=== PATIENT | female | born 1955 | race Caucasian/White ===

== ENCOUNTER 2018-09-22 09:44 | Observation (INO) | payer BC, SELFPAY ==
[2018-09-22] VITALS (12 sets, daily range): BP systolic 108–154; BP diastolic 75–91; PULSE 80–135; RESP 18; TEMP 36.7–37.1; O2SAT 93–99; BMI 33.7; BMI 34.0
[2018-09-22] MEDS: 0.9% Normal Saline 1,000 ML 1000 ML IV (10:44)
[2018-09-22] MEDS: Ondansetron 4 MG/2 ML Vial IV ×3 (10:44→22:54)
[2018-09-22 11:06] LABS: Absolute Lymphocyte Count 2.96 X10^3/ul (0.83-4.51); Absolute Neutrophil Count 6.9 X10^3/uL (2.0-7.7); Basophil# 0.02 X10^3/uL; Basophil% 0.2 % (0-1); Eosinophil# 0.04 X10^3/uL; Eosinophils% 0.4 % (0-5); Hematocrit 49.2 % (37-47); Hemoglobin 16.6 g/dl (12.0-15.0); Lymphocyte # 2.96 X10^3/ul (4.0); Lymphocyte % 27.6 % (19-41); Mean Corp Hgb Conc 33.7 g/gl (32-36); Mean Corpuscular Hgb 29.8 pg (27.0-32.0); Mean Corpuscular Volume 88.3 fL (81-99); Mean Platelet Vol. 10.8 fl (6.2-12.0); Monocyte# 0.83 X10^3/uL; Monocyte% 7.7 % (0-10); Neutrophil # 6.86 X10^3/uL (2.7-7.7); Neutrophil % 63.8 % (47-70); Platelet Count 243 K/mm3 (150-450); RBC Distribution Width CV 13.5 % (11.6-14.6); RBC Distribution Width SD 43.6 fl (35.1-43.9); Red Blood Count 5.57 M/mm3 (4.2-5.4); White Blood Count 10.7 K/mm3 (4.4-11.0)
[2018-09-22 11:09] LABS: POSITIVE COUNT NO; POSITIVE DIFFERENTIAL NO; POSITIVE MORPHOLOGY NO
[2018-09-22 11:14] LABS: AST(SGOT) 21 U/L (15-37); Alanine Aminotransfer ALT/SGPT 20 U/L (13-56); Albumin, Serum 3.9 g/dL (3.2-5.0); Alkaline Phosphatase 99 U/L (45-117); Anion Gap 12 (5-15); BUN 33 mg/dL (7-18); BUN/Creat Ratio 20.9 RATIO (10-20); Calcium,Total 9.5 mg/dL (8.5-10.1); Chloride 96 mmol/L (98-107); Creatinine, Serum 1.58 mg/dL (0.55-1.02); EST Glomerular Filtration Rate 35 mL/min (>60); Est Glom Filt Rate - Afr Amer 43 mL/min (>60); Estimated Creatinine Clearance 31.88 ml/min; Globulin 4.1 g/dL (2.2-4.2); Glucose 123 mg/dL (74-106); Potassium 4.2 mmol/L (3.5-5.1); Sodium Level 136 mmol/L (136-145)
--- NOTE | 2018-09-22 11:33 | ED.VISSUMM ---
- ER Visit Summary Date of Service: 09/22/18 Chief Complaint: Sent from Dr. Felicia Gallegos's office because of nausea, vomiting diarrhea History of Present Illness: The patient is a 63 F who reports nausea, vomiting diarrhea with abdominal pain for 1-2 weeks. She is not had diarrhea in 3 days. She reports vomiting several times to many times a day. She gets orthostatic symptoms. She complains of dry mouth and thirst. She states her urine is very concentrated this morning and minimal urine output. She states that had an odor. She denies liver disease. She states she has not smoked in the past couple of days because of tobacco taste terrible . She has no history of hepatitis. She denies fever, chills night sweats. She denies weight gain or weight loss. She denies visual, ocular auditory symptoms. She denies chest pain or palpitations. She does claim of chronic cough and shortness of breath. She is a smoker 1/2 pack/day. positive for decreased urine output and dark urine otherwise negative. Denies myalgias arthralgias or back pain. Denies headache, anesthesia, paresthesia or motor weakness. She denies of generalized weakness. She denies problems with bleeding or bruising. She denies urticaria, angioedema or anaphylaxis. Past medical history of coronary disease/[place], type 2 diabetes, hypertension hypercholesterolemia. She reports multiple prior surgeries. Last creatinine is 0.7. Physical Examination: Vital signs remarkable for blood pressure 152/83 and heart rate of 117. Head is atraumatic normocephalic. Pupils are equal round reactive. Extraocular muscles are intact. TMs are pearly white with landmarks noted. Nares patent with no drainage. Posterior pharynx without erythema or exudate. Uvula is midline. Tongue and buccal mucosa are dry. There is no dysphonia or dysphasia. Trachea is midline. There is no stridor with auscultation of the neck. Heart is rapid and regular without murmur, gallop or rub. S1 and S2 are normal. Lungs are clear to auscultation with good movement of air bilaterally. Abdomen minimal tenderness without guarding or rebound. Bowel sounds are slightly increased. There is evidence of umbilical or inguinal hernia. There is no CVA tenderness noted. Lower extremity mild edema. There is stigmata of peripheral arterial disease. Neuro exam is nonfocal. Test Results: CBC remarkable for hemoconcentration with an H&H 16.6 and 49.2. Basic metabolic panel is marked for BUN of 33 and a creatinine of 1.58. BUN to creatinine ratio is greater than 21 consistent with prerenal azotemia patient has not urinated after a liter of normal saline. She still complains of nausea. Emergency Department Course and Treatment: IV fluids, antiemetic and appropriate blood work to assess blood sugar since she is diabetic renal function electrolytes as well as CBC. Treatment Plan: IV hydration and antiemetics Disposition: 23 observation medical surgical unit Impression: 1. Abdominal pain with nausea, vomiting diarrhea 2. Severe dehydration 3. Acute kidney injury secondary to #1 4. Hemoconcentration secondary to #1 This note was generated with [employer] dictation software. It may contain incorrect words, spelling, and punctuation that were not noted in review of the chart prior to signing ED Disposition - Plan for ED Patient: Referrals: Felicia Glalegos MD [Primary Care Provider] -
--- NOTE | 2018-09-22 11:36 | ED.DCSUM_ITS ---
- ER Visit Summary Date of Service: 09/22/18 Chief Complaint: Sent from Dr. Felicia Gallegos's office because of nausea, vomiting diarrhea History of Present Illness: The patient is a 63 F who reports nausea, vomiting diarrhea with abdominal pain for 1-2 weeks. She is not had diarrhea in 3 days. She reports vomiting several times to many times a day. She gets orthostatic symptoms. She complains of dry mouth and thirst. She states her urine is very concentrated this morning and minimal urine output. She states that had an odor. She denies liver disease. She states she has not smoked in the past couple of days because of tobacco taste terrible . She has no history of hepatitis. She denies fever, chills night sweats. She denies weight gain or weight loss. She denies visual, ocular auditory symptoms. She denies chest pain or palpitations. She does claim of chronic cough and shortness of breath. She is a smoker 1/2 pack/day. positive for decreased urine output and dark urine otherwise negative. Denies myalgias arthralgias or back pain. Denies headache, anesthesia, paresthesia or motor weakness. She denies of generalized weakness. She denies problems with bleeding or bruising. She denies urticaria, angioedema or anaphylaxis. Past medical history of coronary disease/[place], type 2 diabetes, hypertension hypercholesterolemia. She reports multiple prior surgeries. Last creatinine is 0.7. Physical Examination: Vital signs remarkable for blood pressure 152/83 and heart rate of 117. Head is atraumatic normocephalic. Pupils are equal round reactive. Extraocular muscles are intact. TMs are pearly white with landmarks noted. Nares patent with no drainage. Posterior pharynx without erythema or exudate. Uvula is midline. Tongue and buccal mucosa are dry. There is no dysphonia or dysphasia. Trachea is midline. There is no stridor with auscul tation of the neck. Heart is rapid and regular without murmur, gallop or rub. S1 and S2 are normal. Lungs are clear to auscultation with good movement of air bilaterally. Abdomen minimal tenderness without guarding or rebound. Bowel sounds are slightly increased. There is evidence of umbilical or inguinal hernia. There is no CVA tenderness noted. Lower extremity mild edema. There is stigmata of peripheral arterial disease. Neuro exam is nonfocal. Test Results: CBC remarkable for hemoconcentration with an H&H 16.6 and 49.2. Basic metabolic panel is marked for BUN of 33 and a creatinine of 1.58. BUN to creatinine ratio is greater than 21 consistent with prerenal azotemia patient has not urinated after a liter of normal saline. She still complains of nausea. Emergency Department Course and Treatment: IV fluids, antiemetic and appropriate blood work to assess blood sugar since she is diabetic renal function elect rolytes as well as CBC. Treatment Plan: IV hydration and antiemetics Disposition: 23 observation medical surgical unit Impression: 1. Abdominal pain with nausea, vomiting diarrhea 2. Severe dehydration 3. Acute kidney injury secondary to #1 4. Hemoconcentration secondary to #1 This note was generated with [employer] dictation software. It may contain incorrect words, spelling, and punctuation that were not noted in review of the chart prior to signing ED Disposition - Plan for ED Patient: Referrals: Felicia Gallegos MD [Primary Care Provider] -
[2018-09-22] MEDS: Metoclopramide 10 MG/2 ML Vial 5 MG IV (11:53)
[2018-09-22 12:04] LABS: Mucous, Urine 0 SEEN /hpf (<or=2+)
[2018-09-22 12:05] LABS: Color, Urine Yellow (Yellow); Glucose, Dipstick Normal (Normal); Ketone-Dipstick 50 mg/dl (Negative); Leukocyte Esterase-Dipstick 25 /ul (Negative); Nitrite-Dipstick Negative (Negative); Occult Blood-Urine 50 /ul (Negative); Protein-Dipstick 30 mg/dl (Negative); Urine Clarity Cloudy (Clear); Urine Urobilinogen 4 mg/dl (Normal)
[2018-09-22 12:07] LABS: Urine Bilirubin Dipstick 3 mg/dL (Negative)
--- NOTE | 2018-09-22 12:12 | PCM.HP.STD ---
Problem List (1) Intractable nausea and vomiting Status: Acute (2) Acute kidney injury Status: Acute (3) Pre-diabetes Status: Chronic (4) Coronary artery disease Status: Chronic Comment: Without prior cardiac interventions. (5) Tobacco abuse Status: Chronic (6) Hyperlipidemia Status: Chronic Qualifiers: (7) Hypertension Status: Chronic Qualifiers: History of Present Illness Date of Admission: 09/22/18 Chief Complaint: Nausea, vomiting and diarrhea. The patient is a 63 year old F with past medical history as mentioned above was sent from her PCPs office for intractable nausea and vomiting with diarrhea over the last 2 and half weeks. Her illness started around 2 weeks ago with intermittent episodes of nausea and vomiting, started all of a sudden without precipitating factors, associated with mild diarrhea with small amount of liquid stool without blood and without aggravating or relieving factors. She mentioned that those episodes comes every 3-4 days and they tend to resolve spontaneously. This time, she started to get sick again over the last several days with intractable nausea and vomiting, had a couple of times of diarrhea 2 days ago that was stopped. Denies significant abdominal pain. She denies fever or chills. She denied urinary symptoms. She denied chest pain, shortness of breath, palpitation, dizziness or lightheadedness. She had a history of CAD without prior cardiac interventions and she has been on aspirin, Plavix, metoprolol and lisinopril. She has history of hypertension and seemed to be under control with Norvasc, lisinopril and metoprolol. Recently, she was diagnosed with prediabetes and she was commended for diet control and she was not started on any diabetic medications. In the emergency department, patient was tachycardic, blood pressure slightly elevated, other vital signs were stable and she was afebrile. Her routine blood work was remarkable for hemoglobin 16.6 g/dL indicating hemoconcentration, BUN of 33 and creatinine of 1.58. Blood glucose was 123. LFT was normal. Urinalysis revealed cloudy urine, negative for nitrite, there was only 25 leukocyte esterase and pending WBC and bacteria in the urine. She is being admitted for acute kidney injury likely prerenal secondary to intractable nausea and vomiting which could be due to gastritis versus viral gastroenteritis. Past Medical History Past Medical History (Chronic Problems): Chronic Problems (Last Updated 09/22/18 @ 12:12 by Mesfin Early MD) Pre-diabetes (Chronic) Coronary artery disease (Chronic) Without prior cardiac interventions. Tobacco abuse (Chronic) Hyperlipidemia (Chronic) Hypertension (Chronic) Atherosclerotic heart disease of [place] coronary artery without angina pectoris (Chronic) Medical History: Medical History (Last Updated 09/22/18 @ 12:11 by Mesfin Early MD) Tobacco abuse (Chronic) Z72.0 Hyperlipidemia (Chronic) E78.5 Hypertension (Chronic) I10 Atherosclerotic heart disease of [place] coronary artery without angina pectoris (Chronic) I25.10 Pancreatitis K85.90 Allergies hydrochlorothiazide Adverse Reaction (Severe, Verified 09/22/18 10:35) reoccurring pancreatitis Ttxzsro-Zha-Zxh Reductase Inhibitor Adverse Reaction (Severe, Verified 09/22/18 10:35) reoccurring pancreatitis Gadolinium-MRI Contrast Medium [Gadolinium-Contrast Medium - MRI] Adverse Reaction (Verified 09/22/18 10:35) Vomiting Home Medications: Ambulatory Orders Medication Instructions Recorded Aspirin [Aspirin, Baby] 81 mg PO DAILY@0800 12/07/13 cholecalciferol (vitamin D3) 5,000 5,000 unit PO QDAY 12/25/17 unit capsule furosemide 20 mg tablet 20 mg PO QDAY PRN 12/25/17 amlodipine 10 mg tablet 10 mg PO DAILY #30 tab 04/17/18 lisinopril 40 mg tablet 40 mg PO QDAY #30 tab 04/17/18 metoprolol tartrate 25 mg tablet 25 mg PO BID #60 tab 04/17/18 clopidogrel 75 mg tablet 75 mg PO DAILY #90 tab 05/05/18 Surgical History: Surgical History (Last Reviewed 12/25/17 @ 14:54 by Sanjuanita Rand) History of bilateral salpingo-oophorectomy Z90.79, Z90.722 History of total hysterectomy Z90.710 Surgical History: hysterectomy, - - Resection of skin cancer. 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 Lives: Spouse/ Significant Other Smoking Status: Current every day smoker Tobacco Use: Cigarettes Alcohol: None Drugs: None - *Family History Maternal Family History: Family History (Last Reviewed 12/25/17 @ 14:54 by Sanjuanita Rand) Mother Lung cancer Father CAD (coronary artery disease) Hx of CABG Abdominal aortic aneurysm (AAA) Hypertension Brother CAD (coronary artery disease) Myocardial infarction Hypertension Hx of CABG History Items: Cancer - of lung cancer., Heart Disease Paternal Family History: Family History (Last Reviewed 12/25/17 @ 14:54 by Sanjuanita Rand) Mother Lung cancer Father CAD (coronary artery disease) Hx of CABG Abdominal aortic aneurysm (AAA) Hypertension Brother CAD (coronary artery disease) Myocardial infarction Hypertension Hx of CABG History Items: Cancer - Diet of throat cancer., Heart Disease Sibling Family History: Family History (Last Reviewed 12/25/17 @ 14:54 by Sanjuanita Rand) Mother Lung cancer Father CAD (coronary artery disease) Hx of CABG Abdominal aortic aneurysm (AAA) Hypertension Brother CAD (coronary artery disease) Myocardial infarction Hypertension Hx of CABG History Items: Heart Disease Review of Systems Constitutional: Reports: Anorexia. Denies: Chills, Fever, Weakness Eyes: Denies: Blurred vision, Double vision, Drainage, Redness HEENT: Denies: Difficulty Hearing, Ear Pain, Eye Pain, Nasal Congestion, Sore Throat Cardiovascular: Denies: Chest Pain, Chest Pressure, Chest Tightness, Heaviness, Light Headedness, Palpitations, Syncope Respiratory: Denies: Cough, Pleuritic Pain, Shortness of Breath, Sputum production, Wheezing Gastrointestinal: Reports: Diarrhea, Nausea, Vomiting. Denies: Abdominal Pain, Constipation, Hematochezia Genitourinary: Reports: - - Complaint of decreased urine output.. Denies: Dysuria, Frequency, Hematuria Musculoskeletal: Denies: Arm Pain, Back Pain, Foot Pain Skin: Denies: Dryness, Rash Neurological: Denies: Balance problems, Double vision, Change in Speech, Slurred speech, Confusion, Focal weakness, Incoordination, Numbness Psychiatric: Denies: Anxiety, Depression Endocrine: Denies: Change in Body Habitus, Polydipsia VTE Information - Inpt Only VTE Present on Admission: No VTE Mechan Device Prophylaxis: None VTE Pharm Prophylaxis ordered?: Yes Patient Problems: Active and Suspected Problems (Last Updated 09/22/18 @ 12:12 by Mesfin Early MD) Intractable nausea and vomiting (Acute) Acute kidney injury (Acute) - Physical Exam General: Alert, Oriented x3, Cooperative, No apparent distress HEENT: Atraumatic, PERRLA, EOMI, Normocephalic Oral: Moist Mucosa, No Gingival or Mucosal Lesions/ Ulcerations Neck: No JVD, Negative Carotid Bruits, Trachea Midline, Thyroid Normal Size and Texture Lungs: Clear to auscultation, No rhonchi, No wheeze, No rales, Diminished Cardiovascular: Regular rate, Regular Rhythm, Normal S1, Normal S2, PMI Normal, Tachycardic Abdomen: Bowel Sounds Present, Soft, Non-Distended, No Hepato-splenomegaly, Tender - Minimal epigastric tenderness, no guarding or rigidity. Extremities: No clubbing, No cyanosis, No edema Skin: No rashes, No breakdown Lymphatic: No Cervical, Supraclavicular, or Inguinal Adenopathy Neurological: Cranial nerves II-XII grossly intact, Motor Exam 5/5 strength throughout Psych/Mental Status: Normal Affect, Appropriate, Alert and oriented to time, place, person, mood and affect Vital Signs Temp Pulse Resp BP Pulse Ox 98.2 F 117 H 18 152/83 H 99 09/22/18 09:45 09/22/18 09:45 09/22/18 09:45 09/22/18 09:45 09/22/18 09:45 Oxygen Delivery Method Room Air Weight: 196 lb 13.965 oz Body Mass Index (BMI) 33.7 Laboratory Tests Past 24 Hrs 09/22/18 09/22/18 09/22/18 10:40 10:40 12:00 WBC 10.7 RBC 5.57 H Hgb 16.6 H Hct 49.2 H MCV 88.3 MCH 29.8 MCHC 33.7 RDW 13.5 RDW Differential 43.6 Plt Count 243 MPV 10.8 Immature Gran % (Auto) 0.300 Neut % (Auto) 63.8 Lymph % (Auto) 27.6 [place] % (Auto) 7.7 Eos % (Auto) 0.4 Baso % (Auto) 0.2 Absolute Neuts (auto) 6.9 Absolute Lymphs (auto) 2.96 Total Counted Not Reportable Sodium 136 Potassium 4.2 Chloride 96 L Carbon Dioxide 28.0 Anion Gap 12 BUN 33 H Creatinine 1.58 H Estim Creat Clear Calc 31.88 Est GFR (MDRD) Af Amer 43 L Est GFR (MDRD) Non-Af 35 L BUN/Creatinine Ratio 20.9 H Glucose 123 H Calcium 9.5 Total Bilirubin 0.70 AST 21 ALT 20 Alkaline Phosphatase 99 Total Protein 8.0 Albumin 3.9 Globulin 4.1 Albumin/Globulin Ratio 1.0 Urine Color Yellow Urine Clarity Cloudy Urine pH 5.0 Ur Specific [place] 1.020 Urine Protein 30 H Urine Glucose (UA) Normal Urine Ketones 50 H Urine Occult Blood 50 H Urine Nitrite Negative Urine Bilirubin 3 H Urine Urobilinogen 4 H Ur Leukocyte Esterase 25 H Urine RBC Pending Urine WBC Pending Ur Squamous Epith Cells Pending Urine Bacteria Pending Urine Mucus Pending Assessment/Plan All Active Problems (Last Updated 09/22/18 @ 12:12 by Mesfin Early MD) Intractable nausea and vomiting (Acute) Acute kidney injury (Acute) This is a 63 years old female patient presented was referred to ED from her PCPs office for intractable nausea and vomiting with diarrhea over the last couple of weeks, found to have acute kidney injury and she is being admitted for evaluation and treatment. #1 intractable nausea and vomiting/diarrhea: Unclear duration, likely due to gastritis versus viral gastroenteritis. Patient denied any recent use of antibiotics or sick contacts. Diarrhea resolved. Her LFT is normal. Abdominal examination is benign except mild epigastric tenderness. Plan: Admit to [facility] floor, telemetry monitoring, clear liquids, advance diet as tolerated, IV fluids, IV Zofran and Phenergan alternatingly, stool for C. difficile if she started having diarrhea again, stool for enteric pathogens, will check serum lipase, repeat CBC and BMP tomorrow morning. Will consider CT scan abdomen and pelvis without contrast if symptoms do not improve. #2 acute kidney injury: Prerenal secondary to dehydration and intractable nausea vomiting. Baseline kidney function is normal. Plan: IV fluids, hold Lasix and lisinopril, and Protopic chart, repeat BMP tomorrow morning. #3 CAD: Without prior cardiac interventions. She denied any chest pain or shortness of breath. Plan to continue aspirin, Plavix and metoprolol, hold lisinopril. #4 hypertension: Blood pressure minimally elevated, continue Norvasc and metoprolol, IV hydralazine as needed. #5 prediabetes: Blood sugar has been stable, never been on treatment. Plan to monitor. #6 hyperlipidemia: She is not on any statins because of allergy. #7 DVT prophylaxis: Subcu Lovenox. This note was generated with [employer] software. It may contain incorrect words, spelling, and punctuation that were not noted in checking the note before signing. Code Visit Inpatient E&M: 77262 Init Hosp L3
[2018-09-22 12:13] LABS: Fine Granular Cast- Urine 0-5 SEEN /lpf (0-5); Hyaline Cast 5-10 SEEN /lpf (0-5)
[2018-09-22 12:14] LABS: Squamous Epithelial Cells - UA 10-25 SEEN /hpf (5-10)
[2018-09-22 12:16] LABS: Bacteria 2+ /hpf (None Seen); Red Blood Cells-Urine 0-5 SEEN /hpf (0-5); White Blood Cells 0-5 SEEN /hpf (0-5)
[2018-09-22 12:51] LABS: Lipase 241 U/L (73-393)
[2018-09-22] MEDS: proMETHazine 25 MG/ML Syringe 6.25 MG IV ×2 (12:58→19:37)
[2018-09-22] MEDS: 0.9% NaCl Peripheral Flush Adult/Peds IV ×2 (12:58→16:51)
[2018-09-22] MEDS: 0.9% Normal Saline 1,000 ML 125 ML IV ×2 (12:58→20:47)
[2018-09-22] MEDS: Metoprolol Tartrate 25 MG Tablet PO (16:50)
[2018-09-22] MEDS: Heparin Injection (Vial) 5,000 UNIT/ML VIAL 5000 UNIT SC (20:48)
[2018-09-23] MEDS: proMETHazine 25 MG/ML Syringe 12.5 MG IV ×2 (01:38→09:25)
[2018-09-23 02:07] VITALS: BP 156/80; PULSE 71; RESP 18; TEMP 37.1; O2SAT 97
[2018-09-23 03:06] VITALS: PULSE 74
[2018-09-23] MEDS: 0.9% Normal Saline 1,000 ML 125 ML IV (05:07)
[2018-09-23] MEDS: Heparin Injection (Vial) 5,000 UNIT/ML VIAL 5000 UNIT SC (05:16)
[2018-09-23] MEDS: Ondansetron 4 MG/2 ML Vial IV (05:20)
[2018-09-23 06:30] LABS: Basophil# 0.01 X10^3/uL; Basophil% 0.1 % (0-1); Eosinophil# 0.09 X10^3/uL; Eosinophils% 1.2 % (0-5); Hematocrit 45.1 % (37-47); Hemoglobin 14.9 g/dl (12.0-15.0); Lymphocyte % 34.2 % (19-41); Mean Corpuscular Hgb 29.4 pg (27.0-32.0); Mean Corpuscular Volume 89.1 fL (81-99); Mean Platelet Vol. 10.5 fl (6.2-12.0); Monocyte# 0.67 X10^3/uL; Monocyte% 9.2 % (0-10); Neutrophil # 4.01 X10^3/uL (2.7-7.7); Platelet Count 199 K/mm3 (150-450); RBC Distribution Width CV 13.4 % (11.6-14.6); RBC Distribution Width SD 43.5 fl (35.1-43.9); Red Blood Count 5.06 M/mm3 (4.2-5.4); White Blood Count 7.3 K/mm3 (4.4-11.0)
[2018-09-23 06:49] LABS: POSITIVE COUNT NO; POSITIVE DIFFERENTIAL NO; POSITIVE MORPHOLOGY NO
[2018-09-23 06:54] LABS: BUN 22 mg/dL (7-18); Creatinine, Serum 0.94 mg/dL (0.55-1.02); Estimated Creatinine Clearance 53.58 ml/min; Glucose 128 mg/dL (74-106)
[2018-09-23 06:55] LABS: Anion Gap 9 (5-15); BUN/Creat Ratio 23.3 RATIO (10-20); Calcium,Total 8.3 mg/dL (8.5-10.1); Chloride 104 mmol/L (98-107); EST Glomerular Filtration Rate 64 mL/min (>60); Est Glom Filt Rate - Afr Amer 77 mL/min (>60); Potassium 3.4 mmol/L (3.5-5.1); Sodium Level 139 mmol/L (136-145)
[2018-09-23 07:41] VITALS: O2SAT 95
[2018-09-23 09:16] VITALS: BP 129/81; PULSE 80; RESP 20; TEMP 36.8; O2SAT 94
[2018-09-23 09:24] VITALS: PULSE 80
[2018-09-23] MEDS: Aspirin 81 MG TAB.CHEW PO (09:24)
[2018-09-23] MEDS: Clopidogrel Bisulfate 75 MG Tablet PO (09:24)
[2018-09-23] MEDS: Metoprolol Tartrate 25 MG Tablet PO (09:24)
[2018-09-23] MEDS: amLODIPine 10 MG Tablet PO (09:24)
[2018-09-23] MEDS: 0.9% NaCl Peripheral Flush Adult/Peds IV (09:25)
--- NOTE | 2018-09-23 12:54 | PCM.DC ---
- Discharge Diagnoses Current Active Problems: Current Active and Chronic Problems (Last Updated 09/22/18 @ 12:12 by Mesfin Early MD) Intractable nausea and vomiting (Acute) Acute kidney injury (Acute) Pre-diabetes (Chronic) Coronary artery disease (Chronic) Without prior cardiac interventions. You will use the following diet at home:: Cardiac Your food should be the consistency of: Regular Discharge Activity: Return to Normal Activity Weight Bearing Status: Weight bearing as tolerated Call your doctor if you observe: Fever of 101 or Higher, Shortness of breath, Dizziness, Fainting spells, Chest pain, Increased palpitations (irregular heartbeat), Uncontrolled pain Allergies/Adverse Reactions: Allergies hydrochlorothiazide Adverse Reaction (Severe, Verified 09/22/18 10:35) reoccurring pancreatitis [id number] Reductase Inhibitor Adverse Reaction (Severe, Verified 09/22/18 10:35) reoccurring pancreatitis Gadolinium-MRI Contrast Medium [Gadolinium-Contrast Medium - MRI] Adverse Reaction (Verified 09/22/18 10:35) Vomiting Medications to take at Discharge Aspirin [Aspirin, Baby] 81 mg PO DAILY@0800 12/07/13 cholecalciferol (vitamin D3) 5,000 unit capsule 5,000 unit PO QDAY 12/25/17 furosemide 20 mg tablet 20 mg PO QDAY PRN 12/25/17 amlodipine 10 mg tablet 10 mg PO DAILY #30 tab 04/17/18 lisinopril 40 mg tablet 40 mg PO QDAY #30 tab 04/17/18 metoprolol tartrate 25 mg tablet 25 mg PO BID #60 tab 04/17/18 clopidogrel 75 mg tablet 75 mg PO DAILY #90 tab 05/05/18 Pantoprazole Sodium [Protonix] 40 mg PO DAILY #30 tab 09/23/18 proMETHazine tablet [Phenergan tablet] 25 mg PO Q8H PRN PRN #14 tab 09/23/18 The following prescriptions were given: proMETHazine tablet [Phenergan tablet] 25 mg PO Q8H PRN PRN #14 tab PRN Reason: Nausea/Vomiting Pantoprazole Sodium [Protonix] 40 mg PO DAILY #30 tab Primary Care Physician: Felicia Gallegos MD [Primary Care Provider] - Please follow up with your Primary Care Physician in: 1 WEEK. Test Results: Test results from this visit will be discussed in further detail at your follow-up appointment, if applicable.
--- NOTE | 2018-09-23 15:01 | DS.PCM_ITS ---
Discharge Date and Diagnosis Date of Admission: 09/22/18 Date of Discharge: 09/23/18 - Primary Discharge Diagnosis Active and Suspected Problems (Last Updated 09/22/18 @ 12:12 by Mesfin Early MD) #1 intractable nausea and vomiting (Acute) #2 acute kidney injury (Acute) - Secondary Discharge Diagnosis Chronic Problems (Last Updated 09/22/18 @ 12:12 by Mesfin Early MD) Pre-diabetes (Chronic) Coronary artery disease (Chronic) Without prior cardiac interventions. Tobacco abuse (Chronic) Hyperlipidemia (Chronic) Hypertension (Chronic) Atherosclerotic heart disease of [place] coronary artery without angina pectoris (Chronic) Hospital Course and Treatment Operations: None Procedures: None Summary of Care Provided: Patient seen and examined on the day of discharge and appeared to be stable to be discharged home. She denied any more nausea vomiting, feeling better. She tolerated regular diet. Her vital signs are stable. The patient is a 63 year old F presented to the emergency room because of intractable nausea and vomiting with diarrhea that has been going on for more than 2 weeks. She was sent to ED by her PCP office for evaluation and treatment. Patient mentioned that she was admitted a few months ago for the same complaint and she received IV treatment and she improved. Before this admission, she denied any sick contacts or recent travel and she denied recent use of antibiotics. She had a couple of times of diarrhea 2 days before the admission. Her routine blood work was remarkable for hemoconcentration with hemoglobin of 16.6 upon admission and creatinine of 1.58 and BUN of 33. This is attributed to severe dehydration secondary to intractable nausea and vomiting with diarrhea. Her acute illness could be due to viral gastroenteritis versus gastritis. LFT and lipase were normal. Stool for C. difficile was negative. She was treated with IV fluids, IV antiemetics and IV Protonix. Her symptoms improved very quickly which was not expected. Her abdominal examination was benign and there was no evidence of tenderness, guarding or rigidity. Patient discharged home in a stable medical condition, discharged on Protonix daily 40 mg, discharged on Phenergan as needed for nausea vomiting, continued on her chronic home medications without any changes, recommended follow-up PCP in 1 we ek and patient may need referral to GI as outpatient if her symptoms recur. - Physical Exam General: Alert, Oriented x3, Cooperative, No apparent distress HEENT: Atraumatic, PERRLA, EOMI, Normocephalic Oral: Moist Mucosa, No Gingival or Mucosal Lesions/ Ulcerations Neck: Supple, No JVD, Negative Carotid Bruits, Trachea Midline, Thyroid Normal Size and Texture Lungs: Clear to auscultation, No rhonchi, No wheeze, No rales, Diminished Cardiovascular: Regular rate, Regular Rhythm, Normal S1, Normal S2, PMI Normal Abdomen: Bowel Sounds Present, Soft, Non Tender, Non-Distended, No Hepato-splenomegaly, Obese Extremities: No clubbing, No cyanosis, No edema Skin: No rashes, No breakdown Lymphatic: No Cervical, Supraclavicular, or Inguinal Adenopathy Neurological: Cranial nerves II-XII grossly intact, Neuro grossly intact Psych/Mental Status: Normal Affect, Appropriate Vital Signs Temp Pulse Resp BP Pulse Ox 98.3 F 80 20 H 129/81 H 94 09/23/18 09:16 09/23/18 09:24 09/23/18 09:16 09/23/18 09:16 09/23/18 09:16 Oxygen Delivery Method Room Air Weight: 198 lb Body Mass Index (BMI) 34.0 Intake and Output for Last 24 Hours 09/21/18 09/22/18 09/23/18 23:59 23:59 23:59 Intake Total 1422 / 1422 818 / 818 Output Total 300 / 300 400 / 400 Balance 1122 / 1122 418 / 418 Microbiology Past 72 Hours 09/22/18 14:50 C. difficile DNA Amplification - Final Stool Laboratory Tests Past 24 Hrs 09/23/18 09/23/18 06:05 06:05 WBC 7.3 RBC 5.06 Hgb 14.9 Hct 45.1 MCV 89.1 MCH 29.4 MCHC 33.0 RDW 13.4 RDW Differential 43.5 Plt Count 199 MPV 10.5 Immature Gran % (Auto) 0.300 Neut % (Auto) 55.0 Lymph % (Auto) 34.2 [place] % (Auto) 9.2 Eos % (Auto) 1.2 Baso % (Auto) 0.1 Absolute Neuts (auto) 4.0 Absolute Lymphs (auto) 2.50 Total Counted Not Reportable Sodium 139 Potassium 3.4 L Chloride 104 Carbon Dioxide 26.0 Anion Gap 9 BUN 22 H Creatinine 0.94 Estim Creat Clear Calc 53.58 Est GFR (MDRD) Af Amer 77 Est GFR (MDRD) Non-Af 64 BUN/Creatinine Ratio 23.3 H Glucose 128 H Calcium 8.3 L Discharge Activity: Return to Normal Activity Weight Bearing Status: Weight bearing as tolerated Call your doctor if you observe: Fever of 101 or Higher, Shortness of breath, Dizziness, Fainting spells, Chest pain, Increased palpitations (irregular heartbeat), Uncontrolled pain Home Medications: Medications to take at Discharge Aspirin [Aspirin, Baby] 81 mg PO DAILY@0800 12/07/13 cholecalciferol (vitamin D3) 5,000 unit capsule 5,000 unit PO QDAY 12/25/17 furosemide 20 mg tablet 20 mg PO QDAY PRN 12/25/17 amlodipine 10 mg tablet 10 mg PO DAILY #30 tab 04/17/18 lisinopril 40 mg tablet 40 mg PO QDAY #30 tab 04/17/18 metoprolol tartrate 25 mg tablet 25 mg PO BID #60 tab 04/17/18 clopidogrel 75 mg tablet 75 mg PO DAILY #90 tab 05/05/18 Pantoprazole Sodium [Protonix] 40 mg PO DAILY #30 tab 09/23/18 proMETHazine tablet [Phenergan tablet] 25 mg PO Q8H PRN PRN #14 tab 09/23/18 Following Prescrptions Were Given to Patient: proMETHazine tablet [Phenergan tablet] 25 mg PO Q8H PRN PRN #14 tab PRN Reason: Nausea/Vomiting Pantoprazole Sodium [Protonix] 40 mg PO DAILY #30 tab Primary Care Physician: Felicia Gallegos MD [Primary Care Provider] - Please follow up with your Primary Care Physician in: 1 WEEK. Disposition: Home Minutes spent on discharge:: 26 Patient Condition:: Stable Medical Necessity - Tobacco Use Smoking Status: Current every day smoker Tobacco Use: Cigarettes Meaningful Use Info Meaningful Use Diagnoses (Choose all that apply): None applicable Code Visit OBSV E&M: 45002 Observation care discharge
== END 2018-09-23 14:50 | disposition home or self-care (01) ==
LOC: ED 10:58 → MS3 12:08
PROVIDERS: Admitting Provider Hospitalist; Emergency Provider Emergency Medicine; Family Provider Family Medicine; PCP Family Medicine; Visit Provider Hospitalist
DX: R11.2 Nausea with vomiting, unspecified (principal); E86.0 Dehydration; N17.9 Acute kidney failure, unspecified; R19.7 Diarrhea, unspecified; I25.2 Old myocardial infarction; I10 Essential (primary) hypertension; R10.9 Unspecified abdominal pain; R06.02 Shortness of breath; R73.03 Prediabetes; E78.5 Hyperlipidemia, unspecified; I25.10 Atherosclerotic heart disease of native coronary artery without angina pectoris; Z79.899 Other long term (current) drug therapy; Z79.82 Long term (current) use of aspirin; Z79.02 Long term (current) use of antithrombotics/antiplatelets; F17.210 Nicotine dependence, cigarettes, uncomplicated
CPT/HCPCS: 36415; 80048; 80053; 81001; 83690; 85025; 87493; 96361; 96365; 96366; 96372; 96375; 96376; 99218; 99282; 99406; J7030; A4216; G0378; J2405

== ENCOUNTER → 2018-09-30 09:15 | Outpatient (CLI) | payer BC, SELFPAY ==
[2018-09-22 12:19] VITALS: BMI 34.0
--- NOTE | 2018-09-30 09:39 | US_ITS ---
STUDY: ABDOMINAL ULTRASOUND - RIGHT UPPER QUADRANT REASON FOR VISIT: Female, 63 years old. Right upper quadrant pain. TECHNIQUE: Ultrasound evaluation of the right upper quadrant was performed with real-time and static davila-scale imaging. TECHNICAL QUALITY: Adequate. COMPARISON: None. FINDINGS: Liver: The liver measures 15.8 cm. There is increased echogenicity consistent with fatty infiltration. The bile ducts are within normal limits. There is hepatic color flow. The direction of portal flow is hepatopetal. There is no demonstrated mass lesion. Gallbladder: Normal distended gallbladder. The gallbladder wall measures 2 mm. There is a negative sonographic Cavazos's sign. There is no pericholecystic fluid. There are no gallstones. Common Bile Duct (C.B.D.): The common bile duct measures 6 mm. Pancreas: Normal size of the head, body and tail of the pancreas. There is normal echogenicity of the pancreas. There is no demonstrated pancreatic mass or cyst. Right Kidney: Normal size of the right kidney. The right kidney measures 10.7 cm. Normal renal cortex. There is no demonstrated renal mass or cyst. There is no right hydronephrosis. US/Abdomen Limited IMPRESSION: Fatty liver. Otherwise, unremarkable right upper quadrant ultrasound. Electronically Signed: Leopoldo Walsh, at 16:53 EST Tel , Service support ,
== END ==
LOC: US 09:17
PROVIDERS: Family Provider Family Medicine; PCP Family Medicine; Referring Provider Family Medicine; Visit Provider Family Medicine
DX: K76.0 Fatty (change of) liver, not elsewhere classified (principal); R10.11 Right upper quadrant pain
CPT/HCPCS: 76705

== ENCOUNTER → 2019-02-11 07:35 | Outpatient (CLI) | payer BC, SELFPAY ==
[2019-01-19 13:05] VITALS: BMI 33.7
[2019-02-11 09:04] LABS: AST(SGOT) 15 U/L (15-37); Alanine Aminotransfer ALT/SGPT 16 U/L (13-56); Albumin, Serum 3.8 g/dL (3.2-5.0); Alkaline Phosphatase 104 U/L (45-117); Bilirubin, Direct 0.09 mg/dL (0.00-0.30); Cholesterol 217 mg/dL (200); Globulin 3.9 g/dL (2.2-4.2); High Density Lipoprotein 45 mg/dL; Protein, Total 7.7 g/dL (6.4-8.2); Triglycerides 139 mg/dL; Very Low Density Lipoprotein 28 mg/dL (5-40)
== END ==
PROVIDERS: Family Provider Family Medicine; PCP Family Medicine; Referring Provider Internal Medicine Cardiovascular Disease; Visit Provider Internal Medicine Cardiovascular Disease
DX: E87.5 Hyperkalemia (principal)
CPT/HCPCS: 36415; 80061; 80076

== ENCOUNTER → 2020-04-25 11:04 | Outpatient (CLI) | payer BC, SELFPAY ==
[2020-04-20 09:58] VITALS: BMI 33.0
[2020-04-25 13:01] LABS: AST(SGOT) 15 U/L (15-37); Alanine Aminotransfer ALT/SGPT 15 U/L (13-56); Albumin, Serum 3.6 g/dL (3.2-5.0); Alkaline Phosphatase 110 U/L (45-117); Bilirubin, Direct 0.09 mg/dL (0.00-0.30); Cholesterol 174 mg/dL (200); Globulin 3.9 g/dL (2.2-4.2); High Density Lipoprotein 53 mg/dL; Protein, Total 7.5 g/dL (6.4-8.2); Triglycerides 103 mg/dL; Very Low Density Lipoprotein 21 mg/dL (5-40)
== END ==
PROVIDERS: PCP Family Medicine; Referring Provider Internal Medicine Cardiovascular Disease; Visit Provider Internal Medicine Cardiovascular Disease
DX: E78.00 Pure hypercholesterolemia, unspecified (principal)
CPT/HCPCS: 36415; 80061; 80076

== ENCOUNTER 2021-02-19 04:37 | Observation (INO) | payer BC, SELFPAY ==
[2020-04-20 09:58] VITALS: BMI 33.0
[2021-02-19] VITALS (12 sets, daily range): BP systolic 130–177; BP diastolic 72–100; PULSE 61–87; RESP 14–18; TEMP 35.9–37.1; O2SAT 92–99; BMI 30.2
--- NOTE | 2021-02-19 04:38 | RAD_ITS ---
HISTORY: dizziness EXAMINATION/TECHNIQUE: XR Chest 1 View AP view COMPARISON: None FINDINGS: LINES/DEVICES: environmental monitoring specialist leads. LUNGS: No overt pulmonary edema. No focal airspace consolidation. No sizable pleural effusion. No pneumothorax detected. MEDIASTINUM AND CARDIOVASCULAR STRUCTURES: Heart size within normal limits for imaging technique. Atherosclerotic calcifications along the aorta. BONES AND SOFT TISSUES: Skeletal degenerative changes. RAD/Chest 1 View (Portable) IMPRESSION: No radiographic evidence of acute cardiopulmonary disease. at 0658 Reported and signed by: Ayden Joseph MD Electronically Signed: Ayden Joseph MD at 6:56 EDT Tel , Service support ,
--- NOTE | 2021-02-19 04:38 | CT_ITS ---
HISTORY: dizziness EXAMINATION: CT Head or Brain W/O Contrast Injection TECHNIQUE: Multiple axial images were obtained of the brain without intravenous contrast. A radiation dose optimization technique was used for this scan. IV Contrast dosage and agent: None. COMPARISON: None FINDINGS: BRAIN PARENCHYMA: No intra- or extra-axial hemorrhage. No evidence of acute major territorial infarct. No intracranial mass or mass effect. Small chronic right caudate lacunar infarct. There is mild hypoattenuation of the deep cerebral white matter. Mild cerebral involutional changes are noted. CSF SPACES: Prominent cerebral sulci secondary to involutional changes. No hydrocephalus. Basal cisterns are patent. Intracranial atherosclerotic calcifications. CALVARIUM, SKULL BASE, PARANASAL SINUSES AND MASTOID AIR CELLS: Intact calvarium. Mild sinus mucosal thickening. Mastoid air cells are well pneumatized. ORBITS: No acute findings. ASPECTS Score for Acute Strokes: Not applicable. CT/Brain/Head without Contrast IMPRESSION: Mild cerebral atrophy and chronic small vessel ischemic changes. No evidence of acute intracranial process. Individualized dose optimization techniques were used for this CT. at 0737 Reported and signed by: Ayden Joseph MD Electronically Signed: Ayden Joseph MD at 7:36 EDT Tel , Service support ,
--- NOTE | 2021-02-19 04:38 | EKG12_ITS ---
Test Reason : VOMITTING Blood Pressure : / mmHG Vent. Rate : 065 BPM Atrial Rate : 065 BPM P-R Int : 180 ms QRS Dur : 066 ms QT Int : 428 ms P-R-T Axes : 056 023 049 degrees QTc Int : 445 ms Normal sinus rhythm Low voltage QRS Septal infarct , age undetermined Abnormal ECG Confirmed by ANTONIETA PAULA, DMITRIY ([id number]), staff editor FABIEN SOLIS ([id number]) on 02/20/2021 2:27:32 PM Referred By: SHARMILA Confirmed By:DMITRIY FUNG MD
[2021-02-19] MEDS: 0.9% Normal Saline 1,000 ML 1000 ML IV (04:40)
[2021-02-19] MEDS: Ondansetron 4 MG/2 ML Vial IV ×3 (04:40→10:44)
--- NOTE | 2021-02-19 04:40 | EDS_ITS ---
HPI History of Present Illness Chief Complaint: Nausea/Vomiting Detail of Chief Complaint: Dizziness Informant: patient and spouse/S.O. Onset/Context/Timing Onset: Today and Hours Context: Sudden Onset Timing: Continuous Current Severity: Moderate Maximum Severity: Moderate Narrative Narrative: 65-year-old female history of diabetes, prior AK with cardiac cath 2013. She denies any stents. States that she awoke acutely several hours ago with room spinning dizziness nausea and vomiting. She denies any headache. She denies any chest pain. She states she has had episodes like this before but is never been evaluated for them. She denies any falls or head trauma. She denies any chest pain or shortness of breath. No recent fever. No recent illness or hospitalization. Significant other is in the room and collaborates her story. Prior similar symptoms: Yes Recent Illness/Hospitalization: No [facility] Medical History (Updated 02/19/21 @ 05:[address] Arnoldo Rhoades MD) Atherosclerotic heart disease of [place] coronary artery without angina pectoris Essential hypertension Hyperlipidemia Hypertension Pancreatitis Tobacco abuse Home Medications aspirin 81 mg PO DAILY@0800 12/07/13 [History Last Taken Unknown] amlodipine 10 mg tablet 10 mg PO DAILY #90 tab 04/20/20 [Rx Last Taken Unknown] clopidogrel 75 mg tablet 75 mg PO DAILY #90 tab 04/20/20 [Rx Last Taken Unknown] lisinopril 40 mg tablet 40 mg PO DAILY #90 tab 04/20/20 [Rx Last Taken Unknown] metoprolol tartrate 25 mg tablet 12.5 mg PO BID #90 tab 12/29/20 [Rx Last Taken Unknown] meclizine 25 mg PO TID PRN #20 tab 02/19/21 [Rx Last Taken Unknown] ondansetron 4 mg PO Q6H PRN #10 tab 02/19/21 [Rx Last Taken Unknown] Allergy/AdvReac Type Severity Reaction Status Date / Time hydrochlorothiazide AdvReac Severe reoccurring Verified 04/20/20 09:58 pancreatitis Yfkqoah-Cpe-Ref Reductase AdvReac Severe reoccurring Verified 04/20/20 09:58 Inhibitor pancreatitis Gadolinium-MRI Contrast AdvReac Vomiting Verified 04/20/20 09:58 Medium [Gadolinium-Contrast Medium - MRI] Family History Mother Lung cancer Father CAD (coronary artery disease) Hx of CABG Abdominal aortic aneurysm (AAA) Hypertension Brother CAD (coronary artery disease) Myocardial infarction Hypertension Hx of CABG Surgical History History of bilateral salpingo-oophorectomy History of total hysterectomy Social History Smoking Status: Current every day smoker tobacco type: cigarettes alcohol intake: never substance use type: does not use ROS ROS ED ROS Narrative Denies recent illness. Complaining acutely of room spinning dizziness, nausea and vomiting. Review of Systems ROS Unobtainable: Denies due to encephalopathy Constitutional Constitutional ED: Denies chills or fever(s) Eyes Eyes: Denies change in vision ENT ENT ED: Denies ear pain or sore throat Cardiovascular Cardiovascular: Denies chest pain Respiratory/Chest Respiratory/Chest: Denies cough or dyspnea Gastrointestinal Gastrointestinal: Reports nausea and vomiting; Denies abdominal pain, constipation or melena Genitourinary Genitourinary ED: Denies dysuria Musculoskeletal Musculoskeletal: Denies myalgias Integumentary Denies rash Neurologic Neurologic: Denies headache(s) Psychiatric Psychiatric: Denies depression Endocrine Endocrinology: Denies polyuria Allergic/Immunologic Allergic/Immunologic ED: Denies urticaria EXAM Physical Exam Narrative Exam Narrative: Older female actively vomiting. Sitting in a wheelchair that were moving her into a bed. H EENT exam unremarkable. Pupils round reactive light. No facial droop. Normal speech. No signs of trauma. Neck nontender no meningismus. Lungs clear to auscultation bilaterally. Heart regular rhythm no murmur. Chest wall nontender. Abdomen soft nontender nondistended. Normal bowel sounds no peritoneal sign. No reproducible tenderness. Extremities moves all four. Calves are nontender without edema. Neurologically she is awake and alert. She is speaking without difficulty. No facial droop. Equal symmetrical 5 out of 5 ground crewman aircraft support strength. Dorsi plantar flexion intact. Const Vital Signs: 02/19/21 04:38 02/19/21 04:39 02/19/21 06:38 Temperature 97.1 F L Temperature Source Temporal Pulse Rate 64 72 61 Respiratory Rate 14 16 16 Blood Pressure 143/90 H 152/91 H 145/72 H Blood Pressure Mean 107 111 96 Pulse Ox 92 92 92 Oxygen Delivery Method Room Air Room Air Nasal Cannula Oxygen Flow Rate (L/min) 2 Positive well nourished, well developed and obese General Appearance ED: well developed and diaphoretic; Negative for cyanotic Nutritional Appearance: obese HEENT Reports moist mucous membranes Negative for trauma or tenderness Eyes PERRL and EOMs intact bilaterally Neck no lymphadenopathy, supple and no JVD General: Negative for tenderness Chest Wall inspection of chest normal and palpation of chest normal Resp normal respiratory effort and clear to auscultation bilaterally Cardio regular rate, regular rhythm, S1 normal heart sound, S2 normal heart sound and no murmurs GI normal to inspection, nondistended, normoactive bowel sounds, non-tender, non- distended and no masses Inspection: Negative for abdominal distention Auscultation: normoactive bowel sounds Palpation: soft; Negative for tender, guarding or rebound tenderness present Back/Spine no CVA tenderness Extremity normal to inspection General Extremety ED: Negative for edema or tenderness General Extremity: Negative for edema Neuro oriented x3 and CN's II-XII intact bilaterally Neuro Narrative: NIH score is zero. Sensorium / Orientation: alert; Negative for lethargic or stuporous Motor Exam: strength 5/5 throughout Psych mental status grossly normal Skin no rashes or lesions noted and no wounds MDM MDM MDM Narrative Medical decision making narrative: Older female presents with acute nausea and vomiting with room spinning dizziness. Clinically this sounds like it is vertigo. She will receive IV fluids and IV Zofran. Once her nausea improves to receive p.o. Valium. We will do a CAT scan and screening labs. I do not think at this time this is cardiac in etiology. Clinically she has no signs of an acute stroke with any type of he had a lateral wall weakness. Repeat exam at 5 AM patient was still having nausea and vomiting was given a second dose of Zofran. She has been unable to take anything by mouth as of this time. Initial labs are unremarkable. Patient was treated with 2 doses of Zofran and then a dose of Reglan for nausea. Nausea greatly improved she is able to hold down p.o. Valium. On repeat exam at 6:50 AM she is improving. She is tired from the medication and the p.o. Valium. But is improving. Both tympanic membranes are normal. We are awaiting her CAT scan to be done. Clinically I think this is vertigo. Both by exam and history. She is improving. Patient to be checked out to the morning physician. To check the CAT scan results. I have written home-going instructions for vertigo and a prescription for Zofran and Antivert to go to her pharmacy. All this will be discussed with the patient and her family at bedside. I reviewed her CAT scan of the brain without contrast no obvious gross abnormality. No bleed. Awaiting formal radiology interpretation. Lab Data Attestation: I reviewed the patient's lab results. Lab results narrative: CBC shows a white count 13.4 hemoglobin of 15. Electrolytes unremarkable gap of 7 normal creatinine. Liver enzymes unremarkable and lipase normal at 212. Glucose of 195. Labs: Laboratory Results - last 24 hr 02/19/21 02/19/21 02/19/21 04:43 04:43 04:49 WBC 13.4 H RBC 5.13 Hgb 15.6 H Hct 47.6 H MCV 92.8 MCH 30.4 MCHC 32.8 RDW Std Deviation 45.6 H RDW Coeff of [place] 13.3 Plt Count 252 MPV 10.6 Immature Gran % (Auto) 0.400 Neut % (Auto) 39.9 L Lymph % (Auto) 51.1 H [place] % (Auto) 5.8 Eos % (Auto) 2.4 Baso % (Auto) 0.4 Absolute Neuts (auto) 5.3 Absolute Lymphs (auto) 6.82 H Nucleated RBC % 0 Sodium 139 Potassium 3.7 Chloride 104 Carbon Dioxide 28.0 Anion Gap 7 BUN 16 Creatinine 0.92 Estim Creat Clear Calc 53.35 Est GFR (MDRD) Af Amer 79 Est GFR (MDRD) Non-Af 65 BUN/Creatinine Ratio 17.4 Glucose 195 H Calcium 9.4 Total Bilirubin 0.30 AST 14 L ALT 12 L Alkaline Phosphatase 99 Total Protein 8.0 Albumin 4.1 Globulin 3.9 Albumin/Globulin Ratio 1.1 Lipase 212 POC Glucose 188 H Radiography Chest X-Ray - ED: 1 View, Read by ED Physician, Heart, Lungs, Mediastinum, Bony Structures and No Acute Disease Diagnostic Testing: Radiology Impression Chest X-Ray 02/19/21 04:38 IMPRESSION: No radiographic evidence of acute cardiopulmonary disease. at 0658 Reported and signed by: Ayden Joseph MD Electronically Signed: Ayden Joseph MD at 6:56 EDT Tel , Service support , Portable 1 view chest x-ray interpreted by myself shows no acute abnormality. Normal cardiac silhouette mediastinum. No infiltrate. Rhythm Strip Rhythm Strip: Sinus Rhythm Rate: 65 Ectopy: None EKG Initial EKG: Attestation: I personally reviewed and interpreted this EKG as follows: Interpretation: Sinus Rhythm and No Acute Injury Pattern Comments: Normal sinus rhythm rate of 65 no acute signs of AK or ischemia. No obvious dysrhythmia. Prior EKG tracings: not available for review Discharge Plan Triage Chief Complaint: Nausea/Vomiting ED Provider: Arnoldo Rhoades Dx/Rx/DC Orders Clinical Impression: Vertigo, Intractable nausea and vomiting Instructions: ED Vertigo, Unspecified, ED Vomiting (Adult) Prescriptions: New meclizine 25 mg tablet 25 mg PO TID PRN (Reason: dizziness) Qty: 20 RF: 0 ondansetron 4 mg tablet,disintegrating 4 mg PO Q6H PRN (Reason: nausea and vomiting) Qty: 10 RF: 0 No Action clopidogrel 75 mg tablet 75 mg PO DAILY Qty: 90 RF: 4 amlodipine 10 mg tablet 10 mg PO DAILY Qty: 90 RF: 4 lisinopril 40 mg tablet 40 mg PO DAILY Qty: 90 RF: 4 aspirin 81 MG tablet,chewable 81 mg PO DAILY@0800 RF: 0 metoprolol tartrate 25 mg tablet 12.5 mg PO BID Qty: 90 RF: 3 Primary Care Provider: Felicia Gallegos Referrals: Felicia Gallegos MD [Primary Care Provider] - 1-2 Days if not improving Activity Restrictions/Additional Instructions: Plenty of fluids and rest. Increase diet slowly as tolerated. Zofran as needed for nausea. Antivert as needed for the dizziness. Follow-up with your doctor if not improving. Return emergency department if feeling worse. Disposition Disposition: Home, Self Care
[2021-02-19 04:53] LABS: Absolute Lymphocyte Count 6.82 X10^3/uL (0.83-4.51); Absolute Neutrophil Count 5.3 X10^3/uL (2.0-7.7); Basophil# 0.06 X10^3/uL; Basophil% 0.4 % (0-1); Differential Indicated SCAN CRITERIA MET; Eosinophil# 0.32 X10^3/uL; Eosinophils% 2.4 % (0-5); Hematocrit 47.6 % (37-47); Hemoglobin 15.6 g/dL (12.0-15.0); Lymphocyte # 6.82 X10^3/ul (0.83-4.51); Lymphocyte % 51.1 % (19-41); Mean Corp Hgb Conc 32.8 g/dL (32-36); Mean Corpuscular Hgb 30.4 pg (27.0-32.0); Mean Corpuscular Volume 92.8 fL (81-99); Mean Platelet Vol. 10.6 fl (6.2-12.0); Monocyte# 0.77 X10^3/uL; Monocyte% 5.8 % (0-10); NRBC Flagged by Analyzer 0 % (0-5); Neutrophil # 5.33 X10^3/uL (2.7-7.7); Neutrophil % 39.9 % (47-70); POSITIVE DIFFERENTIAL YES; POSITIVE MORPHOLOGY YES; Platelet Count 252 K/mm3 (150-450); RBC Distribution Width CV 13.3 % (11.6-14.6); RBC Distribution Width SD 45.6 fl (35.1-43.9); Red Blood Count 5.13 M/mm3 (4.2-5.4); White Blood Count 13.4 K/mm3 (4.4-11.0)
[2021-02-19 04:55] LABS: Bedside Glucose 188 mg/dL (70-110)
[2021-02-19 05:06] LABS: ALB/GLOB Ratio 1.1 RATIO (0.9-2.4); AST(SGOT) 14 U/L (15-37); Alanine Aminotransfer ALT/SGPT 12 U/L (13-56); Albumin, Serum 4.1 g/dL (3.2-5.0); Alkaline Phosphatase 99 U/L (45-117); Anion Gap 7 (5-15); BUN 16 mg/dL (7-18); BUN/Creat Ratio 17.4 RATIO (10-20); Calcium,Total 9.4 mg/dL (8.5-10.1); Chloride 104 mmol/L (98-107); Creatinine, Serum 0.92 mg/dL (0.55-1.02); EST Glomerular Filtration Rate 65 mL/min (>60); Est Glom Filt Rate - Afr Amer 79 mL/min (>60); Estimated Creatinine Clearance 53.35 ml/min; Globulin 3.9 g/dL (2.2-4.2); Glucose 195 mg/dL (74-106); Lipase 212 U/L (73-393); Potassium 3.7 mmol/L (3.5-5.1); Sodium Level 139 mmol/L (136-145)
[2021-02-19] MEDS: diazePAM 5 MG Tablet PO ×3 (05:45→17:43)
[2021-02-19] MEDS: Metoclopramide 10 MG/2 ML Vial 5 MG IV ×2 (05:58→11:37)
--- NOTE | 2021-02-19 10:36 | NURSING ---
DR RAYMUNDO IN ER
--- NOTE | 2021-02-19 10:47 | NURSING ---
MED SURG OBS DR RAYMUNDO INTRACTABLE VERTIGO
[2021-02-19] MEDS: DiphenhydrAMINE 50 MG/ML Syringe 12.5 MG IV (11:35)
--- NOTE | 2021-02-19 12:11 | PCM.HP.STD ---
Documented by User: Rupinder Medina NP, REGIONAL GEODETIC ADVISOR-C 02/19/21 12:17 HPI - General General Date of Admission: 02/19/21 Date of Service: 02/19/21 Chief Complaint: Dizziness, n/v HPI Narrative ISABELLE NAQVI, is a 65 F who presents to the emergency room due to dizziness, nausea and vomiting which began at 230 this morning. Patient states she has had 2 similar episodes over the past month which were less severe and resolved within a couple days. She states her symptoms are worse with movement and turning her head. She reports intractable nausea and vomiting as well as room spinning sensation. She denies abdominal pain, diarrhea. Denies unilateral weakness or focal deficits. Denies vision, speech changes. She has a past medical history of CAD, hypertension, hyperlipidemia, prediabetes. [facility] Medical History (Updated 02/19/21 @ 05:[address] Arnoldo Rhoades MD) Atherosclerotic heart disease of [place] coronary artery without angina pectoris Essential hypertension Hyperlipidemia Hypertension Pancreatitis Tobacco abuse Home Medications aspirin 81 mg PO DAILY@0800 12/07/13 [History Last Taken Unknown] amlodipine 10 mg tablet 10 mg PO DAILY #90 tab 04/20/20 [Rx Last Taken Unknown] clopidogrel 75 mg tablet 75 mg PO DAILY #90 tab 04/20/20 [Rx Last Taken Unknown] lisinopril 40 mg tablet 40 mg PO DAILY #90 tab 04/20/20 [Rx Last Taken Unknown] metoprolol tartrate 25 mg tablet 12.5 mg PO BID #90 tab 12/29/20 [Rx Last Taken Unknown] meclizine 25 mg PO TID PRN #20 tab 02/19/21 [Rx Last Taken Unknown] ondansetron 4 mg PO Q6H PRN #10 tab 02/19/21 [Rx Last Taken Unknown] Allergy/AdvReac Type Severity Reaction Status Date / Time hydrochlorothiazide AdvReac Severe reoccurring Verified 04/20/20 09:58 pancreatitis [id number] Reductase AdvReac Severe reoccurring Verified 04/20/20 09:58 Inhibitor pancreatitis Gadolinium-MRI Contrast AdvReac Vomiting Verified 04/20/20 09:58 Medium [Gadolinium-Contrast Medium - MRI] Family History Mother Lung cancer Father CAD (coronary artery disease) Hx of CABG Abdominal aortic aneurysm (AAA) Hypertension Brother CAD (coronary artery disease) Myocardial infarction Hypertension Hx of CABG Surgical History (Reviewed 02/19/21 @ 12:13 by Rupinder Medina REGIONAL GEODETIC ADVISOR, REGIONAL GEODETIC ADVISOR-C) History of bilateral salpingo-oophorectomy History of total hysterectomy Social History (Updated 02/19/21 @ 13:18 by Sheyla Jacobson) service: No Smoking Status: Current every day smoker tobacco type: cigarettes alcohol intake: never substance use type: does not use ROS Constitutional Constitutional: Denies change in weight, chills, fatigue, fever(s) or weakness Cardiovascular Cardiovascular: Denies chest pain, edema, lightheadedness, palpitations or syncope Respiratory/Chest Respiratory/Chest: Denies cough, dyspnea, productive cough, shortness of breath at rest, shortness of breath with exertion or wheezing Gastrointestinal Gastrointestinal: Reports nausea and vomiting; Denies abdominal pain, constipation or diarrhea Genitourinary Genitourinary: Denies burning urination, difficulty urinating, dysuria, hematuria, urinary frequency, urinary incontinence or urinary urgency Musculoskeletal Musculoskeletal: Denies back pain, joint pain or muscle weakness Integumentary Integumentary: Denies erythema, lesions, rash or wounds Neurologic Neurologic: Reports dizziness and other Details: Vertigo ; Denies abnormal speech, confusion, focal weakness, numbness, paresthesias, seizure-like activity or syncope Psychiatric Psychiatric: Denies anxiety or depression Hematologic/Lymphatic Hematologic/Lymphatic: Denies anemia, easy bleeding or easy bruising Allergic/Immunologic Allergic/Immunologic: Denies hives or asthma Vital Signs Vital Signs Vital Signs: 02/19/21 04:38 02/19/21 04:39 02/19/21 06:38 Temperature 97.1 F L Temperature Source Temporal Pulse Rate 64 72 61 Respiratory Rate 14 16 16 Blood Pressure 143/90 H 152/91 H 145/72 H Blood Pressure Mean 107 111 96 Blood Pressure Source Blood Pressure Position Blood Pressure Location Pulse Ox 92 92 92 Oxygen Delivery Method Room Air Room Air Nasal Cannula Oxygen Flow Rate (L/min) 2 02/19/21 09:05 02/19/21 10:01 02/19/21 10:46 Temperature 98.8 F Temperature Source Temporal Pulse Rate 87 Respiratory Rate 14 Blood Pressure 130/83 H 162/94 H 177/100 H Blood Pressure Mean 98 116 125 Blood Pressure Source Blood Pressure Position Blood Pressure Location Pulse Ox 98 99 96 Oxygen Delivery Method Room Air Room Air Room Air Oxygen Flow Rate (L/min) 02/19/21 11:21 Temperature 96.6 F L Temperature Source Temporal Pulse Rate 84 Respiratory Rate 18 Blood Pressure 151/74 H Blood Pressure Mean 99 Blood Pressure Source Monitor Blood Pressure Position Semi-Fowlers Blood Pressure Location Right Arm Pulse Ox 98 Oxygen Delivery Method Room Air Oxygen Flow Rate (L/min) Weight Weight: 176 lb 5.917 oz Body Mass Index (BMI) 30.2 Physical Exam Const alert, oriented x3 and no apparent distress Orientation / Consciousness: awake, oriented to person, oriented to place and oriented to time HEENT normocephalic and moist oral mucous membranes Eyes PERRL, EOMs intact bilaterally and conjunctivae normal Neck no lymphadenopathy Resp normal respiratory effort and clear to auscultation bilaterally Cardio regular rate, regular rhythm and no murmurs Peripheral Pulses: pulses 2+ throughout GI normal to inspection, nondistended, normoactive bowel sounds, non-tender and non-distended Extremity normal to inspection Skin no rashes or lesions noted Lesions: no lesions Rashes: no rashes Trauma: no lacerations or abrasions Neuro CN's II-XII intact bilaterally, no focal motor deficits, no sensory deficits noted and deep tendon reflexes 2+ bilaterally Psych mental status grossly normal and affect normal Results Lab / Micro Data Result Diagrams: 02/19/21 04:43 02/19/21 04:43 Labs: Laboratory Results - last 24 hr 02/19/21 04:43: WBC 13.4 H, RBC 5.13, Hgb 15.6 H, Hct 47.6 H, MCV 92.8, MCH 30.4, MCHC 32.8, RDW Std Deviation 45.6 H, RDW Coeff of [place] 13.3, Plt Count 252, MPV 10.6, Immature Gran % (Auto) 0.400, Neut % (Auto) 39.9 L, Lymph % (Auto) 51.1 H, [place] % (Auto) 5.8, Eos % (Auto) 2.4, Baso % (Auto) 0.4, Absolute Neuts (auto) 5.3, Absolute Lymphs (auto) 6.82 H, Nucleated RBC % 0 02/19/21 04:43: Sodium 139, Potassium 3.7, Chloride 104, Carbon Dioxide 28.0, Anion Gap 7, BUN 16, Creatinine 0.92, Estim Creat Clear Calc 53.35, Est GFR (MDRD) Af Amer 79, Est GFR (MDRD) Non-Af 65, BUN/Creatinine Ratio 17.4, Glucose 195 H, Calcium 9.4, Total Bilirubin 0.30, AST 14 L, ALT 12 L, Alkaline Phosphatase 99, Total Protein 8.0, Albumin 4.1, Globulin 3.9, Albumin/Globulin Ratio 1.1, Lipase 212 02/19/21 04:49: POC Glucose 188 H Rhythm Strip Rhythm Strip: Sinus Rhythm Rate: 65 Ectopy: None Radiology Impression Brain CT 02/19/21 04:38 IMPRESSION: Mild cerebral atrophy and chronic small vessel ischemic changes. No evidence of acute intracranial process. Individualized dose optimization techniques were used for this CT. at 0737 Reported and signed by: Ayden Joseph MD Electronically Signed: Ayden Joseph MD at 7:36 EDT Tel , Service support , Chest X-Ray 02/19/21 04:38 IMPRESSION: No radiographic evidence of acute cardiopulmonary disease. at 0658 Reported and signed by: Ayden Joseph MD Electronically Signed: Ayden Joseph MD at 6:56 EDT Tel , Service support , Assessment & Plan Assessment/Plan (1) Vertigo: PLAN: 1. Acute vertigo with intractable nausea, vomiting-brain CT with mild cerebral atrophy and chronic small vessel ischemic changes, no acute process. Scheduled Valium. As needed antiemetics. PT for vestibular therapy. 2. CAD with history of ischemic cardiomyopathy-follows with cardiology. On aspirin, Plavix, lisinopril, metoprolol. 3. Hypertension-stable, continue amlodipine, lisinopril, metoprolol. 4. Hyperlipidemia-not on statin. 5. Prediabetes-diet controlled. DVT prophylaxis- low risk, not indicated This patient was seen by GAVIN Parra under the supervision of Dr. Flores. Documented by User: Dr. Ayden Flores, 02/19/21 14:12 HPI - General General Date of Admission: 02/19/21 [facility] Medical History (Updated 02/19/21 @ 05:[address] Arnoldo Rhoades MD) Atherosclerotic heart disease of [place] coronary artery without angina pectoris Essential hypertension Hyperlipidemia Hypertension Pancreatitis Tobacco abuse Home Medications aspirin 81 mg PO DAILY@0800 12/07/13 [History Last Taken Unknown] amlodipine 10 mg tablet 10 mg PO DAILY #90 tab 04/20/20 [Rx Last Taken Unknown] clopidogrel 75 mg tablet 75 mg PO DAILY #90 tab 04/20/20 [Rx Last Taken Unknown] lisinopril 40 mg tablet 40 mg PO DAILY #90 tab 04/20/20 [Rx Last Taken Unknown] metoprolol tartrate 25 mg tablet 12.5 mg PO BID #90 tab 12/29/20 [Rx Last Taken Unknown] meclizine 25 mg PO TID PRN #20 tab 02/19/21 [Rx Last Taken Unknown] ondansetron 4 mg PO Q6H PRN #10 tab 02/19/21 [Rx Last Taken Unknown] Allergy/AdvReac Type Severity Reaction Status Date / Time hydrochlorothiazide AdvReac Severe reoccurring Verified 04/20/20 09:58 pancreatitis [id number] Reductase AdvReac Severe reoccurring Verified 04/20/20 09:58 Inhibitor pancreatitis Gadolinium-MRI Contrast AdvReac Vomiting Verified 04/20/20 09:58 Medium [Gadolinium-Contrast Medium - MRI] Family History (Reviewed 02/19/21 @ 12:13 by Rupinder Medina REGIONAL GEODETIC ADVISOR, REGIONAL GEODETIC ADVISOR-C) Mother Lung cancer Father CAD (coronary artery disease) Hx of CABG Abdominal aortic aneurysm (AAA) Hypertension Brother CAD (coronary artery disease) Myocardial infarction Hypertension Hx of CABG Surgical History (Reviewed 02/19/21 @ 12:13 by Rupinder Medina REGIONAL GEODETIC ADVISOR, REGIONAL GEODETIC ADVISOR-C) History of bilateral salpingo-oophorectomy History of total hysterectomy Social History (Updated 02/19/21 @ 13:18 by Sheyla Jacobson) service: No Smoking Status: Current every day smoker tobacco type: cigarettes alcohol intake: never substance use type: does not use Results Lab / Micro Data Result Diagrams: 02/19/21 04:43 02/19/21 04:43 Charges/Coding Addendum Addendum: Patient was seen and examined today independently of Rupinder Medina, she came to the emergency room today at [facility] with complaints of dizziness and nausea and vomiting. Patient also had one episode of diarrhea. Work-up in the emergency room included a CT scan of the brain which was unremarkable, patient's BUN and creatinine were normal. Patient's white blood cell count was slightly elevated at 13.4, patient's blood sugar was elevated at 195. Patient was given IV fluids and multiple medications for nausea while in the emergency room but she still complained of feeling nauseous and had continued vomiting. On examination she appeared unwell due to nausea and vomiting. Vital signs as documented. Skin warm and dry and without overt rashes. Neck without JVD, thyroid appears normal, trachea is midline, neck is supple. Lungs clear, normal air movement was noted. Heart exam notable for regular rhythm, normal sounds and absence of murmurs, rubs or gallops. Abdomen unremarkable and without evidence of organomegaly, masses, or abdominal aortic enlargement, bowel sounds are present in all 4 quadrants, no abdominal tenderness was noted. Extremities nonedematous, no cyanosis was noted, no clubbing was noted. Neuro: Cranial nerves II through XII are grossly intact, no focal motor deficits were noted, sensation to light touch and pinprick is intact, motor exam 5/5 throughout. Psych: Patient is alert and oriented x3, she does not appear anxious or depressed, she does not appear agitated. Patient will be placed in observation status on MedSurg 3, she will be given IV fluids and medications for nausea. I will place her on Valium 4 times a day for vertigo. I have reviewed Rupinder Medina's history and physical including her medical assessment and plan of care and endorse it. Visit Charges OBSV E&M: 14177 Initial observation care L3
[2021-02-19] MEDS: 0.9% Normal Saline 1,000 ML 125 ML IV ×2 (12:17→20:22)
[2021-02-19] MEDS: Metoprolol Tartrate 25 MG Tablet 12.5 MG PO (20:32)
[2021-02-20] VITALS: BP 137/80; PULSE 74; RESP 18; TEMP 36.2; O2SAT 99
[2021-02-20] MEDS: 0.9% Normal Saline 1,000 ML 125 ML IV ×2 (04:17→14:02)
[2021-02-20 06:03] VITALS: BP 156/92; PULSE 82; RESP 18; TEMP 36.2; O2SAT 96
[2021-02-20] MEDS: diazePAM 5 MG Tablet PO ×3 (06:04→11:00)
[2021-02-20 09:56] VITALS: BP 150/86; PULSE 89; RESP 18; TEMP 36.7; O2SAT 96
--- NOTE | 2021-02-20 10:20 | NURSING ---
pt still c/o nausea-has dry toast and gingerale she is working on prior to taking po am meds P.T. has worked w/ pt for dizziness and pt is up in chair
[2021-02-20 10:40] LABS: Bedside Glucose 103 mg/dL (70-110)
--- NOTE | 2021-02-20 10:43 | MRI_ITS ---
STUDY: MRI BRAIN WITHOUT CONTRAST REASON FOR EXAM: Female, 65 years old. intractable vertigo TECHNIQUE: Standardized multiplanar fat and water weighted pulse sequences were obtained. COMPARISON: None. FINDINGS: There is mild cerebral atrophy with widening of the extra-axial spaces and ventricular dilatation. There are a limited number of small white matter hyperintensities, distributed throughout the deep white matter tracts of the cerebral hemispheres, consistent with mild chronic white matter ischemic changes. There is no evidence for recent intracranial ischemia or other cause of cytotoxic edema on diffusion weighted imaging (DWI). Normal T2* images of the brain without demonstrated susceptibility artifact. There is no demonstrated hemosiderin stain. Normal bilateral basal ganglia. Normal thalami. There is no extra-axial fluid accumulation. Normal flow voids within the major intracranial circulation suggesting patency by spin echo criteria. Normal sella turcica, pituitary gland, infundibular stalk, optic chiasm and hypothalamus. Normal tectal plate and pineal gland. Normal midbrain, kyaw and medulla. Normal cerebellum. Normal basal cisterns. Normal bilateral temporal bones. Normal bilateral internal auditory canals. No demonstrated orbital abnormality, within the constraints of a routine brain study. Normal visualized paranasal sinuses. Normal calvarium and skull base. Normal visualized soft tissue structures. Normal visualized upper cervical spine. MRI/Brain without Contrast IMPRESSION: Involutional changes of the brain, as described above. No acute infarct. Electronically Signed: Albert Jewell MD at 13:17 EDT Tel , Service support ,
[2021-02-20] MEDS: proMETHazine 25 MG/ML Syringe 12.5 MG IM (10:56)
[2021-02-20 11:19] LABS: Hemoglobin A1c 5.9 % (3.8-5.6)
--- NOTE | 2021-02-20 12:08 | NURSING ---
pt to MRI
--- NOTE | 2021-02-20 12:35 | NURSING ---
pt remains off unit
--- NOTE | 2021-02-20 13:06 | NURSING ---
pt remains off unit
--- NOTE | 2021-02-20 13:38 | PCM.PN.HOSP ---
Documented by User: Rupinder Medina NP, CHANGE MANAGEMENT ADMINISTRATOR-C 02/20/21 13:42 Subjective Subjective Patient seen and examined. Reports continued nausea, vomiting and dizziness. Worse with movement. MRI negative for stroke. Objective Data Objective Data Vital Signs: Vital Signs Temp Pulse Resp BP Pulse Ox 98.0 F 89 18 150/86 H 96 02/20/21 09:56 02/20/21 09:56 02/20/21 09:56 02/20/21 09:56 02/20/21 09:56 Oxygen Flow Rate (L/min) 2 Oxygen Delivery Method Room Air Weight: 176 lb 5.917 oz Body Mass Index (BMI) 30.2 Intake & Output: Intake and Output for Last 24 Hours 02/18/21 02/19/21 02/20/21 23:59 23:59 23:59 Intake Total 2049 / 2049 2054.16 / 2054.16 Output Total 1300 / 1300 Balance 2049 754.16 / 754.16 Lab / Micro Data Result Diagrams: 02/19/21 04:43 02/19/21 04:43 Labs: Laboratory Results - last 24 hr 02/19/21 04:43: Hemoglobin A1c 5.9 H 02/20/21 10:32: POC Glucose 103 Radiography Diagnostic Testing: Radiology Impression Brain MRI 02/20/21 10:43 IMPRESSION: Involutional changes of the brain, as described above. No acute infarct. Electronically Signed: Albert Jewell MD at 13:17 EDT Tel , Service support , Rhythm Strip Rhythm Strip: Sinus Rhythm Rate: 65 Ectopy: None Physical Exam Const alert, oriented x3 and no apparent distress Orientation / Consciousness: awake, oriented to person, oriented to place and oriented to time HEENT normocephalic and moist oral mucous membranes Eyes PERRL, EOMs intact bilaterally and conjunctivae normal Neck no lymphadenopathy Resp normal respiratory effort and clear to auscultation bilaterally Cardio regular rate, regular rhythm and no murmurs Peripheral Pulses: pulses 2+ throughout GI normal to inspection, nondistended, normoactive bowel sounds, non-tender and non-distended Extremity normal to inspection Skin no rashes or lesions noted Lesions: no lesions Rashes: no rashes Trauma: no lacerations or abrasions Neuro CN's II-XII intact bilaterally, no focal motor deficits, no sensory deficits noted and deep tendon reflexes 2+ bilaterally Psych mental status grossly normal and affect normal Assessment & Plan Assessment/Plan (1) Vertigo: PLAN: 1. Acute vertigo with intractable nausea, vomiting-brain CT with mild cerebral atrophy and chronic small vessel ischemic changes, no acute process. Scheduled Valium. As needed antiemetics. PT for vestibular therapy. MRI negative for stroke. Continue supportive management. 2. CAD with history of ischemic cardiomyopathy-follows with cardiology. On aspirin, Plavix, lisinopril, metoprolol. 3. Hypertension-stable, continue amlodipine, lisinopril, metoprolol. 4. Hyperlipidemia-not on statin. 5. Prediabetes-diet controlled. DVT prophylaxis- low risk, not indicated This patient was seen by GAVIN Parra under the supervision of Dr. Flores. Documented by User: Dr. Ayden Flores DO 02/20/21 16:47 Objective Data Lab / Micro Data Result Diagrams: 02/19/21 04:43 02/19/21 04:43
[2021-02-20] MEDS: Aspirin 81 MG TAB.CHEW PO (14:08)
[2021-02-20 14:09] VITALS: PULSE 77
[2021-02-20] MEDS: Clopidogrel Bisulfate 75 MG Tablet PO (14:09)
[2021-02-20] MEDS: amLODIPine 10 MG Tablet PO (14:09)
[2021-02-20] MEDS: Metoprolol Tartrate 25 MG Tablet 12.5 MG PO (14:09)
[2021-02-20] MEDS: Lisinopril 40 MG Tablet PO (14:17)
--- NOTE | 2021-02-20 14:51 | PCM.DC ---
Discharge Instructions Diet Discharge Diet: Light diet - advance as tolerated Activity Discharge Activity: Return to Normal Activity Dressing / Incision Call your doctor if you observe: Shortness of breath, Dizziness and Chest pain Follow Up Care Test Results: Test results from this visit will be discussed in further detail at your follow-up appointment, if applicable. Discharge Plan Admission Admit Date/Time: 02/19/21 11:43 Primary Reason for Your Visit: Vertigo Attending Provider: Ayden Flores Primary Care Provider: Felicia Gallegos Instructions Additional Instructions / Restrictions: Plenty of fluids and rest. Increase diet slowly as tolerated. Zofran as needed for nausea. Antivert as needed for the dizziness. Follow-up with your doctor if not improving. Return emergency department if feeling worse. Discharge Orders/Prescriptions Prescriptions: New meclizine 25 mg tablet 25 mg PO TID PRN (Reason: dizziness) Qty: 20 RF: 0 ondansetron 4 mg tablet,disintegrating 4 mg PO Q6H PRN (Reason: nausea and vomiting) Qty: 10 RF: 0 diazepam 5 mg Tablet 5 mg PO Q6 PRN (Reason: vertigo) Qty: 10 RF: 0 Continued clopidogrel 75 mg tablet 75 mg PO DAILY Qty: 90 RF: 4 amlodipine 10 mg tablet 10 mg PO DAILY Qty: 90 RF: 4 lisinopril 40 mg tablet 40 mg PO DAILY Qty: 90 RF: 4 aspirin 81 MG tablet,chewable 81 mg PO DAILY@0800 RF: 0 metoprolol tartrate 25 mg tablet 12.5 mg PO BID Qty: 90 RF: 3 Referrals / Follow Up: Felicia Gallegos MD [Primary Care Provider] - 1-2 Days if not improving Disposition Disposition (needs filled in before D/C Order can be placed): Home, Self Care
--- NOTE | 2021-02-20 15:00 | DS.PCM_ITS ---
Documented by User: Rupinder Medina NP, [employer]ER-C 02/20/21 15:02 Providers Date of Admission: 02/19/21 Date of Discharge: 02/20/21 Primary Care Physician: Dr. Felicia Gallegos MD Reason For Visit: VERTIGO, NAUSEA AND VOMITING Diagnosis Discharge Diagnosis (1) Vertigo: Status: Acute Code(s): R42 - Dizziness and giddiness Medications at Discharge Home Medications aspirin 81 mg PO DAILY@0800 12/07/13 amlodipine 10 mg tablet 10 mg PO DAILY #90 tab 04/20/20 clopidogrel 75 mg tablet 75 mg PO DAILY #90 tab 04/20/20 lisinopril 40 mg tablet 40 mg PO DAILY #90 tab 04/20/20 metoprolol tartrate 25 mg tablet 12.5 mg PO BID #90 tab 12/29/20 meclizine 25 mg PO TID PRN #20 tab 02/19/21 ondansetron 4 mg PO Q6H PRN #10 tab 02/19/21 diazepam 5 mg PO Q6 PRN #10 tab 02/20/21 Hospital Course Operations None Procedures None Summary of Care Provided Minutes Spent on Discharge: 35 Hospital Course: Patient is a 65-year-old female admitted 02/19/2021 due to intractable nausea, vomiting and vertigo. 1. Acute vertigo with intractable nausea, vomiting-brain CT with mild cerebral atrophy and chronic small vessel ischemic changes, no acute process. MRI negative for stroke. Continue supportive management. As needed meclizine, Valium, antiemetics ordered at discharge. Continue vestibular therapy. Follow- up with PCP within 1 week. 2. CAD with history of ischemic cardiomyopathy-follows with cardiology. On aspirin, Plavix, lisinopril, metoprolol. 3. Hypertension-stable, continue amlodipine, lisinopril, metoprolol. 4. Hyperlipidemia-not on statin. 5. Prediabetes-diet controlled. Physical Exam Const alert, oriented x3 and no apparent distress Orientation / Consciousness: awake, oriented to person, oriented to place and oriented to time HEENT normocephalic and moist oral mucous membranes Eyes PERRL, EOMs intact bilaterally and conjunctivae normal Neck no lymphadenopathy Resp normal respiratory effort and clear to auscultation bilaterally Cardio regular rate, regular rhythm and no murmurs Peripheral Pulses: pulses 2+ throughout GI normal to inspection, nondistended, normoactive bowel sounds, non-tender and non-distended Extremity normal to inspection Skin no rashes or lesions noted Lesions: no lesions Rashes: no rashes Trauma: no lacerations or abrasions Neuro CN's II-XII intact bilaterally, no focal motor deficits, no sensory deficits noted and deep tendon reflexes 2+ bilaterally Psych mental status grossly normal and affect normal Patient seen and examined prior to discharge. Physical assessment as noted above. Patient is stable for discharge with follow up recommendations as noted above. This patient was seen by GAVIN Parra under the supervision of Dr. Flores. Weight / BMI Weight Weight: 176 lb 5.917 oz Body Mass Index (BMI) 30.2 ABG / Lab / Microbiology Data Result Diagrams: 02/19/21 04:43 02/19/21 04:43 Laboratory: Laboratory Results - last 24 hr 02/19/21 04:43: Hemoglobin A1c 5.9 H 02/20/21 10:32: POC Glucose 103 Radiography Diagnostic Testing: Radiology Impression Brain MRI 02/20/21 10:43 IMPRESSION: Involutional changes of the brain, as described above. No acute infarct. Electronically Signed: Albert Jewell MD at 13:17 EDT Tel , Service support , D/C Instructions Discharge Diet: Light diet - advance as tolerated Call your doctor if you observe: Shortness of breath, Dizziness and Chest pain Meaningful Use Info Meaningful Use Diagnoses (Choose all that apply): None applicable Discharge Plan Admission Admit Date/Time: 02/19/21 11:43 Primary Reason for Your Visit: Vertigo Attending Provider: Ayden Flores Primary Care Provider: Felicia Gallegos Instructions Additional Instructions / Restrictions: Plenty of fluids and rest. Increase diet slowly as tolerated. Zofran as needed for nausea. Antivert as needed for the dizziness. Follow-up with your doctor if not improving. Return emergency department if feeling worse. Discharge Orders/Prescriptions Prescriptions: New meclizine 25 mg tablet 25 mg PO TID PRN (Reason: dizziness) Qty: 20 RF: 0 ondansetron 4 mg tablet,disintegrating 4 mg PO Q6H PRN (Reason: nausea and vomiting) Qty: 10 RF: 0 diazepam 5 mg Tablet 5 mg PO Q6 PRN (Reason: vertigo) Qty: 10 RF: 0 Continued clopidogrel 75 mg tablet 75 mg PO DAILY Qty: 90 RF: 4 amlodipine 10 mg tablet 10 mg PO DAILY Qty: 90 RF: 4 lisinopril 40 mg tablet 40 mg PO DAILY Qty: 90 RF: 4 aspirin 81 MG tablet,chewable 81 mg PO DAILY@0800 RF: 0 metoprolol tartrate 25 mg tablet 12.5 mg PO BID Qty: 90 RF: 3 Referrals / Follow Up: Felicia Gallegos MD [Primary Care Provider] - 1-2 Days if not improving Disposition Disposition (needs filled in before D/C Order can be placed): Home, Self Care Documented by User: Dr. Ayden Flores DO 02/20/21 16:39 Providers Date of Admission: 02/19/21 Reason For Visit: VERTIGO, NAUSEA AND VOMITING Medications at Discharge Home Medications aspirin 81 mg PO DAILY@0800 12/07/13 amlodipine 10 mg tablet 10 mg PO DAILY #90 tab 04/20/20 clopidogrel 75 mg tablet 75 mg PO DAILY #90 tab 04/20/20 lisinopril 40 mg tablet 40 mg PO DAILY #90 tab 04/20/20 metoprolol tartrate 25 mg tablet 12.5 mg PO BID #90 tab 12/29/20 meclizine 25 mg PO TID PRN #20 tab 02/19/21 ondansetron 4 mg PO Q6H PRN #10 tab 02/19/21 diazepam 5 mg PO Q6 PRN #10 tab 02/20/21 ABG / Lab / Microbiology Data Result Diagrams: 02/19/21 04:43 02/19/21 04:43 Discharge Plan Admission Admit Date/Time: 02/19/21 11:43 Primary Reason for Your Visit: Vertigo Attending Provider: Ayden Flores Primary Care Provider: Felicia Gallegos Instructions Additional Instructions / Restrictions: Plenty of fluids and rest. Increase diet slowly as tolerated. Zofran as needed for nausea. Antivert as needed for the dizziness. Follow-up with your doctor if not improving. Return emergency department if feeling worse. Discharge Orders/Prescriptions Prescriptions: New meclizine 25 mg tablet 25 mg PO TID PRN (Reason: dizziness) Qty: 20 RF: 0 ondansetron 4 mg tablet,disintegrating 4 mg PO Q6H PRN (Reason: nausea and vomiting) Qty: 10 RF: 0 diazepam 5 mg Tablet 5 mg PO Q6 PRN (Reason: vertigo) Qty: 10 RF: 0 Continued clopidogrel 75 mg tablet 75 mg PO DAILY Qty: 90 RF: 4 amlodipine 10 mg tablet 10 mg PO DAILY Qty: 90 RF: 4 lisinopril 40 mg tablet 40 mg PO DAILY Qty: 90 RF: 4 aspirin 81 MG tablet,chewable 81 mg PO DAILY@0800 RF: 0 metoprolol tartrate 25 mg tablet 12.5 mg PO BID Qty: 90 RF: 3 Referrals / Follow Up: Felicia Gallegos MD [Primary Care Provider] - 1-2 Days if not improving Disposition Disposition (needs filled in before D/C Order can be placed): Home, Self Care Charges/Coding Addendum Addendum: Patient was seen and examined today independently of Rupinder Medina, earlier this morning she had significant nausea still, this is improved as the day progressed. We did an MRI of the patient's brain to rule out a small infarct, this MRI did not show evidence of an acute infarct. On examination she appeared in good health and spirits, she does not appear to be in any distress. Vital signs as documented. Skin warm and dry and without overt rashes. Neck without JVD, thyroid appears normal, trachea is midline, neck is supple. Lungs clear, normal air movement was noted. Heart exam notable for regular rhythm, normal sounds and absence of murmurs, rubs or gallops. Abdomen unremarkable and without evidence of organomegaly, masses, or abdominal aortic enlargement, bowel sounds are present in all 4 quadrants, no abdominal tenderness was noted. Extremities nonedematous, no cyanosis was noted, no clubbing was noted. Neuro: Cranial nerves II through XII are grossly intact, no focal motor deficits were noted, sensation to light touch and pinprick is intact, motor exam 5/5 throughout. Psych: Patient is alert and oriented x3, she does not appear anxious or depressed, she does not appear agitated. On 02/20/2021, patient appears stable for discharge home, she was given a prescr iption for antiemetics, Antivert, and Valium. I have reviewed Rupinder Medina's discharge summary including her medical assessment and plan of care and endorse it. Visit Charges OBSV E&M: [id number] Observation care discharge
[2021-02-20 15:43] VITALS: BP 152/90; PULSE 77; RESP 18; TEMP 36.7; O2SAT 95
== END 2021-02-20 15:49 | disposition home or self-care (01) ==
LOC: ED 10:45 → MS3 13:23
PROVIDERS: Emergency Medicine; Nurse Practitioner Family; Admitting Provider Internal Medicine; Emergency Provider Emergency Medicine; PCP Family Medicine; Visit Provider Internal Medicine
DX: R42 Dizziness and giddiness (principal); R11.2 Nausea with vomiting, unspecified; I25.2 Old myocardial infarction; E11.9 Type 2 diabetes mellitus without complications; E78.5 Hyperlipidemia, unspecified; I25.10 Atherosclerotic heart disease of native coronary artery without angina pectoris; I10 Essential (primary) hypertension; Z79.899 Other long term (current) drug therapy; Z79.82 Long term (current) use of aspirin; F17.210 Nicotine dependence, cigarettes, uncomplicated; Z79.02 Long term (current) use of antithrombotics/antiplatelets; I67.82 Cerebral ischemia
CPT/HCPCS: 70450; 70551; 71045; 80053; 82962; 83036; 83690; 85025; 93005; 96361; 96372; 96374; 96375; 96376; 97162; 99218; 99285; 99406; J7030; A4216; G0378; J2405

== ENCOUNTER 2022-01-12 19:03 | Emergency (ER) | payer BC, MEDICARE, SELFPAY ==
[2022-01-12 19:05] VITALS: BP 108/84; PULSE 100; RESP 28; TEMP 36.6; O2SAT 98; BMI 29.2
--- NOTE | 2022-01-12 19:28 | EKG12_ITS ---
Test Reason : DYSRHYTHMIA Blood Pressure : / mmHG Vent. Rate : 090 BPM Atrial Rate : 090 BPM P-R Int : 142 ms QRS Dur : 072 ms QT Int : 392 ms P-R-T Axes : 076 048 078 degrees QTc Int : 479 ms Sinus rhythm with Premature supraventricular complexes Otherwise normal ECG Confirmed by ANTONIETA PAULA, DMITRIY ([id number]), continuity editor FABIEN SOLIS ([id number]) on 01/15/2022 10:50:39 AM Referred By: JAYLEN Confirmed By:DMITRIY FUNG MD
[2022-01-12 19:48] LABS: Absolute Lymphocyte Count 3.04 X10^3/uL (0.83-4.51); Absolute Neutrophil Count 7.6 X10^3/uL (2.0-7.7); Basophil# 0.02 X10^3/uL; Basophil% 0.2 % (0-1); Eosinophil# 0.05 X10^3/uL; Eosinophils% 0.4 % (0-5); Hematocrit 46.9 % (37-47); Hemoglobin 16.1 g/dL (12.0-15.0); Lymphocyte # 3.04 X10^3/ul (0.83-4.51); Lymphocyte % 26.3 % (19-41); Mean Corp Hgb Conc 34.3 g/dL (32-36); Mean Corpuscular Hgb 29.9 pg (27.0-32.0); Mean Platelet Vol. 10.9 fl (6.2-12.0); Monocyte# 0.82 X10^3/uL; Monocyte% 7.1 % (0-10); NRBC Flagged by Analyzer 0 % (0-5); Neutrophil # 7.61 X10^3/uL (2.7-7.7); Neutrophil % 65.7 % (47-70); Platelet Count 265 K/mm3 (150-450); RBC Distribution Width CV 13.2 % (11.6-14.6); RBC Distribution Width SD 41.8 fl (35.1-43.9); Red Blood Count 5.39 M/mm3 (4.2-5.4); White Blood Count 11.6 K/mm3 (4.4-11.0)
[2022-01-12] MEDS: Ondansetron 4 MG/2 ML Vial IV (19:57)
[2022-01-12] MEDS: LORazepam 2 MG/ML Syringe 0.5 MG IV (19:57)
[2022-01-12] MEDS: 0.9% Normal Saline 1,000 ML 1000 ML IV (19:57)
[2022-01-12 20:07] LABS: AST(SGOT) 14 U/L (15-37); Alanine Aminotransfer ALT/SGPT 14 U/L (13-56); Albumin, Serum 4.2 g/dL (3.2-5.0); Alkaline Phosphatase 85 U/L (45-117); Anion Gap 9 (5-15); BUN 28 mg/dL (7-18); BUN/Creat Ratio 23.7 RATIO (10-20); Bilirubin, Direct 0.15 mg/dL (0.00-0.30); Calcium,Total 9.7 mg/dL (8.5-10.1); Chloride 97 mmol/L (98-107); Creatinine, Serum 1.18 mg/dL (0.55-1.02); EST Glomerular Filtration Rate 49 mL/min (>60); Est Glom Filt Rate - Afr Amer 59 mL/min (>60); Estimated Creatinine Clearance 41.04 ml/min; Globulin 3.6 g/dL (2.2-4.2); Glucose 138 mg/dL (74-106); Potassium 3.4 mmol/L (3.5-5.1); Protein, Total 7.8 g/dL (6.4-8.2); Sodium Level 136 mmol/L (136-145)
[2022-01-12 20:59] LABS: Bacteria 0 SEEN /hpf (None Seen); Mucous, Urine 0 SEEN /hpf (<or=2+)
[2022-01-12 21:01] LABS: Color, Urine Yellow (Yellow); Glucose, Dipstick Normal (Normal); Ketone-Dipstick 50 mg/dl (Negative); Leukocyte Esterase-Dipstick 25 /ul (Negative); Nitrite-Dipstick Negative (Negative); Occult Blood-Urine 150 /ul (Negative); Protein-Dipstick 30 mg/dl (Negative); Urine Bilirubin Dipstick Negative (Negative); Urine Clarity Sl. Cloudy (Clear); Urine Urobilinogen 1 mg/dl (Normal)
[2022-01-12 21:14] LABS: Hyaline Cast 10-25 SEEN /lpf (0-5); Red Blood Cells-Urine 0-5 SEEN /hpf (0-5); Squamous Epithelial Cells - UA 0-5 SEEN /hpf (5-10); White Blood Cells 0-5 SEEN /hpf (0-5)
[2022-01-12 21:25] VITALS: PULSE 73; RESP 20; O2SAT 96
--- NOTE | 2022-01-12 21:58 | EX.ED.DYSGE1 ---
HPI History of Present Illness Chief Complaint: Dizziness Informant: patient Onset/Context/Timing Onset: Days (10 days) Context: Gradual Onset Current Severity: Moderate Maximum Severity: Severe Narrative Narrative: Patient presents with a week and a half history of vertigo with nausea and vomiting. She states she is actually had vertigo for the last year but this flared up about 10 days ago. She feels that she is very dehydrated. She denies fever or chills. No diarrhea. PFSH PFSH Medical History Atherosclerotic heart disease of [place] coronary artery without angina pectoris Cardiomyopathy Coronary artery disease Essential hypertension Hyperlipidemia Hypertension Pancreatitis Sinus bradycardia Tobacco abuse Home Medications aspirin 81 mg PO DAILY@0800 12/07/13 [History Last Taken Unknown] metoprolol tartrate 25 mg tablet 12.5 mg PO BID #90 tab 12/29/20 [Rx Last Taken Unknown] meclizine 25 mg PO TID PRN #20 tab 02/19/21 [Rx Last Taken Unknown] ondansetron 4 mg PO Q6H PRN #10 tab 02/19/21 [Rx Last Taken Unknown] cholecalciferol (vitamin D3) 50 mcg (2,000 unit) capsule 50 mcg PO DAILY 04/26/21 [History Last Taken Unknown] lisinopril 40 mg tablet 40 mg PO DAILY #90 tab 04/28/21 [Rx Last Taken Unknown] amlodipine 10 mg tablet 10 mg PO DAILY #90 tab 05/15/21 [Rx Last Taken Unknown] clopidogrel 75 mg tablet 75 mg PO DAILY #90 tab 06/01/21 [Rx Last Taken Unknown] clopidogrel [Plavix] 75 mg PO DAILY 01/12/22 [History Last Taken Unknown] meclizine [Antivert] 25 mg PO BID PRN #14 tab 01/12/22 [Rx Last Taken Unknown] ondansetron 4 mg PO Q8H PRN #10 tab 01/12/22 [Rx Last Taken Unknown] Allergy/AdvReac Type Severity Reaction Status Date / Time hydrochlorothiazide AdvReac Severe reoccurring Verified 01/12/22 19:05 pancreatitis Pyelswj-HDM-YxR Reductase AdvReac Severe reoccurring Verified 01/12/22 19:05 Inhibitor pancreatitis [Ucdzjvi-Bli-Tiz Reductase Inhibitor] Gadolinium-MRI Contrast AdvReac Vomiting Verified 01/12/22 19:05 Medium [Gadolinium-Contrast Medium - MRI] Family History Mother Lung cancer Father CAD (coronary artery disease) Hx of CABG Abdominal aortic aneurysm (AAA) Hypertension Brother CAD (coronary artery disease) Myocardial infarction Hypertension Hx of CABG Surgical History History of bilateral salpingo-oophorectomy History of total hysterectomy Social History Smoking Status: Current every day smoker tobacco type: cigarettes alcohol intake: never substance use type: does not use caffeine: Yes Type: coffee ROS ROS ED Constitutional Constitutional ED: Denies chills or fever(s) Eyes Eyes: Denies blurry vision or change in vision ENT ENT ED: Denies ear pain, rhinorrhea or sore throat Cardiovascular Cardiovascular: Denies chest pain or palpitations Respiratory/Chest Respiratory/Chest: Denies cough or dyspnea Gastrointestinal Gastrointestinal: Reports nausea and vomiting; Denies abdominal pain Integumentary Denies rash Neurologic Neurologic: Denies headache(s) Psychiatric Psychiatric: Reports anxiety Allergic/Immunologic Allergic/Immunologic ED: Denies urticaria EXAM Physical Exam Const Vital Signs: 01/12/22 19:05 01/12/22 21:25 01/12/22 22:15 Temperature 98 F Temperature Source Temporal Pulse Rate 100 73 87 Respiratory Rate 28 H 20 H 18 Blood Pressure 108/84 H Blood Pressure Mean 92 Pulse Ox 98 96 98 Oxygen Delivery Method Room Air Room Air Positive well nourished and well developed General Appearance ED: well developed HEENT Reports dry mucous membranes Mouth ED: Yes dry mucous membranes Mouth: dry mucous membranes Eyes PERRL and EOMs intact bilaterally Neck supple Resp normal respiratory effort and clear to auscultation bilaterally Resp Narrative: Tachypneic Cardio regular rate and regular rhythm GI non-tender Auscultation: hypoactive bowel sounds Palpation: soft Extremity normal to inspection Neuro oriented x3 and no sensory deficits noted Sensorium / Orientation: alert Motor Exam: strength 5/5 throughout Psych Mood & Affect: anxious Skin no rashes or lesions noted MDM MDM MDM Narrative Medical decision making narrative: Patient is given IV fluids along with Ativan and Zofran. Lab work and urinalysis obtained. EKG ordered. Lab Data Attestation: I reviewed the patient's lab results. Labs: Laboratory Results - last 24 hr 01/12/22 01/12/22 01/12/22 19:22 19:22 20:50 WBC 11.6 H RBC 5.39 Hgb 16.1 H Hct 46.9 MCV 87.0 MCH 29.9 MCHC 34.3 RDW Std Deviation 41.8 RDW Coeff of Zoila 13.2 Plt Count 265 MPV 10.9 Immature Gran % (Auto) 0.300 Neut % (Auto) 65.7 Lymph % (Auto) 26.3 Real % (Auto) 7.1 Eos % (Auto) 0.4 Baso % (Auto) 0.2 Absolute Neuts (auto) 7.6 Absolute Lymphs (auto) 3.04 Nucleated RBC % 0 Sodium 136 Potassium 3.4 L Chloride 97 L Carbon Dioxide 30.0 Anion Gap 9 BUN 28 H Creatinine 1.18 H Estim Creat Clear Calc 41.04 Est GFR (MDRD) Af Amer 59 L Est GFR (MDRD) Non-Af 49 L BUN/Creatinine Ratio 23.7 H Glucose 138 H Calcium 9.7 Total Bilirubin 0.50 Direct Bilirubin 0.15 AST 14 L ALT 14 Alkaline Phosphatase 85 Total Protein 7.8 Albumin 4.2 Globulin 3.6 Urine Color Yellow Urine Clarity Sl. Cloudy Urine pH 6.0 Ur Specific [place] 1.020 Urine Protein 30 H Urine Glucose (UA) Normal Urine Ketones 50 H Urine Occult Blood 150 H Urine Nitrite Negative Urine Bilirubin Negative Urine Urobilinogen 1 H Ur Leukocyte Esterase 25 H Urine RBC 0-5 SEEN Urine WBC 0-5 SEEN Ur Squamous Epith Cells 0-5 SEEN Urine Bacteria 0 SEEN Hyaline Casts 10-25 SEEN Urine Mucus 0 SEEN EKG Initial EKG: Attestation: I personally reviewed and interpreted this EKG as follows: Interpretation: Sinus Rhythm (Sinus at 90 with no acute ischemia.) Treatment and Re-Evaluation Narrative: Lab work reveals mild elevation of white count to 11.6. Hemoglobin is concentrated at 16.1. Chemistry studies reveal mildly low potassium at 3.4. BUN is 28 creatinine is 1.18. LFTs normal. Urinalysis reveals casts but no acute infection. 50 ketones are noted. On repeat evaluation patient is resting much more comfortably. Test results are discussed. She is given prescription for Zofran and Antivert at home. We also discussed Fadia maneuvers to help when she gets her flares of vertigo. Return instructions are given. Discharge Plan Triage Chief Complaint: Dizziness ED Provider: Heidi Emery Dx/Rx/DC Orders Clinical Impression: Vertigo, Vomiting Instructions: ED Vertigo, Unspecified Prescriptions: New ondansetron 4 mg tablet,disintegrating 4 mg PO Q8H PRN (Reason: nausea and vomiting) Qty: 10 RF: 0 meclizine [Antivert] 25 mg tablet,chewable 25 mg PO BID PRN (Reason: dizziness) Qty: 14 RF: 0 No Action cholecalciferol (vitamin D3) 50 mcg (2,000 unit) capsule 50 mcg PO DAILY RF: 0 aspirin 81 MG tablet,chewable 81 mg PO DAILY@0800 RF: 0 meclizine 25 mg tablet 25 mg PO TID PRN (Reason: dizziness) Qty: 20 RF: 0 ondansetron 4 mg tablet,disintegrating 4 mg PO Q6H PRN (Reason: nausea and vomiting) Qty: 10 RF: 0 clopidogrel [Plavix] 75 mg Tablet 75 mg PO DAILY RF: 0 metoprolol tartrate 25 mg tablet 12.5 mg PO BID Qty: 90 RF: 3 lisinopril 40 mg tablet 40 mg PO DAILY Qty: 90 RF: 4 amlodipine 10 mg tablet 10 mg PO DAILY Qty: 90 RF: 4 clopidogrel 75 mg tablet 75 mg PO DAILY Qty: 90 RF: 4 Primary Care Provider: Felicia Gallegos Referrals: Felicia Gallegos MD [Primary Care Provider] - 1-2 Weeks Disposition Disposition: Home, Self Care Discharge Date/Time: 01/12/22 22:15
[2022-01-12 22:15] VITALS: PULSE 87; RESP 18; O2SAT 98
== END 2022-01-12 22:15 | disposition home or self-care (01) ==
PROVIDERS: Emergency Provider Emergency Medicine; PCP Family Medicine; Visit Provider Emergency Medicine
DX: R42 Dizziness and giddiness (principal); I42.9 Cardiomyopathy, unspecified; R11.10 Vomiting, unspecified; I10 Essential (primary) hypertension; F17.210 Nicotine dependence, cigarettes, uncomplicated; I25.10 Atherosclerotic heart disease of native coronary artery without angina pectoris; Z79.82 Long term (current) use of aspirin; Z79.899 Other long term (current) drug therapy
CPT/HCPCS: 80048; 80076; 81001; 85025; 93005; 96361; 96374; 96375; 99283; J7030; A4216; J2405

== ENCOUNTER 2022-01-14 10:26 | Emergency (ER) | payer BC, SELFPAY ==
[2022-01-14 10:28] VITALS: BP 156/83; PULSE 90; RESP 17; TEMP 36.1; O2SAT 98; BMI 29.2
--- NOTE | 2022-01-14 10:50 | EX.ED.DYSGE1 ---
HPI History of Present Illness Chief Complaint: Nausea/Vomiting Detail of Chief Complaint: Nausea and vomiting and now dry heaves Informant: patient and spouse/S.O. Onset/Context/Timing Onset: Weeks (Onset for approximately 2 weeks.) Context: Sudden Onset Timing: Intermittent Quality: Nausea and vomiting Location: GI Current Severity: Severe Maximum Severity: Severe Worsened by: Nothing specific Relieved by: Nothing Associated Symptoms Associated Symptoms: Nausea history of vertigo. She was seen for vertigo on Saturday. Narrative Narrative: Patient is a 66-year-old woman who presents for nausea vomiting. History was limited because patient is having dry heaves. She is not describing vertigo at the present time. She does have history of tenderness. She also has history of vertigo. She smokes marijuana 5 times a week for her vertigo'. She complains of being dry mouth and thirsty. She has not noted change in color of her urine. She denies decreased urination. She does give orthostatic symptoms. She denies headache. She denies decreased hearing. She denies change in vision. She denies cardiac respiratory symptoms. She denies diarrhea. Last bowel movement this morning and normal for her. Prior similar symptoms: Yes Recent Illness/Hospitalization: Yes PFSH [facility] Medical History Atherosclerotic heart disease of [place] coronary artery without angina pectoris Cardiomyopathy Coronary artery disease Essential hypertension Hyperlipidemia Hypertension Pancreatitis Sinus bradycardia Tobacco abuse Home Medications aspirin 81 mg PO DAILY@0800 12/07/13 [History Last Taken Unknown] metoprolol tartrate 25 mg tablet 12.5 mg PO BID #90 tab 12/29/20 [Rx Last Taken Unknown] meclizine 25 mg PO TID PRN #20 tab 02/19/21 [Rx Last Taken Unknown] ondansetron 4 mg PO Q6H PRN #10 tab 02/19/21 [Rx Last Taken Unknown] cholecalciferol (vitamin D3) 50 mcg (2,000 unit) capsule 50 mcg PO DAILY 04/26/21 [History Last Taken Unknown] lisinopril 40 mg tablet 40 mg PO DAILY #90 tab 04/28/21 [Rx Last Taken Unknown] amlodipine 10 mg tablet 10 mg PO DAILY #90 tab 05/15/21 [Rx Last Taken Unknown] clopidogrel 75 mg tablet 75 mg PO DAILY #90 tab 06/01/21 [Rx Last Taken Unknown] clopidogrel [Plavix] 75 mg PO DAILY 01/12/22 [History Last Taken Unknown] meclizine [Antivert] 25 mg PO BID PRN #14 tab 01/12/22 [Rx Last Taken Unknown] ondansetron 4 mg PO Q8H PRN #10 tab 01/12/22 [Rx Last Taken Unknown] capsaicin 1 applic TOPICAL .one PRN #60 g 01/14/22 [Rx Last Taken Unknown] metoclopramide HCl 10 mg PO 4X/DAY PRN #20 tab 01/14/22 [Rx Last Taken Unknown] Allergy/AdvReac Type Severity Reaction Status Date / Time hydrochlorothiazide AdvReac Severe reoccurring Verified 01/14/22 10:27 pancreatitis Pxxpewb-GAM-HdX Reductase AdvReac Severe reoccurring Verified 01/14/22 10:27 Inhibitor pancreatitis [Uphywfk-Vvy-Rty Reductase Inhibitor] Gadolinium-MRI Contrast AdvReac Vomiting Verified 01/14/22 10:27 Medium [Gadolinium-Contrast Medium - MRI] Family History Mother Lung cancer Father CAD (coronary artery disease) Hx of CABG Abdominal aortic aneurysm (AAA) Hypertension Brother CAD (coronary artery disease) Myocardial infarction Hypertension Hx of CABG Surgical History History of bilateral salpingo-oophorectomy History of total hysterectomy Social History (Updated 01/14/22 @ 10:[address] Jeffrey Sim MD) household members: spouse Smoking Status: Current every day smoker tobacco type: cigarettes alcohol intake: never substance use type: does not use caffeine: Yes Type: coffee ROS ROS ED Constitutional Constitutional ED: Denies chills, fever(s), subjective, sweats or weight loss Eyes Eyes: Denies blurry vision, change in vision or diplopia ENT ENT ED: Denies ear pain, rhinorrhea or sore throat Cardiovascular Cardiovascular: Denies chest pain, orthopnea, palpitations, paroxysmal nocturnal dyspnea or racing heartbeat Respiratory/Chest Respiratory/Chest: Denies cough, dyspnea, dyspnea on exertion, orthopnea, paroxysmal nocturnal dyspnea or sputum Gastrointestinal Gastrointestinal: Reports nausea, vomiting and other Details: Discomfort in the epigastric area because of vomiting per patient ; Denies abdominal pain, constipation, diarrhea or melena Genitourinary Genitourinary ED: Denies dysuria, hematuria or urinary frequency Musculoskeletal Musculoskeletal: Denies arthralgias, back pain, myalgias or neck pain Integumentary Denies abscess, Abrasions or rash Neurologic Neurologic: Reports weakness; Denies headache(s) or paresthesias Psychiatric Psychiatric: Denies anxiety, depression or suicidal thoughts Endocrine Endocrinology: Denies polydipsia, polyphagia or polyuria Hematologic/Lymphatic Hematologic/Lymphatic: Denies anemia or easy bleeding EXAM Physical Exam Const Vital Signs: 01/14/22 10:28 01/14/22 12:26 Temperature 96.9 F L Temperature Source Temporal Pulse Rate 90 84 Respiratory Rate 17 14 Blood Pressure 156/83 H Blood Pressure Mean 107 Pulse Ox 98 99 Oxygen Delivery Method Room Air Room Air Positive well nourished and well developed General Appearance ED: well developed; Negative for cyanotic, diaphoretic, NAD or pallor HEENT Reports TM's clear and dry mucous membranes HEENT Narrative: Ears normal. Nares patent. Uvula midline. There is no erythema or exudate of the posterior pharynx. Negative for trauma or tenderness Tympanic Membrane ED: Yes TM's clear Mouth ED: Yes dry mucous membranes Mouth: dry mucous membranes Eyes PERRL and EOMs intact bilaterally General Eye ED: Negative for pale conjunctiva or scleral icterus Neck no lymphadenopathy, supple and no JVD Resp normal respiratory effort and clear to auscultation bilaterally Cardio regular rate, regular rhythm, S1 normal heart sound, S2 normal heart sound and no murmurs GI normal to inspection, nondistended, normoactive bowel sounds, non-tender and non-distended Palpation: soft Back/Spine no CVA tenderness Thoracic Spine / Upper Back: Negative for thoracic spinal tenderness or paraspinal muscle tenderness Extremity normal to inspection General Extremety ED: Negative for edema or tenderness General Extremity: Negative for edema Neuro oriented x3, CN's II-XII intact bilaterally and no sensory deficits noted Sensorium / Orientation: alert Motor Exam: strength 5/5 throughout Psych Mood & Affect: depressed Skin no rashes or lesions noted and no wounds General Skin Exam: Negative for elasticity normal, jaundice or pallor MDM MDM MDM Narrative Medical decision making narrative: SPECT patient has cyclic vomiting due to cannabis use. Patient was treated with appropriate meds for cyclic vomiting. Order set was initiated. Since she is clinically dehydrated 1 L of normal saline was ordered. Patient was assessed at 1148. She still complains of excessive nausea. She was informed that chronic use of marijuana can cause cyclic vomiting. She states she was unaware of this. Reassess after patient receives IV Benadryl and Thorazine. Patient was reassessed at 08/07/2004. Her symptoms have resolved. She is somnolent from the medicine. Will reevaluate in 1 to 2 hours to determine if she is safe to go home with her significant other. Patient was reassessed at 1435. She is more awake. She feels comfortable going home. Discharge Plan Triage Chief Complaint: Nausea/Vomiting ED Provider: Jeffrey Sim Dx/Rx/DC Orders Clinical Impression: Cannabis hyperemesis syndrome concurrent with and due to cannabis abuse Instructions: ED Cyclic Vomiting Syndrome Prescriptions: New metoclopramide HCl [metoclopramide HCl] 10 MG tablet 10 mg PO 4X/DAY PRN (Reason: Headache) Qty: 20 RF: 0 capsaicin 0.025 % cream 1 applic topical .one PRN (Reason: For cannabis hyperemesis) Qty: 60 RF: 0 No Action cholecalciferol (vitamin D3) 50 mcg (2,000 unit) capsule 50 mcg PO DAILY RF: 0 aspirin 81 MG tablet,chewable 81 mg PO DAILY@0800 RF: 0 meclizine 25 mg tablet 25 mg PO TID PRN (Reason: dizziness) Qty: 20 RF: 0 ondansetron 4 mg tablet,disintegrating 4 mg PO Q6H PRN (Reason: nausea and vomiting) Qty: 10 RF: 0 clopidogrel [Plavix] 75 mg Tablet 75 mg PO DAILY RF: 0 ondansetron 4 mg tablet,disintegrating 4 mg PO Q8H PRN (Reason: nausea and vomiting) Qty: 10 RF: 0 meclizine [Antivert] 25 mg tablet,chewable 25 mg PO BID PRN (Reason: dizziness) Qty: 14 RF: 0 metoprolol tartrate 25 mg tablet 12.5 mg PO BID Qty: 90 RF: 3 lisinopril 40 mg tablet 40 mg PO DAILY Qty: 90 RF: 4 amlodipine 10 mg tablet 10 mg PO DAILY Qty: 90 RF: 4 clopidogrel 75 mg tablet 75 mg PO DAILY Qty: 90 RF: 4 Primary Care Provider: Felicia Gallegos Referrals: Felicia Gallegos MD [Primary Care Provider] - As Needed Activity Restrictions/Additional Instructions: 1. Recommend discontinuing use of marijuana 2. May take Benadryl with medication prescribed if this reoccurs. Disposition Disposition: Home, Self Care
[2022-01-14] MEDS: Ondansetron 4 MG/2 ML Vial IV (10:51)
[2022-01-14] MEDS: LORazepam 2 MG/ML Syringe 0.5 MG IV (10:51)
[2022-01-14] MEDS: 0.9% Normal Saline 1,000 ML 1000 ML IV (10:53)
[2022-01-14] MEDS: Famotidine 200 MG/20 ML MDV 20 MG in 0.9% Normal Saline (Pres. free 8 ML 300 MG IV (11:01)
[2022-01-14 12:26] VITALS: PULSE 84; RESP 14; O2SAT 99
[2022-01-14 14:50] VITALS: BP 148/64; PULSE 84; RESP 18
== END 2022-01-14 14:51 | disposition home or self-care (01) ==
PROVIDERS: Emergency Provider Emergency Medicine; PCP Family Medicine; Visit Provider Emergency Medicine
DX: F12.188 Cannabis abuse with other cannabis-induced disorder (principal); I25.10 Atherosclerotic heart disease of native coronary artery without angina pectoris; F17.210 Nicotine dependence, cigarettes, uncomplicated
CPT/HCPCS: 96365; 96375; 99284; J7030; A4216; J2405; J3490

== ENCOUNTER → 2022-01-22 | Outpatient (CLI) | payer BC, SELFPAY ==
--- NOTE | 2022-01-22 17:15 | RAD_ITS ---
STUDY: X-RAY - ABDOMEN/PELVIS REASON FOR EXAM: Female, 66 years old. VOMITING TECHNIQUE: 3 views of the abdomen including 2 supine views and one upright view. COMPARISON: Portable chest radiograph of 02/19/2021. FINDINGS: No acute basilar pulmonary infiltrates or pleural effusions. There is no demonstrated free abdominal air. Scattered gas and fecal material noted within the colon. Gas is scattered within several nondistended small bowel loops. Gas also fills a few distended small bowel loops within the left upper abdomen, with these loops measuring up to 4.5 cm in transverse diameter; no air-fluid levels are seen within these distended small bowel loops. The visualized liver, spleen and kidneys are grossly normal in size and morphology. No renal calculi are identified. Projected near the tip of the right L5 transverse process is a 7 x 3 mm lobulated calcification which could be due to a ureteral stone or calcified phlebolith. Degenerative spurring noted about the lumbar disc spaces with severe lower lumbar facet arthritis. RAD/Abd Inc Decub and/or Erect IMPRESSION: Nonspecific bowel gas pattern; a few mildly distended gas-filled loops of small bowel are seen within the left abdomen, but these do not contain air-fluid levels as would be typical for a small bowel obstruction. Continued follow-up may be of benefit, as clinically indicated. 7 mm lobulated calcification to the right of L5 due to calcified phlebolith or a ureteral calculus. Electronically Signed: Ashu Fonseca MD at 7:49 EDT ,
== END | disposition home or self-care (01) ==
LOC: MTRAD 17:13
PROVIDERS: PCP Family Medicine; Referring Provider Family Medicine; Visit Provider Family Medicine
DX: R11.10 Vomiting, unspecified (principal)
CPT/HCPCS: 74019

== ENCOUNTER → 2022-02-09 | Outpatient (CLI) | payer BC, SELFPAY ==
--- NOTE | 2022-02-09 06:26 | CT_ITS ---
STUDY: CT ABDOMEN AND PELVIS WITH CONTRAST REASON FOR EXAM: Female, 66 years old. Constipation, severe nausea RADIATION DOSAGE (If Supplied By Facility): CTDIvol = ( 11.06 ) mGy, DLP = ( 593.42 ) mGycm TECHNIQUE: Transaxial images were obtained from the dome of the diaphragm to the symphysis pubis with oral contrast. Oral and amp; IV Redi-CAT and amp; 100mL Isovue-300 was administered. Sagittal and coronal images were reconstructed. Individualized dose optimization techniques were used for this CT. COMPARISON: None. FINDINGS: The visualized lung bases are unremarkable. Coronary artery calcification. Minimal pericardial thickening anteriorly incomplete tiny pericardial effusion. 5.5 mm well-defined hypodensity in the posterior medial aspect of the right lobe of the liver superiorly suggestive of a small cyst. Normal gallbladder and extrahepatic biliary system. There is a benign calcified granuloma of the spleen. Normal pancreas. There is a small, circumscribed, smooth, low attenuation left adrenal mass, consistent with an adrenal adenoma. This measures 2 cm x 1.3 cm. Normal right adrenal gland. Normal right kidney. Normal left kidney. There is a small hiatal hernia. Normal small intestine. Scattered sigmoid diverticula. The appendix is visualized and appears normal. There is diffuse atherosclerotic calcification of the abdominal aorta and its major visceral branches, without a demonstrated aneurysm. Normal inferior vena cava. Normal retroperitoneum. Normal urinary bladder. There is absence of the uterus consistent with a prior hysterectomy. Normal abdominal wall. There are diffuse degenerative changes of the visualized lumbar spine. Levoscoliosis. CT/Abdomen/Pelvis WITH Contrast IMPRESSION: Minimal anterior pericardial thickening and coronary artery calcification. Small hypodensity in the posterior medial aspect of the right lobe of liver suggestive of a small cyst. Mild sigmoid diverticulosis. Electronically Signed: Gordon Levy MD at 8:28 EDT ,
== END | disposition home or self-care (01) ==
PROVIDERS: PCP Family Medicine; Referring Provider Internal Medicine Gastroenterology; Visit Provider Internal Medicine Gastroenterology
DX: K59.00 Constipation, unspecified (principal)
CPT/HCPCS: 74177; Q9967

== ENCOUNTER → 2022-02-22 | Outpatient (CLI) | payer BC, SELFPAY ==
--- NOTE | 2022-02-22 09:27 | NM_ITS ---
EXAM: NM GASTRIC EMPTYING SCAN CLINICAL INDICATION: nausea and vomiting TECHNIQUE: Patient was fed a meal containing 1.1 mCi of Tc99m sulfur colloid. Images of the abdomen were obtained over a period of one hour. Half time of gastric emptying and percent retention of radionuclide activity were calculated. This report was created using [email or web address] report generation technology. COMPARISON: None. FINDINGS: STOMACH: 50% gastric emptying noted at 45 minutes 70% emptying at 60 minutes. NM/Gastric Emptying Study IMPRESSION: Normal gastric emptying time with solids. Electronically Signed: Dimas Deleon MD at 7:20 EDT ,
== END | disposition home or self-care (01) ==
LOC: NM 09:26
PROVIDERS: PCP Family Medicine; Referring Provider Internal Medicine Gastroenterology; Visit Provider Internal Medicine Gastroenterology
DX: R11.2 Nausea with vomiting, unspecified (principal)
CPT/HCPCS: 78264; A9541

== ENCOUNTER 2022-03-19 05:12 | Day surgery (SDC) | payer BC, SELFPAY ==
[2022-03-19] VITALS (7 sets, daily range): BP systolic 101–156; BP diastolic 68–90; PULSE 57–75; RESP 16–20; TEMP 36.1–36.9; O2SAT 94–97; BMI 29.7
[2022-03-19] MEDS: Lactated Ringers 1,000 ML 15 ML IV (06:05)
--- NOTE | 2022-03-19 06:28 | PCM.HP.BLA ---
History and Physical Date of Admission: 03/19/22 ISABELLE NAQVI, is a 66 F who presents to the office today for?Initial consult. Isabelle established with this clinic 02.02.22 following [facility] ED presentation 01.12.22 and 01.14.22 for nausea and vomiting with vertigo suspected initially and then marijuana hyperemesis suspected at second presentation. Marijuana use is five times a week. BM are typically narrow (finger size) and soft with complete evacuation. Prior to acute episodes she will have lower abdominal cramping and require 2-3 BM a day. Several times a year she will have no BM and will then have nausea and emesis with all PO intake; she will use Dulcolax that causes cramping, MiraLAX also and causes upset stomach. Once she has a BM all symptoms resolve. Cycle has been going on for the last several years. PMH cardiomyopathy, sinus bradycardia, CAD ([facility]); IMELDA; hyperlipidemia; pancreatitis (flares with hydrochlorothiazide and statins). US abdomen 09.30.18 liver measurement 15.8cm with fatty infiltration; normal echogenicity of pancreas without mass or cyst. KUB 01.22.22 found scattered gas and fecal material with gas seen in several nondistended and distended (up to 4.5cm) small bowel loops; L5 ROS Const Constitutional: No anorexia, fatigue, fever(s), weight change or sleep problems Eyes Eyes: No change in vision ENT ENT: No abnormal hearing, difficulty swallowing, mouth lesions, tongue swelling or throat swelling Resp Respiratory: No cough or shortness of breath Cardio Cardiology: No chest pain at rest, chest pain with exertion, shortness of breath or dyspnea on exertion Gastro GI: No difficulty swallowing Genitourinary-Female: No difficulty urinating or burning urination Musc Musculoskeletal: No joint pain, joint swelling, muscle weakness or decreased muscle mass Skin Skin: No hair loss in leg, yellowing of the eye, itchy eyes, rash, skin ulcer or skin swelling Neuro Neurology: No abnormal hearing, abnormal movements, confusion, unsteady gait/balance or memory loss Psych Psychiatric: No anxiety, No confusion and No memory loss Endo Endocrine: No fatigue or weight change Aller/Imm Allergy/Immunologic: No itchy eyes, throat swelling or tongue swelling Jovan/Lymp Hematologic/Lymphatic: No easy bleeding, easy bruising or enlarged lymph nodes Exam Const General: cooperative and comfortable Nutritional Appearance: average body habitus and well nourished [facility] Head: normal to inspection Ears: hearing grossly normal bilaterally Nose: external nose normal Face and sinus: normal facial exam Mouth: oral mucosae normal Throat: posterior oropharynx normal Eyes General: appearance normal, both eyes and all related structures Neck Neck: normal visual inspection Chest Chest palpation & inspection: normal inspection of the chest and normal palpation of entire chest wall Resp Effort & Inspection: normal respiratory effort Auscultation: Bilateral: Clear to Auscultation Cardio Palpation: normal PMI Rate: regular rate Rhythm: regular rhythm GI Inspection: normal to inspection Auscultation: normal bowel sounds Percussion: normal to percussion Palpation: no hepatosplenomegaly Skin General: no rashes or lesions noted Neuro General: patient alert Extrem General: normal to inspection Psych Affect: normal affect Quality Reporting Tobacco Screening ([facility] 138) Smoking Status: Current every day smoker Assessment and Plan Assessment and Plan (1) Constipation: ?Status:?Chronic ?Plan: She will undergo screening colonoscopy to look for diverticular disease and anal stenosis, hemorrhoidal disease, slow transit constipation versus pelvic floor dysfunction.? She was explained alternatives, risk, benefits including not withstanding bleeding, infection, sepsis, perforation, need for emergency or .? Have an ASA of 1. (2) Vertigo: ?Status:?Acute ?Plan: She really would like a referral to neurology due to her vertigo? getting worse and causing nausea vomiting.? I will give her a scopolamine patch and a PPI to see if there is any acid component to her symptoms and give her a referral to neurology. (3) Nausea and vomiting: ?Status:?Acute ?Plan: She will also likely need a gastric emptying study to evaluate the nausea vomiting in addition to PPI therapy.? Depending on what the studies show she may also need an upper endoscopy. ? ? ? Orders: Orders CT Abd/Pelvis W/WO Contrast Today K59.00 - Constipation, unspecified ? Medications: New scopolamine base 1 patch? transdermal Q72H 10 ea 0RF ? ? amitriptyline 25 mg? PO QHS 30 tabs 1RF ? ? pantoprazole 40 mg? PO DAILY 30 tabs 3RF ? ? I have re-examined the patient. There are no clinical changes since date of exam.
--- NOTE | 2022-03-19 06:30 | COLBX_PTH ---
PATIENT: ISABELLE NAQVI LOC: [facility] U#:[id number] AGE/SX: 66/F ROOM: RE03/19/[address]: Dr. Melecio Cooper DO : 1955 BED: DIS: 03/19/2022 SPEC #: [id number] RECD: 03/19/22 11:31 STATUS: EAG[place] ANASTASIA #: [id number] JASON: 03/19/22 06:[address]: Melecio Cooper DEPT: SURGICAL PATHOLOGY RECD BY: Zaida Malik ENTERED: 03/19/22 12:16 SP TYPE: COLON BX PAULA DR: Dr. Felicia Gallegos MD Tissues: A - Cecum, NOS B - Ascending colon C - COLON BIOPSY D - Descending colon Procedures: Surgery Specimen Level IV HEADER OPERATION: Colonoscopy (MAC) with biopsies and polypectomy PRE-OP DIAGNOSIS: Constipation, vertigo, nausea and vomiting TISSUE SUBMITTED: A. Cecal polyp, B. Ascending colon polyp, C. Hepatic flexure polyp, D. Descending colon polyp MICROSCOPIC DIAGNOSIS A. Cecal polyp, biopsy: Fragments of benign colonic mucosa. B. Ascending colon polyp, biopsy: Fragments of tubular adenoma. C. Colonic polyp at hepatic flexure, biopsy: Fragment of benign colonic mucosa. D. Descending colon polyp, biopsy: Fragments of tubular adenoma. AM:patria 03/20/2022 MICROSCOPIC DESCRIPTION Slides are reviewed. GROSS DESCRIPTION A. Received is one container labeled with the patient name and designated cecum polyp. The specimen consists of two irregular fragments of light gallegos soft tissue that in aggregate measure 0.8 x 0.3 x 0.1 cm. The specimen is totally submitted in one cassette. B. Received is one container labeled with the patient name and designated ascending colon polyp. The specimen consists of multiple irregular fragments of light gallegos soft tissue that in aggregate measure 2.0 x 0.3 x 0.3 cm. The specimen is totally submitted in one cassette. C. Received is one container labeled with the patient name and designated hepatic flexure polyp. The specimen consists of two irregular fragments of light gallegos soft tissue that in aggregate measure 0.5 x 0.4 x 0.1 cm. The specimen is totally submitted in one cassette. D. Received is one container labeled with the patient name and designated desccending colon polyp. The specimen consists of one irregular fragment of light gallegos soft tissue that measures x x cm. The specimen is totally submitted in one cassette. /DANIELLE:julia 03/19/22 TC:5 CPT:[id number]
--- NOTE | 2022-03-19 07:13 | OP.COLON_ITS ---
Patient Name: Lisette Henry Procedure Date: 03/19/2022 6:21 AM Date of : 1955 Age: 66 Procedure: Colonoscopy Indications: Screening for colorectal malignant neoplasm Providers: Melecio Cooper DO Medicines: Monitored Anesthesia Care Patient Profile: This is a 66 year old female. Refer to note in patient chart for documentation of history and physical. Last Colonoscopy: date unknown. Complications: No immediate complications. Procedure: Pre-Anesthesia Assessment: - Prior to the procedure, a History and Physical was performed, and patient medications and allergies were reviewed. The risks and benefits of the procedure and the sedation options and risks were discussed with the patient. All questions were answered and informed consent was obtained. Patient identification and proposed procedure were verified by the physician in the pre-procedure area. Mental Status Examination: alert and oriented. Airway Examination: normal oropharyngeal airway and neck mobility. Respiratory Examination: clear to auscultation. CV Examination: normal. Prophylactic Antibiotics: The patient does not require prophylactic antibiotics. Prior Anticoagulants: The patient has taken no previous anticoagulant or antiplatelet agents. ASA Grade Assessment: II - A patient with mild systemic disease. After reviewing the risks and benefits, the patient was deemed in satisfactory condition to undergo the procedure. The anesthesia plan was to use moderate sedation / analgesia (conscious sedation). Immediately prior to administration of medications, the patient was re-assessed for adequacy to receive sedatives. The heart rate, respiratory rate, oxygen saturations, blood pressure, adequacy of pulmonary ventilation, and response to care were monitored throughout the procedure. The physical status of the patient was re-assessed after the procedure. After I obtained informed consent, the scope was passed under direct vision. Throughout the procedure, the patient's blood pressure, pulse, and oxygen saturations were monitored continuously. The colonoscope was introduced through the anus and advanced to the cecum, identified by appendiceal orifice and ileocecal valve. The colonoscopy was performed without difficulty. The patient tolerated the procedure well. The quality of the bowel preparation was good. Scope In: 6:37:14 AM Scope Withdrawal Time 0 hours 20 minutes 47 seconds Scope Out: 7:04:31 AM Total Procedure Duration Time 0 hours 27 minutes 17 seconds Findings: The perianal and digital rectal examinations were normal. Five sessile polyps were found in the descending colon, hepatic flexure, ascending colon and cecum. The polyps were 1 to 2 mm in size. These polyps were removed with a hot snare. Resection and retrieval were complete. Verification of patient identification for the specimen was done. Estimated blood loss was minimal. Multiple small and large-mouthed diverticula were found in the sigmoid colon and descending colon. There was no evidence of diverticular bleeding. Impression: - Five 1 to 2 mm polyps in the descending colon, at the hepatic flexure, in the ascending colon and in the cecum, removed with a hot snare. Resected and retrieved. - Moderate diverticulosis in the sigmoid colon and in the descending colon. There was no evidence of diverticular bleeding. Recommendation: - Discharge patient to home. - Resume previous diet. - Continue present medications. - Await pathology results. - Repeat colonoscopy in 3 years for surveillance. - Return to GI office. Procedure Code(s): --- Professional --- 45920, Colonoscopy, flexible; with removal of tumor(s), polyp(s), or other lesion(s) by snare technique CPT copyright 2017 [employer]. All rights reserved. The codes documented in this report are preliminary and upon wiring mechanic review may be revised to meet current compliance requirements. Melecio Cooper DO 03/19/2022 7:12:57 AM This report has been signed electronically. Number of Addenda: 1 Note Initiated On: 03/19/2022 6:21 AM Addendum Number: 1 Addendum Date: 05/10/2022 6:20:21 AM MAC was used as sedation for this procedure. Melecio Cooper DO 05/10/2022 6:20:25 AM This report has been signed electronically.
--- NOTE | 2022-03-19 07:15 | OP.CCLET_ITS ---
05/10/2022 Felicia Gallegos [address] [place] [address] Re : Colonoscopy procedure for Lisette Henry Dear Dr. Gallegos This procedure was performed on Saturday, March 19, 2022. My impressions and recommendations are as follows: Impressions : - Five 1 to 2 mm polyps in the descending colon, at the hepatic flexure, in the ascending colon and in the cecum, removed with a hot snare. Resected and retrieved. - Moderate diverticulosis in the sigmoid colon and in the descending colon. There was no evidence of diverticular bleeding. Recommendations : - Discharge patient to home. - Resume previous diet. - Continue present medications. - Await pathology results. - Repeat colonoscopy in 3 years for surveillance. - Return to GI office. My findings are described in the full procedure note, which is enclosed. If I can be of further assistance, please feel free to contact me at . Sincerely, Melecio Cooper, 03/19/2022 7:12:57 AM This report has been signed electronically.
== END 2022-03-19 07:58 | disposition home or self-care (01) ==
LOC: EN 05:14 → AC 05:15
PROVIDERS: PCP Family Medicine; Referring Provider Family Medicine; Visit Provider Internal Medicine Gastroenterology
PROC: 0DJD8ZZ Inspection of Lower Intestinal Tract, Via Natural or Artificial Opening Endoscopic (ICD-10-PCS; CPT 45378; principal; 2022-03-19 06:25)
DX: D12.2 Benign neoplasm of ascending colon (principal); I42.9 Cardiomyopathy, unspecified; D12.4 Benign neoplasm of descending colon; K57.30 Diverticulosis of large intestine without perforation or abscess without bleeding; F17.200 Nicotine dependence, unspecified, uncomplicated; I25.10 Atherosclerotic heart disease of native coronary artery without angina pectoris; F12.90 Cannabis use, unspecified, uncomplicated; I10 Essential (primary) hypertension; R73.03 Prediabetes; K21.9 Gastro-esophageal reflux disease without esophagitis; I25.2 Old myocardial infarction; Z79.01 Long term (current) use of anticoagulants; Z79.899 Other long term (current) drug therapy; Z79.82 Long term (current) use of aspirin
CPT/HCPCS: 45385; 88305; J7120; J2405

== ENCOUNTER → 2022-05-16 | Outpatient (CLI) | payer BC, SELFPAY ==
--- NOTE | 2022-05-16 08:52 | ECHOD_ITS ---
Reason For Study: CAD/ASHD Procedure This was a 2D Doppler, Color Flow transthoracic echocardiogram. The exam was of adequate technical quality. Exam performed in department. Left Ventricle Normal LV size. Left ventricular systolic function is normal. The estimated ejection fraction is 65 %. Stage 2 diastolic dysfunction. No regional wall motion abnormalities noted. Right Ventricle Normal RV size. Normal systolic function. Atria The left atrium is mildly enlarged. Normal right atrium. No doppler evidence for ASD. Mitral Valve There is mild mitral annular calcification. Extension of the mitral annular calcification onto the base of the posterior mitral valve leaflet. Mild (1+) eccentric mitral valve insufficiency. Tricuspid Valve Normal tricuspid valve. Mild tricuspid valve insufficiency. Right ventricular systolic pressure estimated to be 30 mmHg. Aortic Valve Trisinus/trileaflet aortic valve. Mild focal aortic valve calcification. Trivial aortic valve insufficiency. Pulmonic Valve The pulmonic valve is not well visualized. Great Vessels Borderline-mildly dilated aortic root. Pericardium/Pleural 2D echocardiographic findings potentially compatible with mild thickening of the pericardium anterior to the right ventricle with an associated trivial to small pericardial effusion with no echocardiographic evidence of cardiac tamponade physiology. Epicardial fat. MMode/2D Measurements & Calculations LVIDd: 4.9 cm IVSd: 1.1 cm Ao root diam: 4.0 cm LVIDs: 3.2 cm LVPWd: 1.3 cm RVDd: 3.3 cm FS: 35.8 % LAV(MOD-sp4): 63.4 ml LVAd ap4: 29.0 cm2 SV(MOD-sp4): 68.5 ml LVLd ap4: 7.6 cm EDV(MOD-sp4): 92.5 ml EDV(sp4-el): 94.1 ml LVAs ap4: 11.8 cm2 LVLs ap4: 5.3 cm ESV(MOD-sp4): 23.9 ml ESV(sp4-el): 22.2 ml EF(MOD-sp4): 74.1 % EF(sp4-el): 76.4 % SV(sp4-el): 72.0 ml LA A4 area: 20.6 cm2 LA dimension(2D): 4.0 cm RA A4 area: 13.9 cm2 Time Measurements MV dec time: 0.22 sec Doppler Measurements & Calculations MV E max bridger: 77.1 cm/sec Lat Peak E' Bridger: 6.0 cm/sec Med Peak E' Bridger: 3.7 cm/sec MV A max bridger: 116.5 cm/sec E/E' lat: 12.8 E/E' med: 20.6 MV E/A: 0.66 MV V2 max: 119.9 cm/sec Ao V2 max: 168.3 cm/sec MV max P.8 mmHg MV dec slope: 352.7 cm/sec2 Ao max P.4 mmHg MV V2 mean: 69.0 cm/sec Ao V2 mean: 116.1 cm/sec MV mean P.2 mmHg Ao mean P.2 mmHg MV V2 VTI: 34.7 cm Ao V2 VTI: 41.8 cm AI max bridger: 419.3 cm/sec LV V1 max: 125.2 cm/sec PA V2 max: 109.0 cm/sec AI max P.4 mmHg LV V1 max P.3 mmHg PA max PG (full): 2.2 mmHg LV V1 mean P.9 mmHg PA V2 mean: 80.0 cm/sec AI dec slope: 216.2 cm/sec2 LV V1 mean: 78.7 cm/sec PA mean PG (full): 1.3 mmHg AI P1/2t: 568.0 msec LV V1 VTI: 28.9 cm TR max bridger: 259.4 cm/sec TR max P.9 mmHg ECHO/Echo Complete Interpretation Summary Left ventricular systolic function is normal. The estimated ejection fraction is 65 %. The left atrium is mildly enlarged. There is mild mitral annular calcification. Extension of the mitral annular calcification onto the base of the posterior mi tral valve leaflet. Mild (1+) eccentric mitral valve insufficiency. Mild tricuspid valve insufficiency. Mild focal aortic valve calcification. Trivial aortic valve insufficiency. Borderline-mildly dilated aortic root. 2D echocardiographic findings potentially compatible with mild thickening of th e pericardium anterior to the right ventricle with an associated trivial to small pericardial effusion with no echocardiographic evidence of cardiac tamponade physiology. Epicardial fat. Right ventricular systolic pressure estimated to be 30 mmHg. Stage 2 diastolic dysfunction. Ordering Physician: Johann Lee Referring Physician: ZACK Performed By: Zakiya Taylor RCS
== END | disposition home or self-care (01) ==
PROVIDERS: PCP Family Medicine; Visit Provider Internal Medicine Cardiovascular Disease
DX: I25.10 Atherosclerotic heart disease of native coronary artery without angina pectoris (principal); I42.9 Cardiomyopathy, unspecified; R00.1 Bradycardia, unspecified; I10 Essential (primary) hypertension; E78.5 Hyperlipidemia, unspecified; I31.9 Disease of pericardium, unspecified
CPT/HCPCS: 93306

== ENCOUNTER → 2023-10-04 | Outpatient (CLI) | payer MEDICARE, SELFPAY ==
--- OUTSIDE RECORDS SUMMARY | 2023-10-04 11:30 | XMS RPT_ITS | CCD ---
Author Name Unknown Address [address] [place] [address] Organization [facility] Care Team Providers Care Supervisor Body Assembly Name Role Phone Jammie Barnes Unavailable Unavailable Jammie Barnes Unavailable Unavailable JOLLIFF, GISELL S Unavailable Unavailable JOLLIFF, GISELL S Unavailable Unavailable FENZL, RAJESH E Unavailable Unavailable FENZL, RAJESH E Unavailable Unavailable FENZL, RAJESH E Unavailable Unavailable PROVIDER, UNKNOWN Unavailable Unavailable Allergies Allergy Classification Reported Allergen(s) Allergy Type Date of Onset Reaction(s) Facility (2 sources) Hmg-Coa Reductase Inhibitors (Statins) drug allergy 04-07-20 14 reoccuring pancreatitis, [facility] Work Phone: (4 sources) HYDORCHLOROTHIAZIDE drug allergy 04-08-20 14 reoccuring pancreatitis [facility] Work Phone: (4 sources) NKDA drug allergy 04-01-20 14 [facility] Work Phone: Medications Completed/Discontinued Medications Medication Drug Class(es) Dates Sig (Normalized) Sig (Original) acetaminophen / HYDROcodone (8 sources) Opioid Agonist Start: 01-23-2010 End: 04-08-2014 VICODIN 5-500 MG TABS one to two tabs four times a day as needed for pain HYDROCODONE-ACETAMI NOPHEN [id number] Johann Lee MD Problems Active Problems Problem Classification Problem Date Documented Date Episodic/Chronic Coronary atherosclerosis and other heart disease (6 sources) Atherosclerotic heart disease of [place] coronary artery without angina pectoris; Translations: [Old myocardial infarction] Onset: 03-31-2014 02-08-2016 Chronic Disorders of lipid metabolism (2 sources) Hyperlipidemia; Translations: [Hyperlipidemia, unspecified] Onset: 04-01-2014 04-01-2014 Chronic Essential hypertension (2 sources) Hypertensive disorder; Translations: [Essential (primary) hypertension] Onset: 03-31-2014 03-31-2014 Chronic Other nutritional; endocrine; and metabolic disorders (10 sources) Body mass index (BMI) 34.0-34.9, adult; Translations: [Body mass index (BMI) 35.0-35.9, adult] Onset: 04-08-2014 Resolved: 10-15-2016 10-15-2016 Chronic Screening or history of mental health and substance abuse (2 sources) Tobacco dependence syndrome; Translations: [Nicotine dependence, unspecified, uncomplicated] Onset: 04-08-2014 04-08-2014 Chronic Past or Other Problems Problem Classification Problem Date Documented Da te Episodic/Chronic Neoplasms of unspecified nature or uncertain behavior (2 sources) Neoplasm of uncertain behavior of skin; Translations: [Neoplasm of uncertain behavior of skin] Onset: 01-05-2010 01-12-2010 Episodic Unclassified (4 sources) FH: Hypertension; Translations: [Family history of ischemic heart disease and other diseases of the circulatory system] 02-25-2015 Episodic Results Test Name Value Interpretation Reference Range Facil ity Vital Signs Date Time Vital Sign Value Performing Clinician Sophie martinez 04-17-2017 09:44-0400 BMI (Body Mass Index) 35.46 kg/m2 Jammie Friedman [facility] Work Phone: 04-17-2017 09:44-0400 BP Diastolic 78 mm[Hg] Jammie Barnes [facility] Work Phone: 04-17-2017 09:44-0400 BP Systolic 130 mm[Hg] [facility] Work Phone: 04-17-2017 09:44-0400 Height 165.1 cm Jammie Barnes [facility] Work Phone: 04-17-2017 09:44-0400 Pulse (Heart Rate) 60 /min Jammieurvashi Barnes [facility] Work Phone: 04-17-2017 09:44-0400 Respiratory Rate 20 /min Jammie Barnes [facility] Work Phone: 04-17-2017 09:44-0400 Weight 96.68 kg Jammie Barnes [facility] Work Phone: 10-15-2016 10:44-0400 BP Diastolic 70 mm[Hg] Jammie [facility] Work Phone: 10-15-2016 10:44-0400 BP Systolic 120 mm[Hg] Jammie [facility] Work Phone: 02-13-2016 14:09-0400 BSA (Body Surface Area) 2.05 m2 Jammie [facility] Work Phone: 02-02-2010 14:47-0400 Body Temperature 98.2 [degF] Jammie [facility] Work Phone: Encounters Encounter Date Encounter Type Care Provider Facility Start: 03-23-2017 End: 03-24-2017 Emergency department patient visit GISELL LEONSIGRID [facility] Procedures Date Procedure Procedure Detail Performing Clinician Start: 04-17-2017 End: 04-17-2017 Follow Up Appt 6 months Sanjuanita astorga PA-C Work Phone: Start: 04-17-2017 End: 04-17-2017 PFM Sanjuanita Jansen PA-C Work Phone: Start: 10-15-2016 End: 04-11-2017 Follow Up Appt 6 months Johann Lee MD Start: 10-15-2016 End: 04-11-2017 Follow Up Appt Other Johann Lee MD Start: 10-15-2016 End: 04-11-2017 Follow Up BP Check Johann Lee MD Start: 10-15-2016 End: 04-11-2017 MMM Johann Lee MD Start: 02-13-2016 End: 02-13-2016 Follow Up Appt 6 months Sanjuanita astorga PA-C Work Phone: Start: 02-13-2016 End: 02-13-2016 PFM Sanjuanita Jansen PA-C Work Phone: Start: 10-13-2015 End: 01-25-2016 Follow Up BP Check Sanjuanita Jansen PA-C Work Phone: Start: 09-29-2015 End: 10-13-2015 Follow Up BP Check Sanjuanita Jansen PA-C Work Phone: Start: 08-19-2015 End: 08-19-2015 Follow Up Appt 6 months Johann Lee MD Start: 08-19-2015 End: 09-21-2015 Follow Up BP Check Johann Lee MD Start: 08-19-2015 End: 08-19-2015 MMM Johann Lee MD Start: 07-11-2015 End: 07-11-2015 *BMP Sanjuanita Jansen PA-C Work Phone: Start: 06-03-2015 End: 06-03-2015 Follow Up BP Check Sanjuanita Jansen PA-C Work Phone: Start: 02-25-2015 End: 02-26-2015 Documentation of current medications Sanjuanita Jansen PA-C Work Phone: Start: 02-25-2015 End: 02-25-2015 Follow Up Appt 6 months Sanjuanita astorga PA-C Work Phone: Start: 02-25-2015 End: 02-25-2015 PFM Sanjuanita Jansen PA-C Work Phone: Start: 02-25-2015 End: 02-26-2015 Smoking cessation education Sanjuanita Montero PA-C Work Phone: Start: 04-08-2014 End: 04-15-2014 Echocardiography Johann Lee MD Start: 04-08-2014 End: 04-08-2014 Electrocardiogram, complete Johann thomas MD Start: 04-08-2014 End: 04-08-2014 Follow Up Appt 3 months Johann Lee MD Start: 04-08-2014 End: 04-08-2014 MMM Johann Lee MD Plan of Treatment Date Care Activity Detail Author Start: 12-25-2017 End: 12-25-2017 Appointment Appointment [facility] Work Phone: Start: 04-17-2017 End: 04-17-2017 Appointment Appointment [facility] Work Phone: Start: 04-17-2017 End: 04-17-2017 Follow Up Appt 6 months Follow Up Appt 6 months [facility] Work Phone: Start: 04-17-2017 End: 04-17-2017 PFM PFM [facility] Work Phone: Start: 10-15-2016 End: 04-11-2017 Follow Up Appt 6 months Follow Up Appt 6 months [facility] Work Phone: Start: 10-15-2016 End: 04-11-2017 Follow Up Appt Other Follow Up Appt Other [facility] Work Phone: Start: 10-15-2016 End: 04-11-2017 Follow Up BP Check Follow Up BP Check [facility] Work Phone: Start: 10-15-2016 End: 04-11-2017 MMM MMM [facility] Work Phone: Start: 02-13-2016 End: 02-13-2016 Follow Up Appt 6 months Follow Up Appt 6 months [facility] Work Phone: Start: 02-13-2016 End: 02-13-2016 PFM PFM [facility] Work Phone: Start: 10-13-2015 End: 01-25-2016 Follow Up BP Check Follow Up BP Check [facility] Work Phone: Start: 09-29-2015 End: 10-13-2015 Follow Up BP Check Follow Up BP Check [facility] Work Phone: Start: 08-19-2015 End: 08-19-2015 Follow Up Appt 6 months Follow Up Appt 6 months [facility] Work Phone: Start: 08-19-2015 End: 09-21-2015 Follow Up BP Check Follow Up BP Check [facility] Work Phone: Start: 08-19-2015 End: 08-19-2015 MMM MMM [facility] Work Phone: Start: 07-11-2015 End: 07-11-2015 *BMP *BMP [facility] Work Phone: Start: 06-03-2015 End: 06-03-2015 Follow Up BP Check Follow Up BP Check [facility] Work Phone: Start: 02-25-2015 End: 02-25-2015 Follow Up Appt 6 months Follow Up Appt 6 months [facility] Work Phone: Start: 02-25-2015 End: 02-25-2015 PFM PFM [facility] Work Phone: Start: 04-08-2014 End: 04-08-2014 Echocardiography Echocardiogram (complete) [facility] Work Phone: Start: 04-08-2014 End: 04-08-2014 Electrocardiogram, complete EKG (In office) [facility] Work Phone: Start: 04-08-2014 End: 04-08-2014 Follow Up Appt 3 months Follow Up Appt 3 months [facility] Work Phone: Start: 04-08-2014 End: 04-08-2014 MMM MMM [facility] Work Phone: Payers Date Payer Category Payer Policy ID [facility] [id number] Summary Purpose Family History No Family History Records Found Advance Directives No Advanced Directives Records Found Additional Source Comments INFORMATION SOURCE (unrecogn ized section and content) FOR RECORDS PERTAINING TO PATIENTS WHO ARE OR HAVE BEEN ENROLLED IN A CHEMICAL DEPENDENCY/SUBSTANCEABUSE PROGRAM, SOME INFORMATION MAY BE OMITTED. This clinical summary was aggregated from multiple sources. Caution should be exercised in using it in the provision of clinical care. This summary normalizes information from multiple sources, and as a consequence, information in this document may materially change the coding, format and clinical context of patient data. In addition, data may be omitted in some cases. CLINICAL DECISIONS SHOULD BE BASED ON THE PRIMARY CLINICAL RECORDS. [facility]. provides no warranty or guarantee of the accuracy or completeness of information in this document.
[2023-10-04 12:56] LABS: AST(SGOT) 13 U/L (15-37); Alanine Aminotransfer ALT/SGPT 11 U/L (13-56); Albumin, Serum 3.8 g/dL (3.2-5.0); Alkaline Phosphatase 108 U/L (45-117); Bilirubin, Direct 0.12 mg/dL (0.00-0.30); Cholesterol 218 mg/dL (200); Globulin 4.1 g/dL (2.2-4.2); High Density Lipoprotein 53 mg/dL; Protein, Total 7.9 g/dL (6.4-8.2); Triglycerides 154 mg/dL; Very Low Density Lipoprotein 31 mg/dL (5-40)
== END | disposition home or self-care (01) ==
LOC: LAB 11:07
PROVIDERS: PCP Family Medicine; Referring Provider Physician Assistant Medical; Visit Provider Physician Assistant Medical
DX: E78.5 Hyperlipidemia, unspecified (principal); I25.10 Atherosclerotic heart disease of native coronary artery without angina pectoris
CPT/HCPCS: 36415; 80061; 80076

== ENCOUNTER 2024-05-18 09:12 | Emergency (ER) | payer MEDICARE, SELFPAY ==
[2024-05-18 09:13] VITALS: BP 121/91; PULSE 102; RESP 20; TEMP 36.4; O2SAT 96
[2024-05-18 09:17] VITALS: BMI 28.3
--- NOTE | 2024-05-18 09:38 | RAD_ITS ---
STUDY: X-RAY - ACUTE ABDOMINAL SERIES REASON FOR EXAM: Female, 68 years old. vomiting, epigastric pain TECHNIQUE: Single view of the chest. Supine, and erect view(s) of the abdomen were obtained. COMPARISON: None. FINDINGS: The lungs are clear and expanded. Normal size heart. Normal mediastinum and ade. Normal visualized pulmonary arteries. Normal visualized aortic arch and descending thoracic aorta. There is a non-specific bowel gas pattern. The soft tissue structures of the abdomen and pelvis are unremarkable. Mild levoscoliosis lumbar spine with degenerative disc disease. RAD/Acute Abdomen Inc Chest IMPRESSION: Normal x-ray examination of the chest, abdomen, and pelvis. Electronically Signed: Albert Jewell MD at 10:36 EDT ,
--- NOTE | 2024-05-18 09:39 | ED.VIS.GI ---
HPI HPI - GI History of Present Illness Chief Complaint: Nausea/Vomiting Informant: patient Narrative Narrative: Patient presenting with 4-5 days of vomiting followed by epigastric pain that has all been getting worse and persistent to the point where she cannot keep any fluids or food down. She feels dehydrated lightheaded at times. No fevers or chills. No chest discomfort. No other abdominal pain. No hematemesis or bright red blood per rectum or melena. States she has had cycles of this multiple times in the past over the past 2 years or more. She has seen GI doctor friend. She was smoking marijuana she stopped that she states. She states the marijuana smoking did not have any correlation with her symptoms when discontinuing it for long periods of time. She states she has had a lot of stress lately and that has triggered this in the past; constipation has preceded this in the past as well, but she states she has been having normal bowel movements with no blood or melena this time. Prior hysterectomy no other abdominal surgeries. [facility] Medical History Wears glasses Wears dentures Cancer Marijuana use Diabetes Ambulates with cane Arthritis Bladder disease Back pain Vertigo Gastric reflux Smoker Chronic cough Leg cramps History of pain when walking History of echocardiogram History of edema Hypertension Cardiology follow-up encounter History of heart attack Abdominal pain Nausea Cardiomyopathy Sinus bradycardia Essential hypertension Coronary artery disease Pancreatitis Tobacco abuse Hyperlipidemia Hypertension Atherosclerotic heart disease of [place] coronary artery without angina pectoris Home Medications ?Medication ?Instructions ?Recorded ?Last Taken ?Type aspirin 81 mg chewable tablet 81 mg PO DAILY@0800 12/07/13 Unknown History metoprolol tartrate 25 mg tablet 12.5 mg (1/2 x 25 mg) PO BID #90 12/29/20 Unknown Rx tabs cholecalciferol (vitamin D3) 125 125 mcg PO DAILY 05/02/22 Unknown History mcg (5,000 unit) tablet amlodipine 10 mg tablet See Rx Instructions .Route 06/10/23 Unknown Rx .COMPLEX #90 tabs lisinopril 40 mg tablet See Rx Instructions .Route 11/22/23 Unknown Rx .COMPLEX #90 tabs metoclopramide HCl 10 mg tablet 10 mg PO Q6H PRN PRN nausea and 05/18/24 Unknown Rx vomiting #20 tabs Allergy/AdvReac Type Severity Reaction Status Date / Time hydrochlorothiazide AdvReac Severe reoccurring Verified 05/18/24 13:40 pancreatitis [id number] Reductase AdvReac Severe reoccurring Verified 05/18/24 13:40 Inhibitor (Rpdrgri-Rnt-Sxh pancreatitis Reductase Inhibitor) Gadolinium-MRI Contrast AdvReac Vomiting Verified 05/18/24 13:40 Medium (Gadolinium-Contrast Medium - MRI) Family History Mother Lung cancer Father CAD (coronary artery disease) Hx of CABG Abdominal aortic aneurysm (AAA) Hypertension Brother CAD (coronary artery disease) Myocardial infarction Hypertension Hx of CABG Surgical History History of bilateral salpingo-oophorectomy History of cardiac catheterization History of excision of lesion History of total hysterectomy Social History household members: spouse Smoking Status: Current every day smoker tobacco type: cigarettes alcohol intake: never substance use type: does not use caffeine: Yes Type: coffee ROS ROS ED Constitutional Constitutional ED: Denies chills or fever(s) Eyes Eyes: Denies change in vision or diplopia ENT ENT ED: Denies rhinorrhea or sore throat Cardiovascular Cardiovascular: Denies chest pain or palpitations Respiratory/Chest Respiratory/Chest: Denies cough or dyspnea Gastrointestinal Gastrointestinal: Reports abdominal pain, nausea and vomiting; Denies constipation, diarrhea or melena Genitourinary Genitourinary ED: Denies dysuria or hematuria Musculoskeletal Musculoskeletal: Denies back pain or neck pain Integumentary Denies abscess or rash Neurologic Neurologic: Denies headache(s), paresthesias or weakness Psychiatric Psychiatric: Reports anxiety; Denies suicidal thoughts EXAM Physical Exam Const Vital Signs: 05/18/24 09:13 05/18/24 11:12 05/18/24 13:00 Temperature 97.6 F L Temperature Source Temporal Pulse Rate 102 H 72 89 Respiratory Rate 20 H 18 17 Blood Pressure 121/91 H 95/71 Blood Pressure Mean 101 79 Pulse Ox 96 96 94 Oxygen Delivery Method Room Air Nasal Cannula Nasal Cannula Oxygen Flow Rate (L/min) 2 2 Positive well nourished and well developed General Appearance ED: well developed and NAD HEENT Reports moist mucous membranes normocephalic and atraumatic Eyes PERRL and EOMs intact bilaterally Neck full ROM and supple Resp normal respiratory effort and clear to auscultation bilaterally Cardio regular rate, regular rhythm and no murmurs GI non-distended GI Narrative: Mild epigastric tenderness without guarding or rebound or pulsatile mass no other areas of tenderness. Auscultation: normoactive bowel sounds Palpation: soft Back/Spine no CVA tenderness General Back: other FROM Extremity normal to inspection General Extremety ED: Negative for edema, pulses abnormal or tenderness General Extremity: Negative for edema or pulses abnormal Neuro oriented x3, CN's II-XII intact bilaterally and no sensory deficits noted Sensorium / Orientation: awake and alert Motor Exam: strength 5/5 throughout Psych Mood & Affect: anxious Skin no rashes or lesions noted and no wounds MDM MDM MDM Narrative Medical decision making narrative: In addition to treating the patient's symptoms with Reglan, Benadryl, IV fluids, some morphine, and acute abdominal series was initially obtained in order to screen for bowel obstruction. 3 views on my interpretation shows no acute basilar infiltrates or free air or air-fluid levels to suggest a bowel obstruction. Radiology in agreement. However when her white blood count returned elevated, I thought it more accurate to obtain a CT to rule out a bowel obstruction. I reviewed the images and report which I agree with, it is negative for anything acute. There is a small pericardial effusion this appears to be chronic looking at past imaging and probably unrelated to what is going on here. She does have some mild IMELDA, likely due to dehydration. With IV fluids her heart rate improved from 100s to 70s. She was doing much better after the medications. We gave her p.o. challenge, and I offered admission. She is drinking water okay and feeling better, she declines admission prefers to go home. Offered a prescription for Reglan since she states Zofran has not helped in the past. I also advised a liquid diet for the next 48 hours, she states she agrees and will follow-up with Dr. Cooper as an outpatient which I agree with as well. Lab Data Attestation: I reviewed the patient's lab results. Labs: Laboratory Results - last 24 hr 05/18/24 09:45 WBC 13.1 H RBC 5.40 Hgb 15.4 H Hct 47.1 H MCV 87.2 MCH 28.5 MCHC 32.7 RDW Std Deviation 49.7 H RDW Coeff of Zoila 15.4 H Plt Count 297 MPV 10.3 Immature Gran % (Auto) 0.300 Neut % (Auto) 77.6 H Lymph % (Auto) 15.4 L Ritchie % (Auto) 5.8 Eos % (Auto) 0.7 Baso % (Auto) 0.2 Absolute Neuts (auto) 10.1 H Absolute Lymphs (auto) 2.01 Nucleated RBC % 0 Sodium 133 L Potassium 4.2 Chloride 95 L Carbon Dioxide 28.0 Anion Gap 9 BUN 36 H Creatinine 1.81 H Est GFR (MDRD) Af Amer 36 L Est GFR (MDRD) Non-Af 30 L BUN/Creatinine Ratio 19.9 Glucose 171 H Calcium 9.6 Total Bilirubin 0.60 AST 14 L ALT 9 L Alkaline Phosphatase 111 Total Protein 8.3 H Albumin 3.8 Globulin 4.5 H Albumin/Globulin Ratio 0.8 L Lipase 36 Radiography Diagnostic Testing: Clinical Impression(s) from Imaging Studies Acute Abdomen Series 05/18/24 09:38 IMPRESSION: Normal x-ray examination of the chest, abdomen, and pelvis. Electronically Signed: Albert Jewell MD at 10:36 EDT Reading Location ID and State: [id number] / [employer] , Service support , Abdomen/Pelvis CT 05/18/24 10:18 IMPRESSION: No renal or ureteral stone. Sigmoid diverticulosis without diverticulitis Electronically Signed: Albert Jewell MD at 11:35 EDT Reading Location ID and State: [place] / [employer] , Service support , Discharge Plan Triage Chief Complaint: Nausea/Vomiting Other Complaint: Weakness ED Provider: Ken Gunter Dx/Rx/DC Orders Clinical Impression: Nausea and vomiting, Acute epigastric pain Instructions: ED Epigastric Pain Uncertain Cause, ED Full Liquid Diet Prescriptions: New metoclopramide HCl 10 mg tablet 10 mg PO Q6H PRN PRN (Reason: nausea and vomiting) Qty: 20 0RF No Action cholecalciferol (vitamin D3) 125 mcg (5,000 unit) tablet 125 mcg PO DAILY aspirin 81 MG tablet,chewable 81 mg PO DAILY@0800 metoprolol tartrate 25 mg tablet 12.5 mg PO BID Qty: 90 3RF amlodipine 10 mg tablet See Rx Instructions .ROUTE .COMPLEX Qty: 90 4RF Dose Instruction: TAKE 1 TABLET BY MOUTH EVERY DAY Rx Instructions: TAKE 1 TABLET BY MOUTH EVERY DAY lisinopril 40 mg tablet See Rx Instructions .ROUTE .COMPLEX Qty: 90 3RF Dose Instruction: TAKE 1 TABLET BY MOUTH EVERY DAY Rx Instructions: TAKE 1 TABLET BY MOUTH EVERY DAY Primary Care Provider: Felicia Gallegos Referrals: Felicia Gallegos MD [Primary Care Provider] - FriendMelecio DO [Med Staff - Active Staff] - As soon as possible Activity Restrictions/Additional Instructions: Recommend full liquid diet for the next 24 hours and then advance as tolerated Print Language: Persian Disposition Disposition: Home, Self Care
[2024-05-18] MEDS: Metoclopramide 10 MG/2 ML Vial 5 MG IV (09:52)
[2024-05-18] MEDS: DiphenhydrAMINE 50 MG/ML Syringe 25 MG IV (09:53)
[2024-05-18] MEDS: Morphine 4 MG/ML Syringe IV (09:55)
[2024-05-18] MEDS: 0.9% Normal Saline (1000mL) 1,000 ML 999 ML IV (09:56)
[2024-05-18 10:00] LABS: Absolute Lymphocyte Count 2.01 X10^3/uL (0.83-4.51); Absolute Neutrophil Count 10.1 X10^3/uL (2.0-7.7); Basophil# 0.03 X10^3/uL; Basophil% 0.2 % (0-1); Eosinophil# 0.09 X10^3/uL; Eosinophils% 0.7 % (0-5); Hematocrit 47.1 % (37-47); Hemoglobin 15.4 g/dL (12.0-15.0); Lymphocyte # 2.01 X10^3/ul (0.83-4.51); Lymphocyte % 15.4 % (19-41); Mean Corp Hgb Conc 32.7 g/dL (32-36); Mean Corpuscular Hgb 28.5 pg (27.0-32.0); Mean Corpuscular Volume 87.2 fL (81-99); Mean Platelet Vol. 10.3 fl (6.2-12.0); Monocyte# 0.76 X10^3/uL; Monocyte% 5.8 % (0-10); NRBC Flagged by Analyzer 0 % (0-5); Neutrophil # 10.14 X10^3/uL (2.7-7.7); Neutrophil % 77.6 % (47-70); Platelet Count 297 K/mm3 (150-450); RBC Distribution Width CV 15.4 % (11.6-14.6); RBC Distribution Width SD 49.7 fl (35.1-43.9); White Blood Count 13.1 K/mm3 (4.4-11.0)
[2024-05-18 10:16] LABS: ALB/GLOB Ratio 0.8 RATIO (0.9-2.4); AST(SGOT) 14 U/L (15-37); Alanine Aminotransfer ALT/SGPT 9 U/L (13-56); Albumin, Serum 3.8 g/dL (3.2-5.0); Alkaline Phosphatase 111 U/L (45-117); Anion Gap 9 (5-15); BUN 36 mg/dL (7-18); BUN/Creat Ratio 19.9 RATIO (10-20); Calcium,Total 9.6 mg/dL (8.5-10.1); Chloride 95 mmol/L (98-107); Creatinine, Serum 1.81 mg/dL (0.55-1.02); EST Glomerular Filtration Rate 30 mL/min (>60); Est Glom Filt Rate - Afr Amer 36 mL/min (>60); Globulin 4.5 g/dL (2.2-4.2); Glucose 171 mg/dL (74-106); Lipase 36 U/L (13-75); Potassium 4.2 mmol/L (3.5-5.1); Protein, Total 8.3 g/dL (6.4-8.2); Sodium Level 133 mmol/L (136-145)
--- NOTE | 2024-05-18 10:18 | CT_ITS ---
STUDY: CT ABDOMEN AND PELVIS WITHOUT CONTRAST REASON FOR EXAM: Female, 68 years old. upper abd pain, cont vomiting RADIATION DOSAGE (If Supplied By Facility): CTDIvol = ( 8.57 ) mGy, DLP = ( 385.23 ) mGycm TECHNIQUE: Transaxial images were obtained from the dome of the diaphragm to the symphysis pubis without oral contrast, and without intravenous contrast. Sagittal and coronal images were reconstructed. Individualized dose optimization techniques were used for this CT. COMPARISON: 02/09/2022 FINDINGS: The visualized lung bases are unremarkable. Small pericardial effusion. Normal liver. Normal gallbladder and extrahepatic biliary system. Normal spleen. Normal pancreas. There is symmetric enlargement of the adrenal glands suggesting adrenal hyperplasia. Normal right kidney. Normal left kidney. Normal visualized stomach. Normal small intestine. There are multiple colonic diverticula consistent with diverticulosis. There is non-visualization of the appendix. There is diffuse atherosclerotic calcification of the abdominal aorta, without a demonstrated aneurysm. Normal inferior vena cava. Normal retroperitoneum. Normal urinary bladder. Normal abdominal wall. Mild levoscoliosis lumbar spine with degenerative disc disease. CT/Abdomen/Pelvis without Cont IMPRESSION: No renal or ureteral stone. Sigmoid diverticulosis without diverticulitis Electronically Signed: Albert Jewell MD at 11:35 EDT ,
[2024-05-18] MEDS: Ondansetron 4 MG/2 ML Vial IV (10:27)
[2024-05-18 11:12] VITALS: PULSE 72; RESP 18; O2SAT 96
[2024-05-18 13:00] VITALS: BP 95/71; PULSE 89; RESP 17; O2SAT 94
[2024-05-18 13:42] VITALS: BP 103/63; PULSE 83; RESP 17; TEMP 36.4; O2SAT 93
== END 2024-05-18 14:00 | disposition home or self-care (01) ==
PROVIDERS: Emergency Provider Emergency Medicine; PCP Family Medicine; Visit Provider Emergency Medicine
DX: R11.2 Nausea with vomiting, unspecified (principal); E11.9 Type 2 diabetes mellitus without complications; R10.13 Epigastric pain; R42 Dizziness and giddiness; N17.9 Acute kidney failure, unspecified; F17.210 Nicotine dependence, cigarettes, uncomplicated; I10 Essential (primary) hypertension; I31.39 Other pericardial effusion (noninflammatory); I25.2 Old myocardial infarction; I25.10 Atherosclerotic heart disease of native coronary artery without angina pectoris; M19.90 Unspecified osteoarthritis, unspecified site; Z87.19 Personal history of other diseases of the digestive system; Z79.82 Long term (current) use of aspirin; Z90.710 Acquired absence of both cervix and uterus; Z79.899 Other long term (current) drug therapy
CPT/HCPCS: 74022; 74176; 80053; 83690; 85025; 96361; 96374; 96375; 99284; J7030; A4216; J2405

== ENCOUNTER → 2024-06-02 | Outpatient (CLI) | payer MEDICARE, SELFPAY ==
[2024-06-02 10:26] LABS: ALB/GLOB Ratio 0.7 RATIO (0.9-2.4); AST(SGOT) 12 U/L (15-37); Alanine Aminotransfer ALT/SGPT 12 U/L (13-56); Albumin, Serum 3.3 g/dL (3.2-5.0); Alkaline Phosphatase 94 U/L (45-117); Anion Gap 4 (5-15); BUN 12 mg/dL (7-18); BUN/Creat Ratio 18.6 RATIO (10-20); Calcium,Total 9.2 mg/dL (8.5-10.1); Chloride 101 mmol/L (98-107); Creatinine, Serum 0.65 mg/dL (0.55-1.02); EST Glomerular Filtration Rate 97 mL/min (>60); Est Glom Filt Rate - Afr Amer 117 mL/min (>60); Globulin 4.5 g/dL (2.2-4.2); Glucose 112 mg/dL (74-106); Protein, Total 7.8 g/dL (6.4-8.2); Sodium Level 137 mmol/L (136-145)
--- OUTSIDE RECORDS SUMMARY | 2024-06-02 10:51 | XMS RPT_ITS | CCD ---
Author Organization [facility] Care Team Providers Care Inspector [employer]ating And Refrigeration Name Role Phone Jammie Barnes Unavailable Unavailable Jammie Barnes Unavailable Unavailable JOLLIFF, FELICIA S Unavailable Unavailable JOLLIFF, FELICIA S Unavailable Unavailable FENZL, RAJESH E Unavailable Unavailable FENZL, RAJESH E Unavailable Unavailable FENZL, RAJESH E Unavailable Unavailable PROVIDER, UNKNOWN Unavailable Unavailable Allergies Allergy Classification Reported Allergen(s) Allergy Type Date of Onset Reaction(s) Facility (2 sources) Hmg-Coa Reductase Inhibitors (Statins) drug allergy 04-07-20 14 reoccuring pancreatitis, [facility] Work Phone: (4 sources) HYDORCHLOROTHIAZIDE drug allergy 04-08-20 14 reoccuring pancreatitis [facility] Work Phone: (4 sources) NKDA drug allergy 04-01-20 14 [facility] Work Phone: Medications Completed/Discontinued Medications Medication Drug Class(es) Dates Sig (Normalized) Sig (Original) acetaminophen / HYDROcodone (8 sources) Opioid Agonist Start: 01-23-2010 End: 04-08-2014 VICODIN 5-500 MG TABS one to two tabs four times a day as needed for pain HYDROCODONE-ACETAMI NOPHEN [id number] Johann Lee MD Start: 01-23-2010 VICODIN 5-500 MG TABS one to two tabs four times a day as needed for pain HYDROCODONE-ACETAMINOPHEN [id number] Jed Whipple MD Start: 01-17-2010 VICODIN 5-500 MG TABS one to two tabs four times a day as needed for pain HYDROCODONE-ACETAMINOPHEN [id number] Jed Whipple MD Start: 01-17-2010 End: 02-02-2010 VICODIN 5-500 MG TABS one to two tabs four times a day as needed for pain HYDROCODONE-ACETAMINOPHEN 04802553935 Jed Whipple MD amLODIPine 5 mg oral tablet (16 sources) Dihydropyridine Calcium Channel Shawn Start: 04-08-2014 take 1 tablet by mouth once daily AMLODIPINE BESYLATE 5 MG TABS One tablet by mouth daily (STOP) AMLODIPINE BESYLATE [id number] Johann Lee MD Start: 04-08-2014 take 1 tablet by rivka th once daily AMLODIPINE BESYLATE 10 MG TABS One tablet by mouth daily AMLODIPINE BESYLATE 37936928592 Sanjuanita Jansen PA-C aspirin 81 mg oral strip (6 sources) Nonsteroidal Anti-inflammatory Drug Start: 04-01-2014 take 1 tablet by mouth once daily ASPIRIN 81 MG TABS One tablet by mouth daily ASPIRIN 24124260446 Dali Hall RN Start: 04-01-2014 take 1 tablet by rivka th once daily ASPIRIN EC 81 MG TBEC One tablet by mouth daily ASPIRIN 78166444426 Sanjuanita Rand RN atorvastatin 40 mg oral tablet (4 sources) HMG-CoA Reductase Inhibitor Start: 04-01-2014 End: 04-07-2014 take 1 tablet by mouth once daily ATORVASTATIN CALCIUM 40 MG TABS One tablet by mouth daily ATORVASTATIN CALCIUM 82375725889 Dali Hall RN cefadroxil 500 mg oral capsule (4 sources) Cephalosporin Antibacterial Start: 01-17-2010 End: 02-02-2010 CEFADROXIL 500 MG CAPS one tab twice a day CEFADROXIL 20995041229 Jed Whipple MD cholecalciferol 2000 unt oral tablet (6 sources) Vitamin D Start: 10-13-2015 take 1 tablet by mouth twice daily VITAMIN D 2000 UNIT TABS One tablet by mouth twice daily CHOLECALCIFEROL 37882260244 Sanjuanita Rand RN Start: 08-19-2015 take 1 tablet by rivka th every week VITAMIN D3 91998 UNIT CAPS One tablet by mouth once a week CHOLECALCIFEROL 92580159458 Sanjuanita Rand RN Start: 08-19-2015 take 1 tablet by rivka th once daily VITAMIN D3 5000 UNIT CHEW One tablet by mouth daily CHOLECALCIFEROL 19441850005 Johann Lee MD cloNIDine hydrochloride 0.2 mg oral tablet (8 sources) Central alpha-2 Adrenergic Agonist Start: 08-19-2015 take 0.5 tablet by mouth twice daily CATAPRES 0.2 MG TABS 1/2 tablet by mouth twice daily CLONIDINE HCL 97240400519 Nini Quinteros Start: 08-19-2015 take 1 tablet by rivka th twice daily CATAPRES 0.2 MG TABS One tablet by mouth twice daily CLONIDINE HCL 45360737694 Johann Lee MD Start: 08-19-2015 take 1 tablet by rivka th twice daily CATAPRES 0.1 MG TABS One tablet by mouth twice daily CLONIDINE HCL 83352720234 Sanjuanita Jansen PA-C clopidogrel 75 mg oral tablet (4 sources) P2Y12 Platelet Inhibitor Start: 04-01-2014 take 1 tablet by mouth once daily PLAVIX 75 MG TABS One tablet by mouth daily CLOPIDOGREL BISULFATE 00542308104 Sanjuanita Jansen PA-C doxazosin 2 mg oral tablet (10 sources) alpha-Adrenergic Shawn Start: 07-11-2015 take 1 tablet by mouth once daily CARDURA 1 MG TABS One tablet by mouth daily DOXAZOSIN MESYLATE 50970181823 Sanjuanita Jansen PA-C Start: 07-11-2015 End: 02-13-2016 take 1 tablet by mouth once daily CARDURA 2 MG TABS One tablet by mouth daily DOXAZOSIN MESYLATE 92448103925 Sanjuanita Jansen PA-C Start: 07-11-2015 take 1 tablet by rivka th twice daily CARDURA 2 MG TABS One tablet by mouth twice daily DOXAZOSIN MESYLATE 88503720845 Sanjuanita Jansen PA-C ergocalciferol 57740 unt oral tablet (2 sources) Provitamin D2 Compound Start: 10-13-2015 take 1 tablet by mouth every week VITAMIN D (ERGOCALCIFEROL) 01635 UNIT CAPS One tablet by mouth weekly ERGOCALCIFEROL 05891231334 Johann Lee MD furosemide 20 mg oral tablet (2 sources) Loop Diuretic Start: 10-13-2015 take 1 tablet by mouth once daily as needed FUROSEMIDE 20 MG TABS One tablet by mouth daily as needed FUROSEMIDE 53935922752 Sanjuanita Rand RN hydroCHLOROthiazide 25 mg oral tablet (4 sources) Thiazide Diuretic End: 03-31-2014 take 1 tablet by mouth once daily HYDROCHLOROTHIAZIDE CAPS One tablet by mouth daily 25mg HYDROCHLOROTHIAZIDE CAPS 71072948267 Dali Hall RN lisinopril 5 mg oral tablet (12 sources) Angiotensin Converting Enzyme Inhibitor Start: 04-01-2014 take 2 tablets by mouth once daily LISINOPRIL 5 MG TABS Two tablets by mouth daily LISINOPRIL 22771175449 Sanjuanita Jansen PA-C Start: 04-01-2014 take 1 tablet by rivka th once daily LISINOPRIL 5 MG TABS One tablet by mouth daily LISINOPRIL 37942058841 Sanjuanita Jansen PA-C Start: 04-01-2014 take 1 tablet by rivka th once daily LISINOPRIL 20 MG TABS One tablet by mouth daily LISINOPRIL 49059753433 Sanjuanita Jansen PA-C Start: 04-01-2014 take 1 tablet by rivka th once daily LISINOPRIL 40 MG TABS One tablet by mouth daily LISINOPRIL 82712731449 Sanjuanita Jansen PA-C 24 hr metoprolol succinate 25 mg extended release oral tablet (10 sources) beta-Adrenergic Shawn Start: 04-01-2014 take 1 tablet by mouth once daily METOPROLOL SUCCINATE ER 25 MG [id number] One tablet by mouth daily METOPROLOL SUCCINATE 11993541336 Dali Hall RN Start: 04-01-2014 take 1 tablet by rivka th twice daily METOPROLOL TARTRATE 50 MG TABS One tablet by mouth twice daily METOPROLOL TARTRATE 62032056748 Sanjuanita Jansen PA-C Start: 04-01-2014 take 1 tablet by rivka th twice daily METOPROLOL TARTRATE 25 MG TABS One tablet by mouth twice daily METOPROLOL TARTRATE 19057619078 Sanjuanita Jansen PA-C vitamin B 12 (2 sources) Vitamin B12 Start: 10-13-2015 take 1 tablet by mouth twice daily B-12 5000 MCG CAPS One tablet by mouth twice daily CYANOCOBALAMIN 45037077442 Sanjuanita Rand RN CHOLECALCIFEROL (2 sources) Start: 08-19-2015 take 1 tablet by mouth once daily VITAMIN D 1000 UNIT TABS One tablet by mouth daily CHOLECALCIFEROL 23426239737 Johann Lee MD Problems Active Problems Problem Classification Problem Date Documented Date Episodic/Chronic Coronary atherosclerosis and other heart disease (6 sources) Atherosclerotic heart disease of [place] coronary artery without angina pectoris; Translations: [Old [...] Results Test Name Value Interpretation Reference Range Facility Office Visit: [facility] 04-17-20 17 Documentation of current medications (procedure) Done Invalid Interpretation Code [facility] Work Phone: Fall risk assessment No Invalid Interpretation Code [facility] Work Phone: EMERGENCY REPORTon 7 EMERGENCY REPORT [facility] EMERGENCY ROOM REPORT NAME NUMBER SEX AGE ADMIT DISC TYPE MED.RECORD# ISABELLE NAQVI [id number] F 61 03/23/2017 03/23/2017 E.RMana [id number] ROOM:ER DATE OF :1955 PHYSICIAN NO.:[id number] PHYSICIAN NAME: PHYSICIAN:Rajesh Kwon D.O. ADDENDUM CHIEF COMPLAINT: This is a 61-year-old female presents due to nausea, vomiting, and abdominal pain. HISTORY OF PRESENT ILLNESS: She states the pain wraps around her ribs. PAST MEDICAL HISTORY: She has a history of pancreatitis. Her pancreatitis was caused by statins and diuretics. DIAGNOSTIC DATA: CT shows mild small bowel wall thickening suggestive of mild enteritis. EMERGENCY DEPARTMENT COURSE AND TREATMENT: Patient was given Tylenol #3, Zofran 4 mg IV, and was discharged home with 2 Zofran 4 mg and 2 Tylenol #3. DIAGNOSES: 1. Abdominal pain, unclear etiology. 2. Nausea and vomiting. PLAN/DISPOSITION: She is instructed to follow up with Dr. Felicia Gallegos at [phone], to be seen in 1-2 days. She is instructed to return to ER for new or worsening symptoms and return to ER March 23, 2017, at noon for reevaluation. She was given a prescription for Zofran 4 mg #3, one p.o. q.8 hours as needed for nausea. Please see Dr. Isael Katz's initial note for initial evaluation of the patient. D: Rajesh Kwon D.O. TD: 03/24/2017 21:21:35 JOB #: [id number] DR. RAJESH KWON EMERGENCY DEPARTMENT 04/16/17 02:16 Transcribed by: YOSSI 03/24/2017 21:21:35 Copy for: SHREYA Kidd DO Copy for: ZACK Wilhelm EMERGENCY ROOM REPORT ISABELLE NAQVI 1 Normal [facility] EMERGENCY REPORTon 7 EMERGENCY REPORT [facility] EMERGENCY ROOM REPORT NAME NUMBER SEX AGE ADMIT DISC TYPE MED.RECORD# ISABELLE NAQVI [id number] F 61 03/23/2017 03/23/2017 E.R. [id number] ROOM:ER DATE OF :1955 PHYSICIAN NO.:[id number] PHYSICIAN NAME: PHYSICIAN:DALE KATZ HISTORY OF PRESENT ILLNESS: Patient came in complaining of abdominal pain. She has had vomiting which started on Saturday. It felt like her pancreatitis which she has had in the past and today she started having diarrhea. She could not keep up with fluid loss and presents to the emergency department. She denies any fevers or chills. She has had weakness and fatigue. PAST MEDICAL/SURGICAL HISTORY: Coronary artery disease. She has diabetes, hyperlipidemia, hypertension. She had a hysterectomy. SOCIAL HISTORY: She does smoke. Denies alcohol use. REVIEW OF SYSTEMS: Ten systems reviewed and were negative, except as mentioned above. PHYSICAL EXAMINATION: Patient is an awake, alert, oriented female in no acute distress. Vital signs per chart. Head is normocephalic, atraumatic. Eyes: Pupils equal, round, active to light. Extraocular muscles intact. Nares are patent. Throat has good oral moisture. Uvula is midline. Neck is supple without petechiae or rash. Heart regular without murmur, S1 equals S2. No S3 or S4 appreciated. Lungs are clear to auscultation bilaterally. No rales, rhonchi, or retractions. Abdomen: Soft, nondistended. She has some generalized abdominal pain. Skin is warm and dry. PLAN/DISPOSITION: We did order blood work and she will be endorsed over to Dr. Kwon at shift change. D: DALE KATZ TD: 03/24/2017 10:23:01 JOB #: [id number] Dale Katz D.O. Emergency Department 03/29/17 12:15 Transcribed by: NMAguilar 03/24/2017 10:23:01 Copy for: STERLING Kidd III Copy for: SHREYA Kidd DO Copy for: ZACK Wilhelm EMERGENCY ROOM REPORT ISABELLE NAQVI 1 Normal [facility] CBCon 03-23-2017 Basophils Auto #/vol (Bld) 0.10 x10EE3/UL Normal 0.00 - 0.10 [facility] Comment on above: Performed By: #### 2 01193 ####[facility],[address] [place] [address] Basophils/100 WBC Auto (Bld) 0.6 % Normal 0.0 - 2.0 [facility] Comment on above: Performed By: #### 2 78952 ####[facility],[address] [place] [address] Blood morphology N/A Normal [facility] Comment on above: Result Comment: {CD] Performed By: #### 2 79821 ####[facility],[address] [place] [address] CBC Normal [facility] Comment on above: Result Comment: CBC- COMPLETE BLOOD COUNT Performed By: #### 2 15366 ####[facility],[address] [place] [address] Eosinophils 0.00 x10EE3/UL Normal 0.00 - 0.50 [facility] Comment on above: Performed By: #### 2 35348 ####[facility],[address] [place], [place] [id number] Eosinophils/100 leukocytes 0.1 % Normal 0.0 - 7.0 [facility] Comment on above: Performed By: #### 2 98659 ####[facility],[address] [place] [address] Erythrocyte distribution width Auto Ratio (RBC) 14.2 % Normal 12.0 - 15.6 [facility] Comment on above: Performed By: #### 2 12002 ####[facility],[address] [place] [address] Erythrocytes (RBC) 5.65 x 10EE6/UL High 4.10 - 5.30 [facility] Comment on above: Performed By: #### 2 05392 ####[facility],[address] [place] [address] Hematocrit (HCT) 48.7 % High 34.0 - 46.0 [facility] Comment on above: Performed By: #### 2 17716 ####[facility],[address] [place] [address] Hemoglobin mass conc (Bld) 16.6 g/dL High 12.0 - 16.0 [facility] Comment on above: Performed By: #### 2 55308 ####[facility],[address] [place] [address] Lymphocytes 2.60 x10EE3/UL Normal 0.80 - 2.80 [facility] Comment on above: Performed By: #### 2 07194 ####[facility],[address] [place] [address] Lymphocytes/100 leukocytes 20.7 % Normal 20.0 - 45.0 [facility] Comment on above: Performed By: #### 2 31304 ####[facility],[address] [place] [address] MANUAL DIFF N/A Normal [facility] Comment on above: Performed By: #### 2 63381 ####[facility],[address] [place] [address] MCH 29 pg Normal 27 - 33 [facility] Comment on above: Performed By: #### 2 04410 ####[facility],[address] [place] [address] MCHC mass conc (RBC) 34 X10 3 Normal 32 - 36 [facility] Comment on above: Performed By: #### 2 68250 ####[facility],[address] [place], [place] [id number] MCV 86 fL Normal 80 - 99 [facility] Comment on above: Performed By: #### 2 34841 ####[facility],[address] [place] [address] Monocytes 0.90 x10EE3/UL Normal 0.20 - 1.00 [facility] Comment on above: Performed By: #### 2 79830 ####[facility],[address] [place] [address] MONOS % 7.3 % Normal 0.0 - 10.0 [facility] Comment on above: Performed By: #### 2 58943 ####[facility],[address] [place] [address] Neutrophils 8.90 x10EE3/UL High 1.50 - 7.10 [facility] Comment on above: Performed By: #### 2 11031 ####[facility],[address] [place] [address] Neutrophils/100 WBC Auto (Bld) 71.3 % Normal 46.0 - 76.0 [facility] Comment on above: Performed By: #### 2 14580 ####[facility],[address] [place] [address]995 Platelet mean volume (PMV) 9.2 fL Normal 6.6 - 10.5 [facility] Comment on above: Result Comment: AUTO MATED DIFFERENTIAL Performed By: #### 2 25197 ####[facility],[address] [place] [address] Platelets 249 x10EE3/UL Normal 150 - 450 [facility] Comment on above: Performed By: #### 2 01362 ####[facility],[address] [place] [address] 71350 WBC (Leukocytes) 12.5 x 10EE3/UL High 4.5 - 10.8 [facility] Comment on above: Performed By: #### 2 05133 ####[facility],[address] [place] [address] CHEST APon 03-23-2017 CHEST [place] [address] Patient: ISABELLE NAQVI Phone#: : 1955 Age: 61 Gender: F Pt. Type: ER Account: [id number] Location: 052 Ordering: RAJESH KWON Exam Date: 03/23/2017/19:59 Family Phys: FELICIA ChocoMana GALLEGOS Charge Code: 296327 Physician: [place] Order #: [id number] DLP Dose#: PROCEDURE: X-RAY CHEST AP 1 VIEW COMPARISON: None. INDICATIONS: Vomiting FINDINGS: LUNGS: There are chronic interstitial changes. There is a nodule in the mid right lung zone measuring 0.5 x 0.5 cm. VASCULATURE: Normal. Unremarkable pulmonary vasculature. CARDIAC: Normal. No cardiac silhouette abnormality or cardiomegaly. MEDIASTINUM: Normal. No visible mass or adenopathy. PLEURA: Normal. No effusion or pleural thickening. BONES: Normal. No fracture or visible bony lesion. OTHER: Negative. CONCLUSION: Pulmonary nodule. In a high-risk patient recommend dedicated evaluation CT thorax without contrast. Dictated by: Lori Warren MD on 03/24/2017 at 17:50 Approved by: Lori Warren MD on 03/24/2017 at 17:50 Normal [facility] CMP with eGFRon 03-23-2017 Age 61 years Normal [facility] Comment on above: Performed By: #### 2 02883 ####[address] [address] Albumin 4.5 g/dL Normal 3.4 - 4.8 [facility] Comment on above: Performed By: #### 2 30301 ####[address] [address] Albumin/Globulin Ratio 1.3 {ratio} Normal 0.9 - 1.6 [facility] Comment on above: Performed By: #### 2 76200 ####[address] [address] ALK PHOS 81 U/L Normal 38 - 126 [facility] Comment on above: Performed By: #### 2 72410 ####[address] [address] ALT/SGPT 12 U/L Normal 8 - 35 [facility] Comment on above: Performed By: #### 2 62222 ####[facility],[address] [place] [address] Anion gap 16 mmol/L Normal 10 - 20 [facility] Comment on above: Performed By: #### 2 98209 ####[facility],[address] [place] [address] AST/SGOT 17 U/L Normal 13 - 39 [facility] Comment on above: Performed By: #### 2 99779 ####[facility],[address] [place] [address] B/C RATIO 18 ratio Normal 0 - 30 [facility] Comment on above: Performed By: #### 2 78420 ####[facility],[address] [place] [address] Bilirubin (total) 0.7 mg/dL Normal 0.0 - 1.5 [facility] Comment on above: Performed By: #### 2 51511 ####[facility],[address] [place] [address] Calcium 10.2 mg/dL Normal 8.6 - 10.2 [facility] Comment on above: Performed By: #### 2 63427 ####[facility],[address] [place] [address] Chloride 91 mmol/L Low 98 - 107 [facility] Comment on above: Performed By: #### 2 44720 ####[facility],[address] [place] [address] CO2 28.9 mmol/L Normal 21.0 - 31.0 [facility] Comment on above: Performed By: #### 2 88648 ####[facility],[address] [place] [address] Creatinine 1.3 mg/dL High 0.6 - 1.2 [facility] Comment on above: Performed By: #### 2 38647 ####[facility],[address] [place] [address] eGFR (non-black) 51 ML/MINUTE Low 60 - 999 [facility] Comment on above: Result Comment: ACCO RDING TO THE NATIONAL KIDNEY DISEASE EDUCATION PROGRAM(NKDE), A NORMAL eGFRIS A VALUE GREATER THAN OR EQUAL TO 60 ML/MIN/1.73 SQ METERS.CHRONIC KIDNEY DISEASE: <60mL/MIN/1.73 SQ METERSKIDNEY FAILURE: <15mL/MIN/1.73 SQ METERSTHIS TEST SHOULD ONLY BE USED FOR PATIENTS 18 YEARS OF AGE AND OLDER. Performed By: #### 2 34497 ####[facility],[address] [place] [address]45 eGFR (non-black) 42 ML/MINUTE Low 60 - 999 [facility] Comment on above: Performed By: #### 2 36980 ####[facility],[address] [place] [address]44[address] eGFR (non-black) Normal [facility] Comment on above: Result Comment: COMP REHENSIVE METABOLIC PANEL Performed By: #### 2 83545 ####[address] [address] Globulin 3.4 g/dL Normal 1.5 - 3.8 [facility] Comment on above: Performed By: #### 2 33623 ####[address] [address] Glucose mass conc 152 mg/dL High 74 - 106 [facility] Comment on above: Performed By: #### 2 15990 ####[address] [address] Potassium molar conc 3.7 mmol/L Normal 3.5 - 5.1 [facility] Comment on above: Performed By: #### 2 57517 ####[facility],[address] [place] [address] Protein 7.9 g/dL Normal 6.4 - 8.3 [facility] Comment on above: Performed By: #### 2 82053 ####[facility],[address] [place] [address] Sodium 132 mmol/L Low 136 - 145 [facility] Comment on above: Performed By: #### 2 08239 ####[facility],[address] [place] [address] Urea nitrogen 23 mg/dL High 6 - 20 [facility] Comment on above: Performed By: #### 2 82471 ####[facility],[address] [place] [address] ABDOMEN/PELVIS [facility] 2016 CT ABDOMEN/PELVIS [place] [address] Patient: ISABELLE NAQVI Phone#: : 1955 Age: 61 Gender: F Pt. Type: ER Account: [id number] Location: [facility] Ordering: RAJESH KWON Exam Date: 03/23/2017/20:18 Family Phys: FELICIA GALLEGOS Charge Code: [id number] Physician: [place] Order #: [id number] DLP Dose#: [id number] PROCEDURE: CT ABDOMEN/PELVIS WITH CONTRAST COMPARISON: None. INDICATIONS: Vomitting TECHNIQUE: After obtaining the patient's consent, CT images were created with non-ionic intravenous contrast material. All CT scans at this facility use dose modulation, iterative reconstruction, and/or weight based dosing when appropriate to reduce radiation dose to as low as reasonably achievable. IV CONTRAST: Omnipaque 350,80ml TOTAL DOSE: 27.60 CTDIvol(mGy) FINDINGS: LIVER: Mild fatty changes of liver are present. There is a 2.0 cm hypodense focus in the anterior right hepatic lobe possibly representing hemangioma. Other etiology cannot be excluded. BILIARY: Normal. No visible dilatation or calcification. PANCREAS: Normal. No lesion, fluid collection, ductal dilatation, or atrophy. SPLEEN: Normal. No enlargement or focal lesion. KIDNEYS: Normal. No mass, obstruction, or calcification. ADRENALS: 1.5 cm left adrenal nodule is present. No mass or enlargement. AORTA/VASCULAR: Normal. No aneurysm or dissection. RETROPERITONEUM: Normal. No mass or adenopathy. Continued Report - Page 2 of 2 Patient: ISABELLE NAQVI Phone#: : 1955 Age: 61 Gender: F Pt. Type: ER Account: [id number] Location: 052 Ordering: RAJESH KWON Exam Date: 03/23/2017/20:18 Family Phys: FELICIA GALLEGOS Charge Code: [id number] Physician: [place] Order #: [id number] DLP Dose#: [id number] BOWEL/MESENTERY: Mucosal thickening of small bowel is present suggestive of enteritis. There is otherwise no evidence of obstructive bowel change. ABDOMINAL WALL: Normal. No mass or hernia. URINARY BLADDER: Normal. No visible focal wall thickening, lesion, or calculus. PELVIC NODES: Normal. No adenopathy. PELVIC ORGANS: Uterus is absent. BONES: Degenerative changes of the spine are present most marked at the L4-5 and L5-S1 levels. LUNG BASES: Normal. No visible pulmonary or pleural disease. OTHER: Negative. CONCLUSION: 1. Findings suggestive of enteritis. 2. No other acute abdominal abnormality is identified. 3. Hypodense focus in the right hepatic lobe is of questionable etiology but raises possibility of hemangioma. Dictated by: Chelsi Morfin MD on 03/25/2017 at 9:50 Approved by: Chelsi Morfin MD on 03/25/2017 at 9:50 Normal [facility] LIPASEon 03-23-2017 Lipase 73.0 U/L High 18.0 - 51.0 [facility] Comment on above: Performed By: #### 2 78112 ####[facility],[address] [place] [address] Office Visiton 10-15-2016 Dietary management education, guidance, and counseling (procedure) yes Invalid Interpretation Code [employer] 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 Work Phone: [phone] Office Visit: [facility] 02-13-20 16 Smoking cessation education (procedure) yes Invalid Interpretation Code [employer] Phone: [phone] Tobacco use CP Current every day smoker Invalid Interpretation Code [employer] Phone: [phone] Lab Report: Basic Metabolic Profile (BMP)on 07-11-2015 Anion gap 6 mmol/L Invalid Interpretation Code 5-15 [employer] Work Phone: [phone] BUN/Creatinine Ratio 15.1 RATIO Invalid Interpretation Code 10-20 [employer]: [phone] Calcium 9.0 mg/dL Invalid Interpretation Code 8.5-10.1 [employer]: [phone] Chloride 102 mmol/L Invalid Interpretation Code 98-107 [employer]: [phone] CO2 34.0 mmol/L High 21.0-32.0 [employer]: [phone] Creatinine 0.73 mg/dL Invalid Interpretation Code 0.55-1.20 [employer]: [phone] eGFR (non-black) 87 mL/min/{1.73_m2} Invalid Interpretation Code >60 [employer]: [phone] eGFR (non-black) 105 mL/min/{1.73_m2} Invalid Interpretation Code >60 [employer]: [phone] Glucose 143 mg/dL High 70-110 [employer] Work Phone: [phone] Potassium 3.6 mmol/L Invalid Interpretation Code 3.5-5.1 [employer]: [phone] Sodium 142 mmol/L Invalid Interpretation Code 136-145 [employer]: [phone] Urea nitrogen 11 mg/dL Invalid Interpretation Code 7-18 [employer] Work Phone: [phone] Lab Report: Thyroid Stim Hor yessica (TSH)on 07-11-2015 Thyroid stimulating hormone (TSH) 1.64 u[iU]/mL Invalid Interpretation Code 0.358-3.74 [employer] Work Phone: [phone] Office Visit: [facility] 02-26-20 15 cardiac risk group C Invalid Interpretation Code [employer] Work Phone: [phone] General cardiovascular disease 10Y risk [#] Brenna N/A Invalid Interpretation Code [employer] Work Phone: [phone] Clinical Lists Update: 02-08-2015 Left ventricular Ejection fraction 65 % Invalid Interpretation Code [employer] Work Phone: [phone] EKG Report: [email or web address] ECG Obse rvationson 04-08-2014 GE use only - for [employer] import when terms are not otherwise specified 406 ms Invalid Interpretation Code [employer] Phone: [phone] Replaced Document: Phan E CG Observationson 04-08-2014 electrocardiogram interpretation Sinus Rhythm -RSR(V1) -nondiagnostic . PROBABLY NORMAL Invalid Interpretation Code [employer] Work Phone: [phone] P wave axis, electrocardiogram 46 deg Invalid Interpretation Code [employer] Work Phone: [phone] [place] interval, electrocardiogram 150 ms Invalid Interpretation Code [employer] Work Phone: [phone] Pulse (Heart Rate) 60 /min Invalid Interpretation Code [employer] Work Phone: [phone] Pulse (Heart Rate) 407 ms Invalid Interpretation Code [employer] Work Phone: [phone] QRS axis, electrocardiogram 25 deg Invalid Interpretation Code [employer] Work Phone: [phone] QRS duration, electrocardiogram 90 ms Invalid Interpretation Code [employer] Work Phone: [phone] QT interval, electrocardiogram new path ms Invalid Interpretation Code [employer] Work Phone: [phone] T wave axis, electrocardiogram 53 deg Invalid Interpretation Code [employer] Work Phone: [phone] Clinical Lists Update: 03-26-2014 Cholesterol 228 mg/dL High [employer] Work Phone: [phone] HDL Cholesterol 36 mg/dL Low [employer] Work Phone: [phone] LDL Cholesterol 130 mg/dL Invalid Interpretation Code [employer] Work Phone: [phone] Triglyceride 308 mg/dL High [facility] Work Phone: [phone] very low density lipoproteins 62 mg/dL High [facility] Work Phone: [phone] Vital Signs Date Time Vital Sign Value Performing Clinician Sophie martinez 04-17-2017 09:44-0400 BMI (Body Mass Index) 35.46 kg/m2 [facility] Work Phone: 04-17-2017 09:44-0400 BP Diastolic 78 mm[Hg] [facility] Work Phone: 04-17-2017 09:44-0400 BP Systolic 130 mm[Hg] [facility] Work Phone: 04-17-2017 09:44-0400 Height 165.1 cm [facility] Work Phone: 04-17-2017 09:44-0400 Pulse (Heart Rate) 60 /min [facility] Work Phone: 04-17-2017 09:44-0400 Respiratory Rate 20 /min [facility] Work Phone: 04-17-2017 09:44-0400 Weight 96.68 kg [facility] Work Phone: 10-15-2016 10:44-0400 BP Diastolic [...] 03-23-2017 End: 03-24-2017 Emergency department patient visit FELICIA GALLEGOS [facility] Procedures Date Procedure Procedure Detail Performing Clinician [...] Johann Lee MD Start: 08-19-2015 End: 08-19-2015 MMCher Lee MD Start: 07-11-2015 End: 07-11-2015 *BMP [...] Phone: Start: 04-17-2017 End: 04-17-2017 Appointment Appointment [facility] Work Phone: Start: 04-17-2017 End: 04-17-2017 Follow Up Appt 6 months Follow Up Appt 6 months [facility] Work Phone: Start: 04-17-2017 End: 04-17-2017 PFM PFM [facility] Work Phone: Start: 10-15-2016 End: 04-11-2017 Follow Up Appt 6 months Follow Up Appt 6 months [facility] Work Phone: Start: 10-15-2016 [...] [facility] Work Phone: Start: 02-13-2016 End: 02-13-2016 PFM PFM [facility] Work Phone: Start: 10-13-2015 End: 01-25-2016 Follow Up BP Check Follow Up BP Check [facility] Work Phone: Start: 09-29-2015 End: 10-13-2015 Follow Up BP Check Follow Up BP Check [facility] Work Phone: Start: 08-19-2015 End: 08-19-2015 Follow Up Appt 6 months Follow Up Appt 6 months [facility] Work Phone: Start: 08-19-2015 End: 09-21-2015 Follow Up BP Check Follow Up BP Check [facility] Work Phone: Start: 08-19-2015 End: 08-19-2015 MMM MMM [facility] Work Phone: Start: 07-11-2015 End: 07-11-2015 *BMP *BMP [facility] Work Phone: Start: 06-03-2015 End: 06-03-2015 Follow Up BP Check Follow Up BP Check [facility] Work Phone: Start: 02-25-2015 End: 02-25-2015 Follow Up Appt 6 months Follow Up Appt 6 months [facility] Work Phone: Start: 02-25-2015 End: 02-25-2015 PFM PFM [facility] Work Phone: Start: 04-08-2014 End: 04-08-2014 Echocardiography Echocardiogram (complete) [facility] Work Phone: Start: 04-08-2014 End: 04-08-2014 Electrocardiogram, complete EKG (In office) [facility] Work Phone: Start: 04-08-2014 End: 04-08-2014 Follow Up Appt 3 months Follow Up Appt 3 months [facility] Work Phone: Start: 04-08-2014 End: 04-08-2014 MMM MMM [facility] Work Phone: Payers Date Payer Category Payer Policy ID [facility] [id number] Summary Purpose Family History No Family History Records Found Advance Directives No Advanced Directives Records Found Additional Source Comments INFORMATION SOURCE (unrecogn ized section and content) DATE CREATED AUTHOR 01/29/2018 [facility] FOR RECORDS PERTAINING TO PATIENTS WHO ARE [...] BE BASED ON THE PRIMARY CLINICAL RECORDS. [employer] [facility]. provides no warranty or guarantee of the accuracy or completeness of information in this document.
== END | disposition home or self-care (01) ==
LOC: LAB 09:34
PROVIDERS: PCP Family Medicine
DX: E86.0 Dehydration (principal)
CPT/HCPCS: 36415; 80053

== ENCOUNTER 2024-11-08 14:46 | Emergency (ER) | payer MEDICARE, SELFPAY ==
[2024-11-08 14:46] VITALS: BP 142/95; PULSE 103; RESP 21; TEMP 36.6; O2SAT 94
--- NOTE | 2024-11-08 15:09 | CT_ITS ---
PROCEDURE: ABDOMEN/PELVIS W IV CONT ONLY 11/08/2024 REASON FOR EXAM: ABDOMINAL PAIN for 1 week. Prior history includes coronary artery disease, hypertension, myocardial infarction, pancreatitis, total abdominal hysterectomy and bilateral salpingo oophorectomy TECHNIQUE: Abdomen and pelvis CT with intravenous contrast. Coronal and Sagittal reconstruction series were provided. PATIENT PREPARATION: Per protocol ORAL CONTRAST TYPE: None. AMOUNT: mL CONTRAST: Isovue 370 VOLUME: 100 mL IV One or more dose reduction techniques were used (e.g., Automated exposure control, adjustment of the mA and/or kV according to patient size, use of iterative reconstruction technique. RADIATION DOSE SUMMARY: CTDlvol: 15.74 mGy DLP: 708.53 mGycm COMPARISON: None. FINDINGS: Lung bases: Unremarkable. Lungs are clear. No pleural effusions. The liver, gallbladder, spleen, pancreas, and kidneys are unremarkable. Small bilateral adrenal nodules are present. In the absence of known cancer or symptoms of cancer, these can likely be regarded as benign and require no follow-up Urinary bladder: Unremarkable. Reproductive Organs: Surgically absent Bowel: There is no small or large bowel dilatation. There are some fluid-filled loops of small and large bowel with mildly enhancing wall suggesting possible combination of enteritis and colitis. Appendix: No inflammatory appendicitis appreciated in the right lower quadrant. The appendix is not definitely identified. Lymph nodes: No aortocaval lymph nodes identified. Vasculature: Moderate calcific soft plaque burden in the abdominal aorta. Celiac artery and SMA are pacified. Peritoneum / Retroperitoneum: No free fluid in Harvey's pouch or the abdomen or pelvis otherwise. No free air. Bones: No aggressive bone lesions. CT/Abdomen/Pelvis W IV Cont ONLY IMPRESSION: Possible mild enteritis/colitis Reading Location[facility]
[2024-11-08] MEDS: Morphine 4 MG/ML Syringe IV (15:13)
[2024-11-08] MEDS: Ondansetron 4 MG/2 ML Vial IV (15:13)
[2024-11-08] MEDS: 0.9% Normal Saline (1000mL) 1,000 ML 999 ML IV (15:13)
[2024-11-08 15:21] LABS: Absolute Lymphocyte Count 3.36 X10^3/uL (0.83-4.51); Absolute Neutrophil Count 7.6 X10^3/uL (2.0-7.7); Basophil# 0.02 X10^3/uL; Basophil% 0.2 % (0-1); Eosinophil# 0.12 X10^3/uL; Hematocrit 46.6 % (37-47); Hemoglobin 16.4 g/dL (12.0-15.0); Lymphocyte # 3.36 X10^3/ul (0.83-4.51); Lymphocyte % 27.6 % (19-41); Mean Corp Hgb Conc 35.2 g/dL (32-36); Mean Corpuscular Hgb 30.2 pg (27.0-32.0); Mean Corpuscular Volume 85.8 fL (81-99); Mean Platelet Vol. 10.3 fl (6.2-12.0); Monocyte# 1.07 X10^3/uL; Monocyte% 8.8 % (0-10); NRBC Flagged by Analyzer 0 % (0-5); Neutrophil # 7.57 X10^3/uL (2.7-7.7); Neutrophil % 62.1 % (47-70); Platelet Count 328 K/mm3 (150-450); RBC Distribution Width CV 13.9 % (11.6-14.6); RBC Distribution Width SD 43.6 fl (35.1-43.9); Red Blood Count 5.43 M/mm3 (4.2-5.4); White Blood Count 12.2 K/mm3 (4.4-11.0)
[2024-11-08 15:47] LABS: Lipase 38 U/L (13-75)
[2024-11-08 15:48] LABS: ALB/GLOB Ratio 1.2 RATIO (0.9-2.4); AST(SGOT) 21 U/L (<=31); Alanine Aminotransfer ALT/SGPT < 5 U/L (<=34); Albumin, Serum 4.3 g/dL (3.4-4.8); Alkaline Phosphatase 94 U/L (35-104); Anion Gap 15 (5-15); BUN 20 mg/dL (4-19); BUN/Creat Ratio 20.6 RATIO (10-20); Calcium,Total 9.7 mg/dL (7.6-11.0); Carbon Dioxide 24.1 mmol/L (21.0-32.0); Chloride 94 mmol/L (98-108); Creatinine, Serum 0.99 mg/dL (0.70-1.20); EST Glomerular Filtration Rate 62 (>60); Globulin 3.5 g/dL (2.2-4.2); Glucose 114 mg/dL (70-99); Protein, Total 7.8 g/dL (5.9-8.4); Sodium Level 133 mmol/L (133-145); Total Bilirubin 0.52 mg/dL (0.00-1.30)
--- NOTE | 2024-11-08 16:00 | EDS_ITS ---
HPI <CAROLINA Pedersen - Last Filed: 11/08/24 18:35> HPI - GI History of Present Illness Chief Complaint: Abd Pain Narrative Narrative: Patient presenting today due to mid abdominal pain she has had over the past week. She reports associated nausea and vomiting that she has had daily. Her last bowel movement was 2 or 3 days ago, she is still passing gas. She denies any history of bowel obstruction. She reports a history of pancreatitis that they suspected was due to one of her prescription medications, this does not feel like pancreatitis to her. She denies alcohol use. She denies fevers, chills, hematemesis, urinary symptoms, and blood in her stool. Previous abdominal surgeries include . PFSH <CAROLINA Pedersen - Last Filed: 11/08/24 18:35> [facility] Medical History Wears glasses Wears dentures Cancer Marijuana use Diabetes Ambulates with cane Arthritis Bladder disease Back pain Vertigo Gastric reflux Smoker Chronic cough Leg cramps History of pain when walking History of echocardiogram History of edema Hypertension Cardiology follow-up encounter History of heart attack Abdominal pain Nausea Cardiomyopathy Sinus bradycardia Essential hypertension Coronary artery disease Pancreatitis Tobacco abuse Hyperlipidemia Hypertension Atherosclerotic heart disease of [place] coronary artery without angina pectoris Home Medications ?Medication ?Instructions ?Recorded ?Last Taken ?Type aspirin 81 mg chewable tablet 81 mg PO DAILY@0800 05/12/16 Unknown History cholecalciferol (vitamin D3) 125 125 mcg PO DAILY 04/06 03/26 Unknown History mcg (5,000 unit) tablet scopolamine base 1 mg over 3 days 1 patch transdermal Q3D PRN nausea 06/02/24 Unknown Rx transdermal patch #10 ea amlodipine 10 mg tablet See Rx Instructions .Route 0 09/03/24 Unknown Rx .COMPLEX #90 tabs metoclopramide HCl 5 mg tablet 5 mg PO QDAY #30 tabs 0 09/04/24 Unknown Rx lisinopril 40 mg tablet 40 mg PO DAILY #90 TABLETS 0 11/02/24 Unknown Rx ciprofloxacin HCl 500 mg tablet 500 mg PO BID #13 TABL ETS 11/08/24 Unknown Rx metronidazole 500 mg tablet 500 mg PO BID 7 days #13 t abs 11/08/24 Unknown Rx ondansetron 4 mg disintegrating 4 mg PO Q8H PRN PRN Na usea #10 tabs 11/08/24 Unknown Rx tablet Allergy/AdvReac Type Severity Reaction Status Date / Time hydrochlorothiazide AdvReac Severe reoccurring Verified 11/08/24 14:48 pancreatitis Yozgwbp-WWX-YvP Reductase AdvReac Severe reoccurring Verified 11/08/24 14:48 Inhibitor (Vwtecyx-Dot-Yke pancreatitis Reductase Inhibitor) Gadolinium-MRI Contrast AdvReac Vomiting Verified 11/08/24 14:48 Medium (Gadolinium-Contrast Medium - MRI) Family History Mother Lung cancer Father CAD (coronary artery disease) Hx of CABG Abdominal aortic aneurysm (AAA) Hypertension Brother CAD (coronary artery disease) Myocardial infarction Hypertension Hx of CABG Surgical History History of cardiac catheterization History of excision of lesion History of bilateral salpingo-oophorectomy History of total hysterectomy Social History household members: spouse Smoking Status: Current every day smoker tobacco type: cigarettes alcohol intake: never substance use type: marijuana caffeine: Yes Type: coffee ROS <CAROLINA Pedersen - Last Filed: 11/08/24 18:35> ROS ED Constitutional Constitutional ED: Denies chills or fever(s) Cardiovascular Cardiovascular: Denies chest pain Respiratory/Chest Respiratory/Chest: Denies dyspnea Gastrointestinal Gastrointestinal: Reports abdominal pain, constipation, nausea and vomiting; Denies diarrhea or melena Genitourinary Genitourinary ED: Denies dysuria, hematuria or urinary frequency Musculoskeletal Musculoskeletal: Denies arthralgias or myalgias Integumentary Denies rash Neurologic Neurologic: Denies weakness EXAM <CAROLINA Pedersen - Last Filed: 11/08/24 18:35> Physical Exam Const Vital Signs: 11/08/24 14:46 11/08/24 16:46 11/08/24 16:48 Temperature 97.8 F 98 F Temperature Source Oral Pulse Rate 103 H 78 78 Respiratory Rate 21 H 16 16 Blood Pressure 142/95 H 101/63 101/63 Blood Pressure Mean 110 75 75 Pulse Ox 94 98 98 Oxygen Delivery Method Room Air Positive well nourished, well developed and no apparent distress General Appearance ED: well developed HEENT Reports normocephalic and head/scalp atraumatic Mouth ED: Yes moist mucous membranes normal Eyes PERRL and EOMs intact bilaterally Neck full ROM and supple Chest Wall inspection of chest normal Resp normal respiratory effort and clear to auscultation bilaterally Cardio regular rate and regular rhythm GI soft to palpation, non-distended and no masses GI Narrative: Mid abdominal tenderness to palpation, no rigidity or guarding. Back/Spine normal ROM and normal to inspection Extremity normal to inspection and full ROM Neuro oriented x3, CN's II-XII intact bilaterally, moves all extremities, no focal motor deficits and no sensory deficits noted Sensorium / Orientation: awake and alert Psych mental status grossly normal and thought process normal Skin no rashes or lesions noted and no wounds <Nicola Romano MD - Last Filed: 11/08/24 18:56> Physical Exam Const Vital Signs: 11/08/24 14:46 11/08/24 16:46 11/08/24 16:48 Temperature 97.8 F 98 F Temperature Source Oral Pulse Rate 103 H 78 78 Respiratory Rate 21 H 16 16 Blood Pressure 142/95 H 101/63 101/63 Blood Pressure Mean 110 75 75 Pulse Ox 94 98 98 Oxygen Delivery Method Room Air [facility] <CAROLINA Pedersen - Last Filed: 11/08/24 18:35> [facility] Narrative Medical decision making narrative: Patient presenting today with mid abdominal pain, nausea, and vomiting she has had over the past week. Her last bowel movement was 2 or 3 days ago, she is passing gas. She follows with Dr. Cooper, she was worked up for IBS, she has a history of psychogenic vomiting syndrome. Labs were obtained, CBC shows a slight leukocytosis at 12.2, this has been elevated in the past. CMP obtained to assess for electrolyte derangement, IMELDA, hepatobiliary etiology. CMP overall is largely unremarkable. UA negative for UTI, she does not have any urinary symptoms to indicate UTI. CT scan of the abdomen and pelvis with IV contrast obtained to assess for bowel obstruction, diverticulitis, colitis, mass, appendicitis, and other abnormality. CT shows possible mild enteritis/colitis. I did speak with Dr. Cooper, he recommends placing her on a course of antibiotics. She will be started on ciprofloxacin and Flagyl with first doses here. I will also write her for Zofran for home. She was given antibiotics, IV fluids, Zofran, and morphine, and Toradol here and on reexamination reports improvement of her symptoms. I recommended that she follow-up with Dr. Cooper and her PCP over the next 5 to 7 days. She will be discharged home in stable condition. Lab Data Attestation: I reviewed the patient's lab results. Labs: Laboratory Results - last 24 hr 11/08/24 11/08/24 15:01 16:00 WBC 12.2 H RBC 5.43 H Hgb 16.4 H Hct 46.6 MCV 85.8 MCH 30.2 MCHC 35.2 RDW Std Deviation 43.6 RDW Coeff of Zoila 13.9 Plt Count 328 MPV 10.3 Immature Gran % (Auto) 0.300 Neut % (Auto) 62.1 Lymph % (Auto) 27.6 [place] % (Auto) 8.8 Eos % (Auto) 1.0 Baso % (Auto) 0.2 Absolute Neuts (auto) 7.6 Absolute Lymphs (auto) 3.36 Nucleated RBC % 0 Sodium 133 Potassium 4.0 Chloride 94 L Carbon Dioxide 24.1 Anion Gap 15 BUN 20 H Creatinine 0.99 Est GFR (MDRD) Non-Af 62 BUN/Creatinine Ratio 20.6 H Glucose 114 H Calcium 9.7 Total Bilirubin 0.52 AST 21 ALT < 5 Alkaline Phosphatase 94 Total Protein 7.8 Albumin 4.3 Globulin 3.5 Albumin/Globulin Ratio 1.2 Lipase 38 Urine Color Yellow Urine Clarity Sl. Cloudy Urine pH 6.0 Ur Specific [place] 1.010 Urine Protein 30 H Urine Glucose (UA) Normal Urine Ketones 15 H Urine Occult Blood 50 H Urine Nitrite Negative Urine Bilirubin 1 H Urine Urobilinogen 1 H Ur Leukocyte Esterase 25 H Urine RBC 0-5 SEEN Urine WBC 0-5 SEEN Ur Squamous Epith Cells 5-10 SEEN Urine Bacteria 2+ Urine Mucus 0 SEEN Radiography Diagnostic Testing: Clinical Impression(s) from Imaging Studies Abdomen/Pelvis CT 11/08/24 15:09 IMPRESSION: Possible mild enteritis/colitis Reading Location: [facility] <Nicola Romano MD - Last Filed: 11/08/24 18:56> [facility] Lab Data Labs: Laboratory Results - last 24 hr 11/08/24 11/08/24 15:01 16:00 WBC 12.2 H RBC 5.43 H Hgb 16.4 H Hct 46.6 MCV 85.8 MCH 30.2 MCHC 35.2 RDW Std Deviation 43.6 RDW Coeff of Zoila 13.9 Plt Count 328 MPV 10.3 Immature Gran % (Auto) 0.300 Neut % (Auto) 62.1 Lymph % (Auto) 27.6 [place] % (Auto) 8.8 Eos % (Auto) 1.0 Baso % (Auto) 0.2 Absolute Neuts (auto) 7.6 Absolute Lymphs (auto) 3.36 Nucleated RBC % 0 Sodium 133 Potassium 4.0 Chloride 94 L Carbon Dioxide 24.1 Anion Gap 15 BUN 20 H Creatinine 0.99 Est GFR (MDRD) Non-Af 62 BUN/Creatinine Ratio 20.6 H Glucose 114 H Calcium 9.7 Total Bilirubin 0.52 AST 21 ALT < 5 Alkaline Phosphatase 94 Total Protein 7.8 Albumin 4.3 Globulin 3.5 Albumin/Globulin Ratio 1.2 Lipase 38 Urine Color Yellow Urine Clarity Sl. Cloudy Urine pH 6.0 Ur Specific [place] 1.010 Urine Protein 30 H Urine Glucose (UA) Normal Urine Ketones 15 H Urine Occult Blood 50 H Urine Nitrite Negative Urine Bilirubin 1 H Urine Urobilinogen 1 H Ur Leukocyte Esterase 25 H Urine RBC 0-5 SEEN Urine WBC 0-5 SEEN Ur Squamous Epith Cells 5-10 SEEN Urine Bacteria 2+ Urine Mucus 0 SEEN Radiography Diagnostic Testing: Clinical Impression(s) from Imaging Studies Abdomen/Pelvis CT 11/08/24 15:09 IMPRESSION: Possible mild enteritis/colitis Reading [facility] Treatment and Re-Evaluation :: Dr. Romano: I have personally performed a face to face assessment of the patient and have reviewed the MANFRED Note. I performed a substantive portion of the visit including all aspects of the following. My taylor findings include: History is abdominal pain/mid abdominal pain x 1 week, worked up for IBS by Dr. Cooper as well as psychogenic vomiting. Exam is afebrile. Vital signs noted. Nontoxic-appearing. Cardiovascular examination reveals regular rate and rhythm. Lungs clear to auscultation bilaterally. Abdomen is soft with diffuse tenderness to palpation especially in the mid abdomen without guarding or rebound. Positive bowel sounds. Neurological examination nonfocal and nonlateralizing. Mildly anxious. Medical Decision Making: Check labs. Check CT. Discussed with Dr. Cooper. Started on antibiotics, follow-up with gastroenterology. Discharge. Other additions or changes: [None] Discharge Plan Triage Chief Complaint: Abd Pain ED Midlevel Provider: Kristen Crespo ED Provider: Nicola Romano Dx/Rx/DC Orders Clinical Impression: Colitis, Abdominal pain, Nausea and vomiting Instructions: Abdominal Pain, ED Understanding Colitis Prescriptions: New ciprofloxacin HCl 500 mg tablet 500 mg PO BID Qty: 13 0RF metronidazole 500 mg tablet 500 mg PO BID 7 Days Qty: 13 0RF ondansetron 4 mg tablet,disintegrating 4 mg PO Q8H PRN PRN (Reason: Nausea) Qty: 10 0RF No Action cholecalciferol (vitamin D3) 125 mcg (5,000 unit) tablet 125 mcg PO DAILY scopolamine base 1 mg over 3 days patch 3 day 1 patch transdermal Q3D PRN (Reason: nausea) Qty: 10 2RF metoclopramide HCl 5 mg tablet 5 mg PO QDAY Qty: 30 2RF Rx Instructions: administer 30 minutes before meals aspirin 81 MG tablet,chewable 81 mg PO DAILY@0800 amlodipine 10 mg tablet See Rx Instructions .ROUTE .COMPLEX Qty: 90 4RF Dose Instruction: TAKE 1 TABLET BY MOUTH EVERY DAY Rx Instructions: TAKE 1 TABLET BY MOUTH EVERY DAY lisinopril 40 mg tablet 40 mg PO DAILY Qty: 90 3RF Primary Care Provider: Felicia Gallegos Referrals: Felicia Gallegos MD [Primary Care Provider] - Melecio Cooper DO [Med Staff - Active Staff] - 5-7 Days Activity Restrictions/Additional Instructions: Follow-up with Dr. Cooper and return for any worsening symptoms. Print Language: [place] Disposition Disposition: Home, Self Care Discharge Date/Time: 11/08/24 16:51
[2024-11-08 16:04] LABS: Mucous, Urine 0 SEEN /hpf (<or=2+)
[2024-11-08 16:05] LABS: Color, Urine Yellow (Yellow); Glucose, Dipstick Normal (Normal); Ketone-Dipstick 15 mg/dl (Negative); Leukocyte Esterase-Dipstick 25 /ul (Negative); Nitrite-Dipstick Negative (Negative); Occult Blood-Urine 50 /ul (Negative); Protein-Dipstick 30 mg/dl (Negative); Urine Bilirubin Dipstick 1 mg/dL (Negative); Urine Clarity Sl. Cloudy (Clear); Urine Urobilinogen 1 mg/dl (Normal)
[2024-11-08 16:17] LABS: Bacteria 2+ /hpf (None Seen); Red Blood Cells-Urine 0-5 SEEN /hpf (0-5); Squamous Epithelial Cells - UA 5-10 SEEN /hpf (5-10); White Blood Cells 0-5 SEEN /hpf (0-5)
[2024-11-08] MEDS: metroNIDAZOLE 500 MG Tablet PO (16:33)
[2024-11-08] MEDS: Ciprofloxacin 500 MG Tablet PO (16:33)
[2024-11-08 16:46] VITALS: BP 101/63; PULSE 78; RESP 16; O2SAT 98
[2024-11-08] MEDS: Ketorolac 15 MG/ML Vial IV (16:47)
[2024-11-08 16:48] VITALS: BP 101/63; PULSE 78; RESP 16; TEMP 36.6; O2SAT 98
== END 2024-11-08 16:51 | disposition home or self-care (01) ==
PROVIDERS: Physician Assistant; Emergency Provider Emergency Medicine; PCP Family Medicine; Referring Provider Emergency Medicine; Visit Provider Emergency Medicine
DX: K52.9 Noninfective gastroenteritis and colitis, unspecified (principal); E11.9 Type 2 diabetes mellitus without complications; I10 Essential (primary) hypertension; K21.9 Gastro-esophageal reflux disease without esophagitis; I25.2 Old myocardial infarction; I25.10 Atherosclerotic heart disease of native coronary artery without angina pectoris; E78.5 Hyperlipidemia, unspecified; F17.210 Nicotine dependence, cigarettes, uncomplicated; Z87.19 Personal history of other diseases of the digestive system; Z79.82 Long term (current) use of aspirin; Z79.899 Other long term (current) drug therapy
CPT/HCPCS: 74177; 80053; 81001; 83690; 85025; 96361; 96374; 96375; 99283; Q9967; J2405

== ENCOUNTER → 2025-01-15 | Outpatient (CLI) | payer MEDICARE, SELFPAY ==
[2025-01-15 10:41] LABS: Absolute Lymphocyte Count 3.87 X10^3/uL (0.83-4.51); Absolute Neutrophil Count 6.8 X10^3/uL (2.0-7.7); Basophil# 0.04 X10^3/uL; Basophil% 0.3 % (0-1); Eosinophil# 0.27 X10^3/uL; Eosinophils% 2.2 % (0-5); Hematocrit 42.2 % (37-47); Hemoglobin 13.7 g/dL (12.0-15.0); Lymphocyte # 3.87 X10^3/ul (0.83-4.51); Mean Corp Hgb Conc 32.5 g/dL (32-36); Mean Corpuscular Hgb 29.1 pg (27.0-32.0); Mean Corpuscular Volume 89.8 fL (81-99); Mean Platelet Vol. 10.5 fl (6.2-12.0); Monocyte# 1.08 X10^3/uL; Monocyte% 8.9 % (0-10); NRBC Flagged by Analyzer 0 % (0-5); Neutrophil # 6.79 X10^3/uL (2.7-7.7); Neutrophil % 56.2 % (47-70); Platelet Count 391 K/mm3 (150-450); RBC Distribution Width CV 14.6 % (11.6-14.6); RBC Distribution Width SD 47.7 fl (35.1-43.9); White Blood Count 12.1 K/mm3 (4.4-11.0)
[2025-01-15 14:38] LABS: Cholesterol 221 mg/dL (<=200); High Density Lipoprotein 60 mg/dL; Low Density Lipoprotein Calc. 140 mg/dL; Triglycerides 105 mg/dL; Very Low Density Lipoprotein 21 mg/dL (5-40); cholesterol:hdl ratio screen 3.68
[2025-01-15 14:49] LABS: ALB/GLOB Ratio 1.1 RATIO (0.9-2.4); AST(SGOT) 23 U/L (<=31); Alanine Aminotransfer ALT/SGPT 9 U/L (<=34); Albumin, Serum 4.2 g/dL (3.4-4.8); Alkaline Phosphatase 99 U/L (35-104); Anion Gap 14 (5-15); BUN 21 mg/dL (4-19); Calcium,Total 9.6 mg/dL (7.6-11.0); Carbon Dioxide 23.5 mmol/L (21.0-32.0); Chloride 99 mmol/L (98-108); Creatinine, Serum 0.76 mg/dL (0.70-1.20); EST Glomerular Filtration Rate 85 (>60); Globulin 3.7 g/dL (2.2-4.2); Glucose 112 mg/dL (70-99); Potassium 4.4 mmol/L (3.3-5.1); Protein, Total 7.8 g/dL (5.9-8.4); Sodium Level 136 mmol/L (133-145)
== END | disposition home or self-care (01) ==
PROVIDERS: PCP Family Medicine; Referring Provider Internal Medicine Cardiovascular Disease; Visit Provider Internal Medicine Cardiovascular Disease
DX: I25.10 Atherosclerotic heart disease of native coronary artery without angina pectoris (principal)
CPT/HCPCS: 36415; 80053; 80061; 85025

== ENCOUNTER 2025-04-16 18:45 | Emergency (ER) | payer MEDICARE, SELFPAY ==
[2025-04-16 18:49] VITALS: BP 137/80; PULSE 95; RESP 18; TEMP 35.9; O2SAT 95; BMI 25.0
--- NOTE | 2025-04-16 20:15 | RAD_ITS ---
PROCEDURE: ABDOMEN SINGLE VIEW 04/16/2025 REASON FOR EXAM: ABD PAIN TECHNIQUE: Procedure Code: RADABD Modality: DX Procedure: ABDOMEN SINGLE VIEW COMPARISON: Abdominal CT 11/08/2024. FINDINGS: The visualized bowel gas pattern is nonobstructive. No discernible free air. No unusual calcific densities. Multilevel degenerative changes of the spine. RAD/Abdomen Single View IMPRESSION: Nonobstructive gas pattern. Reading Location: [facility]
[2025-04-16 20:17] LABS: Hematocrit 40.7 % (37-47); Hemoglobin 13.5 g/dL (12.0-15.0); Immature Granulocytes Count 0.030 X10^3/uL (0.0-0.0); Mean Corp Hgb Conc 33.2 g/dL (32-36); Mean Corpuscular Volume 86.8 fL (81-99); Mean Platelet Vol. 9.9 fl (6.2-12.0); NRBC Flagged by Analyzer 0 % (0-5); Platelet Count 308 K/mm3 (150-450); RBC Distribution Width CV 13.2 % (11.6-14.6); RBC Distribution Width SD 41.2 fl (35.1-43.9); Red Blood Count 4.69 M/mm3 (4.2-5.4); White Blood Count 10.8 K/mm3 (4.4-11.0)
[2025-04-16 20:30] VITALS: BP 153/81; PULSE 97; RESP 20; O2SAT 98
--- NOTE | 2025-04-16 20:40 | ED.VIS.GI ---
HPI HPI - GI History of Present Illness Chief Complaint: Constipation Informant: patient Abdominal Pain/Flank Pain Onset: Weeks (2) Context: Gradual Onset Timing: Continuous Quality: Cramping Location: - (Periumbilical) Worsened by: - (Laxatives) Relieved by: Nothing Nausea/Vomiting/Emesis GI Symptom: Positive for Nausea and Vomiting Diarrhea/Melena/Hematochezia GI Symptom: Negative for Diarrhea, Melena or Hematochezia Associated Symptoms Associated Symptoms: Negative for Dysuria, Frequency or Hematuria Narrative Narrative: Patient presents with abdominal pain and constipation that has been constant for the past 2 weeks. Patient states her pain started in her left upper abdomen now in the periumbilical area. Patient describes her pain as cramping. Patient states it is worse when she takes laxatives. Patient states nothing makes it better. Patient admits to some nausea and vomiting. Patient denies any fevers or chills. Patient denies any shortness of breath but admits to a slight cough. Patient denies any dysuria, frequency, or hematuria. PFSH PFS Medical History Wears glasses Wears dentures Cancer Marijuana use Diabetes Ambulates with cane Arthritis Bladder disease Back pain Vertigo Gastric reflux Smoker Chronic cough Leg cramps History of pain when walking History of echocardiogram History of edema Hypertension Cardiology follow-up encounter History of heart attack Abdominal pain Nausea Cardiomyopathy Sinus bradycardia Essential hypertension Coronary artery disease Pancreatitis Tobacco abuse Hyperlipidemia Hypertension Atherosclerotic heart disease of [place] coronary artery without angina pectoris Home Medications ?Medication ?Instructions ?Recorded ?Last Taken ?Type aspirin 81 mg chewable tablet 81 mg PO DAILY@0800 12/07/13 Unknown History amlodipine 10 mg tablet See Rx Instructions .Route 09/03/24 Unknown Rx .COMPLEX #90 tabs lisinopril 40 mg tablet 40 mg PO DAILY #90 TABLETS 11/02/24 Unknown Rx ondansetron 4 mg disintegrating 4 mg PO Q8H PRN PRN Nausea #10 tabs 11/08/24 Unknown Rx tablet cholecalciferol (vitamin D3) 125 2,000 unit PO DAILY 01/15/25 Unknown History mcg (5,000 unit) tablet metoclopramide HCl 5 mg tablet 5 mg PO QDAY #30 tabs 03/24/25 Unknown Rx bisacodyl 5 mg tablet,delayed 5 mg PO DAILY 04/16/25 Unknown History release (Gentle Laxative (bisacodyl)) metoclopramide HCl 10 mg tablet 10 mg PO Q6H PRN PRN 04/16/25 Unknown History nausea/vomiting polyethylene glycol 3350 17 17 g PO BID #238 grams 04/16/25 Unknown Rx gram/dose oral powder (Miralax) Allergy/AdvReac Type Severity Reaction Status Date / Time hydrochlorothiazide AdvReac Severe reoccurring Verified 04/16/25 18:49 pancreatitis Sozpfky-ROC-HzG Reductase AdvReac Severe reoccurring Verified 04/16/25 18:49 Inhibitor (Okastmn-Nnx-Okx pancreatitis Reductase Inhibitor) Gadolinium-MRI Contrast AdvReac Vomiting Verified 04/16/25 18:49 Medium (Gadolinium-Contrast Medium - MRI) Family History Mother Lung cancer Father CAD (coronary artery disease) Hx of CABG Abdominal aortic aneurysm (AAA) Hypertension Brother CAD (coronary artery disease) Myocardial infarction Hypertension Hx of CABG Surgical History History of cardiac catheterization History of excision of lesion History of bilateral salpingo-oophorectomy History of total hysterectomy Social History household members: spouse Smoking Status: Current every day smoker tobacco type: cigarettes alcohol intake: never substance use type: marijuana caffeine: Yes Type: coffee ROS ROS ED Constitutional Constitutional ED: Denies chills or fever(s) Eyes Eyes: Denies blurry vision or change in vision ENT ENT ED: Denies rhinorrhea or sore throat Cardiovascular Cardiovascular: Denies chest pain or palpitations Respiratory/Chest Respiratory/Chest: Reports cough; Denies dyspnea Gastrointestinal Gastrointestinal: Reports constipation, nausea and vomiting Genitourinary Genitourinary ED: Denies dysuria or hematuria Musculoskeletal Musculoskeletal: Reports neck pain; Denies back pain Integumentary Denies abscess or rash Neurologic Neurologic: Denies headache(s) or weakness Allergic/Immunologic Allergic/Immunologic ED: Denies mouth swelling or urticaria EXAM Physical Exam Const Vital Signs: 04/16/25 18:49 04/16/25 20:30 Temperature 96.6 F L Temperature Source Temporal Pulse Rate 95 97 Respiratory Rate 18 20 H Blood Pressure 137/80 H 153/81 H Blood Pressure Mean 99 105 Pulse Ox 95 98 Oxygen Delivery Method Room Air Room Air Positive well nourished and well developed Constitutional Narrative: BMI is 25.0. General Appearance ED: well developed and NAD HEENT Reports moist mucous membranes Neck supple and no JVD Resp normal respiratory effort and clear to auscultation bilaterally Cardio regular rate and regular rhythm GI non-distended Palpation: soft and tender epigastric, LUQ and RUQ; Negative for guarding or rebound tenderness present Neuro CN's II-XII intact bilaterally, moves all extremities and no sensory deficits noted Sensorium / Orientation: alert Motor Exam: strength 5/5 throughout Psych mental status grossly normal MDM MDM MDM Narrative Medical decision making narrative: Differential diagnosis includes bowel obstruction, perforation, dehydration, electrolyte abnormality, urinary tract infection, pancreatitis, and constipation. Abdominal x-ray will be obtained to assess for constipation and perforation. CBC will be obtained to assess for leukocytosis and anemia. Comprehensive metabolic profile will be obtained to assess for hepatic function, renal function, and electrolyte abnormality. Lipase will be obtained to assess for pancreatitis. Lab Data Attestation: I reviewed the patient's lab results. Lab results narrative: CBC was reviewed and was within normal limits. Comprehensive metabolic profile was reviewed. Glucose was slightly elevated at 181. The remainder is within normal limits. Lipase was reviewed and was slightly elevated at 92. Urinalysis was reviewed. There is no evidence of urinary tract infection or hematuria. Labs: Laboratory Results - last 24 hr 04/16/25 04/16/25 20:10 21:07 WBC 10.8 RBC 4.69 Hgb 13.5 Hct 40.7 MCV 86.8 MCH 28.8 MCHC 33.2 RDW Std Deviation 41.2 RDW Coeff of [place] 13.2 Plt Count 308 MPV 9.9 Immature Gran % (Auto) 0.300 Neut % (Auto) 63.7 Lymph % (Auto) 24.6 [place] % (Auto) 9.1 Eos % (Auto) 1.9 Baso % (Auto) 0.4 Absolute Neuts (auto) 6.9 Absolute Lymphs (auto) 2.66 Nucleated RBC % 0 Sodium 135 Potassium 4.3 Chloride 97 L Carbon Dioxide 26.2 Anion Gap 13 BUN 16 Creatinine 0.80 Estim Creat Clear Calc 62.98 Est GFR (MDRD) Non-Af 80 BUN/Creatinine Ratio 19.8 Glucose 181 H Calcium 9.7 Total Bilirubin 0.31 AST 23 ALT 6 Alkaline Phosphatase 98 Total Protein 7.9 Albumin 4.0 Globulin 3.9 Albumin/Globulin Ratio 1.0 Lipase 92 H Urine Color Yellow Urine Clarity Sl. Cloudy Urine pH 6.0 Ur Specific [place] 1.020 Urine Protein 30 H Urine Glucose (UA) 50 H Urine Ketones 5 H Urine Occult Blood 25 H Urine Nitrite Negative Urine Bilirubin Negative Urine Urobilinogen Normal Ur Leukocyte Esterase Negative Radiography Diagnostic Testing: Clinical Impression(s) from Imaging Studies KUB X-Ray 04/16/25 20:15 IMPRESSION: Nonobstructive gas pattern. Reading Location: [facility] Abdominal x-ray was obtained. There are 2 views. On my independent interpretation, there is no evidence of obstruction or perforation. There is nonspecific bowel gas pattern noted. There is large amount of stool throughout the colon. Radiologist also interpreted the x-rays and agrees. Treatment and Re-Evaluation :: Patient given morphine and Zofran here. Patient had minimal improvement of her pain. Patient was given a repeat dose of morphine. Patient was advised of her findings. Patient was given a soapsuds enema here. Patient had no improvement with that. Patient had minimal results with the enema. Patient did not want any further enemas at this time. Patient was offered to go home and take a laxative. Patient was given prescription for MiraLAX. Patient was instructed to follow-up with her primary care physician in 5 to 7 days. Patient understood and was agreeable with plan. All questions were answered. Discharge Plan Triage Chief Complaint: Constipation ED Provider: Kenneth Broderick Dx/Rx/DC Orders Clinical Impression: Constipation, Tobacco abuse, Abdominal pain Instructions: ED Constipation (Adult) Prescriptions: New polyethylene glycol 3350 [Miralax] 17 gram/dose powder 17 g PO BID Qty: 238 0RF No Action cholecalciferol (vitamin D3) 125 mcg (5,000 unit) tablet 2,000 unit PO DAILY aspirin 81 MG tablet,chewable 81 mg PO DAILY@0800 ondansetron 4 mg tablet,disintegrating 4 mg PO Q8H PRN PRN (Reason: Nausea) Qty: 10 0RF metoclopramide HCl 10 mg tablet 10 mg PO Q6H PRN PRN (Reason: nausea/vomiting) bisacodyl [Gentle Laxative (bisacodyl)] 5 mg tablet,delayed release (DR/EC) 5 mg PO DAILY amlodipine 10 mg tablet See Rx Instructions .ROUTE .COMPLEX Qty: 90 4RF Dose Instruction: TAKE 1 TABLET BY MOUTH EVERY DAY Rx Instructions: TAKE 1 TABLET BY MOUTH EVERY DAY lisinopril 40 mg tablet 40 mg PO DAILY Qty: 90 3RF metoclopramide HCl 5 mg tablet 5 mg PO QDAY Qty: 30 2RF Rx Instructions: administer 30 minutes before meals Primary Care Provider: Aisha Reynoso Referrals: Aisha Reynoso MD [Primary Care Provider] - 3-5 Days Print Language: Citizen Of [place] Disposition Disposition: Home, Self Care
[2025-04-16 20:45] LABS: AST(SGOT) 23 U/L (<=31); Alanine Aminotransfer ALT/SGPT 6 U/L (<=34); Albumin, Serum 4.0 g/dL (3.4-4.8); Alkaline Phosphatase 98 U/L (35-104); Anion Gap 13 (5-15); BUN 16 mg/dL (4-19); BUN/Creat Ratio 19.8 RATIO (10-20); Calcium,Total 9.7 mg/dL (7.6-11.0); Carbon Dioxide 26.2 mmol/L (21.0-32.0); Chloride 97 mmol/L (98-108); Estimated Creatinine Clearance 62.98 ml/min (50-250); Globulin 3.9 g/dL (2.2-4.2); Glucose 181 mg/dL (70-99); Lipase 92 U/L (13-75); Potassium 4.3 mmol/L (3.3-5.1)
[2025-04-16 21:08] LABS: Mucous, Urine 0 SEEN /hpf (<or=2+)
--- OUTSIDE RECORDS SUMMARY | 2025-04-16 21:15 | XMS RPT_ITS | CCD ---
Author Organization [facility] Care Team Providers Care Analog Ic Design Engineer Name Role Phone Barnes, Jammie Unavailable Unavailable Barnes, Jammie Unavailable Unavailable FELICIA DIXON Unavailable Unavailable FELICIA DIXON Unavailable Unavailable FENZL, RAJESH Kidd Unavailable Unavailable FENZL, RAJESH E Unavailable Unavailable FENZL, RAJESH E Unavailable Unavailable PROVIDER, UNKNOWN Unavailable Unavailable Dr. Felicia Dixon Primary Care Provider Dr. Felicia Dixon Referring Provider FriendDr. Majano Attending Provider [phone] Melecio Cooper Other Provider Dr. Johann Lee Attending Provider Dr. Felicia Dixon Primary Care Provider Dr. Felicia Dixon Referring Provider CAROLINA Morales Attending Provider Dr. Felicia Dixon MD Primary Care Provider Dr. Felicia Dixon MD Referring Provider Johnna Portillo Attending Provider Dr. Jb Jaramillo DO Attending Provider Dr. Jonah Rubio MD Attending Provider Nicola Romano MD Referring Provider Nicola Romano MD Emergency Provider Dr. Felicia Dixon MD Primary Care Provider Nicola Romano MD Attending Provider Jolliff MD, Dr. Felicia S Referring Provider Dr. Melecio Cooper DO Attending Provider Edis PAULA, Dr. Prasad Attending Provider Edgardo PAULA, Aisha Primary Care Provider [phone] Edis PAULA, Dr. Prasad Referring Provider Edgardo PAULA, Aisha Referring Provider [phone] Jb Jaramillo DO Attending Provider Dr. Felicia Dixon MD Primary Care Provider Johnna Portillo Attending Provider Jolliff, Felicia S Primary Care Unavailable Jonah Rubio Attending Unavailable Jolliff, Felicia S Referring Unavailable Edgardo, Chalon Primary Care Unavailable Johnna Mora Attending Unavailable Jolliff, Felicia S Primary Care Unavailable Jolliff, Felicia S Referring Unavailable Cecile Wellington Attending Unavailable Jb Jaramillo Attending Unavailable Edgardo, Chalon Primary Care Unavailable Edgardo, Martínon Referring Unavailable Osmar Randhawa Referring Unavailable Edgardo, Chalon Primary Care Unavailable Osmar Randhawa Attending Unavailable Jolliff, Felicia S Referring Unavailable Jolliff, Felicia S Primary Care Unavailable Melecio Cooper Attending Unavailable Jolliff, Felicia S Referring Unavailable Jolliff, Felicia S Primary Care Unavailable Osmar Randhawa Attending Unavailable Reodica, Nicola Attending Unavailable Reodica, Nicola Referring Unavailable Jolliff, Felicia S Primary Care Unavailable Jolliff, Felicia S Primary Care Unavailable Cecile Wellington Attending Unavailable Cecile Wellington Referring Unavailable Ken Gunter Attending Unavailable Jolliff, Felicia S Primary Care Unavailable Jolliff, Felicia S Primary Care Unavailable Jolliff, Felicia S Referring Unavailable AtaJohnna rivas Attending Unavailable Jolliff, Felicia S Primary Care Unavailable BorruJb rose Attending Unavailable Jolliff, Felicia S Referring Unavailable Allergies Allergy Classification Reported Allergen(s) Allergy Type Date of Onset Reaction(s) Facility (2 sources) Hmg-Coa Reductase Inhibitors (Statins) drug allergy 014 reoccuring pancreatitis, [facility] Work Phone: [phone] (4 sources) HYDORCHLOROTHIAZIDE drug allergy 014 reoccuring pancreatitis [facility] Work Phone: [phone] (4 sources) NKDA drug allergy 014 [facility] Work Phone: [phone] (11 sources) hydroCHLOROthiazide Drug Allergy reoccurring pancreatitis [facility] (12 sources) Fmresgs-Ann-Sdk Reductase Inhibitor; Translations: [Ymecxsx-Jcy-Jyb Reductase Inhibitor] Propensity to adverse reactions reoccurring pancreatitis [facility] (12 sources) Gadolinium-MRI Contrast Medium; Translations: [Gadolinium-MRI Contrast Medium] Propensity to adverse reactions Vomiting [facility] (1 source) hydroCHLOROthiazide Drug Allergy [facility] Repository Medications Current Medications Medication Drug Class(es) Dates Sig (Normalized) Sig (Original) amitriptyline hydrochloride 25 mg oral tablet (9 sources) Tricyclic Antidepressant Start: 02-26-2022 take 1 tablet by mouth once daily at bedtime Amitriptyline Active 0 .ROUTE .COMPLEX February 26, 2022 12:08pm TAKE 1 TABLET BY MOUTH EVERYDAY AT BEDTIME Start: 02-02-2022 End: 02-26-2022 take 1 tablet by mouth at bedtime Amitriptyline 25 mg tablet Discontinued 25 mg PO AT BEDTIME 30 February 02, 2022 12:00am February 26, 2022 12:09pm capsaicin 0.25 mg/ml topical cream (3 sources) Start: 01-14-2022 Capsaicin Acti ve 1 APPLIC TOPICAL .one 60 January 14, 2022 2:39pm do not wash area for at least 30 min after application cholecalciferol 0.125 mg oral tablet (20 sources) Vitamin D Start: 01-15-2025 take 1 tablet by mouth once daily Cholecalciferol (Vitamin D3) 125 mcg (5,000 unit) tablet Active 2000 U PO DAILY January 15, 2025 8:15am Start: 05-02-2022 End: 01-15-2025 take 1 tablet by mouth once daily Cholecalciferol (Vitamin D3) 125 mcg (5,000 unit) tablet Discontinued 125 ug PO DAILY May 02, 2022 12:00am January 15, 2025 8:17am Start: 04-26-2021 End: 05-02-2022 take 1 capsule by mouth once daily Cholecalciferol (Vitamin D3) 50 mcg (2,000 unit) capsule Discontinued 50 ug PO DAILY April 26, 2021 12:00am May 02, 2022 11:10am Start: 12-25-2017 End: 04-20-2020 take 1 capsule by mouth once daily Cholecalciferol (Vitamin D3) 5,000 unit capsule Discontinued 5000 U PO daily December 25, 2017 12:00am April 20, 2020 10:00am Start: 10-13-2015 take 1 tablet by rivka th twice daily VITAMIN D 2000 UNIT TABS One tablet by mouth twice daily CHOLECALCIFEROL [id number] Sanjuanita Rand RN Start: 08-19-2015 take 1 tablet by rivka th every week VITAMIN D3 90190 UNIT CAPS One tablet by mouth once a week CHOLECALCIFEROL [id number] Sanjuanita Rand RN Start: 08-19-2015 take 1 tablet by rivka once daily VITAMIN D3 5000 UNIT CHEW One tablet by mouth daily CHOLECALCIFEROL [id number] Johann Lee MD cyclobenzaprine hydrochloride 5 mg oral tablet (4 sources) Muscle Relaxant Start: 11-26-2024 take 1 tablet by mouth at bedtime as needed Cyclobenzaprine 5 mg tablet Active 5 mg PO BEDTIME as needed November 26, 2024 12:00am diclofenac sodium 0.01 mg/mg topical gel (4 sources) Nonsteroidal Anti-inflammatory Drug Start: 11-26-2024 apply 2 g topically once Diclofenac Sodium 1 % gel Active 2 g TOPICAL ONCE November 26, 2024 12:00am apply to single elbow, wrist or hand; for hand includes palm/fingers/back of hand ezetimibe 10 mg oral tablet (20 sources) Dietary Cholesterol Absorption Inhibitor Start: 01-18-2025 take 1 tablet by mouth once daily Ezetimibe (Zetia) 10 mg tablet Active 10 mg PO DAILY 30 January 18, 2025 9:08am Start: 02-12-2019 End: 04-20-2020 take 1 tablet by mouth once daily Ezetimibe 10 mg tablet Discontinued 0 .ROUTE .COMPLEX 90 3 April 13, 2020 7:44pm April 20, 2020 10:02am TAKE 1 TABLET BY MOUTH EVERY DAY meclizine hydrochloride 25 mg chewable tablet (15 sources) Antiemetic Start: 01-12-2022 take 1 tablet by mouth twice daily Meclizine (Antivert) 25 mg tablet,chewable Active 25 MG PO TWICE A DAY January 12, 2022 9:59pm Start: 02-19-2021 End: 10-04-2023 take 1 tablet by mouth three times daily as needed for dizziness Meclizine 25 mg tablet Discontinued 25 mg PO THREE TIMES A DAY as needed for dizziness 20 February 19, 2021 12:00am October 04, 2023 11:20am Vertigo Dizziness and giddiness ondansetron 4 mg disintegrating oral tablet (20 sources) Serotonin-3 Receptor Antagonist Start: 11-08-2024 take 1 tablet by mouth every eight hours as needed for nausea Ondansetron 4 mg tablet,disintegrating Active 4 mg PO EVERY 8 HOURS NEEDED as needed for Nausea 10 November 08, 2024 12:00am Start: 01-12-2022 take 4 mg by mouth e very eight hours Ondansetron Active 4 MG PO Q8H January 12, 2022 12:00am Start: 02-19-2021 End: 04-13-2022 take 1 tablet by mouth every six hours as needed for nausea and vomiting Ondansetron 4 mg tablet,disintegrating Discontinued 4 mg PO EVERY 6 HOURS as needed for nausea and vomiting 10 February 19, 2021 12:00am April 13, 2022 8:55am 72 hr scopolamine 0.0139 mg/hr transdermal system (20 sources) Anticholinergic Start: 06-02-2024 Scopolamine Ba se 1 mg over 3 days patch 3 day Active 1 NMA TD Every 3 Days as needed for nausea 10 June 02, 2024 12:00am Start: 02-02-2022 End: 10-04-2023 Scopolamine Base 1 mg over 3 days patch 3 day Discontinued 1 NMA TD Q72H as needed for Vertigo March 14, 2022 10:05am October 04, 2023 11:20am Start: 02-02-2022 End: 10-04-2023 Scopolamine Base Discontinue d 1 PATCH TD Q72H March 14, 2022 9:05am October 04, 2023 10:20am Completed/Discontinued Medications Medication Drug Class(es) Dates Sig (Normalized) Sig (Original) acetaminophen / HYDROcodone (8 sources) Opioid Agonist Start: 01-23-2010 End: 04-08-2014 VICODIN 5-500 MG TABS one to two tabs four times a day as needed for pain HYDROCODONE-ACETAMI NOPHEN [id number] Johann Lee MD Start: 01-23-2010 VICODIN 5-500 MG TABS one to two tabs four times a day as needed for pain HYDROCODONE-ACETAMINOPHEN [id number] Jed Whipple MD Start: 01-17-2010 VICODIN 5-500 MG TABS one to two tabs four times a day as needed for pain HYDROCODONE-ACETAMINOPHEN [id number] Jed Whipple MD Start: 01-17-2010 End: 02-02-2010 VICODIN 5-500 MG TABS one to two tabs four times a day as needed for pain HYDROCODONE-ACETAMINOPHEN [id number] Jed Whipple MD amLODIPine 10 mg oral tablet (20 sources) Dihydropyridine Calcium Channel Shawn Start: 04-08-2014 take 1 tablet by mouth once daily AMLODIPINE BESYLATE 5 MG TABS One tablet by mouth daily (STOP) AMLODIPINE BESYLATE [id number] Johann Lee MD Start: 12-07-2013 End: 09-03-2024 take 1 tablet by mouth once daily Amlodipine 10 mg tablet Discontinued 0 .ROUTE .COMPLEX 90 4 June 10, 2023 9:00am September 03, 2024 9:34am TAKE 1 TABLET BY MOUTH EVERY DAY aspirin 81 mg oral strip (17 sources) Nonsteroidal Anti-inflammatory Drug Start: 04-01-2014 take 1 tablet by mouth once daily ASPIRIN 81 MG TABS One tablet by mouth daily ASPIRIN [id number] Dali Hall RN Start: 04-01-2014 take 1 tablet by rivka th once daily ASPIRIN EC 81 MG TBEC One tablet by mouth daily ASPIRIN [id number] Sanjuanita Rand RN Start: 12-07-2013 take 1 tablet by rivka th once daily Aspirin 81 MG tablet,chewable Active 81 mg PO DAILY@08December 07, 2013 12:00am atorvastatin 40 mg oral tablet (4 sources) HMG-CoA Reductase Inhibitor Start: 04-01-2014 End: 04-07-2014 take 1 tablet by mouth once daily ATORVASTATIN CALCIUM 40 MG TABS One tablet by mouth daily ATORVASTATIN CALCIUM [id number] Dali Hall RN biotin 10 mg oral capsule (7 sources) Start: 05-02-2022 End: 10-04-2023 take 1 capsule by mouth once daily Biotin 10,000 mcg capsule Discontinued 46502 ug PO DAILY May 02, 2022 12:00am October 04, 2023 11:20am cefadroxil 500 mg oral capsule (4 sources) Cephalosporin Antibacterial Start: 01-17-2010 End: 02-02-2010 CEFADROXIL 500 MG CAPS one tab twice a day CEFADROXIL [id number] Jed Whipple MD ciprofloxacin 500 mg oral tablet (5 sources) Quinolone Antimicrobial Start: 11-08-2024 End: 11-26-2024 take 1 tablet by mouth twice daily Ciprofloxacin Hcl 500 mg tablet Discontinued 500 mg PO TWICE A DAY 13 0 November 08, 2024 12:00am November 26, 2024 9:09am cloNIDine hydrochloride 0.2 mg oral tablet (8 sources) Central alpha-2 Adrenergic Agonist Start: 08-19-2015 take 0.5 tablet by mouth twice daily CATAPRES 0.2 MG TABS 1/2 tablet by mouth twice daily CLONIDINE HCL [id number] Nini Quinteros Start: 08-19-2015 take 1 tablet by rivka th twice daily CATAPRES 0.2 MG TABS One tablet by mouth twice daily CLONIDINE HCL [id number] Johann Lee MD Start: 08-19-2015 take 1 tablet by rivka th twice daily CATAPRES 0.1 MG TABS One tablet by mouth twice daily CLONIDINE HCL [id number] Sanjuanita Jansen PA-C clopidogrel 75 mg oral tablet (20 sources) P2Y12 Platelet Inhibitor Start: 01-12-2022 End: 05-02-2022 take 1 tablet by mouth once daily Clopidogrel (Plavix) 75 mg Tablet Discontinued 75 mg PO DAILY January 12, 2022 12:00am May 02, 2022 11:44am Start: 12-07-2013 End: 06-01-2021 take 1 tablet by mouth once daily Clopidogrel 75 mg tablet Discontinued 75 mg PO DAILY 30 April 12, 2020 11:49am April 20, 2020 10:02am diazePAM 5 mg oral tablet (11 sources) Benzodiazepine Start: 02-20-2021 End: 04-26-2021 take 1 tablet by mouth every six hours as needed Diazepam 5 mg Tablet Discontinued 5 mg PO EVERY 6 HOURS as needed for vertigo 10 February 20, 2021 12:00am April 26, 2021 2:25pm doxazosin 2 mg oral tablet (10 sources) alpha-Adrenergic Shawn Start: 07-11-2015 take 1 tablet by mouth once daily CARDURA 1 MG TABS One tablet by mouth daily DOXAZOSIN MESYLATE [id number] Sanjuanita Jansen PA-C Start: 07-11-2015 End: 02-13-2016 take 1 tablet by mouth once daily CARDURA 2 MG TABS One tablet by mouth daily DOXAZOSIN MESYLATE [id number] Sanjuanita Jansen PA-C Start: 07-11-2015 take 1 tablet by rivka th twice daily CARDURA 2 MG TABS One tablet by mouth twice daily DOXAZOSIN MESYLATE [id number] Sanjuanita Jansen PA-C ergocalciferol 65313 unt oral tablet (2 sources) Provitamin D2 Compound Start: 10-13-2015 take 1 tablet by mouth every week VITAMIN D (ERGOCALCIFEROL) 72809 UNIT CAPS One tablet by mouth weekly ERGOCALCIFEROL [id number] Johann Lee MD famotidine 20 mg oral tablet (8 sources) Histamine-2 Receptor Antagonist Start: 01-31-2022 End: 04-13-2022 take 1 tablet by mouth once daily Famotidine (Pepcid) 20 mg tablet Discontinued 20 mg PO DAILY January 31, 2022 12:00am April 13, 2022 8:55am furosemide 20 mg oral tablet (2 sources) Loop Diuretic Start: 10-13-2015 take 1 tablet by mouth once daily as needed FUROSEMIDE 20 MG TABS One tablet by mouth daily as needed FUROSEMIDE [id number] Sanjuanita Rand RN hydroCHLOROthiazide 25 mg oral tablet (4 sources) Thiazide Diuretic End: 03-31-2014 take 1 tablet by mouth once daily HYDROCHLOROTHIAZIDE CAPS One tablet by mouth daily 25mg HYDROCHLOROTHIAZIDE CAPS [id number] Dali Hall RN lisinopril 40 mg oral tablet (20 sources) Angiotensin Converting Enzyme Inhibitor Start: 08-26-2023 take 1 tablet by mouth once daily Lisinopril Active 0 .ROUTE .COMPLEX 90 August 26, 2023 8:50am TAKE 1 TABLET BY MOUTH EVERY DAY Start: 05-20-2023 End: 08-26-2023 take 1 tablet by mouth once daily Lisinopril Discontinued 0 .ROUTE .COMPLEX 90 May 20, 2023 7:10am August 26, 2023 8:51am TAKE 1 TABLET BY MOUTH EVERY DAY Start: 12-25-2017 End: 11-02-2024 take 1 tablet by mouth once daily Lisinopril 40 mg tablet Discontinued 0 .ROUTE .COMPLEX 90 November 22, 2023 8:11am November 02, 2024 8:32am TAKE 1 TABLET BY MOUTH EVERY DAY Start: 04-01-2014 take 2 tablets by mo [facility] once daily LISINOPRIL 5 MG TABS Two tablets by mouth daily LISINOPRIL [id number] Sanjuanita Jansen PA-C Start: 04-01-2014 take 1 tablet by rivka once daily LISINOPRIL 20 MG TABS One tablet by mouth daily LISINOPRIL [id number] Sanjuanita Jansen PA-C Start: 04-01-2014 take 1 tablet by rivka once daily LISINOPRIL 40 MG TABS One tablet by mouth daily LISINOPRIL [id number] Sanjuanita Jansen PA-C Start: 12-07-2013 End: 12-25-2017 take 1 tablet by mouth once daily Lisinopril 5 MG tablet Discontinued 5 mg PO DAILY December 07, 2013 12:00am December 25, 2017 2:53pm metoclopramide 10 mg oral tablet (20 sources) Dopamine-2 Receptor Antagonist Start: 11-26-2024 End: 03-10-2025 take 1 tablet by mouth every six hours as needed for nausea and vomiting Metoclopramide Hcl 10 mg tablet Discontinued 10 mg PO EVERY 6 HOURS as needed for nausea and vomiting 120 0 February 22, 2025 7:42am March 10, 2025 10:06am Start: 06-02-2024 End: 02-22-2025 take 1 tablet by mouth once daily 30 minutes before mealtime Metoclopramide Hcl 5 mg tablet Discontinued 5 mg PO daily 30 2 November 26, 2024 9:46am February 22, 2025 7:42am administer 30 minutes before meals Start: 05-18-2024 End: 09-04-2024 take 1 tablet by mouth every six hours as needed for nausea and vomiting Metoclopramide Hcl 10 mg tablet Discontinued 10 mg PO EVERY 6 HOURS NEEDED as needed for nausea and vomiting 20 May 18, 2024 1:44pm September 04, 2024 10:41am Start: 01-14-2022 End: 04-13-2022 take 1 tablet by mouth four times daily as needed for headache Metoclopramide Hcl 10 MG tablet Discontinued 10 mg PO 4 TIMES DAILY as needed for Headache January 14, 2022 12:00am April 13, 2022 8:55am metoprolol tartrate 25 mg oral tablet (20 sources) beta-Adrenergic Shawn Start: 04-20-2020 End: 09-07-2024 Metoprolol Tartrate 25 mg tablet Discontinued 12.5 mg PO TWICE A DAY December 29, 2020 11:02am September 07, 2024 3:48pm Start: 04-20-2020 End: 12-29-2020 take 12.5 mg by mouth twice daily Metoprolol Tartrate Active 12.5 MG PO TWICE A DAY December 29, 2020 10:02am Start: 04-01-2014 take 1 tablet by rivka th once daily METOPROLOL SUCCINATE ER 25 MG [id number] One tablet by mouth daily METOPROLOL SUCCINATE [id number] Dali Hall RN Start: 04-01-2014 take 1 tablet by rivka th twice daily METOPROLOL TARTRATE 50 MG TABS One tablet by mouth twice daily METOPROLOL TARTRATE [id number] Sanjuanita Jansen PA-C Start: 12-07-2013 End: 04-20-2020 take 1 tablet by mouth twice daily Metoprolol Tartrate 25 mg tablet Discontinued 25 mg PO TWICE A DAY 180 3 November 13, 2019 9:34am April 20, 2020 10:28am metroNIDAZOLE 500 mg oral tablet (5 sources) Nitroimidazole Antimicrobial Start: 11-08-2024 End: 11-26-2024 take 1 tablet by mouth twice daily Metronidazole 500 mg tablet Discontinued 500 mg PO TWICE A DAY 13 7 0 November 08, 2024 12:00am November 26, 2024 9:10am mirtazapine 15 mg oral tablet (4 sources) Start: 11-26-2024 End: 01-15-2025 take 1 tablet by mouth at bedtime Mirtazapine 15 mg tablet Discontinued 15 mg PO AT BEDTIME 30 November 26, 2024 12:00am January 15, 2025 8:17am pantoprazole 40 mg delayed release oral tablet (20 sources) Proton Pump Inhibitor Start: 05-02-2022 End: 10-04-2023 take 1 tablet by mouth once daily Pantoprazole 40 mg tablet,delayed release (DR/EC) Discontinued 40 mg PO DAILY May 02, 2022 12:00am October 04, 2023 11:20am Start: 02-02-2022 End: 04-13-2022 take 1 tablet by mouth once daily Pantoprazole 40 mg tablet,delayed release (DR/EC) Discontinued 0 .ROUTE .COMPLEX 30 February 26, 2022 12:09pm March 14, 2022 10:06am TAKE 1 TABLET BY MOUTH EVERY DAY Start: 09-23-2018 End: 04-20-2020 take 1 tablet by mouth once daily Pantoprazole 40 MG tablet Discontinued 40 mg PO DAILY 30 0 September 23, 2018 1:00am April 20, 2020 9:59am promethazine hydrochloride 25 mg oral tablet (20 sources) Phenothiazine Start: 09-23-2018 End: 04-20-2020 take 1 tablet by mouth every eight hours as needed for nausea Promethazine 25 MG tablet Discontinued 25 mg PO EVERY 8 HOURS NEEDED as needed for Nausea/Vomiting September 23, 2018 1:00am April 20, 2020 9:59am Start: 06-25-2017 End: 12-25-2017 take 1 tablet by mouth every six hours as needed for nausea Promethazine 25 MG tablet Discontinued 25 mg PO EVERY 6 HOURS NEEDED as needed for Nausea 10 0 June 25, 2017 1:00am December 25, 2017 2:53pm sucralfate 1000 mg oral tablet (5 sources) Aluminum Complex Start: 06-02-2024 End: 09-04-2024 take 1 tablet by mouth twice daily Sucralfate 1 gram tablet Discontinued 1 g PO TWICE A DAY 60 2 June 02, 2024 12:00am September 04, 2024 10:33am vitamin B 12 (2 sources) Vitamin B12 Start: 10-13-2015 take 1 tablet by mouth twice daily B-12 5000 MCG CAPS One tablet by mouth twice daily CYANOCOBALAMIN [id number] Sanjuanita Rand RN CHOLECALCIFEROL (2 sources) Start: 08-19-2015 take 1 tablet by mouth once daily VITAMIN D 1000 UNIT TABS One tablet by mouth daily CHOLECALCIFEROL [id number] Johann Lee MD Problems Active Problems Problem Classification Problem Date Documented Da te Episodic/Chronic Acute and unspecified renal failure (11 sources) Injury of kidney; Translations: [Acute kidney failure, unspecified] 09-22-2018 Episodic Cardiac dysrhythmias (12 sources) Sinus bradycardia; Translations: [Bradycardia, unspecified] Episodic Conditions associated with dizziness or vertigo (20 sources) Vertigo; Translations: [Dizziness and giddiness] Episodic Coronary atherosclerosis and other heart disease (20 sources) Atherosclerotic heart disease of [place] coronary artery without angina pectoris; Translations: [Old myocardial infarction] Onset: 03-31-2014 02-08-2016 Chronic Comment on above: Without prior cardia c interventions. Diabetes mellitus without complication (11 sources) Prediabetes; Translations: [Prediabetes] 09-22-2018 Episodic Disorders of lipid metabolism (18 sources) Hyperlipidemia; Translations: [Hyperlipidemia, unspecified] Onset: 04-01-2014 04-01-2014 Chronic Essential hypertension (20 sources) Hypertensive disorder; Translations: [Essential hypertension] Onset: 03-31-2014 03-31-2014 Chronic Gastritis and duodenitis (11 sources) Gastritis; Translations: [Gastritis, unspecified, without bleeding] 06-26-2017 Episodic Headache; including migraine (8 sources) Headache; Translations: [Headache] 02-02-2022 Episodic Miscellaneous mental health disorders (1 source) Other specified eating disorder; Translations: [Other specified eating disorder] Onset: 09-15-2024 Chronic Noninfectious gastroenteritis (5 sources) Colitis; Translations: [Noninfective gastroenteritis and colitis, unspecified] 11-08-2024 Episodic Other and unspecified benign neoplasm (11 sources) Adrenal adenoma; Translations: [Benign neoplasm of unspecified adrenal gland] 04-13-2022 Episodic Other and unspecified benign neoplasm (1 source) Benign neoplasm of unspecified adrenal gland; Translations: [Benign neoplasm of adrenal gland] Episodic Other connective tissue disease (6 sources) Bursitis of olecranon of left elbow; Translations: [Olecranon bursitis, left elbow] 09-07-2024 Episodic Other connective tissue disease (4 sources) Bursitis of olecranon of right elbow; Translations: [Olecranon bursitis, right elbow] 02-26-2025 Episodic Other connective tissue disease (1 source) Olecranon bursitis, right elbow; Translations: [Olecranon bursitis, right elbow] Onset: 02-26-2025 Episodic Other gastrointestinal disorders (12 sources) Constipation; Translations: [Constipation, unspecified] 02-02-2022 Episodic Other gastrointestinal disorders (3 sources) Constipation, unspecified; Translations: [Constipation, unspecified] Episodic Other non-traumatic joint disorders (5 sources) Swelling of upper limb; Translations: [Effusion, left elbow] 09-07-2024 Episodic Other nutritional; endocrine; and metabolic disorders (10 sources) Body mass index (BMI) 34.0-34.9, adult; Translations: [Body mass index (BMI) 35.0-35.9, adult] Onset: 04-08-2014 Resolved: 10-15-2016 10-15-2016 Chronic Eugenie-; endo-; and myocarditis; cardiomyopathy (except that caused by tuberculosis or sexually transmitted disease) (13 sources) Cardiomyopathy; Translations: [Cardiomyopathy, unspecified] Chronic Eugenie-; endo-; and myocarditis; cardiomyopathy (except that caused by tuberculosis or sexually transmitted disease) (17 sources) Pericarditis; Translations: [Disease of pericardium, unspecified] Episodic Residual codes; unclassified (14 sources) Tobacco user; Translations: [Tobacco use] 09-22-2018 Episodic Screening or history of mental health and substance abuse (2 sources) Tobacco dependence syndrome; Translations: [Nicotine dependence, unspecified, uncomplicated] Onset: 04-08-2014 04-08-2014 Chronic Substance-related disorders (10 sources) Cannabis hyperemesis syndrome co-occurrent and due to cannabis abuse; Translations: [Cannabis abuse with other cannabis-induced disorder] 01-22-2022 Chronic Past or Other Problems Problem Classification Problem Date Documented Da te Episodic/Chronic Abdominal pain (11 sources) Abdominal pain; Translations: [Unspecified abdominal pain] Onset: 11-13-2024 11-08-2024 Episodic Fluid and electrolyte disorders (6 sources) Dehydration; Translations: [Dehydration] Onset: 06-20-2024 06-02-2024 Episodic Nausea and vomiting (20 sources) Intractable nausea and vomiting; Translations: [Nausea with vomiting, unspecified] Onset: 06-10-2024 Episodic Neoplasms of unspecified nature or uncertain behavior (2 sources) Neoplasm of uncertain behavior of skin; Translations: [Neoplasm of uncertain behavior of skin] Onset: 01-05-2010 01-12-2010 Episodic Other connective tissue disease (1 source) Olecranon bursitis, left elbow; Translations: [Olecranon bursitis, left elbow] Onset: 09-17-2024 Episodic Other non-traumatic joint disorders (1 source) Effusion, left elbow; Translations: [Effusion, left elbow] Onset: 09-17-2024 Episodic Unclassified (4 sources) FH: Hypertension; Translations: [Family history of ischemic heart disease and other diseases of the circulatory system] 02-25-2015 Episodic Results Test Name Value Interpretation Reference Range Facility Gastroenterology Visit Repor ton 03-10-2025 Gastroenterology Visit Report [facility] [address] [place] [address] OFFICE VISIT Date of Service: 03/10/25 MR#: [id number] Acct: [id number] Name: ISABELLE NAQVI Rep #: [id number] : 1955 Provider: CAROLINA Conroy Age/Sex: 69/F Location[place] [facility] [place]: Signed Intake Vital Signs 05/18/24 09:13 01/15/25 08:11 Height 5 ft 4.17 in 5 ft 4 in Intake Visit Reasons: 6 M FU Chief Complaint: Nausea Allergies hydrochlorothiazide Adverse Reaction (Severe, Verified 02/26/25 09:49) reoccurring pancreatitis Rloaten-FDU-MuQ Reductase Inhibitor (Cegudho-Tvw-Zyc Reductase Inhibitor) Adverse Reaction (Severe, Verified 02/26/25 09:49) reoccurring pancreatitis Gadolinium-MRI Contrast Medium (Gadolinium-Contrast Medium - MRI) Adverse Reaction (Verified 02/26/25 09:49) Vomiting Have you fallen in the past year?: No Nurse's Note: OV 03/09/25 Pt here for a f/u and has complaints of nausea, constipation, abdominal pain, gas and bloating. Pt reports acid reflux and nausea. Pt takes a stools softener and Miralax as needed for the constipation. [facility] Medical History Wears glasses Wears dentures Cancer Marijuana use Diabetes Ambulates with cane Arthritis Bladder disease Back pain Vertigo Gastric reflux Smoker Chronic cough Leg cramps History of pain when walking History of echocardiogram History of edema Hypertension Cardiology follow-up encounter History of heart attack Abdominal pain Nausea Cardiomyopathy Sinus bradycardia Essential hypertension Coronary artery disease Pancreatitis Tobacco abuse Hyperlipidemia Hypertension Atherosclerotic heart disease of [place] coronary artery without angina pectoris Surgical History History of cardiac catheterization History of excision of lesion History of bilateral salpingo-oophorectom y History of total hysterectomy Family History Mother Lung cancer Father CAD (coronary artery disease) Hx of CABG Abdominal aortic aneurysm (AAA) Hypertension Brother CAD (coronary artery disease) Myocardial infarction Hypertension Hx of CABG Social History household members: spouse Smoking Status: Current every day smoker tobacco type: cigarettes alcohol intake: never substance use type: marijuana caffeine: Yes Type: coffee HPI HPI Chief Complaint: Nausea Details: ISABELLE NAQVI, is a 69 F who presents to the office today for follow-up. [facility]GI established 7.08.26 with suspected marijuana hyperemesis syndrome and constipation Colonoscopy 05.10.22 Five 1 to 2 mm polyps in the descending colon, at the hepatic flexure, in the ascending colon and in the cecum, removed with a hot snare. Resected and retrieved. Moderate diverticulosis in the sigmoid colon and in the descending colon. There was no evidence of diverticular bleeding. [facility] ED w/ nausea and vomiting CT abd/pelvis 05.28.24; No renal or ureteral stone. Sigmoid diverticulosis without diverticulitis OV 06.02.24 for ED f/u. Given scopolamine patch PRN, Reglan 5 mg daily, and sucralfate 1 gram BID. OV 09.04.24 Pt has been doing well with no recent nausea. She takes Reglan and uses scopolamine patch just as needed. Could not tolerate sucralfate. Smokes marijuana once a day. [facility] ED 4.01.27 abd pain N/V abd/pelvis 4.01.27 possible mild enteritis/colitis OV 4 pt reports that she has been feeling better the past few days, and has not had any emesis in about 2 weeks. Pt reports patches are helpful for nausea and dizziness. OV 8.01.27 patient's nausea is well-controlled. She has bouts of nausea 2-3 times per week in the morning. She takes metoclopramide 5 mg once per day. She has had some acid reflux during the night on occasion. She takes Tums as needed for this. She was started on a new cholesterol medication that made her constipated so she discontinued it. Constipation is resolving. ROS Const Constitutional: No fatigue, fever(s) or weight change ENT ENT: No difficulty swallowing Gastro GI: Positive for abdominal pain, bloating, change in bowel habits, constipation, heartburn, excessive flatus and nausea/dyspepsia; No belching, change in stool character, coffee ground emesis, cramping, diarrhea, difficulty swallowing, feeling full early, incontinent of stools, Vomiting blood/hematemesis, Blood in stool, loose stools, Black,tarry stools, pain with swallowing, vomiting or other Musc Musculoskeletal: Positive for back pain, numbness, tingling, Arthritis and sciatica; No joint pain Skin Skin: No yellowing of the eye or itchy eyes Neuro Neurology: Positive for dizziness, numbness and tingling Psych Psychiatr (more content not included)... Normal [facility] Orthopedic Visit Reporton Orthopedic Visit Report [facility] [address] [place] [address] [address] [place] [address] OFFICE VISIT Date of Service: 02/26/25 MR#: [id number] Acct: [id number] Name: ISABELLE NAQVI Rep #: [id number] : 1955 Provider: Dr. Jb rose, DO Age/Sex: 69/F Location: [facility] [place] Status: Signed Intake Vital Signs 01/15/25 08:11 Height 5 ft 4 in Weight: 152 lb BMI 26.1 BP 143/80 H Blood Pressure Location Lt brachial Position Sitting Respiration 16 Pulse 88 Pulse Source Monitor Intake Visit Reasons: RIGHT ELBOW Allergies hydrochlorothiazide Adverse Reaction (Severe, Verified 02/26/25 09:49) reoccurring pancreatitis Txdiqfe-KIR-NyO Reductase Inhibitor (Yipefer-Alv-Sws Reductase Inhibitor) Adverse Reaction (Severe, Verified 02/26/25 09:49) reoccurring pancreatitis Gadolinium-MRI Contrast Medium (Gadolinium-Contrast Medium - MRI) Adverse Reaction (Verified 02/26/25 09:49) Vomiting Medications ???Medication ???Instructions ???Recorded ???Confirmed ???Type aspirin 81 mg chewable tablet 81 mg PO DAILY@0800 /12/16 History scopolamine base 1 mg over 3 days 1 patch transdermal Q3D PRN nause a 06/02/24 02/26/25 Rx transdermal patch #10 ea amlodipine 10 mg tablet See Rx Instructions .Route 5 02/26/25 Rx .COMPLEX #90 tabs lisinopril 40 mg tablet 40 mg PO DAILY #90 TABLETS 5 02/26/25 Rx ondansetron 4 mg disintegrating 4 mg PO Q8H PRN PRN Nausea #10 tab s 11/08/24 02/26/25 Rx tablet cyclobenzaprine 5 mg tablet 5 mg PO HS PRN 11/26/24 02/26/25 H istory diclofenac sodium 1 % topical gel 2 g topical ONCE 11/26/24 5 History cholecalciferol (vitamin D3) 125 2,000 unit PO DAILY 01/15/2502/26 History mcg (5,000 unit) tablet ezetimibe 10 mg tablet (Zetia) 10 mg PO DAILY #30 tabs 01/18/25 0 02/26/25 Rx metoclopramide HCl 10 mg tablet 10 mg PO Q6H PRN nausea and 02/26/25 Rx vomiting #120 tabs metoclopramide HCl 5 mg tablet 5 mg PO QDAY #30 tabs 02/22/25 Rx Have you fallen in the past year?: No PFSH Medical History Wears glasses Wears dentures Cancer Marijuana use Diabetes Ambulates with cane Arthritis Bladder disease Back pain Vertigo Gastric reflux Smoker Chronic cough Leg cramps History of pain when walking History of echocardiogram History of edema Hypertension Cardiology follow-up encounter History of heart attack Abdominal pain Nausea Cardiomyopathy Sinus bradycardia Essential hypertension Coronary artery disease Pancreatitis Tobacco abuse Hyperlipidemia Hypertension Atherosclerotic heart disease of [place] coronary artery without angina pectoris Surgical History History of cardiac catheterization History of excision of lesion History of bilateral salpingo-oophorectom y History of total hysterectomy Family History Mother Lung cancer Father CAD (coronary artery disease) Hx of CABG Abdominal aortic aneurysm (AAA) Hypertension Brother CAD (coronary artery disease) Myocardial infarction Hypertension Hx of CABG Social History household members: spouse Smoking Status: Current every day smoker tobacco type: cigarettes alcohol intake: never substance use type: marijuana caffeine: Yes Type: coffee HPI RIGHT ELBOW Details: This documentation accurately reflects the service provided and the decisions made by me, Dr. Jb Jaramillo, DO 02/26/25 0753. Part of today???s visit was documented by María RUFF, acting as scribe. ISABELLE NAQVI is a 69 year old F here today for the right elbow. She states that she has had the lump on her elbow for 3-4 weeks. She denies any known injury to the elbow. She denies having pain in the elbow. She is requesting that the fluid be drained like she had for the left elbow on 09/07/24. 09/07/2024 visit:69 year old F with medical history significant for but not limited to tobacco abuse, coronary artery disease, cardiomyopathy, pericarditis, here today for left elbow lump. She states she has had a large lump on her left elbow for 2 months. She denies known cause, injury or pain. She is able to bend it. Denies any history of gout, no signs of infection. Did have skin cancer. Plan:Explained to patient that she does have olecranon bursitis in the elbow. Her options would be: nothing and just leave it alone, try to drain it, steroid injection or surgical excision. Patient would like to proceed with an aspiration as well as a steroid injection today. Recommended to apply ice to the area if needed and she should keep the compression wrap on it ex (more content not included)... Normal [facility] Absolute lymphocyte countOrd ered By: Osmar Randhawa on 01-15-2025 Lymphocytes Auto (Unsp spec) [#/Vol] 3.87 10*3/uL 0.83-4.51 [facility] Absolute neutrophil countOrd ered By: Osmar Randhawa on 01-15-2025 Neutrophils (Bld) [#/Vol] 6.8 10*3/uL 2.0-7.7 [facility] Anion gap in Serum or Plasma Ordered By: Osmar Randhawa on 01-15-2025 Anion gap [Moles/Vol] 14 mmol/L 5-15 [facility] Automated lymphocyte count a s percentage of total leukocytesOrdered By: Osmar Randhawa on 01-15-2025 Lymphocytes/100 WBC Auto (Unsp spec) 32.0 % 19-41 [facility] BUN/creatinine ratioOrdered By: Osmar Randhawa on 01-15-2025 Urea nitrogen/Creatinine [Mass ratio] 27.0 mg/mg High 10-20 [facility] Basophil percentageOrdered B y: Osmar Randhawa on 01-15-2025 Basophils/100 WBC (Bld) 0.3 % 0-1 [facility] Bilirubin, totalOrdered By: Osmar Randhawa on 01-15-2025 Bilirubin [Mass/Vol] 0.30 mg/dL 0.00-1.30 [facility] CBC W/Diff, Automatedon 01-03 Absolute Lymph 3.87 X10 3/uL Normal 0.83-4.51 [facility] Comment on above: Performed By: #### L 500.4050, L500.4100, L100.0100 #### [facility] [address] [place], [address] Absolute Neut 6.8 X10 3/uL Normal 2.0-7.7 [facility] Comment on above: Performed By: #### L 500.4050, L500.4100, L100.0100 #### [facility] [address] [place], [address] Basophils/100 WBC (Bld) 0.3 % Normal 0-1 [facility] Comment on above: Performed By: #### L 500.4050, L500.4100, L100.0100 #### [facility] [address] [place], [address] Eosinophils/100 WBC (Bld) 2.2 % Normal 0-5 [facility] Comment on above: Performed By: #### L 500.4050, L500.4100, L100.0100 #### [facility] [address] [place], [address] Erythrocyte distribution width (RBC) [Ratio] 14.6 % Normal 11.6-14.6 [facility] Comment on above: Performed By: #### L 500.4050, L500.4100, L100.0100 #### [facility] [address] [place], [address] Hematocrit (Bld) [Volume fraction] 42.2 % Normal 37-47 [facility] Comment on above: Performed By: #### L 500.4050, L500.4100, L100.0100 #### [facility] [address] [place], [address] Hemoglobin (Bld) [Mass/Vol] 13.7 g/dL Normal 12.0-15.0 [facility] Comment on above: Performed By: #### L 500.4050, L500.4100, L100.0100 #### [facility] [address] [place], [address] IG% 0.400 Normal 0.0-0.9 [facility] Comment on above: Result Comment: IG% - Immature Granulocytes (promyelocytes, myelocytes and metamyelocytes) > 1% indicates that a LEFT SHIFT is Present. Performed By: #### L 500.4050, L500.4100, L100.0100 #### [facility] [address] [place], [address] Lymphocytes/100 WBC (Bld) 32.0 % Normal 19-41 [facility] Comment on above: Performed By: #### L 500.4050, L500.4100, L100.0100 #### [facility] [address] [place], [address] MCH (RBC) [Entitic mass] 29.1 pg Normal 27.0-32.0 [facility] Comment on above: Performed By: #### L 500.4050, L500.4100, L100.0100 #### [facility] [address] [place], [address] MCHC (RBC) [Mass/Vol] 32.5 g/dL Normal 32-36 [facility] Comment on above: Performed By: #### L 500.4050, L500.4100, L100.0100 #### [facility] [address] [place], [address] MCV (RBC) [Entitic vol] 89.8 fL Normal 81-99 [facility] Comment on above: Performed By: #### L 500.4050, L500.4100, L100.0100 #### [facility] [address] [place], [address] Monocytes/100 WBC (Bld) 8.9 % Normal 0-10 [facility] Comment on above: Performed By: #### L 500.4050, L500.4100, L100.0100 #### [facility] [address] [place], [address] Neutrophils/100 WBC (Bld) 56.2 % Normal 47-70 [facility] Comment on above: Performed By: #### L 500.4050, L500.4100, L100.0100 #### [facility] [address] [place], [address] Nucleated RBC (Bld) [#/Vol] 0 10*3/uL Normal 0-5 [facility] Comment on above: Performed By: #### L 500.4050, L500.4100, L100.0100 #### [facility] [address] [place], [address] Platelet mean volume (Bld) [Entitic vol] 10.5 fL Normal 6.2-12.0 [facility] Comment on above: Performed By: #### L 500.4050, L500.4100, L100.0100 #### [facility] [address] [place], [address] Platelets (Bld) [#/Vol] 391 10*3/uL Normal 150-450 [facility] Comment on above: Performed By: #### L 500.4050, L500.4100, L100.0100 #### [facility] [address] [place], [address] RBC (Bld) [#/Vol] 4.70 10*6/uL Normal 4.2-5.4 [facility] Comment on above: Performed By: #### L 500.4050, L500.4100, L100.0100 #### [facility] [address] [place], [address] RDW SD 47.7 fl High 35.1-43.9 [facility] Comment on above: Performed By: #### L 500.4050, L500.4100, L100.0100 #### [facility] [address] [place], [address] WBC (Bld) [#/Vol] 12.1 10*3/uL High 4.4-11.0 [facility] Comment on above: Performed By: #### L 500.4050, L500.4100, L100.0100 #### [facility] [address] [place], [address] Calculated very low density lipoprotein (VLDL) cholesterol measurementOrdered By: Osmar Randhawa on 01-15-2025 Calculated very low density lipoprotein (VLDL) cholesterol measurement 21 mg/dL 5-40 [facility] Carbon dioxide, total [Moles /volume] in Central venous bloodOrdered By: Osmar Randhawa on 01-15-2025 CO2 [Moles/Vol] 23.5 mmol/L 21.0-32.0 [facility] Cardiology Visit Reporton Cardiology Visit Report [facility] [address] [place] [address] OFFICE VISIT Date of Service: 01/15/25 MR#: [id number] Acct: [id number] Name: ISABELLE NAQVI Rep #: [id number] : 1955 Provider: Dr. Osmar estrada MD Age/Sex: 69/F Location: [facility] – [place], [place].[facility] Status: Signed HPI HPI History of Present Illness Details: Patient is a pleasant 69-year-old white female. She comes in for monitoring of her cardiovascular status. She has a history of CAD status post inferior ST segment elevation GA status post unsuccessful right PDA PCI ([facility] in [place], [place]-2014), ischemic mediated cardiomyopathy, history of pericarditis-remote, bradycardia, hyperlipidemia, and hypertension. Her ischemic mediated cardiomyopathy was out of proportion of her coronary anatomy. She was did with LV recovery and completely recovered EF on echocardiogram 2021 was 65%. Cardiovascular standpoint the patient is doing well she is up and about regular activity level she really has no complaints whatsoever. Her only issue is easy bruisability and ecchymotic areas. She has been off Plavix and they got some better but still are significant. The patient's primary care physician retired and she was requesting laboratory evaluation be performed today. Patient denies any recurrence of any chest symptoms she does have a longstanding tobacco exposure and we went over in detail smoking cessation. 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 Accompanied by: Self Is patient in pain?: No Allergies hydrochlorothiazide Adverse Reaction (Severe, Verified 01/15/25 08:14) reoccurring pancreatitis Rugpjnw-BVN-WmR Reductase Inhibitor (Bvumstb-Nac-Hnz Reductase Inhibitor) Adverse Reaction (Severe, Verified 01/15/25 08:14) reoccurring pancreatitis Gadolinium-MRI Contrast Medium (Gadolinium-Contrast Medium - MRI) Adverse Reaction (Verified 01/15/25 08:14) Vomiting Medications ???Medication ???Instructions ???Recorded ???Confirmed ???Type aspirin 81 mg chewable tablet 81 mg PO DAILY@0800 12/07/1301/15 History scopolamine base 1 mg over 3 days 1 patch transdermal Q3D PRN nause a 06/02/24 01/15/25 Rx transdermal patch #10 ea amlodipine 10 mg tablet See Rx Instructions .Route 5 01/15/25 Rx .COMPLEX #90 tabs lisinopril 40 mg tablet 40 mg PO DAILY #90 TABLETS 5 01/15/25 Rx ondansetron 4 mg disintegrating 4 mg PO Q8H PRN PRN Nausea #10 tab s 11/08/24 01/15/25 Rx tablet cyclobenzaprine 5 mg tablet 5 mg PO HS PRN 11/26/24 01/15/25 H istory diclofenac sodium 1 % topical gel 2 g topical ONCE 11/26/24 5 History metoclopramide HCl 5 mg tablet 5 mg PO QDAY #30 tabs 11/26/24 Rx metoclopramide HCl 10 mg tablet 10 mg PO Q6H PRN nausea and 01/15/25 Rx vomiting #120 tabs cholecalciferol (vitamin D3) 125 2,000 unit PO DAILY 01/15/2501/15 History mcg (5,000 unit) tablet Ejection fraction %: 65 Have you fallen in the past year?: No PFSH Medical History Wears glasses Wears dentures Cancer Marijuana use Diabetes Ambulates with cane Arthritis Bladder disease Back pain Vertigo Gastric reflux Smoker Chronic cough Leg cramps History of pain when walking History of echocardiogram History of edema Hypertension Cardiology follow-up encounter History of heart attack Abdominal pain Nausea Cardiomyopathy Sinus bradycardia Essential hypertension Coronary artery disease Pancreatitis Tobacco abuse Hyperlipidemia Hypertension Atherosclerotic heart disease of [place] coronary artery without angina pectoris Surgical History History of cardiac catheterization History of excision of lesion History of bilateral salpingo-oophorectom y History of total hysterectomy Family History Mother Lung cancer Father CAD (coronary artery disease) Hx of CABG Abdominal aortic aneurysm (AAA) Hypertension Brother CAD (coronary artery disease) Myocardial infarction Hypertension Hx of CABG Social History household members: spouse Smoking Status: Current every day smoker tobacco type: cigarettes alcohol intake: never substance use type: marijuana caffeine: Yes Type: coffee ROS Const Const: Negative for fatigue, wea (more content not included)... Normal [facility] Chloride assayOrdered By: Lor Ranhdawa on 01-15-2025 Chloride [Moles/Vol] 99 mmol/L 98-108 [facility] Comprehensive Metabolic Prof ilon 01-15-2025 Albumin [Mass/Vol] 4.2 g/dL Normal 3.4-4.8 [facility] Comment on above: Performed By: #### L 500.4050, L500.4100, L100.0100 ####[facility] [address] [place], [place], [id number] Albumin/Globulin [Mass ratio] 1.1 {ratio} Normal 0.9-2.4 [facility] Comment on above: Performed By: #### L 500.4050, L500.4100, L100.0100 ####[facility] [address] [place], [address] ALK PHOS 99 U/L Normal 35-104 [facility] Comment on above: Performed By: #### L 500.4050, L500.4100, L100.0100 ####[facility] [address] [place], [address] ALT [Catalytic activity/Vol] 9 U/L Normal <=34 [facility] Comment on above: Performed By: #### L 500.4050, L500.4100, L100.0100 ####[facility] [address] [place], [address] AST [Catalytic activity/Vol] 23 U/L Normal <=31 [facility] Comment on above: Performed By: #### L 500.4050, L500.4100, L100.0100 ####[facility] [address] [place], [address] Bilirubin [Mass/Vol] 0.30 mg/dL Normal 0.00-1.30 [facility] Comment on above: Performed By: #### L 500.4050, L500.4100, L100.0100 ####[facility] [address] [place], [address] BUN/CRE 27.0 RATIO High 10-20 [facility] Comment on above: Performed By: #### L 500.4050, L500.4100, L100.0100 ####[facility] [address] [place], [address] Calcium [Mass/Vol] 9.6 mg/dL Normal 7.6-11.0 [facility] Comment on above: Performed By: #### L 500.4050, L500.4100, L100.0100 ####[facility] [address] [place], [address] Chloride [Moles/Vol] 99 mmol/L Normal 98-108 [facility] Comment on above: Performed By: #### L 500.4050, L500.4100, L100.0100 ####[facility] [address] [place], [address] CO2 [Moles/Vol] 23.5 mmol/L Normal 21.0-32.0 [facility] Comment on above: Performed By: #### L 500.4050, L500.4100, L100.0100 ####[facility] [address] [place], [address] Creatinine [Mass/Vol] 0.76 mg/dL Normal 0.70-1.20 [facility] Comment on above: Performed By: #### L 500.4050, L500.4100, L100.0100 ####[facility] [address] [place], [address] GAP 14 Normal 5-15 [facility] Comment on above: Performed By: #### L 500.4050, L500.4100, L100.0100 ####[facility] [address] [place], [address] GFR/1.73 sq M.predicted among non-blacks MDRD (S/P/Bld) [Vol rate/Area] 85 mL/min/{1.73_m2} Normal >60 [facility] Comment on above: Result Comment: mL/m in/1.73m2 CKD-EPI Creatinine Equation (2020) Performed By: #### L 500.4050, L500.4100, L100.0100 ####[facility] [address] [place], [address] Globulin (S) [Mass/Vol] 3.7 g/dL Normal 2.2-4.2 [facility] Comment on above: Performed By: #### L 500.4050, L500.4100, L100.0100 ####[facility] [address] [place], [address] Glucose [Mass/Vol] 112 mg/dL High 70-99 [facility] Comment on above: Performed By: #### L 500.4050, L500.4100, L100.0100 ####[facility] [address] [place], [address] Potassium [Moles/Vol] 4.4 mmol/L Normal 3.3-5.1 [facility] Comment on above: Performed By: #### L 500.4050, L500.4100, L100.0100 ####[facility] [address] [place], [address] Sodium [Moles/Vol] 136 mmol/L Normal 133-145 [facility] Comment on above: Performed By: #### L 500.4050, L500.4100, L100.0100 ####[facility] [address] [place], [address] T PROT 7.8 g/dL Normal 5.9-8.4 [facility] Comment on above: Performed By: #### L 500.4050, L500.4100, L100.0100 ####[facility] [address] [place], [address] Urea nitrogen [Mass/Vol] 21 mg/dL High 4-19 [facility] Comment on above: Performed By: #### L 500.4050, L500.4100, L100.0100 ####[facility] [facility] [address] [place], [address] Eosinophil percentageOrdered By: Osmar Randhawa on 01-15-2025 Eosinophils/100 WBC (Bld) 2.2 % 0-5 [facility] Erythrocyte distribution wid th ratioOrdered By: Osmar Randhawa on 01-15-2025 Erythrocyte distribution width (RBC) [Ratio] 14.6 % 11.6-14.6 [facility] Erythrocyte distribution wid th standard deviationOrdered By: Osmar Randhawa on 01-15-2025 Erythrocyte distribution width (RBC) [Ratio] 47.7 fl High 35.1-43.9 [facility] Glomerular filtration rate ( GFR) estimation/1.73 sq m using serum, plasma, or whole bOrdered By: Osmar Randhawa on 01-15-2025 GFR/1.73 sq M.predicted among non-blacks MDRD (S/P/Bld) [Vol rate/Area] 85 mL/min/{1.73_m2} >60 [facility] Comment on above: mL/min/1.73m2 CKD-EP I Creatinine Equation (2020) Hematocrit Auto (Bld) [Volum e fraction]Ordered By: Osmar Randhawa on 01-15-2025 Hematocrit (Bld) [Volume fraction] 42.2 % 37-47 [facility] Hemoglobin measurementOrdere d By: Osmar Randhawa on 01-15-2025 Hemoglobin (Bld) [Mass/Vol] 13.7 g/dL 12.0-15.0 [facility] Immature granulocytes/100 WB C Auto (Bld)Ordered By: Osmar Randhawa on 01-15-2025 Immature granulocytes/100 WBC (Bld) 0.400 % 0.0-0.9 [facility] Comment on above: IG% - Immature Granu locytes (promyelocytes, myelocytes and metamyelocytes) > 1% indicates that a LEFT SHIFT is Present. LDL calc ser/plasOrdered By: Osmar Randhawa on 01-15-2025 Cholesterol in LDL [Mass/Vol] 140 mg/dL [facility] Comment on above: Xdlejovasv=149-294 m g/dL & Higher Nfok=217 mg/dL or greater Laboratory - Chemistry and C hemistry - challengeOrdered By: Osmar Randhawa on 01-15-2025 AST [Catalytic activity/Vol] 23 U/L <32 [facility] Lipid Profileon 01-15-2025 CHOL:HDL 3.68 Normal [facility] Comment on above: Performed By: #### L 500.4050, L500.4100, L100.0100 #### [facility] [address] [place], [address] Cholesterol [Mass/Vol] 221 mg/dL High <=200 [facility] Comment on above: Result Comment: Chol esterol level, Desirable <200 mg/dL Borderline high cholesterol 200-239 mg/dL High cholesterol >=240 mg/dL Recommendations of the NCEP Adult Treatment Panel for the following risk-cutoff thresholds for the [place] population. Performed By: #### L 500.4050, L500.4100, L100.0100 #### [facility] [address] [place], [address] Cholesterol in HDL [Mass/Vol] 60 mg/dL Normal [facility] Comment on above: Result Comment: [place] Cholesterol Education Program (NCEP) guidelines: <40 mg/dL: Low HDL-cholesterol (major risk factor for CHD) >= 60 mg/dL: High HDL-cholesterol (negative risk factor for CHD) HDL-cholesterol is affected by a number of factors, e.g. smoking, exercise, hormones, sex and age. Performed By: #### L 500.4050, L500.4100, L100.0100 #### [facility] [address] [place], [address] Cholesterol in LDL [Mass/Vol] 140 mg/dL Normal [facility] Comment on above: Result Comment: Bord wulcoq=130-357 mg/dL Higher Fjyz=114 mg/dL or greater Performed By: #### L 500.4050, L500.4100, L100.0100 #### [facility] [address] [place], [address] Cholesterol in VLDL [Mass/Vol] 21 mg/dL Normal 5-40 [facility] Comment on above: Performed By: #### L 500.4050, L500.4100, L100.0100 #### [facility] [address] [place], [address] Triglyceride [Mass/Vol] 105 mg/dL Normal [facility] Comment on above: Result Comment: The drugs N-Acetylcysteine and Metamizole may falsely depress this assay. Normal range: <150 mg/dL Borderline High: 150-199 mg/dL High: 200-499 mg/dL Very High: >500 mg/dL Performed By: #### L 500.4050, L500.4100, L100.0100 #### [facility] [address] [place], [address] MCV (mean corpuscular volume ) determinationOrdered By: Osmar Randhawa on 01-15-2025 MCV (RBC) [Entitic vol] 89.8 fL 81-99 [facility] Mean corpuscular hemoglobin (MCH) determinationOrdered By: Osmar Randhawa on 01-15-2025 MCH (RBC) [Entitic mass] 29.1 pg 27.0-32.0 [facility] Mean corpuscular hemoglobin concentration (MCHC) determinationOrdered By: Osmar Randhawa on 01-15-2025 MCHC (RBC) [Mass/Vol] 32.5 g/dL 32-36 [facility] Mean platelet volume determi nationOrdered By: Osmar Randhawa on 01-15-2025 Platelet mean volume (Bld) [Entitic vol] 10.5 fL 6.2-12.0 [facility] Monocyte percentageOrdered B y: Osmar Randhawa on 01-15-2025 Monocytes/100 WBC (Bld) 8.9 % 0-10 [facility] Neutrophil percentageOrdered By: Osmar Randhawa on 01-15-2025 Neutrophils/100 WBC (Bld) 56.2 % 47-70 [facility] Nucleated red blood cell per centageOrdered By: Osmar Randhawa on 01-15-2025 Nucleated RBC/100 WBC (Bld) [Ratio] 0 % 0-5 [facility] Platelet countOrdered By: Lor Randhawa on 01-15-2025 Platelets (Bld) [#/Vol] 391 10*3/uL 150-450 [facility] Potassium measurement (mass/ volume)Ordered By: Osmar Randhawa on 01-15-2025 Potassium (Unsp spec) [Mass/Vol] 4.4 mmol/L 3.3-5.1 [facility] RBC Auto (Bld) [#/Vol]Ordere d By: Osmar Randhawa on 01-15-2025 RBC (Bld) [#/Vol] 4.70 10*6/uL 4.2-5.4 [facility] Screening total cholesterol/ high density lipoprotein (HDL) cholesterol ratioOrdered By: Osmar Randhawa on 01-15-2025 Cholesterol.total/Choles terol in HDL [Mass ratio] 3.68 {ratio} [facility] Serum creatinine measurement (mass/volume)Ordered By: Osmar Randhawa on 01-15-2025 Creatinine [Mass/Vol] 0.76 mg/dL 0.70-1.20 [facility] Serum globulin measurementOr dered By: Osmar Randhawa on 01-15-2025 Globulin (S) [Mass/Vol] 3.7 g/dL 2.2-4.2 [facility] Serum glucose measurement (m ass/volume)Ordered By: Osmar Randhawa on 01-15-2025 Glucose [Mass/Vol] 112 mg/dL High 70-99 [facility] Serum or plasma alanine chacon otransferase (ALT) measurementOrdered By: Osmar Randhawa on 01-15-2025 ALT [Catalytic activity/Vol] 9 U/L <35 [facility] Serum or plasma albumin ganesh urement (mass/volume)Ordered By: Osmar Randhawa on 01-15-2025 Albumin [Mass/Vol] 4.2 g/dL 3.4-4.8 [facility] Serum or plasma albumin/glob ulin mass ratioOrdered By: Osmar Randhawa on 01-15-2025 Albumin/Globulin [Mass ratio] 1.1 {ratio} 0.9-2.4 [facility] Serum or plasma alkaline rosanna sphatase measurementOrdered By: Osmar Randhawa on 01-15-2025 ALP [Catalytic activity/Vol] 99 U/L 35-104 [facility] Serum or plasma calcium ganesh urement (mass/volume)Ordered By: Osmar Randhawa on 01-15-2025 Calcium [Mass/Vol] 9.6 mg/dL 7.6-11.0 [facility] Serum or plasma cholesterol in HDL measurement (mass/volume)Ordered By: Osmar Randhawa on 01-15-2025 Cholesterol in HDL [Mass/Vol] 60 mg/dL >40 [facility] Comment on above: National Cholesterol Education Program (NCEP) guidelines:<40 mg/dL: Low HDL-cholesterol (major risk factor for CHD)>= 60 mg/dL: High HDL-cholesterol (negative risk factor for CHD)HDL-cholesterol is affected by a number of factors, e.g. smoking, exercise, hormones, sex and age. Serum or plasma cholesterol measurement (mass/volume)Ordered By: Osmar Randhawa on 01-15-2025 Cholesterol [Mass/Vol] 221 mg/dL High <201 [facility] Comment on above: Cholesterol level, D esirable <200 mg/dLBorderline high cholesterol 200-239 mg/dLHigh cholesterol >=240 mg/dLRecommendations of the NCEP Adult Treatment Panel for the following risk-cutoff thresholds for the [place] population. Serum or plasma urea nitroge n measurement (mass/volume)Ordered By: Osmar Randhawa on 01-15-2025 Urea nitrogen [Mass/Vol] 21 mg/dL High 4-19 [facility] Sodium levelOrdered By: Obdulio Randhawa on 01-15-2025 Sodium [Moles/Vol] 136 mmol/L 133-145 [facility] Total proteinOrdered By: Hong Randhawa on 01-15-2025 Protein [Mass/Vol] 7.8 g/dL 5.9-8.4 [facility] Triglycerides measurementOrd ered By: Osmar Randhawa on 01-15-2025 Triglyceride [Mass/Vol] 105 mg/dL <199 [facility] Comment on above: The drugs N-Acetylcy steine and Metamizole may falsely depress this assay. Normal range: <150 mg/dLBorderline High: 150-199 mg/dLHigh: 200-499 mg/dLVery High: >500 mg/dL White blood cell (WBC) count Ordered By: Osmar Randhawa on 01-15-2025 WBC (Bld) [#/Vol] 12.1 10*3/uL High 4.4-11.0 [facility] Gastroenterology Visit Repor ton 11-26-2024 Gastroenterology Visit Report [facility] [address] [place] [address] OFFICE VISIT Date of Service: 11/26/24 MR#: [id number] Acct: [id number] Name: ISABELLE NAQVI Rep #: [id number] : 1955 Provider: Melecio Cooper, Age/Sex: 69/F Location: [facility] [place] [place] Status: Signed Intake Vital Signs 11/08/24 14:46 Height 5 ft 4 in Intake Visit Reasons: Hospital FU Allergies hydrochlorothiazide Adverse Reaction (Severe, Verified 11/08/24 14:48) reoccurring pancreatitis Ijncysq-DPJ-FrC Reductase Inhibitor (Lkxdqpl-Trc-Abp Reductase Inhibitor) Adverse Reaction (Severe, Verified 11/08/24 14:48) reoccurring pancreatitis Gadolinium-MRI Contrast Medium (Gadolinium-Contrast Medium - MRI) Adverse Reaction (Verified 11/08/24 14:48) Vomiting Medications ???Medication ???Instructions ???Recorded ???Confirmed ???Type aspirin 81 mg chewable tablet 81 mg PO DAILY@0800 12/07/1311/26 History cholecalciferol (vitamin D3) 125 125 mcg PO DAILY 05/02/22 11/26/24 History mcg (5,000 unit) tablet scopolamine base 1 mg over 3 days 1 patch transdermal Q3D PRN nause a 06/02/24 11/26/24 Rx transdermal patch #10 ea amlodipine 10 mg tablet See Rx Instructions .Route 5 11/26/24 Rx .COMPLEX #90 tabs lisinopril 40 mg tablet 40 mg PO DAILY #90 TABLETS 5 11/26/24 Rx ondansetron 4 mg disintegrating 4 mg PO Q8H PRN PRN Nausea #10 tab s 11/08/24 11/26/24 Rx tablet cyclobenzaprine 5 mg tablet 5 mg PO HS PRN 11/26/24 11/26/24 H istory diclofenac sodium 1 % topical gel 2 g topical ONCE 11/26/24 5 History metoclopramide HCl 10 mg tablet 10 mg PO Q6H PRN 11/26/24 11/26/24 History metoclopramide HCl 5 mg tablet 5 mg PO QDAY #30 tabs 11/26/24 Rx mirtazapine 15 mg tablet 15 mg PO QHS #30 tabs 11/26/24 Rx Have you fallen in the past year?: No PFSH Medical History Wears glasses Wears dentures Cancer Marijuana use Diabetes Ambulates with cane Arthritis Bladder disease Back pain Vertigo Gastric reflux Smoker Chronic cough Leg cramps History of pain when walking History of echocardiogram History of edema Hypertension Cardiology follow-up encounter History of heart attack Abdominal pain Nausea Cardiomyopathy Sinus bradycardia Essential hypertension Coronary artery disease Pancreatitis Tobacco abuse Hyperlipidemia Hypertension Atherosclerotic heart disease of [place] coronary artery without angina pectoris Surgical History History of cardiac catheterization History of excision of lesion History of bilateral salpingo-oophorectom y History of total hysterectomy Family History Mother Lung cancer Father CAD (coronary artery disease) Hx of CABG Abdominal aortic aneurysm (AAA) Hypertension Brother CAD (coronary artery disease) Myocardial infarction Hypertension Hx of CABG Social History household members: spouse Smoking Status: Current every day smoker tobacco type: cigarettes alcohol intake: never substance use type: marijuana caffeine: Yes Type: coffee HPI HPI Details: ISABELLE NAQVI, is a 69 F who presents to the office today for follow up. BGI established 7.1.22 with suspected marijuana hyperemesis syndrome and constipation Colonoscopy 05.10.22 Five 1 to 2 mm polyps in the descending colon, at the hepatic flexure, in the ascending colon and in the cecum, removed with a hot snare. Resected and retrieved. Moderate diverticulosis in the sigmoid colon and in the descending colon. There was no evidence of diverticular bleeding. [facility] ED w/ nausea and vomiting CT abd/pelvis 05.28.24; No renal or ureteral stone. Sigmoid diverticulosis without diverticulitis OV 06.02.24 for ED f/u. Given scopolamine patch PRN, Reglan 5 mg daily, and sucralfate 1 gram BID. OV 09.04.24 Pt has been doing well with no recent nausea. She takes Reglan and uses scopolamine patch just as needed. Could not tolerate sucralfate. Smokes marijuana once a day. [facility] ED 4.01.27 abd pain N/V abd/pelvis 4.01.27 possible mild enteritis/colitis OV 11.26.24 pt reports that she has been feeling better the past few days, and has not had any emesis in about 2 weeks. Pt reports patches are helpful for nausea and dizziness. ROS Const Constitutional: Positive for fatigue and weight change (weight loss); No fever(s) ENT ENT: No difficulty swallowing Gastro GI: Positive for abdominal pain, bloating, heartburn, excessive flatus, nausea/dyspepsia and vomiting; No belching, change in bowel habits, change in stool character, coffee ground (more content not included)... Normal [facility] Abdomen/Pelvis W IV Cont ONL Yon 11-08-2024 Abdomen/Pelvis W IV Cont ONLY [facility] Imaging Services [address] [place], [place] [address] Abdomen/Pelvis W IV Cont ONLY MR#: [id number] Acct: [id number] Name: ISABELLE NAQVI Rep #: [id number] : 1955 F 69 From: Faisal Jolly DO PCP: Dr. Felicia Dixon MD Status: REG ER Study: Abdomen/Pelvis W IV Cont ONLY Date of Exam: Exam# [id number] Ordering Dr: Kristen Crespo PROCEDURE: ABDOMEN/PELVIS W IV CONT ONLY 11/08/2024 REASON FOR EXAM: ABDOMINAL PAIN for 1 week. Prior history includes coronary artery disease, hypertension, myocardial infarction, pancreatitis, total abdominal hysterectomy and bilateral salpingo oophorectomy TECHNIQUE: Abdomen and pelvis CT with intravenous contrast. Coronal and Sagittal reconstruction series were provided. PATIENT PREPARATION: Per protocol ORAL CONTRAST TYPE: None. AMOUNT: mL CONTRAST: Isovue 370 VOLUME: 100 mL IV One or more dose reduction techniques were used (e.g., Automated exposure control, adjustment of the mA and/or kV according to patient size, use of iterative reconstruction technique. RADIATION DOSE SUMMARY: CTDlvol: 15.74 mGy DLP: 708.53 mGycm COMPARISON: None. FINDINGS: Lung bases: Unremarkable. Lungs are clear. No pleural effusions. The liver, gallbladder, spleen, pancreas, and kidneys are unremarkable. Small bilateral adrenal nodules are present. In the absence of known cancer or symptoms of cancer, these can likely be regarded as benign and require no follow-up Urinary bladder: Unremarkable. Reproductive Organs: Surgically absent Bowel: There is no small or large bowel dilatation. There are some fluid-filled loops of small and large bowel with mildly enhancing wall suggesting possible combination of enteritis and colitis. Appendix: No inflammatory appendicitis appreciated in the right lower quadrant. The appendix is not definitely identified. Lymph nodes: No aortocaval lymph nodes identified. Vasculature: Moderate calcific soft plaque burden in the abdominal aorta. Celiac artery and SMA are pacified. Peritoneum / Retroperitoneum: No free fluid in Harvey's pouch or the abdomen or pelvis otherwise. No free air. Bones: No aggressive bone lesions. CT/Abdomen/Pelvis W IV Cont ONLY IMPRESSION: Possible mild enteritis/colitis Reading [facility] CC: Dr. Felicia Dixon MD; CAROLINA Pedersen Shoe Laster: Signed Normal [facility] Absolute lymphocyte countOrd ered By: Kristen Crespo on 11-08-2024 Lymphocytes Auto (Unsp spec) [#/Vol] 3.36 10*3/uL 0.83-4.51 [facility] Absolute neutrophil countOrd ered By: Kristen Crespo on 11-08-2024 Neutrophils (Bld) [#/Vol] 7.6 10*3/uL 2.0-7.7 [facility] Anion gap in Serum or Plasma Ordered By: Kristen Crespo on 11-08-2024 Anion gap [Moles/Vol] 15 mmol/L 5-15 [facility] Automated lymphocyte count a s percentage of total leukocytesOrdered By: Kristen Crespo on 11-08-2024 Lymphocytes/100 WBC Auto (Unsp spec) 27.6 % 19-41 [facility] BUN/creatinine ratioOrdered By: Kristen Crespo on 11-08-2024 Urea nitrogen/Creatinine [Mass ratio] 20.6 mg/mg High 10-20 [facility] Basophil percentageOrdered B y: Kristen Crespo on 11-08-2024 Basophils/100 WBC (Bld) 0.2 % 0-1 [facility] Bilirubin Test strip Ql (U)O rdered By: Kristen Crespo on 11-08-2024 Bilirubin Ql (U) 1 mg/dL High Negative [facility] Comment on above: COLOR OF URINE MAY A FFECT DIPSTICK RESULTS. Bilirubin, totalOrdered By: Kristen Crespo on 11-08-2024 Bilirubin [Mass/Vol] 0.52 mg/dL 0.00-1.30 [facility] CBC W/Diff, Automatedon Absolute Lymph 3.36 X10 3/uL Normal 0.83-4.51 [facility] Comment on above: Performed By: #### L 500.4050, L100.0100, L501.2450 ####[facility] [address] [place], [address] Absolute Neut 7.6 X10 3/uL Normal 2.0-7.7 [facility] Comment on above: Performed By: #### L 500.4050, L100.0100, L501.2450 ####[facility] [address] [place], [address] Basophils/100 WBC (Bld) 0.2 % Normal 0-1 [facility] Comment on above: Performed By: #### L 500.4050, L100.0100, L501.2450 ####[facility] [address] [place], [address] Eosinophils/100 WBC (Bld) 1.0 % Normal 0-5 [facility] Comment on above: Performed By: #### L 500.4050, L100.0100, L501.2450 ####[facility] [address] [place], [address] Erythrocyte distribution width (RBC) [Ratio] 13.9 % Normal 11.6-14.6 [facility] Comment on above: Performed By: #### L 500.4050, L100.0100, L501.2450 ####[facility] [address] [place], [address] Hematocrit (Bld) [Volume fraction] 46.6 % Normal 37-47 [facility] Comment on above: Performed By: #### L 500.4050, L100.0100, L501.2450 ####[facility] [address] [place], [address] Hemoglobin (Bld) [Mass/Vol] 16.4 g/dL High 12.0-15.0 [facility] Comment on above: Performed By: #### L 500.4050, L100.0100, L501.2450 ####[facility] [address] [place], [address] IG% 0.300 Normal 0.0-0.9 [facility] Comment on above: Result Comment: IG% - Immature Granulocytes (promyelocytes, myelocytes and metamyelocytes) > 1% indicates that a LEFT SHIFT is Present. Performed By: #### L 500.4050, L100.0100, L501.2450 ####[facility] [address] [place], [address] Lymphocytes/100 WBC (Bld) 27.6 % Normal 19-41 [facility] Comment on above: Performed By: #### L 500.4050, L100.0100, L501.2450 ####[facility] [address] [place], [address] MCH (RBC) [Entitic mass] 30.2 pg Normal 27.0-32.0 [facility] Comment on above: Performed By: #### L 500.4050, L100.0100, L501.2450 ####[facility] [address] [place], [address] MCHC (RBC) [Mass/Vol] 35.2 g/dL Normal 32-36 [facility] Comment on above: Performed By: #### L 500.4050, L100.0100, L501.2450 ####[facility] [address] [place], [address] MCV (RBC) [Entitic vol] 85.8 fL Normal 81-99 [facility] Comment on above: Performed By: #### L 500.4050, L100.0100, L501.2450 ####[facility] [address] [place], [address] Monocytes/100 WBC (Bld) 8.8 % Normal 0-10 [facility] Comment on above: Performed By: #### L 500.4050, L100.0100, L501.2450 ####[facility] [address] [place], [address] Neutrophils/100 WBC (Bld) 62.1 % Normal 47-70 [facility] Comment on above: Performed By: #### L 500.4050, L100.0100, L501.2450 ####[facility] [address] [place], [address] Nucleated RBC (Bld) [#/Vol] 0 10*3/uL Normal 0-5 [facility] Comment on above: Performed By: #### L 500.4050, L100.0100, L501.2450 ####[facility] [address] [place], [address] Platelet mean volume (Bld) [Entitic vol] 10.3 fL Normal 6.2-12.0 [facility] Comment on above: Performed By: #### L 500.4050, L100.0100, L501.2450 ####[facility] [address] [place], [address] Platelets (Bld) [#/Vol] 328 10*3/uL Normal 150-450 [facility] Comment on above: Performed By: #### L 500.4050, L100.0100, L501.2450 ####[facility] [address] [place], [address] RBC (Bld) [#/Vol] 5.43 10*6/uL High 4.2-5.4 [facility] Comment on above: Performed By: #### L 500.4050, L100.0100, L501.2450 ####[facility] [address] [place], [address] RDW SD 43.6 fl Normal 35.1-43.9 [facility] Comment on above: Performed By: #### L 500.4050, L100.0100, L501.2450 ####[facility] [address] [place], [address] WBC (Bld) [#/Vol] 12.2 10*3/uL High 4.4-11.0 [facility] Comment on above: Performed By: #### L 500.4050, L100.0100, L501.2450 ####[facility] [address] [place], [address] Carbon dioxide, total [Moles /volume] in Central venous bloodOrdered By: Kristen Crespo on 11-08-2024 CO2 [Moles/Vol] 24.1 mmol/L 21.0-32.0 [facility] Chloride assayOrdered By: Aggie Crespo on 11-08-2024 Chloride [Moles/Vol] 94 mmol/L Low 98-108 [facility] Comprehensive Metabolic Prof ilon 11-08-2024 Albumin [Mass/Vol] 4.3 g/dL Normal 3.4-4.8 [facility] Comment on above: Performed By: #### L 500.4050, L100.0100, L501.2450 ####[facility] [address] [place], [address] Albumin/Globulin [Mass ratio] 1.2 {ratio} Normal 0.9-2.4 [facility] Comment on above: Performed By: #### L 500.4050, L100.0100, L501.2450 ####[facility] [address] [place], [address] ALK PHOS 94 U/L Normal 35-104 [facility] Comment on above: Performed By: #### L 500.4050, L100.0100, L501.2450 ####[facility] [address] [place], [address] ALT [Catalytic activity/Vol] U/L Normal <=34 [facility] Comment on above: Performed By: #### L 500.4050, L100.0100, L501.2450 ####[facility] [address] [place], [address] AST [Catalytic activity/Vol] 21 U/L Normal <=31 [facility] Comment on above: Performed By: #### L 500.4050, L100.0100, L501.2450 ####[facility] [address] [place], [address] Bilirubin [Mass/Vol] 0.52 mg/dL Normal 0.00-1.30 [facility] Comment on above: Performed By: #### L 500.4050, L100.0100, L501.2450 ####[facility] [address] [place], [address] BUN/CRE 20.6 RATIO High 10-20 [facility] Comment on above: Performed By: #### L 500.4050, L100.0100, L501.2450 ####[facility] [address] [place], [address] Calcium [Mass/Vol] 9.7 mg/dL Normal 7.6-11.0 [facility] Comment on above: Performed By: #### L 500.4050, L100.0100, L501.2450 ####[facility] [address] [place], [address] Chloride [Moles/Vol] 94 mmol/L Low 98-108 [facility] Comment on above: Performed By: #### L 500.4050, L100.0100, L501.2450 ####[facility] [address] [place], [address] CO2 [Moles/Vol] 24.1 mmol/L Normal 21.0-32.0 [facility] Comment on above: Performed By: #### L 500.4050, L100.0100, L501.2450 ####[facility] [address] [place], [address] Creatinine [Mass/Vol] 0.99 mg/dL Normal 0.70-1.20 [facility] Comment on above: Performed By: #### L 500.4050, L100.0100, L501.2450 ####[facility] [address] [place], [address] GAP 15 Normal 5-15 [facility] Comment on above: Performed By: #### L 500.4050, L100.0100, L501.2450 ####[facility] [address] [place], [address] GFR/1.73 sq M.predicted among non-blacks MDRD (S/P/Bld) [Vol rate/Area] 62 mL/min/{1.73_m2} Normal >60 [facility] Comment on above: Result Comment: mL/m in/1.73m2 CKD-EPI Creatinine Equation (2020) Performed By: #### L 500.4050, L100.0100, L501.2450 ####[facility] [address] [place], [address] Globulin (S) [Mass/Vol] 3.5 g/dL Normal 2.2-4.2 [facility] Comment on above: Performed By: #### L 500.4050, L100.0100, L501.2450 ####[facility] [address] [place], [address] Glucose [Mass/Vol] 114 mg/dL High 70-99 [facility] Comment on above: Performed By: #### L 500.4050, L100.0100, L501.2450 ####[facility] [address] [place], [address] Potassium [Moles/Vol] 4.0 mmol/L Normal 3.3-5.1 [facility] Comment on above: Performed By: #### L 500.4050, L100.0100, L501.2450 ####[facility] [address] [place], [address] Sodium [Moles/Vol] 133 mmol/L Normal 133-145 [facility] Comment on above: Performed By: #### L 500.4050, L100.0100, L501.2450 ####[facility] [address] [place], [address] T PROT 7.8 g/dL Normal 5.9-8.4 [facility] Comment on above: Performed By: #### L 500.4050, L100.0100, L501.2450 ####[facility] [address] [place], [address] Urea nitrogen [Mass/Vol] 20 mg/dL High 4-19 [facility] Comment on above: Performed By: #### L 500.4050, L100.0100, L501.2450 ####[facility] [address] [place], [address] Emergency Department Summary on 11-08-2024 Emergency Department Summary [facility] Medical Records Department [address] [place] [address] Emergency Department Summary 11/08/24 MR#: [id number] Acct: [id number] Name: ISABELLE NAQVI Rep #: [id number] : 1955 69 From: Kristen FIGUEROA PCP: Dr. Felicia Dixon MD Status:DEP ER Location: ED HPI HPI - GI History of Present Illness Chief Complaint: Abd Pain Narrative Narrative: Patient presenting today due to mid abdominal pain she has had over the past week. She reports associated nausea and vomiting that she has had daily. Her last bowel movement was 2 or 3 days ago, she is still passing gas. She denies any history of bowel obstruction. She reports a history of pancreatitis that they suspected was due to one of her prescription medications, this does not feel like pancreatitis to her. She denies alcohol use. She denies fevers, chills, hematemesis, urinary symptoms, and blood in her stool. Previous abdominal surgeries include . [facility] Medical History Wears glasses Wears dentures Cancer Marijuana use Diabetes Ambulates with cane Arthritis Bladder disease Back pain Vertigo Gastric reflux Smoker Chronic cough Leg cramps History of pain when walking History of echocardiogram History of edema Hypertension Cardiology follow-up encounter History of heart attack Abdominal pain Nausea Cardiomyopathy Sinus bradycardia Essential hypertension Coronary artery disease Pancreatitis Tobacco abuse Hyperlipidemia Hypertension Atherosclerotic heart disease of [place] coronary artery without angina pectoris Home Medications ???Medication ???Instructions ???Recorded ???Last Taken ???Type aspirin 81 mg chewable tablet 81 mg PO DAILY@0800 12/07/13 Unkno wn History cholecalciferol (vitamin D3) 125 125 mcg PO DAILY 05/02/22 Unknown History mcg (5,000 unit) tablet scopolamine base 1 mg over 3 days 1 patch transdermal Q3D PRN nause a 06/02/24 Unknown Rx transdermal patch #10 ea amlodipine 10 mg tablet See Rx Instructions .Route 5 Unknown Rx .COMPLEX #90 tabs metoclopramide HCl 5 mg tablet 5 mg PO QDAY #30 tabs 09/04/24 Unk nown Rx lisinopril 40 mg tablet 40 mg PO DAILY #90 TABLETS 5 Unknown Rx ciprofloxacin HCl 500 mg tablet 500 mg PO BID #13 TABLETS 11/08/24 Unknown Rx metronidazole 500 mg tablet 500 mg PO BID 7 days #13 tabs 01/27 Unknown Rx ondansetron 4 mg disintegrating 4 mg PO Q8H PRN PRN Nausea #10 tab s 11/08/24 Unknown Rx tablet Allergy/AdvReac Type Severity Reaction Status Date / Time hydrochlorothiazide AdvReac Severe reoccurring Verified 11/08/24 14:48 pancreatitis Hzzhnqd-RAU-UvT Reductase AdvReac Severe reoccurring Verified 11/08/24 14:48 Inhibitor (Soprifv-Xub-Iho pancreatitis Reductase Inhibitor) Gadolinium-MRI Contrast AdvReac Vomiting Verified 11/08/24 14:48 Medium (Gadolinium-Contrast Medium - MRI) Family History Mother Lung cancer Father CAD (coronary artery disease) Hx of CABG Abdominal aortic aneurysm (AAA) Hypertension Brother CAD (coronary artery disease) Myocardial infarction Hypertension Hx of CABG Surgical History History of cardiac catheterization History of excision of lesion History of bilateral salpingo-oophorectom y History of total hysterectomy Social History household members: spouse Smoking Status: Current every day smoker tobacco type: cigarettes alcohol intake: never substance use type: marijuana caffeine: Yes Type: coffee ROS ROS ED Constitutional Constitutional ED: Denies chills or fever(s) Cardiovascular Cardiovascular: Denies chest pain Respiratory/Chest Respiratory/Chest: Denies dyspnea Gastrointestinal Gastrointestinal: Reports abdominal pain, constipation, nausea and vomiting; Denies diarrhea or melena Genitourinary Genitourinary ED: Denies dysuria, hematuria or urinary frequency Musculoskeletal Musculoskeletal: Denies arthralgias or myalgias Integumentary Denies rash Neurologic Neurologic: Denies weakness EXAM Physical Exam Const Vital Signs: 11/08/24 14:46 11/08/24 16:46 11/08/24 16:48 Temperature 97.8 F 98 F Temperature Source Oral Pulse Rate 103 H 78 78 Respiratory Rate 21 H 16 16 Blood Pressure 142/95 H 101/63 101/63 Blood Pressure Mean 110 75 75 Pulse Ox 94 98 98 Oxygen Delivery Method Room Air Positive well nourished, well developed and no apparent distress General Appearance ED: well developed HEENT Reports normocephalic and head/scalp atraumatic Mouth ED: Yes m (more content not included)... Normal [facility] Eosinophil percentageOrdered By: Kristen Crespo on 11-08-2024 Eosinophils/100 WBC (Bld) 1.0 % 0-5 [facility] Epithelial cells.squamous LM Ql (Urine sed)Ordered By: Kristen Crespo on 11-08-2024 Epithelial cells.squamous LM.HPF (Urine sed) [#/Area] 5 /[HPF] 5-10 [facility] Erythrocyte distribution wid th (RBC) [Ratio]Ordered By: Kristen Crespo on 11-08-2024 Erythrocyte distribution width (RBC) [Entitic vol] 43.6 fL 35.1-43.9 [facility] Erythrocyte distribution wid th ratioOrdered By: Kristen Crespo on 11-08-2024 Erythrocyte distribution width (RBC) [Ratio] 13.9 % 11.6-14.6 [facility] Erythrocyte distribution wid th standard deviationOrdered By: Kristen Crespo on 11-08-2024 Erythrocyte distribution width (RBC) [Ratio] 43.6 fl 35.1-43.9 [facility] GFR/1.73 sq M.predicted manuel g non-blacks MDRD (S/P/Bld) [Vol rate/Area]Ordered By: Kristen Crespo on 11-08-2024 Estimated GFR (MDRD) Non-Af Amer 62 >60 [facility] Comment on above: mL/min/1.73m2 CKD-EP I Creatinine Equation (2020) Glomerular filtration rate ( GFR) estimation/1.73 sq m using serum, plasma, or whole bOrdered By: Kristen Crespo on 11-08-2024 GFR/1.73 sq M.predicted among non-blacks MDRD (S/P/Bld) [Vol rate/Area] 62 mL/min/{1.73_m2} >60 [facility] Comment on above: mL/min/1.73m2 CKD-EP I Creatinine Equation (2020) Glucose Ql (U)Ordered By: Aggie Crespo on 11-08-2024 Urine Glucose (UA) Normal mg/dl Normal [facility] Hematocrit Auto (Bld) [Volum e fraction]Ordered By: Kristen Crespo on 11-08-2024 Hematocrit (Bld) [Volume fraction] 46.6 % 37-47 [facility] Hemoglobin measurementOrdere d By: Kristen Crespo on 11-08-2024 Hemoglobin (Bld) [Mass/Vol] 16.4 g/dL High 12.0-15.0 [facility] Immature granulocytes/100 WB C Auto (Bld)Ordered By: Kristen Crespo on 11-08-2024 Immature granulocytes/100 WBC (Bld) 0.300 % 0.0-0.9 [facility] Comment on above: IG% - Immature Granu locytes (promyelocytes, myelocytes and metamyelocytes) > 1% indicates that a LEFT SHIFT is Present. Ketones Test strip Ql (U)Ord ered By: Kristen Crespo on 11-08-2024 Ketones Ql (U) 15 mg/dl High Negative [facility] Laboratory - Chemistry and C hemistry - challengeOrdered By: Kristen Crespo on 11-08-2024 AST [Catalytic activity/Vol] 21 U/L <32 [facility] Lipaseon 11-08-2024 Lipase [Catalytic activity/Vol] 38 U/L Normal 13-75 [facility] Comment on above: Result Comment: Plea se note: LIPASE revised reference range effective 22. New Lipase methodology. Expected to produce lower values than the previous assay method. NEW Reference Range: 13 - 75 U/L Performed By: #### L 500.4050, L100.0100, L501.2450 ####[facility] [address] [place], [address] Lipase measurementOrdered By : Kristen Crespo on 11-08-2024 Lipase [Catalytic activity/Vol] 38 U/L 13-75 [facility] Comment on above: Please note:LIPASE r evised reference range effective 22. New Lipase methodology. Expected to produce lower values than the previous assay method. NEW Reference Range: 13 - 75 U/L Lymphocytes Auto (Unsp spec) [#/Vol]Ordered By: Kristen Crespo on 11-08-2024 Lymphocytes (Bld) [#/Vol] 3.36 10*3/uL 0.83-4.51 [facility] Lymphocytes/100 WBC Auto (Un sp spec)Ordered By: Kristen Crespo on 11-08-2024 Lymphocytes/100 WBC (Bld) 27.6 % 19-41 [facility] MCV (mean corpuscular volume ) determinationOrdered By: Kristen Crespo on 11-08-2024 MCV (RBC) [Entitic vol] 85.8 fL 81-99 [facility] Mean corpuscular hemoglobin (MCH) determinationOrdered By: Kristen Crespo on 11-08-2024 MCH (RBC) [Entitic mass] 30.2 pg 27.0-32.0 [facility] Mean corpuscular hemoglobin concentration (MCHC) determinationOrdered By: Kristen Crespo on 11-08-2024 MCHC (RBC) [Mass/Vol] 35.2 g/dL 32-36 [facility] Mean platelet volume determi nationOrdered By: Kristen Crespo on 11-08-2024 Platelet mean volume (Bld) [Entitic vol] 10.3 fL 6.2-12.0 [facility] Microscopic analysis of urin e for red blood cells (RBC)Ordered By: Kristen Crespo on 11-08-2024 Microscopic analysis of urine for red blood cells (RBC) 0-5 SEEN /hpf 0-5 [facility] Urine RBC 0-5 SEEN /hpf 0-5 [facility] Monocyte percentageOrdered B y: Kristen Crespo on 11-08-2024 Monocytes/100 WBC (Bld) 8.8 % 0-10 [facility] Mucus LM Ql (Urine sed)Order ed By: Kristen Crespo on 11-08-2024 Mucus Ql (Urine sed) 0 SEEN /hpf [facility] Neutrophil percentageOrdered By: Kristen Crespo on 11-08-2024 Neutrophils/100 WBC (Bld) 62.1 % 47-70 [facility] Nitrite Test strip Ql (U)Ord ered By: Kristen Crespo on 11-08-2024 Nitrite Ql (U) Negative Negative [facility] Nucleated red blood cell per centageOrdered By: Kristen Crespo on 11-08-2024 Nucleated RBC/100 WBC (Bld) [Ratio] 0 % 0-5 [facility] Platelet countOrdered By: Aggie Crespo on 11-08-2024 Platelets (Bld) [#/Vol] 328 10*3/uL 150-450 [facility] Potassium (Unsp spec) [Mass/ Vol]Ordered By: Kristen Crespo on 11-08-2024 Potassium [Moles/Vol] 4.0 mmol/L 3.3-5.1 [facility] Potassium measurement (mass/ volume)Ordered By: Kristen Crespo on 11-08-2024 Potassium (Unsp spec) [Mass/Vol] 4.0 mmol/L 3.3-5.1 [facility] Protein Test strip Ql (U)Ord ered By: Kristen Crespo on 11-08-2024 Protein Ql (U) 30 mg/dl High Negative [facility] RBC Auto (Bld) [#/Vol]Ordere d By: Kristen Crespo on 11-08-2024 RBC (Bld) [#/Vol] 5.43 10*6/uL High 4.2-5.4 [facility] Serum creatinine measurement (mass/volume)Ordered By: Kristen Crespo on 11-08-2024 Creatinine [Mass/Vol] 0.99 mg/dL 0.70-1.20 [facility] Serum globulin measurementOr dered By: Kristen Crespo on 11-08-2024 Globulin (S) [Mass/Vol] 3.5 g/dL 2.2-4.2 [facility] Serum glucose measurement (m ass/volume)Ordered By: Kristen Crespo on 11-08-2024 Glucose [Mass/Vol] 114 mg/dL High 70-99 [facility] Serum or plasma alanine chacon otransferase (ALT) measurementOrdered By: Kristen Crespo on 11-08-2024 ALT [Catalytic activity/Vol] U/L <35 [facility] Serum or plasma albumin ganesh urement (mass/volume)Ordered By: Kristen Crespo on 11-08-2024 Albumin [Mass/Vol] 4.3 g/dL 3.4-4.8 [facility] Serum or plasma albumin/glob ulin mass ratioOrdered By: Kristen Crespo on 11-08-2024 Albumin/Globulin [Mass ratio] 1.2 {ratio} 0.9-2.4 [facility] Serum or plasma alkaline rosanna sphatase measurementOrdered By: Kristen Crespo on 11-08-2024 ALP [Catalytic activity/Vol] 94 U/L 35-104 [facility] Serum or plasma calcium ganesh urement (mass/volume)Ordered By: Kristen Crespo on 11-08-2024 Calcium [Mass/Vol] 9.7 mg/dL 7.6-11.0 [facility] Serum or plasma urea nitroge n measurement (mass/volume)Ordered By: Kristen Crespo on 11-08-2024 Urea nitrogen [Mass/Vol] 20 mg/dL High 4-19 [facility] Sodium levelOrdered By: Mane Crespo on 11-08-2024 Sodium [Moles/Vol] 133 mmol/L 133-145 [facility] Squamous epithelial cells de tection in urine sediment by light microscopyOrdered By: Kristen Crespo on 11-08-2024 Epithelial cells.squamous LM Ql (Urine sed) 5-10 SEEN /hpf 5-10 [facility] Total proteinOrdered By: Levi Crespo on 11-08-2024 Protein [Mass/Vol] 7.8 g/dL 5.9-8.4 [facility] Urinalysis, Completeon 11-08 BACTERIA 2+ /hpf Normal None Seen [facility] Comment on above: Order Comment: CLEAN CATCH Performed By: #### L 400.0001 ####[facility] [address] [place], [place], [id number] EPI,SQUAMOUS 5-10 SEEN Normal 5-10 [facility] Comment on above: Order Comment: CLEAN CATCH Performed By: #### L 400.0001 ####[facility] [address] [place], [place], [id number] RBC 0-5 SEEN Normal 0-5 [facility] Comment on above: Order Comment: CLEAN CATCH Performed By: #### L 400.0001 ####[facility] [address] [place], [place], [id number] WBC 0-5 SEEN Normal 0-5 [facility] Comment on above: Order Comment: CLEAN CATCH Performed By: #### L 400.0001 ####[facility] [address] [place], [place], [address] Mucus Ql (Urine sed) 0 SEEN Normal [facility] Comment on above: Order Comment: CLEAN CATCH Performed By: #### L 400.0001 ####[facility] [address] [place], [place], [id number] Urine blood detectionOrdered By: Kristen Crespo on 11-08-2024 Urine Occult Blood 50 /ul High Negative [facility] Urine clarityOrdered By: Levi Crespo on 11-08-2024 Clarity (U) Sl. Cloudy Clear [facility] Urine color determinationOrd ered By: Kristen Crespo on 11-08-2024 Color (U) Yellow Yellow [facility] Urine glucose detectionOrder ed By: Kristen Crespo on 11-08-2024 Glucose Ql (U) Normal mg/dl Normal [facility] Urine leukocyte esterase det ection by dipstickOrdered By: Kristen Crespo on 11-08-2024 Leukocyte esterase Test strip Ql (U) 25 /ul High Negative [facility] Urine pHOrdered By: Tito Crespo on 11-08-2024 pH (U) 6.0 [pH] 5.0 - 8.0 [facility] Urine sediment bacteria coun t by microscopy (number/high power field)Ordered By: Kristen Crespo on 11-08-2024 Bacteria LM.HPF (Urine sed) [#/Area] 2 /[HPF] None Seen [facility] Urine specific gravity measu rementOrdered By: Kristen Crespo on 11-08-2024 Specific gravity (U) [Rel density] 1.010 1.002-1.030 [facility] Urine urobilinogen measureme ntOrdered By: Kristen Crespo on 11-08-2024 Urobilinogen Ql (U) 1 mg/dl High Normal [facility] Urobilinogen Ql (U)Ordered B y: Kristen Crespo on 11-08-2024 Urobilinogen (U) [Mass/Vol] 1 mg/dL High Normal [facility] White blood cell (WBC) count Ordered By: Kristen Crespo on 11-08-2024 WBC (Bld) [#/Vol] 12.2 10*3/uL High 4.4-11.0 [facility] White blood cell countOrdere d By: Kristen Crespo on 11-08-2024 Urine WBC 0-5 SEEN /hpf 0-5 [facility] White blood cell count 0-5 SEEN /hpf 0-5 [facility] Elbow min 3 Viewson 09-07-[address] [facility] Services [address] [place] [address] Elbow min 3 Views MR#: [id number] Acct: [id number] Name: ISABELLE NAQVI Rep #: [id number] : 1955 F 69 From: Gordon andrews MD PCP: Dr. Felicia Dixon MD Status: DEP AMB Study: Elbow min 3 Views Date of Exam: 09/07/24 Exam# [id number] Ordering Dr: Jb Jaramillo DO EXAM: ELBOW MIN 3 VIEWS CLINICAL HISTORY: Soft tissue swelling. COMPARISON: None. TECHNIQUE: Three views were obtained. FINDINGS: There is evidence of a 6.5 cm by 4.7 cm soft tissue density overlying the olecranon process posteriorly. No bony abnormality is seen. RAD/Elbow min 3 Views IMPRESSION: 6.5 cm x 4.7 cm soft tissue density overlying the olecranon process posteriorly. No bony abnormality is seen. Reading Location: [facility] CC: Dr. Felicia Dixon MD; Dr. Jb Jaramillo DO Shoe Laster: Signed Normal [facility] Orthopedic Visit Reporton Orthopedic Visit Report [facility] [address] [place] [address] [address] [place], [place] [address] OFFICE VISIT Date of Service: 09/07/24 MR#: [id number] Acct: [id number] Name: ISABELLE NAQVI Rep #: [id number] : 1955 Provider: Dr. Jb rose, Age/Sex: 69/F Location: [facility] Status: Signed Intake Vital Signs 05/18/24 09:13 09/07/24 14:44 Height 5 ft 4.17 in 5 ft 4 in Weight: 163 lb BMI 27.9 Intake Visit Reasons: LEFT ELBOW Chief Complaint: left elbow Is patient in pain?: No Allergies hydrochlorothiazide Adverse Reaction (Severe, Verified 09/07/24 14:47) reoccurring pancreatitis Bpyfnfy-MMT-XwZ Reductase Inhibitor (Ehqtcgq-Ket-Isq Reductase Inhibitor) Adverse Reaction (Severe, Verified 09/07/24 14:47) reoccurring pancreatitis Gadolinium-MRI Contrast Medium (Gadolinium-Contrast Medium - MRI) Adverse Reaction (Verified 09/07/24 14:47) Vomiting Medications ???Medication ???Instructions ???Recorded ???Confirmed ???Type aspirin 81 mg chewable tablet 81 mg PO DAILY@0800 12/07/1309/04 History cholecalciferol (vitamin D3) 125 125 mcg PO DAILY 05/02/22 09/04/24 History mcg (5,000 unit) tablet lisinopril 40 mg tablet See Rx Instructions .Route 4 09/04/24 Rx .COMPLEX #90 tabs scopolamine base 1 mg over 3 days 1 patch transdermal Q3D PRN nause a 06/02/24 09/04/24 Rx transdermal patch #10 ea amlodipine 10 mg tablet See Rx Instructions .Route 5 09/04/24 Rx .COMPLEX #90 tabs metoclopramide HCl 5 mg tablet 5 mg PO QDAY #30 tabs 09/04/24 Rx Have you fallen in the past year?: No PFSH Medical History Wears glasses Wears dentures Cancer Marijuana use Diabetes Ambulates with cane Arthritis Bladder disease Back pain Vertigo Gastric reflux Smoker Chronic cough Leg cramps History of pain when walking History of echocardiogram History of edema Hypertension Cardiology follow-up encounter History of heart attack Abdominal pain Nausea Cardiomyopathy Sinus bradycardia Essential hypertension Coronary artery disease Pancreatitis Tobacco abuse Hyperlipidemia Hypertension Atherosclerotic heart disease of [place] coronary artery without angina pectoris Surgical History History of cardiac catheterization History of excision of lesion History of bilateral salpingo-oophorectom y History of total hysterectomy Family History Mother Lung cancer Father CAD (coronary artery disease) Hx of CABG Abdominal aortic aneurysm (AAA) Hypertension Brother CAD (coronary artery disease) Myocardial infarction Hypertension Hx of CABG Social History household members: spouse Smoking Status: Current every day smoker tobacco type: cigarettes alcohol intake: never substance use type: marijuana caffeine: Yes Type: coffee HPI LEFT ELBOW Chief Complaint: left elbow Details: This documentation accurately reflects the service provided and the decisions made by me, Dr. Jb Jaramillo, DO 09/07/24 0810. Part of today???s visit was documented by [ ], acting as scribe. ISABELLE NAQVI is a 69 year old F with medical history significant for but not limited to tobacco abuse, coronary artery disease, cardiomyopathy, pericarditis, here today for left elbow lump. She states she has had a large lump on her left elbow for 2 months. She denies known cause, injury or pain. She is able to bend it. Denies any history of gout, no signs of infection. Did have skin cancer. Ortho Exam General General: Yes no acute distress (she is very anxious) Neurologic: Yes alert and Yes oriented x3 Psychologic: Yes reasonable and appropriate Left Elbow ELBOW: scar on back of upper arm from plastic surgery skin lesion removal. large olecranon bursa with fluid and does not appear to be infected there is no mass no joint effusion Nontender full elbow range of motion. Office Procedures Office Injections/Aspiratio ns Procedure Detail Procedure performed by: Jb Jaramillo Ortho Injections/Aspiratio ns Details: Obtained consent for aspiration. Under sterile conditions, aspirated 20cc of blood, tinged bursal fluid from the patients left elbow olecranon bursa. The patient tolerated the aspiration well without any noted complications. Patient should call our office if redness develops, pain worsens or if they have any concerns. Ortho Injections Injections Is this a patient provided medication?: No Details: Obtained consent for injection. Under sterile conditions, injected the patients left elbow olecranon bursa with 1.0mL Bupivacaine and 1.0mL Depomedrol. The patient to (more content not included)... Normal [facility] Gastroenterology Visit Repor ton 09-04-2024 Gastroenterology Visit Report [facility] [address] [place] [address] OFFICE VISIT Date of Service: 09/04/24 MR#: [id number] Acct: [id number] Name: ISABELLE NAQVI Rep #: [id number] : 1955 Provider: CAROLINA Conroy Age/Sex: 69/F Location: [facility] [place] [place] Status: Signed Intake Vital Signs 05/18/24 09:13 Height 5 ft 4.17 in Intake Visit Reasons: 3 M FU Chief Complaint: Nausea and vomiting Allergies hydrochlorothiazide Adverse Reaction (Severe, Verified 09/04/24 09:30) reoccurring pancreatitis Feonmnl-QPN-TsU Reductase Inhibitor (Bzndjbe-Lho-Vtj Reductase Inhibitor) Adverse Reaction (Severe, Verified 09/04/24 09:30) reoccurring pancreatitis Gadolinium-MRI Contrast Medium (Gadolinium-Contrast Medium - MRI) Adverse Reaction (Verified 09/04/24 09:30) Vomiting Medications ???Medication ???Instructions ???Recorded ???Confirmed ???Type aspirin 81 mg chewable tablet 81 mg PO DAILY@0800 05/05/14 09/04 History metoprolol tartrate 25 mg tablet 12.5 mg (1/2 x 25 mg) PO BID #90 0 12/29/20 09/04/24 Rx tabs cholecalciferol (vitamin D3) 125 125 mcg PO DAILY 05/02/22 09/04/24 History mcg (5,000 unit) tablet lisinopril 40 mg tablet See Rx Instructions .Route 4 09/04/24 Rx .COMPLEX #90 tabs scopolamine base 1 mg over 3 days 1 patch transdermal Q3D PRN nause a 06/02/24 09/04/24 Rx transdermal patch #10 ea amlodipine 10 mg tablet See Rx Instructions .Route 5 09/04/24 Rx .COMPLEX #90 tabs metoclopramide HCl 5 mg tablet 5 mg PO QDAY #30 tabs 09/04/24 Rx Have you fallen in the past year?: No PFSH Medical History Wears glasses Wears dentures Cancer Marijuana use Diabetes Ambulates with cane Arthritis Bladder disease Back pain Vertigo Gastric reflux Smoker Chronic cough Leg cramps History of pain when walking History of echocardiogram History of edema Hypertension Cardiology follow-up encounter History of heart attack Abdominal pain Nausea Cardiomyopathy Sinus bradycardia Essential hypertension Coronary artery disease Pancreatitis Tobacco abuse Hyperlipidemia Hypertension Atherosclerotic heart disease of [place] coronary artery without angina pectoris Surgical History History of cardiac catheterization History of excision of lesion History of bilateral salpingo-oophorectom y History of total hysterectomy Family History Mother Lung cancer Father CAD (coronary artery disease) Hx of CABG Abdominal aortic aneurysm (AAA) Hypertension Brother CAD (coronary artery disease) Myocardial infarction Hypertension Hx of CABG Social History household members: spouse Smoking Status: Current every day smoker tobacco type: cigarettes alcohol intake: never substance use type: marijuana caffeine: Yes Type: coffee HPI HPI Chief Complaint: Nausea and vomiting Details: ISABELLE NAQVI, is a 69 F who presents to the office today for f/u. I established 7.1.22 with suspected marijuana hyperemesis syndrome and constipation Colonoscopy 05.10.22;Five 1 to 2 mm polyps in the descending colon, at the hepatic flexure, in the ascending colon and in the cecum, removed with a hot snare. Resected and retrieved. - Moderate diverticulosis in the sigmoid colon and in the descending colon. There was no evidence of diverticular bleeding. [facility] ED w/ nausea and vomiting CT abd/pelvis 05.28.24; No renal or ureteral stone. Sigmoid diverticulosis without diverticulitis OV 06.02.24 for ED f/u. Given scopolamine patch PRN, Reglan 5 mg daily, and sucralfate 1 gram BID. OV 09.04.24 Pt has been doing well with no recent nausea. She takes Reglan and uses scopolamine patch just as needed. Could not tolerate sucralfate. Smokes marijuana once a day. ROS Const Constitutional: No anorexia, fatigue, fever(s), weight change or sleep problems Eyes Eyes: No change in vision ENT ENT: No abnormal hearing, difficulty swallowing, mouth lesions, tongue swelling or throat swelling Resp Respiratory: No cough or shortness of breath Cardio Cardiology: No chest pain at rest, chest pain with exertion, shortness of breath or dyspnea on exertion Gastro GI: No difficulty swallowing Genitourinary-Female : No difficulty urinating or burning urination Musc Musculoskeletal: No joint pain, joint swelling, muscle weakness or decreased muscle mass Skin Skin: No hair loss in leg, yellowing of the eye, itchy eyes, rash, skin ulcer or skin swelling Neuro Neurology: No abnormal hearing, abnormal movements, confusion, unsteady gait/balance or mem (more content not included)... Normal [facility] Comprehensive Metabolic Prof ilon 06-02-2024 Albumin [Mass/Vol] 3.3 g/dL Normal 3.2-5.0 [facility] Comment on above: Performed By: #### L 500.4050 ####[facility] [address] [place], [address] Albumin/Globulin [Mass ratio] 0.7 {ratio} Low 0.9-2.4 [facility] Comment on above: Performed By: #### L 500.4050 ####[facility] [address] [place], [address] ALK P 94 U/L Normal 45-117 [facility] Comment on above: Performed By: #### L 500.4050 ####[facility] [address] [place], [address] ALT [Catalytic activity/Vol] 12 U/L Low 13-56 [facility] Comment on above: Performed By: #### L 500.4050 ####[facility] [address] [place], [address] AST [Catalytic activity/Vol] 12 U/L Low 15-37 [facility] Comment on above: Performed By: #### L 500.4050 ####[facility] [address] [place], [address] Bilirubin [Mass/Vol] 0.40 mg/dL Normal 0.20-1.00 [facility] Comment on above: Result Comment: For patients on eltrombopag therapy, use of Dimension Hopkins TBIL is not recommended. Performed By: #### L 500.4050 ####[facility] [address] [place], [address] BUN/CRE 18.6 RATIO Normal 10-20 [facility] Comment on above: Performed By: #### L 500.4050 ####[facility] [address] [place], [address] CA,Total 9.2 mg/dL Normal 8.5-10.1 [facility] Comment on above: Performed By: #### L 500.4050 ####[facility] [address] [place], [address] Chloride [Moles/Vol] 101 mmol/L Normal 98-107 [facility] Comment on above: Performed By: #### L 500.4050 ####[facility] [address] [place], [address] CO2 [Moles/Vol] 31.0 mmol/L Normal 21.0-32.0 [facility] Comment on above: Performed By: #### L 500.4050 ####[facility] [address] [place], [address] Creatinine [Mass/Vol] 0.65 mg/dL Normal 0.55-1.02 [facility] Comment on above: Result Comment: The validity of the calculated GFR GFRAA in patients over 70 years has not been determined. Clinical correlation is essential. Performed By: #### L 500.4050 ####[facility] [address] [place], [address] EST GFR - AA 117 mL/min Normal >60 [facility] Comment on above: Result Comment: Afri can Malagasy GFR Calc Performed By: #### L 500.4050 ####[facility] [address] [place], [address] GAP 4 Low 5-15 [facility] Comment on above: Performed By: #### L 500.4050 ####[facility] [address] [place], [address] GFR/1.73 sq M.predicted among non-blacks MDRD (S/P/Bld) [Vol rate/Area] 97 mL/min/{1.73_m2} Normal >60 [facility] Comment on above: Result Comment: Non- GFR Calc Performed By: #### L 500.4050 ####[facility] [address] [place], [address] Globulin (S) [Mass/Vol] 4.5 g/dL High 2.2-4.2 [facility] Comment on above: Performed By: #### L 500.4050 ####[facility] [address] [place], [address] Glucose [Mass/Vol] 112 mg/dL High 74-106 [facility] Comment on above: Result Comment: Fast ing Glucose result from 100 to 125 mg/dL suggests IMPAIRED HOMEOSTASIS per A.D.A. criteria. Performed By: #### L 500.4050 ####[facility] [address] [place], [address] Potassium [Moles/Vol] 4.0 mmol/L Normal 3.5-5.1 [facility] Comment on above: Performed By: #### L 500.4050 ####[facility] [address] [place], [address] Sodium [Moles/Vol] 137 mmol/L Normal 136-145 [facility] Comment on above: Performed By: #### L 500.4050 ####[facility] [address] [place], [address] T PROT 7.8 g/dL Normal 6.4-8.2 [facility] Comment on above: Performed By: #### L 500.4050 ####[facility] [address] [place], [address] Urea nitrogen [Mass/Vol] 12 mg/dL Normal 7-18 [facility] Comment on above: Performed By: #### L 500.4050 ####[facility] [address] [place], [address] Gastroenterology Visit Repor ton 06-02-2024 Gastroenterology Visit Report [facility] [address] [place] [address] OFFICE VISIT Date of Service: 06/02/24 MR#: [id number] Acct: [id number] Name: ISABELLE NAQVI Cher Rep #: [id number] : 1955 Provider: GAVIN liu Age/Sex: 68/F Location: [facility] [place] [place] Status: Signed Intake Vital Signs 05/18/24 09:13 Height 5 ft 4.17 in Intake Visit Reasons: Hospital FU Chief Complaint: Nausea and vomiting Allergies hydrochlorothiazide Adverse Reaction (Severe, Verified 06/02/24 08:52) reoccurring pancreatitis Cspftci-ALZ-XrT Reductase Inhibitor (Iyrhkaz-Ppt-Dkw Reductase Inhibitor) Adverse Reaction (Severe, Verified 06/02/24 08:52) reoccurring pancreatitis Gadolinium-MRI Contrast Medium (Gadolinium-Contrast Medium - MRI) Adverse Reaction (Verified 06/02/24 08:52) Vomiting Medications ???Medication ???Instructions ???Recorded ???Confirmed ???Type aspirin 81 mg chewable tablet 81 mg PO DAILY@0800 12/07/13 06/02/24 History metoprolol tartrate 25 mg tablet 12.5 mg (1/2 x 25 mg) PO BID #90 12/29/20 06/02/24 Rx tabs cholecalciferol (vitamin D3) 125 125 mcg PO DAILY 05/02/22 06/02/24 History mcg (5,000 unit) tablet amlodipine 10 mg tablet See Rx Instructions .Route 06/10/23 06/02/24 Rx .COMPLEX #90 tabs lisinopril 40 mg tablet See Rx Instructions .Route 11/22/23 06/02/24 Rx .COMPLEX #90 tabs metoclopramide HCl 10 mg tablet 10 mg PO Q6H PRN PRN nausea and 05/18/24 06/02/24 Rx vomiting #20 tabs metoclopramide HCl 5 mg tablet 5 mg PO QDAY #30 tabs 06/02/24 06/02/24 Rx scopolamine base 1 mg over 3 days 1 patch transdermal Q3D PRN nausea 06/02/24 06/02/24 Rx transdermal patch #10 ea sucralfate 1 gram tablet 1 g PO BID #60 tabs 06/02/24 06/02/24 Rx Have you fallen in the past year?: No PFSH Medical History Wears glasses Wears dentures Cancer Marijuana use Diabetes Ambulates with cane Arthritis Bladder disease Back pain Vertigo Gastric reflux Smoker Chronic cough Leg cramps History of pain when walking History of echocardiogram History of edema Hypertension Cardiology follow-up encounter History of heart attack Abdominal pain Nausea Cardiomyopathy Sinus bradycardia Essential hypertension Coronary artery disease Pancreatitis Tobacco abuse Hyperlipidemia Hypertension Atherosclerotic heart disease of [place] coronary artery without angina pectoris Surgical History History of cardiac catheterization History of excision of lesion History of bilateral salpingo-oophorectom y History of total hysterectomy Family History Mother Lung cancer Father CAD (coronary artery disease) Hx of CABG Abdominal aortic aneurysm (AAA) Hypertension Brother CAD (coronary artery disease) Myocardial infarction Hypertension Hx of CABG Social History household members: spouse Smoking Status: Current every day smoker tobacco type: cigarettes alcohol intake: never substance use type: marijuana caffeine: Yes Type: coffee HPI HPI Chief Complaint: Nausea and vomiting Details: ISABELLE NAQVI, is a 68 F who presents to the office today for FU with complaints of nausea and vomiting with an ER visit 05.18.24. She states that once it starts, she has a difficult time stopping and usually will have dry heaves. She states that she has not noticed any particular triggers, one day it could be the smell of food, while another it starts on its own. She admits to nightly marijuana use, but states that she doesn't have to have it and can stop if she needs to. She states [employer] stopped working in the past and the Reglan the ER doctor is working well. She reports difficulty keeping all food and liquids down when she starts to vomit. She reports dealing with vertigo, has frequent balance issues and is afraid to shower if home alone. She denies difficulty chewing and swallowing, heartburn, reflux, abdominal bloating, hematochezia, and melena. She has a history of delayed gastric motility. She reports having family issues and explains that her 50 year old son is homeless and an IV drug abuser. She expresses fears of finding him but can not have him in her home due to his manic life-threatening behaviors toward her in the past. ROS Const Constitutional: Positive for body ache, weight change and abnormal sleep pattern; No chills, fatigue or fever(s) Eyes Eyes: No change in vision ENT ENT: No abnormal hearing or difficulty swallowing Resp Respiratory: Positive for cough Cardio Cardiology: Positive for leg pain with exertion; No chest pain at rest or chest pain with exertion G (more content not included)... Normal [facility] Abdomen/Pelvis without Conto n 05-18-2024 Abdomen/Pelvis without Cont [facility] Imaging Services [address] [place] [place], [place] [id number] Abdomen/Pelvis without Cont MR#: [id number] Acct: [id number] Name: ISABELLE NAQVI Rep #: [id number] : 1955 F 68 From: Albert Jewell MD PCP: Dr. Felicia Dixon MD Status: REG ER Study: Abdomen/Pelvis without Cont Date of Exam: 05/05 11/26 Exam# [id number] Ordering Dr: Ken Gunter MD [id number] STUDY: CT ABDOMEN AND PELVIS WITHOUT CONTRAST REASON FOR EXAM: Female, 68 years old. upper abd pain, cont vomiting RADIATION DOSAGE (If Supplied By Facility): CTDIvol = ( 8.57 ) mGy, DLP = ( 385.23 ) mGycm TECHNIQUE: Transaxial images were obtained from the dome of the diaphragm to the symphysis pubis without oral contrast, and without intravenous contrast. Sagittal and coronal images were reconstructed. Individualized dose optimization techniques were used for this CT. COMPARISON: 02/09/2022 FINDINGS: The visualized lung bases are unremarkable. Small pericardial effusion. Normal liver. Normal gallbladder and extrahepatic biliary system. Normal spleen. Normal pancreas. There is symmetric enlargement of the adrenal glands suggesting adrenal hyperplasia. Normal right kidney. Normal left kidney. Normal visualized stomach. Normal small intestine. There are multiple colonic diverticula consistent with diverticulosis. There is non-visualization of the appendix. There is diffuse atherosclerotic calcification of the abdominal aorta, without a demonstrated aneurysm. Normal inferior vena cava. Normal retroperitoneum. Normal urinary bladder. Normal abdominal wall. Mild levoscoliosis lumbar spine with degenerative disc disease. CT/Abdomen/Pelvis without Cont IMPRESSION: No renal or ureteral stone. Sigmoid diverticulosis without diverticulitis Electronically Signed: Albert Jewell MD at 11:35 EDT , CC: Dr. Felicia Dixon MD; Dr. Ken Gunter MD Shoe Laster: Signed Normal [facility] Acute Abdomen Inc [facility] Acute Abdomen Inc Chest [facility] Imaging Services [address] [place] [address] [id number] Acute Abdomen Inc Chest MR#: [id number] Acct: [id number] Name: ISABELLE NAQVI Rep #: [id number] : 1955 F 68 From: Albert Jewell MD PCP: Dr. Felicia Dixon MD Status: REG ER Study: Acute Abdomen Inc Chest Date of Exam: 05/18/24 Exam# [id number] Ordering Dr: Ken Gunter MD [id number] STUDY: X-RAY - ACUTE ABDOMINAL SERIES REASON FOR EXAM: Female, 68 years old. vomiting, epigastric pain TECHNIQUE: Single view of the chest. Supine, and erect view(s) of the abdomen were obtained. COMPARISON: None. FINDINGS: The lungs are clear and expanded. Normal size heart. Normal mediastinum and ade. Normal visualized pulmonary arteries. Normal visualized aortic arch and descending thoracic aorta. There is a non-specific bowel gas pattern. The soft tissue structures of the abdomen and pelvis are unremarkable. Mild levoscoliosis lumbar spine with degenerative disc disease. RAD/Acute Abdomen Inc Chest IMPRESSION: Normal x-ray examination of the chest, abdomen, and pelvis. Electronically Signed: Albert Jewell MD at 10:36 EDT , CC: Dr. Felicia Dixon MD; Dr. Kne Gunter MD Shoe Laster: Signed Normal [facility] CBC W/Diff, Automatedon 05-05 Absolute Lymph 2.01 X10 3/uL Normal 0.83-4.51 [facility] Comment on above: Performed By: #### L 500.4050, L501.2450, L100.0100 ####[facility] [address] [place], [address] Absolute Neut 10.1 X10 3/uL High 2.0-7.7 [facility] Comment on above: Performed By: #### L 500.4050, L501.2450, L100.0100 ####[facility] [address] [place], [address] Basophils/100 WBC (Bld) 0.2 % Normal 0-1 [facility] Comment on above: Performed By: #### L 500.4050, L501.2450, L100.0100 ####[facility] [address] [place], [address] Eosinophils/100 WBC (Bld) 0.7 % Normal 0-5 [facility] Comment on above: Performed By: #### L 500.4050, L501.2450, L100.0100 ####[facility] [address] [place], [address] Erythrocyte distribution width (RBC) [Ratio] 15.4 % High 11.6-14.6 [facility] Comment on above: Performed By: #### L 500.4050, L501.2450, L100.0100 ####[facility] [address] [place], [address] Hematocrit (Bld) [Volume fraction] 47.1 % High 37-47 [facility] Comment on above: Performed By: #### L 500.4050, L501.2450, L100.0100 ####[facility] [address] [place], [address] Hemoglobin (Bld) [Mass/Vol] 15.4 g/dL High 12.0-15.0 [facility] Comment on above: Performed By: #### L 500.4050, L501.2450, L100.0100 ####[facility] [address] [place], [address] IG% 0.300 Normal 0.0-0.9 [facility] Comment on above: Result Comment: IG% - Immature Granulocytes (promyelocytes, myelocytes and metamyelocytes) > 1% indicates that a LEFT SHIFT is Present. Performed By: #### L 500.4050, L501.2450, L100.0100 ####[facility] [address] [place], [address] Lymphocytes/100 WBC (Bld) 15.4 % Low 19-41 [facility] Comment on above: Performed By: #### L 500.4050, L501.2450, L100.0100 ####[facility] [address] [place], [address] MCH (RBC) [Entitic mass] 28.5 pg Normal 27.0-32.0 [facility] Comment on above: Performed By: #### L 500.4050, L501.2450, L100.0100 ####[facility] [address] [place], [address] MCHC (RBC) [Mass/Vol] 32.7 g/dL Normal 32-36 [facility] Comment on above: Performed By: #### L 500.4050, L501.2450, L100.0100 ####[facility] [address] [place], [address] MCV (RBC) [Entitic vol] 87.2 fL Normal 81-99 [facility] Comment on above: Performed By: #### L 500.4050, L501.2450, L100.0100 ####[facility] [address] [place], [address] Monocytes/100 WBC (Bld) 5.8 % Normal 0-10 [facility] Comment on above: Performed By: #### L 500.4050, L501.2450, L100.0100 ####[facility] [address] [place], [address] Neutrophils/100 WBC (Bld) 77.6 % High 47-70 [facility] Comment on above: Performed By: #### L 500.4050, L501.2450, L100.0100 ####[facility] [address] [place], [address] Nucleated RBC (Bld) [#/Vol] 0 10*3/uL Normal 0-5 [facility] Comment on above: Performed By: #### L 500.4050, L501.2450, L100.0100 ####[facility] [address] [place], [address] Platelet mean volume (Bld) [Entitic vol] 10.3 fL Normal 6.2-12.0 [facility] Comment on above: Performed By: #### L 500.4050, L501.2450, L100.0100 ####[facility] [address] [place], [address] Platelets (Bld) [#/Vol] 297 10*3/uL Normal 150-450 [facility] Comment on above: Performed By: #### L 500.4050, L501.2450, L100.0100 ####[facility] [address] [place], [address] RBC (Bld) [#/Vol] 5.40 10*6/uL Normal 4.2-5.4 [facility] Comment on above: Performed By: #### L 500.4050, L501.2450, L100.0100 ####[facility] [address] [place], [address] RDW SD 49.7 fl High 35.1-43.9 [facility] Comment on above: Performed By: #### L 500.4050, L501.2450, L100.0100 ####[facility] [address] [place], [address] WBC (Bld) [#/Vol] 13.1 10*3/uL High 4.4-11.0 [facility] Comment on above: Performed By: #### L 500.4050, L501.2450, L100.0100 ####[facility] [address] [place], [address] Comprehensive Metabolic Prof ilon 05-18-2024 Albumin [Mass/Vol] 3.8 g/dL Normal 3.2-5.0 [facility] Comment on above: Performed By: #### L 500.4050, L501.2450, L100.0100 ####[facility] [address] [place], [address] Albumin/Globulin [Mass ratio] 0.8 {ratio} Low 0.9-2.4 [facility] Comment on above: Performed By: #### L 500.4050, L501.2450, L100.0100 ####[facility] [address] [place], [address] ALK P 111 U/L Normal 45-117 [facility] Comment on above: Performed By: #### L 500.4050, L501.2450, L100.0100 ####[facility] [address] [place], [address] ALT [Catalytic activity/Vol] 9 U/L Low 13-56 [facility] Comment on above: Performed By: #### L 500.4050, L501.2450, L100.0100 ####[facility] [address] [place], [address] AST [Catalytic activity/Vol] 14 U/L Low 15-37 [facility] Comment on above: Performed By: #### L 500.4050, L501.2450, L100.0100 ####[facility] [address] [place], [address] Bilirubin [Mass/Vol] 0.60 mg/dL Normal 0.20-1.00 [facility] Comment on above: Result Comment: For patients on eltrombopag therapy, use of Dimension Hopkins TBIL is not recommended. Performed By: #### L 500.4050, L501.2450, L100.0100 ####[facility] [address] [place], [address] BUN/CRE 19.9 RATIO Normal 10-20 [facility] Comment on above: Performed By: #### L 500.4050, L501.2450, L100.0100 ####[facility] [address] [place], [address] CA,Total 9.6 mg/dL Normal 8.5-10.1 [facility] Comment on above: Performed By: #### L 500.4050, L501.2450, L100.0100 ####[facility] [address] [place], [address] Chloride [Moles/Vol] 95 mmol/L Low 98-107 [facility] Comment on above: Performed By: #### L 500.4050, L501.2450, L100.0100 ####[facility] [address] [place], [address] CO2 [Moles/Vol] 28.0 mmol/L Normal 21.0-32.0 [facility] Comment on above: Performed By: #### L 500.4050, L501.2450, L100.0100 ####[facility] [address] [place], [address] Creatinine [Mass/Vol] 1.81 mg/dL High 0.55-1.02 [facility] Comment on above: Result Comment: The validity of the calculated GFR GFRAA in patients over 70 years has not been determined. Clinical correlation is essential. Performed By: #### L 500.4050, L501.2450, L100.0100 ####[facility] [address] [place], [address] EST GFR - AA 36 mL/min Low >60 [facility] Comment on above: Result Comment: Afri can Malagasy GFR Calc Performed By: #### L 500.4050, L501.2450, L100.0100 ####[facility] [address] [place], [address] GAP 9 Normal 5-15 [facility] Comment on above: Performed By: #### L 500.4050, L501.2450, L100.0100 ####[facility] [address] [place], [address] GFR/1.73 sq M.predicted among non-blacks MDRD (S/P/Bld) [Vol rate/Area] 30 mL/min/{1.73_m2} Low >60 [facility] Comment on above: Result Comment: Non- GFR Calc Performed By: #### L 500.4050, L501.2450, L100.0100 ####[facility] [address] [place], [address] Globulin (S) [Mass/Vol] 4.5 g/dL High 2.2-4.2 [facility] Comment on above: Performed By: #### L 500.4050, L501.2450, L100.0100 ####[facility] [address] [place], [address] Glucose [Mass/Vol] 171 mg/dL High 74-106 [facility] Comment on above: Result Comment: Fast ing Glucose result greater than or equal to 126 mg/dL suggests DIABETES MELLITUS per A.D.A. criteria. Performed By: #### L 500.4050, L501.2450, L100.0100 ####[facility] [address] [place], [address] Potassium [Moles/Vol] 4.2 mmol/L Normal 3.5-5.1 [facility] Comment on above: Performed By: #### L 500.4050, L501.2450, L100.0100 ####[facility] [address] [place], [address] Sodium [Moles/Vol] 133 mmol/L Low 136-145 [facility] Comment on above: Performed By: #### L 500.4050, L501.2450, L100.0100 ####[facility] [address] [place], [address] T PROT 8.3 g/dL High 6.4-8.2 [facility] Comment on above: Performed By: #### L 500.4050, L501.2450, L100.0100 ####[facility] [address] [place], [address] Urea nitrogen [Mass/Vol] 36 mg/dL High 7-18 [facility] Comment on above: Performed By: #### L 500.4050, L501.2450, L100.0100 ####[facility] [address] [place], [address] Emergency Department Summary on 05-18-2024 Emergency Department Summary [facility] Medical Records Department [address] [place] [address] Emergency Department Summary 05/18/24 MR#: [id number] Acct: [id number] Name: ISABELLE NAQVI Rep #: [id number] : 1955 68 From: Ken Gunter MD PCP: Dr. Felicia Dixon MD Status:REG ER Location: ED HPI HPI - GI History of Present Illness Chief Complaint: Nausea/Vomiting Informant: patient Narrative Narrative: Patient presenting with 4-5 days of vomiting followed by epigastric pain that has all been getting worse and persistent to the point where she cannot keep any fluids or food down. She feels dehydrated lightheaded at times. No fevers or chills. No chest discomfort. No other abdominal pain. No hematemesis or bright red blood per rectum or melena. States she has had cycles of this multiple times in the past over the past 2 years or more. She has seen GI doctor friend. She was smoking marijuana she stopped that she states. She states the marijuana smoking did not have any correlation with her symptoms when discontinuing it for long periods of time. She states she has had a lot of stress lately and that has triggered this in the past; constipation has preceded this in the past as well, but she states she has been having normal bowel movements with no blood or melena this time. Prior hysterectomy no other abdominal surgeries. [facility] Medical History Wears glasses Wears dentures Cancer Marijuana use Diabetes Ambulates with cane Arthritis Bladder disease Back pain Vertigo Gastric reflux Smoker Chronic cough Leg cramps History of pain when walking History of echocardiogram History of edema Hypertension Cardiology follow-up encounter History of heart attack Abdominal pain Nausea Cardiomyopathy Sinus bradycardia Essential hypertension Coronary artery disease Pancreatitis Tobacco abuse Hyperlipidemia Hypertension Atherosclerotic heart disease of [place] coronary artery without angina pectoris Home Medications ???Medication ???Instructions ???Recorded ???Last Taken ???Type aspirin 81 mg chewable tablet 81 mg PO DAILY@0800 12/07/13 Unknown History metoprolol tartrate 25 mg tablet 12.5 mg (1/2 x 25 mg) PO BID #90 12/29/20 Unknown Rx tabs cholecalciferol (vitamin D3) 125 125 mcg PO DAILY 05/02/22 Unknown History mcg (5,000 unit) tablet amlodipine 10 mg tablet See Rx Instructions .Route 06/10/23 Unknown Rx .COMPLEX #90 tabs lisinopril 40 mg tablet See Rx Instructions .Route 11/22/23 Unknown Rx .COMPLEX #90 tabs metoclopramide HCl 10 mg tablet 10 mg PO Q6H PRN PRN nausea and 05/18/24 Unknown Rx vomiting #20 tabs Allergy/AdvReac Type Severity Reaction Status Date / Time hydrochlorothiazide AdvReac Severe reoccurring Verified 05/18/24 13:40 pancreatitis Adqsrwj-CUN-QbZ Reductase AdvReac Severe reoccurring Verified 05/18/24 13:40 Inhibitor (Tlzhtld-Uob-Bwa pancreatitis Reductase Inhibitor) Gadolinium-MRI Contrast AdvReac Vomiting Verified 05/18/24 13:40 Medium (Gadolinium-Contrast Medium - MRI) Family History Mother Lung cancer Father CAD (coronary artery disease) Hx of CABG Abdominal aortic aneurysm (AAA) Hypertension Brother CAD (coronary artery disease) Myocardial infarction Hypertension Hx of CABG Surgical History History of bilateral salpingo-oophorectom y History of cardiac catheterization History of excision of lesion History of total hysterectomy Social History household members: spouse Smoking Status: Current every day smoker tobacco type: cigarettes alcohol intake: never substance use type: does not use caffeine: Yes Type: coffee ROS ROS ED Constitutional Constitutional ED: Denies chills or fever(s) Eyes Eyes: Denies change in vision or diplopia ENT ENT ED: Denies rhinorrhea or sore throat Cardiovascular Cardiovascular: Denies chest pain or palpitations Respiratory/Chest Respiratory/Chest: Denies cough or dyspnea Gastrointestinal Gastrointestinal: Reports abdominal pain, nausea and vomiting; Denies constipation, diarrhea or melena Genitourinary Genitourinary ED: Denies dysuria or hematuria Musculoskeletal Musculoskeletal: Denies back pain or neck pain Integumentary Denies abscess or rash Neurologic Neurologic: Denies headache(s), paresthesias or weakness Psychiatric Psychiatric: Reports anxiety; Denies suicidal thoughts EXAM Physical Exam Const Vital Signs: 05/18/24 09:13 05/18/24 11:12 05/18/24 13:00 Temperature 97.6 F L Temperature Source Temporal Pulse Rate 102 H 72 89 Respiratory Rate 20 H 1 (more content not included)... Normal [facility] Lipaseon 05-18-2024 Lipase [Catalytic activity/Vol] 36 U/L Normal 13-75 [facility] Comment on above: Result Comment: Rafael sheehan note: LIPASE revised reference range effective 22. New Lipase methodology. Expected to produce lower values than the previous assay method. NEW Reference Range: 13 - 75 U/L Performed By: #### L 500.4050, L501.2450, L100.0100 ####[facility] [address] [place], [address] Basophil percentageOrdered B y: Sanjuanita Jansen on 10-04-2023 Bilirubin [Mass/Vol] 0.40 mg/dL 0.20-1.00 [facility] Comment on above: For patients on eltr ombopag therapy, use of Dimension [facility] TBIL is not recommended. Cholesterol [Mass/Vol] 218 mg/dL <200 [facility] Comment on above: <200 mg/dL Desirable 200-240 mg/dL Borderline >240 mg/dL High Risk Protein [Mass/Vol] 7.9 g/dL 6.4-8.2 [facility] Triglyceride [Mass/Vol] 154 mg/dL <199 [facility] Comment on above: The drugs N-Acetylcy steine and Metamizole may falsely depress this assay.Serum Triglycerides Reference Interval Normal <150 mg/dL Borderline high 150 - 199 mg/dL High 200 - 499 mg/dL Very High > or = 500 mg/dL Direct bilirubinOrdered By: Sanjuanita Jansen on 10-04-2023 Bilirubin.direct [Mass/Vol] 0.12 mg/dL 0.00-0.30 [facility] Laboratory - Chemistry and C hemistry - challengeOrdered By: Sanjuanita Jansen on 10-04-2023 ALP [Catalytic activity/Vol] 108 U/L 45-117 [facility] ALT [Catalytic activity/Vol] 11 U/L 13-56 [facility] Cholesterol in HDL [Mass/Vol] 53 mg/dL >40 [facility] Comment on above: The drugs N-Acetylcy steine and Metamizole may falsely depress this assay. Reference Range HDL <40 mg/dL Low HDL Cholesterol HDL >or= 60 mg/dL High HDL Cholesterol Cholesterol in LDL [Mass/Vol] 134 mg/dL 0-130 [facility] Globulin (S) [Mass/Vol] 4.1 g/dL 2.2-4.2 [facility] No Panel InformationOrdered By: Sanjuanita Jansen on 10-04-2023 VLDL Cholesterol 31 mg/dL 5-40 [facility] Thin prep Papanicolaou smear with manual screeningOrdered By: Sanjuanita Jansen on 10-04-2023 Thin prep Papanicolaou smear with manual screening 3.8 g/dL 3.2-5.0 [facility] Thin prep Papanicolaou smear with manual screening 13 U/L 15-37 [facility] Absolute lymphocyte counton 01-12-2022 Lymphocytes Auto (Unsp spec) [#/Vol] 3.04 10*3/uL 0.83-4.51 [facility] Work Phone: Basophil percentageon 2021 Basophil percentage 0-5 SEEN /hpf 0-5 [facility] Work Phone: Basophils/100 WBC (Bld) 0.2 % 0-1 [facility] Work Phone: Bilirubin [Mass/Vol] 0.50 mg/dL 0.20-1.00 [facility] Work Phone: Comment on above: For patients on eltr ombopag therapy, use of Dimension [facility] TBIL is not recommended. Chloride [Moles/Vol] 97 mmol/L 98-107 [facility] Work Phone: Eosinophils/100 WBC (Bld) 0.4 % 0-5 [facility] Work Phone: Glucose [Mass/Vol] 138 mg/dL 74-106 [facility] Work Phone: Comment on above: Fasting Glucose resu lt greater than or equal to 126 mg/dL suggests DIABETES MELLITUS per A.D.A. criteria. Neutrophils (Bld) [#/Vol] 7.6 10*3/uL 2.0-7.7 [facility] Work Phone: Neutrophils/100 WBC (Bld) 65.7 % 47-70 [facility] Work Phone: Potassium [Moles/Vol] 3.4 mmol/L 3.5-5.1 [facility] Work Phone: Protein [Mass/Vol] 7.8 g/dL 6.4-8.2 [facility] Work Phone: Sodium [Moles/Vol] 136 mmol/L 136-145 [facility] Work Phone: WBC (Bld) [#/Vol] 11.6 10*3/uL 4.4-11.0 [facility] Work Phone: Bilirubin Test strip Ql (U)o n 01-12-2022 Bilirubin Ql (U) Negative Negative [facility] Work Phone: Blood erythrocytes count (nu mber/volume)on 01-12-2022 RBC (Bld) [#/Vol] 5.39 10*6/uL 4.2-5.4 [facility] Work Phone: Blood hemoglobin measurement (mass/volume)on 01-12-2022 Hemoglobin (Bld) [Mass/Vol] 16.1 g/dL 12.0-15.0 [facility] Work Phone: Blood lymphocytes/100 leukoc yteson 01-12-2022 Lymphocytes/100 WBC (Bld) 26.3 % 19-41 [facility] Work Phone: Blood monocytes/100 leukocyt eson 01-12-2022 Monocytes/100 WBC (Bld) 7.1 % 0-10 [facility] Work Phone: Blood platelet mean volumeon 01-12-2022 Platelet mean volume (Bld) [Entitic vol] 10.9 fL 6.2-12.0 [facility] Work Phone: Determination of erythrocyte mean corpuscular volume (MCV)on 01-12-2022 MCV (RBC) [Entitic vol] 87.0 fL 81-99 [facility] Work Phone: Direct bilirubinon 2 Bilirubin.direct [Mass/Vol] 0.15 mg/dL 0.00-0.30 [facility] Work Phone: Hematocrit Auto (Bld) [Volum e fraction]on 01-12-2022 Hematocrit (Bld) [Volume fraction] 46.9 % 37-47 [facility] Work Phone: [phone] Hyaline casts LM.LPF (Urine sed) [#/Area]on 01-12-2022 Hyaline casts (Urine sed) [#/Area] 10 /[LPF] 0-5 [facility] Work Phone: [phone] Ketones Test strip Ql (U)on 01-12-2022 Ketones Ql (U) 50 mg/dl Negative [facility] Work Phone: [phone] Laboratory - Chemistry and C hemistry - challengeon 01-12-2022 ALP [Catalytic activity/Vol] 85 U/L 45-117 [facility] Work Phone: [phone] ALT [Catalytic activity/Vol] 14 U/L 13-56 [facility] Work Phone: [phone] CO2 [Moles/Vol] 30.0 mmol/L 21.0-32.0 [facility] Work Phone: [phone] Globulin (S) [Mass/Vol] 3.6 g/dL 2.2-4.2 [facility] Work Phone: [phone] Urea nitrogen/Creatinine [Mass ratio] 23.7 mg/mg 10-20 [facility] Work Phone: [phone] Laboratory - Hematology and Cell countson 01-12-2022 Erythrocyte distribution width (RBC) [Entitic vol] 41.8 fL 35.1-43.9 [facility] Work Phone: [phone] Erythrocyte distribution width (RBC) [Ratio] 13.2 % 11.6-14.6 [facility] Work Phone: [phone] Immature granulocytes/100 WBC (Bld) 0.300 % 0.0-0.9 [facility] Work Phone: [phone] Comment on above: IG% - Immature Granu locytes (promyelocytes, myelocytes and metamyelocytes) > 1% indicates that a LEFT SHIFT is Present. MCH (RBC) [Entitic mass] 29.9 pg 27.0-32.0 [facility] Work Phone: [phone] Nucleated RBC/100 WBC (Bld) [Ratio] 0 % 0-5 [facility] Work Phone: [phone] MCHC Auto (RBC) [Mass/Vol]on 01-12-2022 MCHC (RBC) [Mass/Vol] 34.3 g/dL 32-36 [facility] Work Phone: Mucus LM Ql (Urine sed)on Mucus Ql (Urine sed) 0 SEEN /hpf [facility] Work Phone: Nitrite Test strip Ql (U)on 01-12-2022 Nitrite Ql (U) Negative Negative [facility] Work Phone: No Panel Informationon 01-12 Estimated Creatinine Clearance Calc 41.04 ml/min [facility] Work Phone: Estimated GFR (MDRD) Amer 59 mL/min >60 [facility] Work Phone: Comment on above: GFR Calc Estimated GFR (MDRD) Non-Af Amer 49 mL/min >60 [facility] Work Phone: Comment on above: Non- GFR Calc Platelets bldon 01-12-2022 Platelets (Bld) [#/Vol] 265 10*3/uL 150-450 [facility] Work Phone: Protein Test strip Ql (U)on 01-12-2022 Protein Ql (U) 30 mg/dl Negative [facility] Work Phone: Serum or plasma albumin ganesh urement (mass/volume)on 01-12-2022 Albumin [Mass/Vol] 4.2 g/dL 3.2-5.0 [facility] Work Phone: [phone] Serum or plasma calcium ganesh urement (mass/volume)on 01-12-2022 Calcium [Mass/Vol] 9.7 mg/dL 8.5-10.1 [facility] Work Phone: Serum or plasma creatinine m easurement (mass/volume)on 01-12-2022 Creatinine [Mass/Vol] 1.18 mg/dL 0.55-1.02 [facility] Work Phone: Comment on above: The validity of the calculated GFR & GFRAA in patients over 70 years has not been determined. Clinical correlation is essential. Serum or plasma urea nitroge n measurement (mass/volume)on 01-12-2022 Urea nitrogen [Mass/Vol] 28 mg/dL 7-18 [facility] Work Phone: Squamous epithelial cells de tection in urine sediment by light microscopyon 01-12-2022 Epithelial cells.squamous LM Ql (Urine sed) 0-5 SEEN /hpf 5-10 [facility] Work Phone: Thin prep Papanicolaou smear with manual screeningon 01-12-2022 Thin prep Papanicolaou smear with manual screening 14 U/L 15-37 [facility] Work Phone: [phone] Thin prep Papanicolaou smear with manual screening 9 5-15 [facility] Work Phone: Urine blood detectionon 01-03 RBC Ql (U) 150 /ul Negative [facility] Work Phone: RBC Ql (U) 0-5 SEEN /hpf 0-5 [facility] Work Phone: Urine clarityon 01-12-2022 Clarity (U) Sl. Cloudy Clear [facility] Work Phone: Urine color determinationon 01-12-2022 Color (U) Yellow Yellow [facility] Work Phone: Urine glucose detectionon Glucose Ql (U) Normal mg/dl Normal [facility] Work Phone: Urine leukocyte esterase det ection by dipstickon 01-12-2022 Leukocyte esterase Test strip Ql (U) 25 /ul Negative [facility] Work Phone: Urine pHon 01-12-2022 pH (U) 6.0 [pH] 5.0 - 8.0 [facility] Work Phone: Urine sediment bacteria coun t by microscopy (number/high power field)on 01-12-2022 Bacteria LM.HPF (Urine sed) [#/Area] 0 /[HPF] None Seen [facility] Work Phone: Urine specific gravity measu rementon 01-12-2022 Specific gravity (U) [Rel density] 1.020 1.002-1.030 [facility] Work Phone: Urobilinogen Auto test strip Ql (U)on 01-12-2022 Urobilinogen Ql (U) 1 mg/dl Normal [facility] Work Phone: Office Visit: [facility] 04-17-20 17 Documentation of current medications (procedure) Done Invalid Interpretation Code [facility] Work Phone: Fall risk assessment No Invalid Interpretation Code [facility] Work Phone: EMERGENCY REPORTon 7 EMERGENCY REPORT [facility] EMERGENCY ROOM REPORT NAME NUMBER SEX AGE ADMIT DISC TYPE MED.RECORD# ISABELLE NAQVI [id number] F 61 03/23/2017 03/23/2017 [place] [id number] ROOM:ER DATE OF :1955 PHYSICIAN NO.:[id number] PHYSICIAN NAME: PHYSICIAN:Rajesh Kwon D.O. ADDENDUM CHIEF [...] instructed to follow up with Dr. Felicia Dixon at [phone], to be seen in 1-2 days. She [...] Kwon D.O. TD: 03/24/2017 21:21:35 JOB #: [id number] DR. RAJESH KWON EMERGENCY DEPARTMENT 04/16/17 02:16 Transcribed by: NMT 03/24/2017 21:21:35 Copy for: SHREYA Kidd DO Copy for: [place] Wilhelm EMERGENCY ROOM REPORT ISABELLE NAQVI 1 Normal [facility] EMERGENCY REPORTon 7 EMERGENCY REPORT [facility] EMERGENCY ROOM REPORT NAME NUMBER SEX AGE ADMIT DISC TYPE MED.RECORD# ISABELLE NAQVI [id number] F 61 03/23/2017 03/23/2017 E.R. [id number] ROOM:ER DATE OF :1955 PHYSICIAN NO.:[id number] PHYSICIAN NAME: PHYSICIAN:DALE KATZ HISTORY OF PRESENT [...] DALE KATZ TD: 03/24/2017 10:23:01 JOB #: [id number] NEHA Katz D.O. Emergency Department 03/29/17 12:15 Transcribed by: YOSSI 03/24/2017 10:23:01 Copy for: STERLING Kidd III Copy for: SHREYA Kidd DO Copy for: ZACK Wilhelm EMERGENCY ROOM REPORT ISABELLE NAQVI 1 Normal [facility] CBCon 03-23-2017 Basophils Auto #/vol (Bld) 0.10 x10EE3/UL Normal 0.00 - 0.10 [facility] Comment on above: Performed By: #### 2 38502 ####[facility],[address] [place], [place] [id number] Basophils/100 WBC Auto (Bld) 0.6 % Normal 0.0 - 2.0 [facility] Comment on above: Performed By: #### 2 28596 ####[facility],[address] [place] [address] 82234 Blood morphology N/A Normal [facility] Comment on above: Result Comment: {CD] Performed By: #### 2 85373 ####[facility],[address] [place] [address] CBC Normal [facility] Comment on above: Result Comment: CBC- COMPLETE BLOOD COUNT Performed By: #### 2 26360 ####[facility],[address] [place] [address]117 Eosinophils 0.00 x10EE3/UL Normal 0.00 - 0.50 [facility] Comment on above: Performed By: #### 2 91102 ####[facility],[address] [place] [address] 74553 Eosinophils/100 leukocytes 0.1 % Normal 0.0 - 7.0 [facility] Comment on above: Performed By: #### 2 11266 ####[facility],[address] [place] [address] 77167 Erythrocyte distribution width Auto Ratio (RBC) 14.2 % Normal 12.0 - 15.6 [facility] Comment on above: Performed By: #### 2 06138 ####[facility] [place] [address] 98808 Erythrocytes (RBC) 5.65 x 10EE6/UL High 4.10 - 5.30 [facility] Comment on above: Performed By: #### 2 10476 ####[facility],[address] [place], [place] [address] Hematocrit (HCT) 48.7 % High 34.0 - 46.0 [facility] Comment on above: Performed By: #### 2 04875 ####[facility],[address] [place] [address] Hemoglobin mass conc (Bld) 16.6 g/dL High 12.0 - 16.0 [facility] Comment on above: Performed By: #### 2 45240 ####[facility],[address] [place] [address] Lymphocytes 2.60 x10EE3/UL Normal 0.80 - 2.80 [facility] Comment on above: Performed By: #### 2 15869 ####[facility],[address] [place], [place] [address] Lymphocytes/100 leukocytes 20.7 % Normal 20.0 - 45.0 [facility] Comment on above: Performed By: #### 2 15409 ####[facility],[address] [place], [place] [address] MANUAL DIFF N/A Normal [facility] Comment on above: Performed By: #### 2 10068 ####[facility],[address] [place], [place] [address] MCH 29 pg Normal 27 - 33 [facility] Comment on above: Performed By: #### 2 52860 ####[facility],[address] [place] [address] 91535 MCHC mass conc (RBC) 34 X10 3 Normal 32 - 36 [facility] Comment on above: Performed By: #### 2 82182 ####[facility],[address] [place], [place] [address] MCV 86 fL Normal 80 - 99 [facility] Comment on above: Performed By: #### 2 64587 ####[facility],[address] [place] [address] 96783 Monocytes 0.90 x10EE3/UL Normal 0.20 - 1.00 [facility] Comment on above: Performed By: #### 2 52666 ####[facility],[address] [place] [address] 72188 MONOS % 7.3 % Normal 0.0 - 10.0 [facility] Comment on above: Performed By: #### 2 97905 ####[facility],[address] [place] [address] 34451 Neutrophils 8.90 x10EE3/UL High 1.50 - 7.10 [facility] Comment on above: Performed By: #### 2 17583 ####[facility],[address] [place] [address] 43925 Neutrophils/100 WBC Auto (Bld) 71.3 % Normal 46.0 - 76.0 [facility] Comment on above: Performed By: #### 2 70850 ####[facility],[address] [place] [address] 86160 Platelet mean volume (PMV) 9.2 fL Normal 6.6 - 10.5 [facility] Comment on above: Result Comment: AUTO MATED DIFFERENTIAL Performed By: #### 2 25563 ####[facility],[address] [place] [address] 54489 Platelets 249 x10EE3/UL Normal 150 - 450 [facility] Comment on above: Performed By: #### 2 22460 ####[address] [address] WBC (Leukocytes) 12.5 x 10EE3/UL High 4.5 - 10.8 [facility] Comment on above: Performed By: #### 2 69959 ####[facility],[address] [place], [place] [address] CHEST APon 03-23-2017 CHEST AP [place] [address] Patient: ISABELLE NAQVI Phone#: : 1955 Age: 61 Gender: F Pt. Type: ER Account: [id number] Location: 052 Ordering: RAJESH KWON Exam Date: 03/23/2017/19:59 Family Phys: FELICIA DIXON Charge Code: [id number] Physician: [place] Order #: [id number] DLP Dose#: PROCEDURE: X-RAY CHEST AP 1 [...] Warren MD on 03/24/2017 at 17:50 Normal [facility] CMP with eGFRon 03-23-2017 Age 61 years Normal [facility] Comment on above: Performed By: #### 2 65362 ####[facility],[address] [place] [address] 47862 Albumin 4.5 g/dL Normal 3.4 - 4.8 [facility] Comment on above: Performed By: #### 2 45935 ####[facility],[address] [place] [address] 87127 Albumin/Globulin Ratio 1.3 {ratio} Normal 0.9 - 1.[address] [facility] Comment on above: Performed By: #### 2 56132 ####[facility],[address] [place] [address] 22588 ALK PHOS 81 U/L Normal 38 - 126 [facility] Comment on above: Performed By: #### 2 84085 ####[facility],[address] [place] [address] 35683 ALT/SGPT 12 U/L Normal 8 - 35 [facility] Comment on above: Performed By: #### 2 75704 ####[facility],[address] [place], [place] [address] Anion gap 16 mmol/L Normal 10 - 20 [facility] Comment on above: Performed By: #### 2 70451 ####[facility],[address] [place] [address] 27739 AST/SGOT 17 U/L Normal 13 - 39 [facility] Comment on above: Performed By: #### 2 61909 ####[facility],[address] [place] [address] 61854 B/C RATIO 18 ratio Normal 0 - 30 [facility] Comment on above: Performed By: #### 2 23572 ####[facility],[address] [place] [address] 00799 Bilirubin (total) 0.7 mg/dL Normal 0.0 - 1.5 [facility] Comment on above: Performed By: #### 2 41983 ####[facility],[address] [place] [address] 56152 Calcium 10.2 mg/dL Normal 8.6 - 10.2 [facility] Comment on above: Performed By: #### 2 59655 ####[facility],[address] [place] [address] 02917 Chloride 91 mmol/L Low 98 - 107 [facility] Comment on above: Performed By: #### 2 17349 ####[facility],[address] [place] [address] 46175 CO2 28.9 mmol/L Normal 21.0 - 31.0 [facility] Comment on above: Performed By: #### 2 35695 ####[facility],[address] [place] [address] 47489 Creatinine 1.3 mg/dL High 0.6 - 1.2 [facility] Comment on above: Performed By: #### 2 63675 ####[facility],[address] [place] [address] 08223 eGFR (non-black) 51 ML/MINUTE Low 60 - 999 [facility] Comment on above: Result Comment: ACCO RDING TO THE NATIONAL KIDNEY DISEASE EDUCATION PROGRAM(NKDE), A NORMAL eGFRIS A VALUE GREATER THAN OR EQUAL TO 60 ML/MIN/1.73 SQ METERS.CHRONIC KIDNEY DISEASE: <60mL/MIN/1.73 SQ METERSKIDNEY FAILURE: <15mL/MIN/1.73 SQ METERSTHIS TEST SHOULD ONLY BE USED FOR PATIENTS 18 YEARS OF AGE AND OLDER. Performed By: #### 2 84168 ####[facility],[address] [place] [address] 74695 eGFR (non-black) 42 ML/MINUTE Low 60 - 999 [facility] Comment on above: Performed By: #### 2 30939 ####[facility],[address] [place] [address] 15629 eGFR (non-black) Normal [facility] Comment on above: Result Comment: COMP REHENSIVE METABOLIC PANEL Performed By: #### 2 89351 ####[facility],[address] [place] [address] 31272 Globulin 3.4 g/dL Normal 1.5 - 3.8 [facility] Comment on above: Performed By: #### 2 16555 ####[facility],[address] [place] [address] 90526 Glucose mass conc 152 mg/dL High 74 - 106 [facility] Comment on above: Performed By: #### 2 21192 ####[facility],[address] [place] [address] 10097 Potassium molar conc 3.7 mmol/L Normal 3.5 - 5.1 [facility] Comment on above: Performed By: #### 2 63368 ####[facility],[address] [place] [address] 29894 Protein 7.9 g/dL Normal 6.4 - 8.3 [facility] Comment on above: Performed By: #### 2 22847 ####[facility],[address] [place] [address] 31434 Sodium 132 mmol/L Low 136 - 145 [facility] Comment on above: Performed By: #### 2 81395 ####[facility],[address] [place] [address] 08301 Urea nitrogen 23 mg/dL High 6 - 20 [facility] Comment on above: Performed By: #### 2 62003 ####[facility],[address] [place] [address] ABDOMEN/PELVIS [facility] [address] CT ABDOMEN/PELVIS [place] [address] Patient: ISABELLE NAQVI Phone#: : 1955 Age: 61 Gender: F Pt. Type: ER Account: [id number] Location: [facility] Ordering: RAJESH KWON Exam Date: 03/23/2017/20:18 Family Phys: FELIICA DIXON Charge Code: [id number] Physician: [place] Order #: [id number] DLP Dose#: [id number] PROCEDURE: CT ABDOMEN/PELVIS WITH [...] 61 Gender: F Pt. Type: ER Account: [id number] Location: [facility] Ordering: RAJESH KWON Exam Date: 03/23/2017/20:18 Family Phys: FELICIA DIXON Charge Code: [id number] Physician: [place] Order #: [id number] DLP Dose#: [id number] BOWEL/MESENTERY: Mucosal thickening of [...] Morfin MD on 03/25/2017 at 9:50 Normal [facility] LIPASEon 03-23-2017 Lipase 73.0 U/L High 18.0 - 51.0 [facility] Comment on above: Performed By: #### 2 23682 ####[facility],[address] [place] [address] Office Visiton 10-15-2016 Dietary management education, guidance, and counseling (procedure) yes Invalid Interpretation Code [facility] Work Phone: [phone] Clinical Lists Update: 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 Left ventricular Ejection fraction 65 % Invalid Interpretation Code [employer] Phone: [phone] Office Visit: [facility] 02-13-20 16 Smoking cessation education (procedure) yes Invalid Interpretation Code [employer] Work Phone: [phone] Tobacco use CPHS Current every day smoker Invalid Interpretation Code [employer] Phone: [phone] Lab Report: Basic Metabolic Profile (BMP)on 07-11-2015 Anion gap 6 mmol/L Invalid Interpretation Code 5-15 [employer] Phone: [phone] BUN/Creatinine Ratio 15.1 RATIO Invalid Interpretation Code 10-20 [employer] Phone: [phone] Calcium 9.0 mg/dL Invalid Interpretation Code 8.5-10.1 [employer] Work Phone: [phone] Chloride 102 mmol/L Invalid Interpretation Code 98-107 [employer] Phone: [phone] CO2 34.0 mmol/L High 21.0-32.0 [employer] Phone: [phone] Creatinine 0.73 mg/dL Invalid Interpretation Code 0.55-1.20 [employer] Work Phone: [phone] eGFR (non-black) 87 mL/min/{1.73_m2} Invalid Interpretation Code >60 [employer] Work Phone: [phone] eGFR (non-black) 105 mL/min/{1.73_m2} Invalid Interpretation Code >60 [employer] Phone: [phone] Glucose 143 mg/dL High 70-110 [employer] Phone: [phone] Potassium 3.6 mmol/L Invalid Interpretation Code 3.5-5.1 [employer] Work Phone: [phone] Sodium 142 mmol/L Invalid Interpretation Code 136-145 [employer] Phone: [phone] Urea nitrogen 11 mg/dL Invalid Interpretation Code 7-18 [employer] Phone: [phone] Lab Report: Thyroid Stim Hor yessica (TSH)on 07-11-2015 Thyroid stimulating hormone (TSH) 1.64 u[iU]/mL Invalid Interpretation Code 0.358-3.74 [employer] Phone: [phone] Office Visit: [facility] 02-26-20 15 cardiac risk group C Invalid Interpretation Code [employer] Phone: [phone] General cardiovascular disease 10Y risk [#] [place].D'Agostvahid N/A Invalid Interpretation Code [employer] Phone: [phone] Clinical Lists Update: Prelo welcome wagon hostess 02-08-2015 Left ventricular Ejection fraction 65 % Invalid Interpretation Code [employer] Phone: [phone] EKG Report: [employer] ECG Obse rvationson 04-08-2014 GE use only - for [employer] import when terms are not otherwise specified 406 ms Invalid Interpretation Code [employer] Phone: [phone] Replaced Document: [employer] E CG Observationson 04-08-2014 electrocardiogram interpretation Sinus Rhythm -RSR(V1) -nondiagnostic . PROBABLY NORMAL Invalid Interpretation Code [employer] Phone: [phone] P wave axis, electrocardiogram 46 deg Invalid Interpretation Code [employer] Phone: [phone] AK interval, electrocardiogram 150 ms Invalid Interpretation Code [employer] Phone: [phone] Pulse (Heart Rate) 60 /min Invalid Interpretation Code [employer] Phone: [phone] Pulse (Heart Rate) 407 ms Invalid Interpretation Code [employer] Phone: [phone] QRS axis, electrocardiogram 25 deg Invalid Interpretation Code [employer] Phone: [phone] QRS duration, electrocardiogram 90 ms Invalid Interpretation Code [employer] Phone: [phone] QT interval, electrocardiogram new path ms Invalid Interpretation Code [employer] Phone: [phone] T wave axis, electrocardiogram 53 deg Invalid Interpretation Code [employer] Phone: Clinical Lists Update: Prelo welcome wagon hostess 03-26-2014 Cholesterol 228 mg/dL High [facility] Work Phone: [phone] HDL Cholesterol 36 mg/dL Low [facility] Work Phone: [phone] LDL Cholesterol 130 mg/dL Invalid Interpretation Code [facility] Work Phone: [phone] Triglyceride 308 mg/dL High [facility] Work Phone: [phone] very low density lipoproteins 62 mg/dL High [facility] Work Phone: [phone] Vital Signs Date Time Vital Sign Value Performing Clinician Sophie martinez 01-15-2025 08:11-0400 Body height 162.[address] Felicia Dixon MD Work Phone: [facility] 01-15-2025 08:11-0400 Body mass index (BMI) [Ratio] 26.1 kg/m2 Dr. Felicia Dixon MD Work Phone: [facility] 01-15-2025 08:11-0400 Body weight 68.[address] Felicia Dixon MD Work Phone: [facility] 01-15-2025 08:11-0400 Diastolic blood pressure 80 mm[Hg] Dr. Felicia Dixon MD Work Phone: [facility] 01-15-2025 08:11-0400 Heart rate 88 /min Dr. Felicia Dixon MD Work Phone: [facility] 01-15-2025 08:11-0400 Respiratory rate 16 /min Dr. Felicia Dixon MD Work Phone: [facility] 01-15-2025 08:11-0400 Systolic blood pressure 143 mm[Hg] Dr. Felicia Dixon MD Work Phone: [facility] 11-08-2024 16:48-0400 Body temperature 98 [degF] Dr. Felicia Dixon MD Work Phone: [facility] 11-08-2024 16:48-0400 Diastolic blood pressure 63 mm[Hg] Dr. Felicia Dixon MD Work Phone: [facility] 11-08-2024 16:48-0400 Heart rate 78 /min Dr. Felicia Dixon MD Work Phone: [facility] 11-08-2024 16:48-0400 Respiratory rate 16 /min Dr. Felicia Dixon MD Work Phone: [facility] 11-08-2024 16:48-0400 SaO2% (BldA) [Mass fraction] 98 % Dr. Felicia Dioxn MD Work Phone: [facility] 11-08-2024 16:48-0400 Systolic blood pressure 101 mm[Hg] Dr. Felicia Dixon MD Work Phone: [facility] 11-08-2024 14:46-0400 Body height 162.[address] Felicia Dixon MD Work Phone: [phone] [place] [address] 09-07-2024 14:44-0500 Body mass index (BMI) [Ratio] 27.9 kg/m2 Dr. Felicia Dixon MD Work Phone: [facility] 09-07-2024 14:44-0500 Body weight 73.[address] Felicia Dixon MD Work Phone: [facility] 10-04-2023 10:21-0500 Body height 162.[address] Felicia Dixon Work Phone: [facility] 10-04-2023 10:21-0500 Diastolic blood pressure 68 mm[Hg] Dr. Felicia Dixon Work Phone: [facility] 10-04-2023 10:21-0500 Systolic blood pressure 130 mm[Hg] Dr. Felicia Dixon Work Phone: [facility] 10-04-2023 10:19-0500 Body mass index (BMI) [Ratio] 29.8 kg/m2 Dr. Felicia Dixon Work Phone: [facility] 10-04-2023 10:19-0500 Body weight 78.[address] Felicia Dixon Work Phone: [facility] 10-04-2023 10:19-0500 Heart rate 70 /min Dr. Felicia Dixon Work Phone: [facility] 10-04-2023 10:19-0500 Respiratory rate 18 /min Dr. Felicia Dixon Work Phone: [facility] 10-04-2023 10:19-0500 SaO2% (BldA) [Mass fraction] 92 % Dr. Felicia Dixon Work Phone: [facility] 05-02-2022 11:09-0400 Body height 162.[address] Felicia Dixon Work Phone: [facility] Work Phone: 05-02-2022 11:09-0400 Body mass index (BMI) [Ratio] 30.5 kg/m2 Dr. Felicia Dixon Work Phone: [facility] Work Phone: 05-02-2022 11:09-0400 Body weight 80.[address] Felicia Dixon Work Phone: [facility] Work Phone: 05-02-2022 11:09-0400 Diastolic blood pressure 74 mm[Hg] Dr. Felicia Dixon Work Phone: [facility] Work Phone: 05-02-2022 11:09-0400 Heart rate 68 /min Dr. Felicia Dixon Work Phone: [facility] Work Phone: 05-02-2022 11:09-0400 Respiratory rate 18 /min Dr. Felicia Dixon Work Phone: [facility] Work Phone: 05-02-2022 11:09-0400 Systolic blood pressure 138 mm[Hg] Dr. Felicia Dixon Work Phone: [facility] Work Phone: 03-19-2022 07:30-0400 Body temperature 98.5 [degF] Dr. Felicia Dixon Work Phone: [facility] Work Phone: 03-19-2022 07:30-0400 Diastolic blood pressure 68 mm[Hg] Dr. Felicia Dixon Work Phone: [facility] Work Phone: 03-19-2022 07:30-0400 Heart rate 57 /min Dr. Felicia Dixon Work Phone: [facility] Work Phone: 03-19-2022 07:30-0400 Respiratory rate 20 /min Dr. Felicia Dixon Work Phone: [facility] Work Phone: 03-19-2022 07:30-0400 SaO2% (BldA) [Mass fraction] 97 % Dr. Felicia Dixon Work Phone: [facility] Work Phone: 03-19-2022 07:30-0400 Systolic blood pressure 149 mm[Hg] Dr. Felicia Dixon Work Phone: [facility] Work Phone: 03-19-2022 06:02-0400 Body mass index (BMI) [Ratio] 29.7 kg/m2 Dr. Felicia Dixon Work Phone: [facility] Work Phone: 03-19-2022 06:02-0400 Body weight 78.[address] Felicia Dixon Work Phone: [facility] Work Phone: 01-14-2022 14:50-0400 Diastolic blood pressure 64 mm[Hg] [facility] Work Phone: 01-14-2022 14:50-0400 Heart rate 84 /min [facility] Work Phone: 01-14-2022 14:50-0400 Respiratory rate 18 /min [facility] Work Phone: 01-14-2022 14:50-0400 Systolic blood pressure 148 mm[Hg] [facility] Work Phone: 01-14-2022 12:26-0400 SaO2% (BldA) [Mass fraction] 99 % [facility] Work Phone: 01-14-2022 10:28-0400 Body height 162.56 cm [facility] Work Phone: 01-14-2022 10:28-0400 Body mass index (BMI) [Ratio] 29.2 kg/m2 [facility] Work Phone: 01-14-2022 10:28-0400 Body temperature 96.9 [degF] [facility] Work Phone: 01-14-2022 10:28-0400 Body weight 77.11 kg [facility] Work Phone: 01-12-2022 22:15-0400 Heart rate 87 /min [facility] Work Phone: 01-12-2022 22:15-0400 Respiratory rate 18 /min [facility] Work Phone: 01-12-2022 22:15-0400 SaO2% (BldA) [Mass fraction] 98 % [facility] Work Phone: 01-12-2022 19:05-0400 Body height 162.56 cm [facility] Work Phone: 01-12-2022 19:05-0400 Body mass index (BMI) [Ratio] 29.2 kg/m2 [facility] Work Phone: 01-12-2022 19:05-0400 Body temperature 98 [degF] [facility] Work Phone: 01-12-2022 19:05-0400 Body weight 77.11 kg [facility] Work Phone: 01-12-2022 19:05-0400 Diastolic blood pressure 84 mm[Hg] [facility] Work Phone: 01-12-2022 19:05-0400 Systolic blood pressure 108 mm[Hg] [facility] Work Phone: 04-17-2017 09:44-0400 BMI (Body Mass Index) 35.46 kg/m2 [facility] Work Phone: 04-17-2017 09:44-0400 BP [...] Date Encounter Type Care Provider Facility Start: 03-10-2025 End: 03-10-2025 Patient encounter procedure Johnna FIGUEROA -[facility] Work Phone: Start: 03-10-2025 End: 03-10-[address] Felicia Dixon MD Work Phone: -[facility] Start: 02-26-2025 End: 02-26-[address] Jb Jaramillo DO -[facility] Work Phone: Start: 02-26-2025 End: 02-26-[address] Felicia Dixon MD Work Phone: -[facility] Start: 01-15-2025 End: 01-15-[address] Osmar Randhawa MD -[facility] Work Phone: Start: 01-15-2025 End: 01-15-[address] Felicia Dixon MD Work Phone: [facility] Work Phone: Start: 01-15-2025 End: 01-15-2025 ambulatory Osmar Randhawa Facility:[facility] Start: 11-26-2024 End: 11-26-2024 Patient encounter procedure Melecio Cooper DO -[facility] Work Phone: Start: 11-26-2024 End: 11-26-2024 ambulatory Felicia Dixon Facility:[facility] Start: 11-08-2024 End: 11-08-2024 Emergency department patient visit Dr. Felicia Dixon MD Work Phone: -Emergency Department Work Phone: Start: 09-07-2024 End: 09-07-[address] Jb Jaramillo DO -[facility] Work Phone: Start: 09-07-2024 End: 09-07-2024 ambulatory Felicia Dixon Facility:[facility] Start: 09-04-2024 End: 09-04-2024 Patient encounter procedure Johnna FIGUEROA -[facility] Work Phone: Start: 09-04-2024 End: 09-04-2024 ambulatory Felicia Dixon Facility:[facility] Start: 06-02-2024 End: 06-02-2024 ambulatory Felicia Dixon Facility:[facility] [place] [place] Start: 06-02-2024 End: 06-02-2024 ambulatory Felicia Dixon Facility:[facility] Start: 05-18-2024 End: 05-18-2024 Emergency department patient visit Kenmeagan Gunter Facility:[facility] Start: 10-04-2023 End: 10-04-[address] Felicia Dixon Work Phone: [facility] Work Phone: Start: 10-04-2023 End: 10-04-[address] Felicia Dixon Work Phone: [facility] Work Phone: Start: 05-16-2022 Non-patient / Non-visit Dr. Felicia Dixon Work Phone: [facility] Start: 05-16-2022 End: 05-16-[address] Felicia Dixon Work Phone: [facility] Work Phone: Start: 05-16-2022 End: 05-16-[address] [facility] Start: 05-02-2022 End: 05-02-[address] Felicia Dixon Work Phone: [facility] Start: 04-13-2022 End: 04-13-[address] Felicia Dixon Work Phone: [facility] Start: 03-19-2022 Non-patient / Non-visit Dr. Felicia Dixon Work Phone: [facility] Start: 03-19-2022 End: 03-19-2022 Admission to same day surgery center Dr. Felicia Dixon Work Phone: [facility]-Endoscopy Start: 02-22-2022 End: 02-22-[address] Felicia Dixon Work Phone: [facility]-Nuclear Medicine, [facility] Start: 02-09-2022 End: 02-09-[address] Felicia Dixon Work Phone: [facility]-Cat Scan, [facility] Start: 02-02-2022 End: 02-02-[address] Felicia Dixon Work Phone: [facility] Start: 01-22-2022 End: 01-22-2022 Patient encounter procedure [facility]-Radiology, [place] Start: 01-14-2022 End: 01-14-2022 Emergency department patient visit [facility]-Emergency Department Start: 01-12-2022 End: 01-12-2022 Emergency department patient visit [facility]Emergency Department Start: 03-23-2017 End: 03-24-2017 Emergency department patient visit FELICIA DIXON [facility] Procedures Date Procedure Procedure Detail Performing Clinician Start: 11-08-2024 Urnls dip stick/tabl et reagent auto microscopy Dr. Felicia Dixon MD Work Phone: Start: 11-08-2024 Computed tomography of abdomen and pelvis with intravenous contrast Dr. Felicia Dixon MD Work Phone: Start: 09-07-2024 Plain x-ray of elbow Dr Mana Dixon MD Work Phone: Start: 02-22-2022 Radionuclide gastric emptying study Dr. Felicia Dixon Work Phone: Start: 02-09-2022 Computed tomography of abdomen and pelvis with contrast Dr. Felicia Dixon Work Phone: Start: 01-22-2022 Diagnostic radiograp hy of abdomen, decubitus and erect Start: 04-17-2017 End: 04-17-2017 Follow Up Appt [...] Treatment Date Care Activity Detail Author Start: 11-08-2024 [facility] Start: 03-19-2022 Colsc flx w/rmvl of tumor polyp lesion snare tq COLONOSCOPY W/LESION REMOVAL [facility] Work Phone: Start: 03-19-2022 Patient discharge [facility] Work Phone: Start: 02-02-2022 Patient referral [facility] Work Phone: Start: 12-25-2017 End: 12-25-2017 Appointment Appointment [facility] Work Phone: Start: 04-17-2017 End: 04-17-2017 Appointment Appointment [facility] Work Phone: Start: 04-17-2017 End: 04-17-2017 Follow Up Appt 6 months Follow Up Appt 6 months [facility] Work Phone: Start: 04-17-2017 End: 04-17-2017 PFM PFM [facility] Work Phone: Start: 10-15-2016 End: 04-11-2017 Follow Up Appt 6 months Follow Up Appt 6 months [facility] Work Phone: Start: 10-15-2016 End: 04-11-2017 Follow Up Appt Other Follow Up Appt Other [facility] Work Phone: Start: 10-15-2016 End: 04-11-2017 Follow Up BP Check Follow Up BP Check [facility] Work Phone: Start: 10-15-2016 End: 04-11-2017 MMM MMM [facility] Work Phone: Start: 02-13-2016 End: 02-13-2016 Follow Up Appt 6 months Follow Up Appt 6 months [facility] Work Phone: Start: 02-13-2016 End: 02-13-2016 PFM PFM [facility] Work Phone: Start: 10-13-2015 End: 01-25-2016 Follow Up BP Check Follow Up BP Check [facility] Work Phone: Start: 09-29-2015 End: 10-13-2015 Follow Up BP Check Follow Up BP Check [facility] Work Phone: Start: 08-19-2015 End: 08-19-2015 Follow Up Appt 6 months Follow Up Appt 6 months [facility] Work Phone: Start: 08-19-2015 End: 09-21-2015 Follow Up BP Check Follow Up BP Check [facility] Work Phone: Start: 08-19-2015 End: 08-19-2015 MMM MMM [facility] Work Phone: Start: 07-11-2015 End: 07-11-2015 *BMP *BMP [facility] Work Phone: Start: 06-03-2015 End: 06-03-2015 Follow Up BP Check Follow Up BP Check [facility] Work Phone: Start: 02-25-2015 End: 02-25-2015 Follow Up Appt 6 months Follow Up Appt 6 months [facility] Work Phone: Start: 02-25-2015 End: 02-25-2015 PFM PFM [facility] Work Phone: Start: 04-08-2014 End: 04-08-2014 Echocardiography Echocardiogram (complete) [facility] Work Phone: Start: 04-08-2014 End: 04-08-2014 Electrocardiogram, complete EKG (In office) [facility] Work Phone: Start: 04-08-2014 End: 04-08-2014 Follow Up Appt 3 months Follow Up Appt 3 months [facility] Work Phone: Start: 04-08-2014 End: 04-08-2014 MMM MMM [facility] Work Phone: CBC W Auto Different ial panel - Blood [facility] Comprehensive metabo lic 2000 panel - Serum or Plasma [facility] Lipid 1996 panel - S bl[place] or Plasma [facility] Patient Education [facility] Work Phone: Patient referral [facility] Work Phone: Payers Date Payer Category Payer Medicare [id number] 2024 Private Health Insurance 101 [id number] 2024 Self-pay [id number] 2014 Unknown [id number] [facility] [id number] Medicare [id number] Unknown [id number] 2.16.8 [id number] Unknown [id number] 2.16.8 [id number] Unknown [id number] 2.16.8 [id number] Unknown [id number] 2.16.8 [id number] Unknown [id number] 2.16.8 [id number] Unknown [id number] 2.16.8 [id number] Unknown [id number] 2.16.8 [id number] Unknown [id number] 2.16.8 [id number] Unknown [id number] 2.16.8 [id number] Unknown [id number] 2.16.8 [id number] Unknown [id number] 2.16.8 [id number] Unknown [id number] 2.16.8 [id number] Social History Date Type Detail Facility Start: 01-12-2022 End: 10-04-2023 Tobacco smoking status NHIS Unknown if ever smoked [facility] Start: 09-22-2018 None [facility] Start: 09-22-2018 Spouse/ Signif icant Other [facility] Start: 09-23-2018 Cigarettes [facility] Start: 1955 Sex Assigned At Female [facility] Start: 11-08-2024 Tobacco smoking status NHIS Smokes tobacco daily (finding) [facility] Start: 04-06-2025 Sex Female (finding) [facility] Goals Date Patient Goal Desired Activity /State Mental Status Date Assessment Result Facility 03-19-2022 Cognitive function Voice/Name [facility] Work Phone: 03-19-2022 Cognitive function Patient Keke feliciano Person;Place;Time [facility] Work Phone: 01-12-2022 Cognitive function Level Of Cons ciousness Awake;Alert;Appropriate;Follow s Commands [facility] Work Phone: Clinical Notes 09-04-2024 to 02-26-2025 Note Date & Type Note Facility 02-26-2025 Progress note [facility] 02-26-2025 Progress note Note Date/Time February 26, 2025 10:24am [facility] [address] [place] [address] [address] [place] [address] OFFICE VISIT Date of Service: 02/26/25 MR#: [id number] Acct: [id number] Name: ISABELLE NAQVI Rep #: [id number] : 1955 Provider: Dr. Ricco Jaramillo, Age/Sex: 69/F Location: [facility] [place] [place].[facility]DER Status: Signed Intake Vital Signs 01/15/25 08:11 Height 5 ft 4 in Weight: 152 lb BMI 26.1 BP 143/80 H Blood Pressure Location Lt brachial Position Sitting Respiration 16 Pulse 88 Pulse Source Monitor Intake Visit Reasons: RIGHT ELBOW Allergies hydrochlorothiazide Adverse Reaction (Severe, Verified 02/26/25 09:49) reoccurring pancreatitis Ukscguh-KZD-VrY Reductase Inhibitor (Uvxqvhn-Uuu-Una Reductase Inhibitor) Adverse Reaction (Severe, Verified 02/26/25 09:49) reoccurring pancreatitis Gadolinium-MRI Contrast Medium (Gadolinium-Contrast Medium - MRI) Adverse Reaction (Verified 02/26/25 09:49) Vomiting Medications ?Medication ?Instructions ?Recorded ?Confirmed ?Type aspirin 81 mg chewable tablet 81 mg PO DAILY@0800 05/0 5/14 02/26/25 History scopolamine base 1 mg over 3 days 1 patch transdermal Q3D PRN nausea 06/02/24 02/26/25 Rx transdermal patch #10 ea amlodipine 10 mg tablet See Rx Instructions .Route 0 09/03/24 02/26/25 Rx .COMPLEX #90 tabs lisinopril 40 mg tablet 40 mg PO DAILY #90 TABLETS 0 11/02/24 02/26/25 Rx ondansetron 4 mg disintegrating 4 mg PO Q8H PRN PRN Na usea #10 tabs 11/08/24 02/26/25 Rx tablet cyclobenzaprine 5 mg tablet 5 mg PO HS PRN 11/26/24 History diclofenac sodium 1 % topical gel 2 g topical ONCE 02/26/25 History cholecalciferol (vitamin D3) 125 2,000 unit PO DAILY 0 01/15/25 02/26/25 History mcg (5,000 unit) tablet ezetimibe 10 mg tablet (Zetia) 10 mg PO DAILY #30 tabs 01/18/25 02/26/25 Rx metoclopramide HCl 10 mg tablet 10 mg PO Q6H PRN nause a and 02/22/25 02/26/25 Rx vomiting #120 tabs metoclopramide HCl 5 mg tablet 5 mg PO QDAY #30 tabs 0 02/22/25 02/26/25 Rx Have you fallen in the past year?: No PFSH Medical History Wears glasses Wears dentures Cancer Marijuana use Diabetes Ambulates with cane Arthritis Bladder disease Back pain Vertigo Gastric reflux Smoker Chronic cough Leg cramps History of pain when walking History of echocardiogram History of edema Hypertension Cardiology follow-up encounter History of heart attack Abdominal pain Nausea Cardiomyopathy Sinus bradycardia Essential hypertension Coronary artery disease Pancreatitis Tobacco abuse Hyperlipidemia Hypertension Atherosclerotic heart disease of [place] coronary artery without angina pectoris Surgical History History of cardiac catheterization History of excision of lesion History of bilateral salpingo-oophorectomy History of total hysterectomy Family History Mother Lung cancer Father CAD (coronary artery disease) Hx of CABG Abdominal aortic aneurysm (AAA) Hypertension Brother CAD (coronary artery disease) Myocardial infarction Hypertension Hx of CABG Social History household members: spouse Smoking Status: Current every day smoker tobacco type: cigarettes alcohol intake: never substance use type: marijuana caffeine: Yes Type: coffee HPI RIGHT ELBOW Details: This documentation accurately reflects the service provided and the decisions made by me, Dr. Jb Jaramillo, DO 02/26/25 0753. Part of today?s visit was documented by María RUFF, acting as scribe. ISABELLE NAQVI is a 69 year old F here today for the right elbow. She states that shehas had the lump on her elbow for 3-4 weeks. She denies any known injury to the elbow. She denies having pain in the elbow. She is requesting that the fluid be drained like she had for the left elbow on 09/07/24. 09/07/2024 visit:69 year old F with medical history significant for but not limited to tobacco abuse, coronary artery disease, cardiomyopathy, pericarditis,here today for left elbow lump. She states she has had a large lump on her left elbow for 2 months. She denies known cause, injury or pain. She is able to bend it. Denies any history of gout, no signs of infection. Did have skin cancer. Plan:Explained to patient that she does have olecranon bursitis in the elbow. Her options would be: nothing and just leave it alone, try to drain it, steroid injection or surgical excision. Patient would like to proceed with an aspiration as well as a steroid injection today. Recommended to apply ice to thearea if needed and she should keep the compression wrap on it except for showering for 2 weeks. She should wash the area with antibacterial soap. If it is still there in about a month recommended to aspirate it again if need be. Ortho Exam General General: Yes no acute distress Neurologic: Yes alert and Yes oriented x3 Psychologic: Yes reasonable and appropriate Right Elbow ELBOW: intact biceps or triceps tendon no collateral instability no effusion or erythema full range of motion without crepitation or pain golfball sized olecranon bursa with fluid and thickened bursal tissue. Not tender. Office Procedures Office Injections/Aspirations Procedure Detail Procedure performed by: Jb Jaramillo Ortho Injection Site: Yes Medication Given: Yes Ortho Injections/Aspirations Details: Obtained consent for aspiration. Under sterile conditions, aspirated 7cc of bloody synovial fluid from the patients right olecranon bursa. The patient tolerated the aspiration well without any noted complications. Patient should call our office if redness develops, pain worsens or if they have any concerns. Ortho Injections Injections Is this a patient provided medication?: No Details: Obtained consent for injection. Under sterile conditions, injected the patientsright olecranon bursa with .5cc bupivacaine 1cc depo medrol. The patient tolerated the injection well without any noted complication. Patient should call our office if redness develops, pain worsens or if they have any concerns. Office Meds Depo-Medrol 40 mg/mL suspension for injection Performing Provider: Jb Jaramillo DO Performing Location: [facility] Administered by: Jb Jaramillo DO on 02/26/25 10:20 Dose Route Admin Location Dispensed Lot Number Expiration Date [employer] 40 mg intra-articular right olecranon bursa 1 mL [id number] 11/03/26 0 009-0280-03 [employer] Supplemental Info 09/07/2024 x-ray left elbow: No acute bony abnormality there is large soft tissue swelling over the posterior olecranon Coding Level of Care Code Off vis,est,level 3 Diagnoses Olecranon bursitis of right elbow M70.21 Assessment and Plan Assessment and Plan (1) Olecranon bursitis of right elbow: Status: Acute Orders: Orders Ortho Aspiration Today M70.21 - Olecranon bursitis, right elbow Ortho Injections Today M70.21 - Olecranon bursitis, right elbow Medications: New Depo-Medrol (methylprednisolone acetate) 40 mg intra-articular ONCE 1 mL 0RF NS M70.21 - Olecranon bursitis, right elbow Plan Patient is here today for right olecranon bursitis without any injury. I spoke with patient that we can leave it alone or do an aspiration and injection. Patient wishes to proceed with an aspiration and injection today. Aspiration andinjection was preformed and patient tolerated well. 7cc of bloody synovial fluidwas aspirated from the right elbow and was injected with steroid. I advised patient that she should keep the marsha wrap on for at least a week to reduce the chance of the bursitis coming back. Follow up as needed or sooner if pain, swelling, numbness or associated symptoms, or concerns develop. All questions answered. Patient in agreement of plan. Clinical Quality Measures Falls Risk Screening/Assistive Devices Have you fallen in the past year?: No 02/26/25 1024 <Electronically signed by Jb muller DO> Date _ Jb Jaramillo DO Cosigner Signature: Date (if applicable) CC: ~ [facility] Work Phone: 1(970) 477-966604-24-2025 Evaluation note* Diagnosis Onset Date Resolution Status Admit Date Adrenal adenoma acute November 8:48am Pericarditis acute November 26, 2024 8:48am Constipation chronic November 26, 2024 8:48am Nausea and vomiting chronic November 26, 2024 8:48am Atherosclerotic heart diseas e of [place] coronary artery without angina pectoris chronic January 15, 2025 8:09am [facility] Work Phone: 1(383) 312-431404-24-2025 Evaluation note* Diagnosis Onset Date Resolution Status Admit Date Adrenal adenoma acute November 8:48am Pericarditis acute November 26, 2024 8:48am Constipation chronic November 26, 2024 8:48am Nausea and vomiting chronic November 26, 2024 8:48am Pericarditis acute January 15, 025 8:09am Atherosclerotic heart diseas e of [place] coronary artery without angina pectoris chronic January 15, 2025 8:09am Essential hypertension chronic Ju 2024 8:09am Hyperlipidemia chronic January 15, 2025 8:09am Tobacco abuse chronic January 15, 2025 8:09am [facility] Work Phone: 1(634) 497-447704-24-2025 Evaluation note* Diagnosis Onset Date Resolution Status Admit Date Adrenal adenoma acute November 8:48am Pericarditis acute November 26, 2024 8:48am Constipation chronic November 26, 2024 8:48am Nausea and vomiting chronic November 26, 2024 8:48am Pericarditis acute January 15, 2 025 8:09am Atherosclerotic heart diseas e of [place] coronary artery without angina pectoris chronic January 15, 2025 8:09am Essential hypertension chronic Ju 2024 8:09am Hyperlipidemia chronic January 15, 2025 8:09am Tobacco abuse chronic January 15, 2025 8:09am Olecranon bursitis of right elbow ac timmy February 26, 2025 9:29am [facility] Work Phone: 1(262) 961-473804-06-2025 [address] study note [facility] Imaging Services [address] [place], [place] [id number] Abdomen/Pelvis W IV Cont ONLY MR#: [id number] Acct: [id number] Name: ISABELLE NAQVI Rep #: [id number] : [id number] F 69 From: [employer] DO PCP: Dr. Felicia Dixon MD Status: REG ER Study:Abdomen/Pelvis W IV Cont ONLY Date of E xam: 11/08/24 Exam# [id number] Ordering Dr: Kristen Sy PROCEDURE: ABDOMEN/PELVIS W IV CONT ONLY 11/08/2024 REASON FOR EXAM: ABDOMINAL PAIN for 1 week. Prior history includes coronary artery disease, hypertension, myocardial infarction, pancreatitis, total abdominal hysterectomy and bilateral salpingo oophorectomy TECHNIQUE: Abdomen and pelvis CT with intravenous contrast. Coronal and Sagittal reconstruction series were provided. PATIENT PREPARATION: Per protocol ORAL CONTRAST TYPE: None. AMOUNT: mL CONTRAST: Isovue 370 VOLUME: 100 mL IV One or more dose reduction techniques were used (e.g., Automated exposure control, adjustment of the mA and/or kV according to patient size, use of iterative reconstruction technique. RADIATION DOSE SUMMARY: CTDlvol: 15.74 mGy DLP: 708.53 mGycm COMPARISON: None. FINDINGS: Lung bases: Unremarkable. Lungs are clear. No pleural effusions. The liver, gallbladder, spleen, pancreas, and kidneys are unremarkable. Small bilateral adrenal nodules are present. In the absence of known cancer or symptoms of cancer, these can likely be regarded as benign and require no follow-up Urinary bladder: Unremarkable. Reproductive Organs: Surgically absent Bowel: There is no small or large bowel dilatation. There are some fluid- filledloops of small and large bowel with mildly enhancing wall suggesting possible combination of enteritis and colitis. Appendix: No inflammatory appendicitis appreciated in the right lower quadrant. The appendix is notdefinitely identified. Lymph nodes: No aortocaval lymph nodes identified. Vasculature: Moderate calcific soft plaque burden in the abdominal aorta. Celiacartery and SMA are pacified. Peritoneum / Retroperitoneum: No free fluid in Harvey's pouch or the abdomen or pelvis otherwise.No free air. Bones: No aggressive bone lesions. CT/Abdomen/Pelvis W IV Cont ONLY IMPRESSION: Possible mild enteritis/colitis [facility] CC: Dr. Felicia Dixon MD; CAROLINA Pedersen ~ Shoe Laster: Signed [facility]01-31-2025 Evaluation note* Diagnosis Onset Date Resolution Status Admit Date Nausea and vomiting chronic Janua 2024 9:13am Olecranon bursitis of left elbow acute September 07 2:43pm [facility] Work Phone: Evaluation noteNo assessment information available [facility] Work Phone: Evaluation note* Diagnosis Onset Date Resolution Status Nausea and vomiting acute Vertigo acute Constipation chronic [facility] Work Phone: Evaluation note* Diagnosis Onset Date Resolution Status Vertigo acute Constipation chronic Nausea and vomiting chronic Adrenal adenoma acute Pericarditis acute Constipation chronic Nausea and vomiting chronic Cardiomyopathy acute Pericarditis acute Sinus bradycardia acute Atherosclerotic heart diseas e of [place] coronary artery without angina pectoris chronic Essential hypertension chron ic Hyperlipidemia chronic [facility] Work Phone: Evaluation note* Diagnosis Onset Date Resolution Status Cardiomyopathy acute Pericarditis acute Atherosclerotic heart diseas e of [place] coronary artery without angina pectoris chronic Essential hypertension chron ic Hyperlipidemia chronic [facility] Work Phone: Hospital Discharge instructions Additional Instructions Follow-up with Dr. Cooper and return for any worsening symptoms.[facility] Work Phone: Reason for referral (narrative)No reason for referral [facility] Work Phone: Summary Purpose Family History No Family History Records Found Relationship Condition Age at Onset Recorded Date/T girma mother Malignant neoplasm of lung Unknown father Coronary artery disease Unknown History of coronary artery bypass surgery Unknown Abdominal aortic aneurysm (AAA) Unknown Hypertension Unknown brother Coronary artery disease Unknown Myocardial infarction Unknown Advance Directives No Advanced Directives Records Found Advance Directive Response Recorded Date/ Time Living Will No January 12, 2022 7:12pm Power of Comic Book Artist No January 12 7:12pm Advance Directive Response Recorded Date/ Time Living Will No January 14, 2022 10:55am Power of Comic Book Artist No January 14 10:55am Advance Directive Response Recorded Date/ Time Living Will No March 14 10:06am Power of Comic Book Artist No March 14 10:06am Advance Directive Response Recorded Date/ Time Living Will No March 14 9:06am Power of Comic Book Artist No March 14 9:06am Advance Directive Response Recorded Date/ Time Living Will No May 18 10:01am Do you have a Healthcare Power of Comic Book Artist? No May 18, 2024 10:01am Living Will No November 08, 2024 3:03pm Do you have a Healthcare Power of Comic Book Artist? No November 08, 2024 3:03pm Advance Directive Response Recorded Date/ Time Living Will No November 08, 2024 3:03pm Do you have a Healthcare Power of Comic Book Artist? No November 08, 2024 3:03pm Chief Complaint and Reason for Visit Chief Complaint DIZZY Chief Complaint DIZZY N/V Chief Complaint DIZZY N/V Consult CONSTIPATION, SEVERE NAUSEA N/V Reason for Visit Nausea and vomiting Vertigo Constipation Chief Complaint Consult CONSTIPATION, SEVERE NAUSEA N/V 2 WK FU 1 YR F/U WITH PFM CAD/ASHD Reason for Visit Vertigo Constipation Nausea and vomiting Adrenal adenoma Pericarditis Constipation Nausea and vomiting Cardiomyopathy Pericarditis Sinus bradycardia Atherosclerotic heart disease of [place] coronary artery without angina pectoris Essential hypertension Hyperlipidemia Chief Complaint 1 Y FU/PREV PFM E-ORDER Reason for Visit Cardiomyopathy Pericarditis Atherosclerotic heart disease of [place] coronary artery without angina pectoris Essential hypertension Hyperlipidemia Chief Complaint Admit Date 3 M FU September 04, 2024 9 :13am LEFT ELBOW September 07, 2024 2 :43pm xray room 2 September 07, 2024 2 :53pm ABD PAIN November 08, 2024 2:46 pm Reason for Visit Admit Date Nausea and vomiting September 04, 2024 9 :13am Olecranon bursitis of left elbow Februar y 2024 2:43pm Chief Complaint Admit Date ABD PAIN November 08, 2024 2:46 pm Hospital November 26, 2024 8:4 8am 1 Y FU January 15, 2025 8:09 am Reason for Visit Admit Date Adrenal adenoma November 26, 2024 8:4 8am Pericarditis November 26, 2024 8:4 8am Constipation November 26, 2024 8:4 8am Nausea and vomiting November 26, 2024 8:4 8am Atherosclerotic heart diseas e of [place] coronary artery without angina pectoris January 15, 2025 8:09am Chief Complaint Admit Date ABD PAIN November 08, 2024 2:46 pm Hospital November 26, 2024 8:4 8am 1 Y FU January 15, 2025 8:09 am E ORDERS January 15, 2025 8:43 am Reason for Visit Admit Date Adrenal adenoma November 26, 2024 8:4 8am Pericarditis November 26, 2024 8:4 8am Constipation November 26, 2024 8:4 8am Nausea and vomiting November 26, 2024 8:4 8am Pericarditis January 15, 2025 8:09 am Atherosclerotic heart diseas e of [place] coronary artery without angina pectoris January 15, 2025 8:09am Essential hypertension January 15, 2025 8 :09am Hyperlipidemia January 15, 2025 8:09 am Tobacco abuse January 15, 2025 8:09 am Chief Complaint Admit Date ABD PAIN November 08, 2024 2:46 pm Hospital November 26, 2024 8:4 8am 1 Y FU January 15, 2025 8:09 am E ORDERS January 15, 2025 8:43 am RIGHT ELBOW February 26, 2025 9:29 am Reason for Visit Admit Date Adrenal adenoma November 26, 2024 8:4 8am Pericarditis November 26, 2024 8:4 8am Constipation November 26, 2024 8:4 8am Nausea and vomiting November 26, 2024 8:4 8am Pericarditis January 15, 2025 8:09 am Atherosclerotic heart diseas e of [place] coronary artery without angina pectoris January 15, 2025 8:09am Essential hypertension January 15, 2025 8 :09am Hyperlipidemia January 15, 2025 8:09 am Tobacco abuse January 15, 2025 8:09 am Olecranon bursitis of right elbow February 032024 9:29am Chief Complaint Admit Date Hospital FU November 26, 2024 8:4 8am 1 Y FU January 15, 2025 8:09 am E ORDERS January 15, 2025 8:43 am RIGHT ELBOW February 26, 2025 9:29 am 6 M FU March 10, 2025 9:3 1am Additional Source Comments INFORMATION SOURCE (unrecogn ized section and content) DATE CREATED [facility] DATE CREATED AUTHOR AUTHOR'S ORGANIZ ATION 03/12/2025 [facility] Goals (unrecognized section and content) Goals may be documented in a n alternate sectionGoals may be documented in an alternate sectionGoals may be documented in an alternate sectionGoals may be documented in an alternate sectionGoals may be documented in an alternate sectionGoals may be documented in an alternate sectionGoals may be documented in an alternate sectionGoals may be documented in an alternate sectionGoals may be documented in an alternate sectionGoals may be documented in an alternate section Care Teams (unrecognized sec tion and content) Team Status: Active Member Role Status Dates Dr. Felicia Dixon MD Family Provider Active Dr. Felicia Dixon MD Primary Care Provider Active Team Status: Inactive Member Role Status Dates Dr. Felicia Dixon MD Primary Care Provider, Referrin g Provider Active Sanjuanita FIGUEROA PA Attending Provider Active Team Status: Inactive Member Role Status Dates Dr. Felicia Dixon MD Primary Care Provider Active Sanjuanita FIGUEROA PA Attending Provider, Referr ing Provider Active Team Status: Active Member Role Status Dates Dr. Felicia Dixon MD Primary Care Provider Active Team Status: Inactive Member Role Status Dates Dr. eFlicia Dixon MD Primary Care Provider Active Start: September 04, 2024 End: September 04, 2024 Dr. Felicia Dixon MD Referring Provider Active Start: September 04, 2024 End: September 04, 2024 CAROLINA Conroy Attending Provider Active Start: September 04, 2024 End: September 04, 2024 Team Status: Inactive Member Role Status Dates Dr. Felicia Dixon MD Primary Care Provider Active Start: September 07, 2024 End: September 07, 2024 Dr. Felicia Dixon MD Referring Provider Active Start: September 07, 2024 End: September 07, 2024 Dr. Jb Jaramillo DO Attending Provider Active Start: September 07, 2024 End: September 07, 2024 Team Status: Inactive Member Role Status Dates Dr. Felicia Dixon MD Primary Care Provider Active Start: September 07, 2024 End: September 07, 2024 Dr. Jonah Rubio MD Attending Provider Active S tart: September 07, 2024 End: September 07, 2024 Team Status: Inactive Member Role Status Dates Dr. Felicia Dixon MD Primary Care Provider Active Start: November 08, 2024 End: November 08, 2024 Nicola Romano MD Referring Provider Active Star t: November 08, 2024 End: November 08, 2024 Nicola Romano MD Emergency Provider Active Star t: November 08, 2024 End: November 08, 2024 Team Status: Inactive Member Role Status Dates Dr. Felicia Dixon MD Primary Care Provider Active Start: November 08, 2024 End: November 08, 2024 Nicola Romano MD Attending Provider Active Star t: November 08, 2024 End: November 08, 2024 Nicola Romano MD Referring Provider Active Star t: November 08, 2024 End: November 08, 2024 Nicola Romano MD Emergency Provider Active Star t: November 08, 2024 End: November 08, 2024 Team Status: Inactive Member Role Status Dates Dr. Felicia Dixon MD Primary Care Provider Active Start: November 26, 2024 End: November 26, 2024 Dr. Felicia Dixon MD Referring Provider Active Start: November 26, 2024 End: November 26, 2024 Dr. Melecio Cooper DO Attending Provider Active Start: November 26, 2024 End: November 26, 2024 Team Status: Inactive Member Role Status Dates Dr. Felicia Dixon MD Primary Care Provider Active Start: January 15, 2025 End: January 15, 2025 Dr. Felicia Dixon MD Referring Provider Active Start: January 15, 2025 End: January 15, 2025 Dr. Osmar Randhawa MD Attending Provider Active Start: January 15, 2025 End: January 15, 2025 Team Status: Active Member Role Status Dates Aisha Reynoso MD Primary Care Provider Active Team Status: Inactive Member Role Status Dates Aisha Reynoso MD Primary Care Provider Active St art: January 15, 2025 End: January 15, 2025 Dr. Osmar Randhawa MD Attending Provider Active Start: January 15, 2025 End: January 15, 2025 Dr. Osmar Randhawa MD Referring Provider Active Start: January 15, 2025 End: January 15, 2025 Team Status: Active Member Role/Relationship Status Dates Aisha Reynoso MD Primary Care Provider Active Team Status: Inactive Member Role/Relationship Status Dates Dr. Felicia Dixon MD Primary Care Provider Active Start: November 08, 2024 End: November 08, 2024 Nicola Romano MD Attending Provider Active Star t: November 08, 2024 End: November 08, 2024 Nicola Romano MD Referring Provider Active Star t: November 08, 2024 End: November 08, 2024 Nicola Romano MD Emergency Provider Active Star t: November 08, 2024 End: November 08, 2024 Team Status: Inactive Member Role/Relationship Status Dates Dr. Felicia Dixon MD Primary Care Provider Active Start: November 26, 2024 End: November 26, 2024 Dr. Felicia Dixon MD Referring Provider Active Start: November 26, 2024 End: November 26, 2024 Dr. Melecio Cooper DO Attending Provider Active Start: November 26, 2024 End: November 26, 2024 Team Status: Inactive Member Role/Relationship Status Dates Dr. Felicia Dixon MD Primary Care Provider Active Start: January 15, 2025 End: January 15, 2025 Dr. Felicia Dixon MD Referring Provider Active Start: January 15, 2025 End: January 15, 2025 Dr. Osmar Randhawa MD Attending Provider Active Start: January 15, 2025 End: January 15, 2025 Team Status: Inactive Member Role/Relationship Status Dates Aisha Reynoso MD Primary Care Provider Active St art: January 15, 2025 End: January 15, 2025 Dr. Osmar Randhawa MD Attending Provider Active Start: January 15, 2025 End: January 15, 2025 Dr. Osmar Randhawa MD Referring Provider Active Start: January 15, 2025 End: January 15, 2025 Team Status: Inactive Member Role/Relationship Status Dates Aisha Reynoso MD Primary Care Provider Active St art: February 26, 2025 End: February 26, 2025 Aisha Reynoso MD Referring Provider Active Start : February 26, 2025 End: February 26, 2025 Dr. Jb Jaramillo DO Attending Provider Active Start: February 26, 2025 End: February 26, 2025 Team Status: Inactive Member Role/Relationship Status Dates Dr. Felicia Dixon MD Primary Care Provider Active Start: November 26, 2024 End: November 26, 2024 Dr. Felicia Dixon MD Referring Provider Active Start: November 26, 2024 End: November 26, 2024 Dr. Melecio Cooper DO Attending Provider Active Start: November 26, 2024 End: November 26, 2024 Team Status: Inactive Member Role/Relationship Status Dates Dr. Felicia Dixon MD Primary Care Provider Active Start: January 15, 2025 End: January 15, 2025 Dr. Felicia Dixon MD Referring Provider Active Start: January 15, 2025 End: January 15, 2025 Dr. Osmar Randhawa MD Attending Provider Active Start: January 15, 2025 End: January 15, 2025 Team Status: Inactive Member Role/Relationship Status Dates Aisha Reynoso MD Primary Care Provider Active St art: January 15, 2025 End: January 15, 2025 Dr. Osmar Randhawa MD Attending Provider Active Start: January 15, 2025 End: January 15, 2025 Dr. Osmar Randhawa MD Referring Provider Active Start: January 15, 2025 End: January 15, 2025 Team Status: Inactive Member Role/Relationship Status Dates Aisha Reynoso MD Primary Care Provider Active St art: February 26, 2025 End: February 26, 2025 Aisha Reynoso MD Referring Provider Active Start : February 26, 2025 End: February 26, 2025 Dr. Jb Jaramillo DO Attending Provider Active Start: February 26, 2025 End: February 26, 2025 Team Status: Inactive Member Role/Relationship Status Dates Dr. Felicia Dixon MD Referring Provider Active Start: March 10, 2025 End: March 10, 2025 CAROLINA Conroy Attending Provider Active Start: March 10, 2025 End: March 10, 2025 Aisha Reynoso MD Primary Care Provider Active St art: March 10, 2025 End: March 10, 2025 FOR RECORDS PERTAINING TO PATIENTS WHO ARE [...] BE BASED ON THE PRIMARY CLINICAL RECORDS. [employer] provides no warranty or guarantee of the accuracy or completeness of information in this document.
--- NOTE | 2025-04-16 21:26 | CM.ED ---
Social work Reason for referral: advance directives Referral source: Fifi HOLDER Per request from Fifi HOLDER, MARILOU printed advance directive packets for both patient and patient's , Faheem. SW entered patient's room, introducing self and role at [facility]. SW explained the AD process and answered questions patient and patient's had. Patient expressed desire to think about it as patient had just received morphine and was not in a state of mind to complete this evening. Patient also received the rack card to complete at a later time as an outpatient service should patient and patient's so desire. Patient declined other needs at this time. Judith Avelar, COMPUTER SYSTEMS TECHNOLOGY INSTRUCTOR, OPERATIONS TEAM LEADER
[2025-04-16 21:29] LABS: Color, Urine Yellow (Yellow); Glucose, Dipstick 50 mg/dl (Normal); Ketone-Dipstick 5 mg/dl (Negative); Leukocyte Esterase-Dipstick Negative /ul (Negative); Nitrite-Dipstick Negative (Negative); Occult Blood-Urine 25 /ul (Negative); Protein-Dipstick 30 mg/dl (Negative); Specific Gravity, Urine 1.020 (1.002-1.030); Urine Bilirubin Dipstick Negative (Negative)
[2025-04-16 22:00] VITALS: BP 134/73; PULSE 82; RESP 18; O2SAT 97
[2025-04-16 22:08] LABS: Squamous Epithelial Cells - UA 0-5 SEEN /hpf (5-10)
[2025-04-16 22:09] LABS: Red Blood Cells-Urine 5-10 SEEN /hpf (0-5)
[2025-04-16 23:55] VITALS: BP 134/73; PULSE 82; RESP 18; TEMP 36.8; O2SAT 97
== END 2025-04-16 23:55 | disposition home or self-care (01) ==
PROVIDERS: Emergency Provider Emergency Medicine; PCP Family Medicine; Visit Provider Emergency Medicine
DX: K59.00 Constipation, unspecified (principal); E11.9 Type 2 diabetes mellitus without complications; I10 Essential (primary) hypertension; K21.9 Gastro-esophageal reflux disease without esophagitis; I25.2 Old myocardial infarction; I25.10 Atherosclerotic heart disease of native coronary artery without angina pectoris; E78.5 Hyperlipidemia, unspecified; F17.210 Nicotine dependence, cigarettes, uncomplicated; Z79.82 Long term (current) use of aspirin; Z79.899 Other long term (current) drug therapy; Z87.19 Personal history of other diseases of the digestive system
CPT/HCPCS: 74018; 80053; 81001; 83690; 85025; 96374; 96375; 96376; 99285; A4216; J2405

== ENCOUNTER 2025-04-22 09:15 | Emergency (ER) | payer MEDICARE, SELFPAY ==
[2025-04-22] VITALS (16 sets, daily range): BP systolic 120–177; BP diastolic 74–117; PULSE 89–114; RESP 12–22; TEMP 36.2–36.6; O2SAT 91–98; BMI 24.8
--- NOTE | 2025-04-22 10:59 | CT_ITS ---
PROCEDURE: ABDOMEN/PELVIS W IV CONT ONLY 04/22/2025 REASON FOR EXAM: ABDOMINAL PAIN Abdominal cramping. TECHNIQUE: Procedure Code: [id number] Modality: CT Procedure: ABDOMEN/PELVIS W IV CONT ONLY Coronal and Sagittal reconstruction series were provided. CONTRAST: Isovue-300 VOLUME: 95 mL One or more dose reduction techniques were used (e.g., Automated exposure control, adjustment of the mA and/or kV according to patient size, use of iterative reconstruction technique. RADIATION DOSE SUMMARY: CTDlvol: 16.1 mGy DLP: 768.03 mGycm COMPARISON: Prior study dated November 08, 2024. FINDINGS: Lung bases: The lung bases are clear. Coronary artery calcification. Liver: Stable 3 mm cyst in the dome of the right lobe of the liver. Gallbladder: Unremarkable Spleen: Normal size. Pancreas: Heterogeneous enlargement of the distal body and tail portions of the pancreas. Increased markings in the surrounding peritoneal fat. Possible pancreatitis. Adrenals: Bilateral adrenal enlargement worse on the left side. Kidneys: Normal renal sizes. No hydronephrosis. Bladder: Unremarkable Bowel: Nonspecific bowel gas pattern. Appendix: Unremarkable Lymph nodes: Extensive retroperitoneal and mesenteric lymph nodes. Vasculature: Moderate atherosclerotic calcification of the abdominal aorta in the common iliac arteries. Peritoneum / Retroperitoneum: Retroperitoneal lymphadenopathy as described. Bones: Degenerative changes of the spine. CT/Abdomen/Pelvis W IV Cont ONLY IMPRESSION: Heterogeneous appearance of the distal body and tail portion of the pancreas. Increased markings in the surrounding peritoneal fat. This may represent either localized pancreatitis or possible mass. Retroperitoneal and mesenteric lymphadenopathy. Enlargement of both adrenal glands worse on the left side. Reading Location: [place] [id number]
--- NOTE | 2025-04-22 10:59 | EKG12_ITS ---
Test Reason : ABD PAIN Blood Pressure : */* mmHG Vent. Rate : 91 BPM Atrial Rate : 91 BPM P-R Int : 142 ms QRS Dur : 78 ms QT Int : 364 ms P-R-T Axes : 76 43 62 degrees QTcB Int : 447 ms Normal sinus rhythm Normal ECG Confirmed by ANTONIETA PAULA, DMITRIY ([id number]), makeup editor JUANA DIAL ([id number]) on 04/23/2025 10:47:30 AM Referred By: Confirmed By: DMITRIY FUNG MD
--- NOTE | 2025-04-22 11:04 | EDS_ITS ---
HPI History of Present Illness Chief Complaint: Abd Pain Informant: patient Onset/Context/Timing Onset: Days (5) Context: Gradual Onset Timing: Continuous Quality: Cramping Location: Upper abdomen Worsened by: Eating Relieved by: Nothing Narrative Narrative: Patient presents with abdominal pain and left arm and leg weakness that has been getting worse over the past 5 days. Patient was seen in the emergency department on 04/16/2025. Patient states that since that time her left arm and leg has gotten progressively weaker. Patient denies any sensory deficits. Patient denies any difficulty swallowing or difficulty speaking. Patient denies any facial weakness. Patient states her pain in her abdomen became worse. Patient describes her abdominal pain as cramping. Patient states it is over the epigastric and upper abdomen. Patient states it is worse with eating. Patient states nothing makes it better. Patient states he has been taking MiraLAX as prescribed. Patient states she had several large bowel movements. Patient states she has not been wanting to eat or drink due to the pain. Patient admits to some nausea but denies any vomiting. Patient denies any melena or hematochezia. [facility] Medical History TMJ (temporomandibular joint disorder) Wears glasses Wears dentures Cancer Marijuana use Diabetes Ambulates with cane Arthritis Bladder disease Back pain Vertigo Gastric reflux Smoker Chronic cough Leg cramps History of pain when walking History of echocardiogram History of edema Hypertension Cardiology follow-up encounter History of heart attack Abdominal pain Nausea Cardiomyopathy Sinus bradycardia Essential hypertension Coronary artery disease Pancreatitis Tobacco abuse Hyperlipidemia Hypertension Atherosclerotic heart disease of [place] coronary artery without angina pectoris Home Medications ?Medication ?Instructions ?Recorded ?Last Taken ?Type aspirin 81 mg chewable tablet 81 mg PO DAILY@0800 05/0 12/16 Unknown History amlodipine 10 mg tablet See Rx Instructions .Route 0 09/03/24 Unknown Rx .COMPLEX #90 tabs lisinopril 40 mg tablet 40 mg PO DAILY #90 TABLETS 0 11/02/24 Unknown Rx ondansetron 4 mg disintegrating 4 mg PO Q8H PRN PRN Na usea #10 tabs 11/08/24 Unknown Rx tablet cholecalciferol (vitamin D3) 125 2,000 unit PO DAILY 0 01/15/25 Unknown History mcg (5,000 unit) tablet metoclopramide HCl 5 mg tablet 5 mg PO QDAY #30 tabs 0 03/24/25 Unknown Rx bisacodyl 5 mg tablet,delayed 5 mg PO DAILY 04/16/25 U nknown History release (Gentle Laxative (bisacodyl)) metoclopramide HCl 10 mg tablet 10 mg PO Q6H PRN PRN 0 04/16/25 Unknown History nausea/vomiting polyethylene glycol 3350 17 17 g PO BID #238 grams 07/29 Unknown Rx gram/dose oral powder (Miralax) dicyclomine 20 mg tablet 20 mg PO BID #60 tabs Unknown Rx linaclotide 72 mcg capsule 72 mcg PO QAM #30 caps 04/05 03/29 Unknown Rx (Linzess) Allergy/AdvReac Type Severity Reaction Status Date / Time hydrochlorothiazide AdvReac Severe reoccurring Verified 04/22/25 09:16 pancreatitis Mhljqdy-MQB-LwN Reductase AdvReac Severe reoccurring Verified 04/22/25 09:16 Inhibitor (Wiyuwln-Tnl-Qfl pancreatitis Reductase Inhibitor) Gadolinium-MRI Contrast AdvReac Vomiting Verified 04/22/25 09:16 Medium (Gadolinium-Contrast Medium - MRI) Family History Mother Lung cancer Father CAD (coronary artery disease) Hx of CABG Abdominal aortic aneurysm (AAA) Hypertension Brother CAD (coronary artery disease) Myocardial infarction Hypertension Hx of CABG Surgical History History of cardiac catheterization History of excision of lesion History of bilateral salpingo-oophorectomy History of total hysterectomy Social History household members: spouse Smoking Status: Current every day smoker tobacco type: cigarettes alcohol intake: never substance use type: marijuana caffeine: Yes Type: coffee ROS ROS ED Constitutional Constitutional ED: Denies chills or fever(s) Eyes Eyes: Denies blurry vision or change in vision ENT ENT ED: Denies rhinorrhea or sore throat Cardiovascular Cardiovascular: Denies chest pain or palpitations Respiratory/Chest Respiratory/Chest: Denies cough or dyspnea Gastrointestinal Gastrointestinal: Reports abdominal pain and nausea; Denies vomiting Genitourinary Genitourinary ED: Denies dysuria or hematuria Musculoskeletal Musculoskeletal: Reports back pain; Denies neck pain Integumentary Denies abscess or rash Neurologic Neurologic: Denies headache(s) or weakness Allergic/Immunologic Allergic/Immunologic ED: Denies mouth swelling or urticaria EXAM Physical Exam Const Vital Signs: 04/22/25 09:17 04/22/25 10:25 04/22/25 11:00 Temperature 97.2 F L Temperature Source Temporal Pulse Rate 102 H 101 H 99 Respiratory Rate 18 18 18 Blood Pressure 130/82 H 122/82 H 155/117 H Blood Pressure Mean 98 95 129 Pulse Ox 97 96 96 Oxygen Delivery Method Room Air Room Air Room Air 04/22/25 12:00 04/22/25 13:00 04/22/25 14:00 Temperature Temperature Source Pulse Rate 95 89 91 Respiratory Rate 18 12 20 H Blood Pressure 153/100 H 149/100 H 120/93 H Blood Pressure Mean 117 116 102 Pulse Ox 91 97 Oxygen Delivery Method Room Air Room Air 04/22/25 15:00 04/22/25 16:00 04/22/25 17:00 Temperature Temperature Source Pulse Rate 93 98 108 H Respiratory Rate 21 H 18 Blood Pressure 153/85 H 165/87 H Blood Pressure Mean 107 113 Pulse Ox 97 98 Oxygen Delivery Method Room Air Room Air 04/22/25 18:00 04/22/25 19:00 Temperature Temperature Source Pulse Rate 102 H 101 H Respiratory Rate 21 H 18 Blood Pressure Blood Pressure Mean Pulse Ox 98 97 Oxygen Delivery Method Room Air Room Air Positive well nourished and well developed General Appearance ED: well developed and NAD HEENT Reports moist mucous membranes Neck supple and no JVD Resp normal respiratory effort and clear to auscultation bilaterally Cardio regular rate and regular rhythm GI non-distended Palpation: soft and tender epigastric, LUQ and RUQ; Negative for guarding or rebound tenderness present Back/Spine no CVA tenderness Extremity normal to inspection General Extremety ED: Negative for edema or tenderness General Extremity: Negative for edema Neuro oriented x3, CN's II-XII intact bilaterally and no sensory deficits noted Neuro Narrative: Strength is 4 out of 5 in the left upper and lower extremity. Patient able to lift her leg and arm off the bed however, they started to fall but did not hit the bed. Sensorium / Orientation: alert Psych mental status grossly normal Mood & Affect: anxious MDM MDM MDM Narrative Medical decision making narrative: Differential diagnosis includes gastritis, gastroenteritis, pancreatitis, stroke, intracranial bleeding, electrolyte abnormality, cholecystitis, cholelithiasis, and dehydration. CBC, comprehensive metabolic profile, and lipase were obtained as an outpatient prior to arrival. Urinalysis will be obtained to assess for urinary tract infection and hematuria. EKG will be obtained to assess for cardiac dysrhythmia and cardiac ischemia. High- sensitivity troponin will be obtained to assess for cardiac ischemia. 2-hour repeat high-sensitivity troponin will be obtained to assess for ongoing cardiac ischemia. CT scan of the brain will be obtained to assess for intracranial bleeding and stroke. CT scan of the abdomen pelvis will be obtained to assess for bowel obstruction, perforation, pancreatitis, cholecystitis, and cholelithiasis. History & Record Review Additional record(s) reviewed:: Prior outpatient record, Prior ED visit and Prior labs Lab Data Attestation: I reviewed the patient's lab results. Lab results narrative: Outpatient CBC was reviewed. There is a slight leukocytosis of 11.7. The remainder is within normal limits. Outpatient lipase was reviewed and was slightly elevated at 133. This was increased from previous result. Outpatient comprehensive metabolic profile was reviewed. Chloride was slightly low at 95, CO2 was slightly low at 19.4. High-sensitivity troponin was reviewed and was slightly elevated at 18. 2-hour repeat high-sensitivity troponin was reviewed and was slightly elevated at 23. Labs: Laboratory Results - last 24 hr 04/22/25 04/22/25 11:15 13:02 Troponin T High Sens 18 H Troponin T Hi Sens 2 Hr 23 H Radiography Diagnostic Testing: Clinical Impression(s) from Imaging Studies Abdomen/Pelvis CT 04/22/25 10:59 IMPRESSION: Heterogeneous appearance of the distal body and tail portion of the pancreas. Increased markings in the surrounding peritoneal fat. This may represent either localized pancreatitis or possible mass. Retroperitoneal and mesenteric lymphadenopathy. Enlargement of both adrenal glands worse on the left side. Reading Location: [facility] 04/22/25 11:35 IMPRESSION: Focal area of edema in the posterior right temporal parieto-occipital lobes with surrounding mass effect as well as in the superior aspect of the right frontal parietal lobe as described. A repeat CT scan following IV contrast and/or MRI recommended. Metastasis should be ruled out. Red Alert: Findings discussed. The critical findings in the findings and impression above were relayed directly by me by telephone to Kenneth Broderick on 04/22/2025 at 12:03 pm with readback verification. Reading Location: [facility] Brain MRI 04/22/25 12:18 IMPRESSION: Metastatic disease is present involving both cerebral hemispheres and the medulla. A few of the lesions are fairly large with significant vasogenic edema. Several smaller foci are less than 1 cm. Recommend contrast-enhanced evaluation of the remainder of the spinal cord (cervical, thoracic and lumbar MRI) if appropriate. No evidence of acute ischemia. Chronic microvascular ischemic changes. Reading Location: [facility] CT scan of the abdomen and pelvis was obtained. There is heterogeneous appearance of the distal body and tail portion of the pancreas. There are increased markings in the surrounding peritoneal fat. Which may represent pancreatitis or possible mass. There is some retroperitoneal mesenteric adenopathy. This was interpreted by the radiologist was also independently reviewed by myself. CT scan of the brain was obtained. There are focal areas of ischemia in the posterior right temporal parietal occipital lobes with surrounding mass effect. MRI was recommended to rule out metastasis. MRI of the brain was obtained. There is metastatic disease involving both cerebral hemispheres and the medulla. There are few lesions with Vasogenic edema. There are several smaller foci less than 1 cm. This was interpreted by the radiologist and was also independently reviewed by myself. EKG Initial EKG: Attestation: I personally reviewed and interpreted this EKG as follows: Interpretation: Sinus Rhythm (91) and No Acute Injury Pattern Comments: EKG was obtained. On my independent interpretation, it showed a normal sinus rhythm with a rate of 91. VA interval, QRS interval, and QTc intervals were all normal. [place] was normal. There are no acute ST or T wave changes. Prior EKG tracings: available for review Prior: Unchanged (01/12/2022) Treatment and Re-Evaluation :: Patient was given IV fluids, morphine, and Zofran. Patient was feeling somewhat better on reevaluation. Patient was advised of her findings. Patient states she does get nauseated with contrast dye. Patient was given a repeat dose of Zofran. Patient was still nauseated after MRI with contrast. Because of this, patient was given a dose of Reglan. Patient was advised of the need for transfer due to the metastatic disease and further workup for this. Patient is agreeable with this. Discharge Plan Triage Chief Complaint: Abd Pain ED Provider: Kenneth Broderick Dx/Rx/DC Orders Clinical Impression: Metastasis to brain, Pancreatic mass, Pancreatitis, Essential hypertension, Nausea and vomiting, Hyperlipidemia Prescriptions: No Action cholecalciferol (vitamin D3) 125 mcg (5,000 unit) tablet 2,000 unit PO DAILY dicyclomine 20 mg tablet 20 mg PO BID Qty: 60 1RF Linzess 72 mcg capsule 72 mcg PO QAM Qty: 30 2RF aspirin 81 MG tablet,chewable 81 mg PO DAILY@0800 ondansetron 4 mg tablet,disintegrating 4 mg PO Q8H PRN PRN (Reason: Nausea) Qty: 10 0RF metoclopramide HCl 10 mg tablet 10 mg PO Q6H PRN PRN (Reason: nausea/vomiting) bisacodyl [Gentle Laxative (bisacodyl)] 5 mg tablet,delayed release (DR/EC) 5 mg PO DAILY polyethylene glycol 3350 [Miralax] 17 gram/dose powder 17 g PO BID Qty: 238 0RF amlodipine 10 mg tablet See Rx Instructions .ROUTE .COMPLEX Qty: 90 4RF Dose Instruction: TAKE 1 TABLET BY MOUTH EVERY DAY Rx Instructions: TAKE 1 TABLET BY MOUTH EVERY DAY lisinopril 40 mg tablet 40 mg PO DAILY Qty: 90 3RF metoclopramide HCl 5 mg tablet 5 mg PO QDAY Qty: 30 2RF Rx Instructions: administer 30 minutes before meals Primary Care Provider: Aisha Reynoso Referrals: Aisha Reynoso MD [Primary Care Provider, Family Practice] Print Language: Telugu Disposition Disposition: Acute Care Hospital Discharge Location: [facility] Discharge Date/Time: 04/23/25 00:11
[2025-04-22] MEDS: 0.9% Normal Saline (1000mL) 1,000 ML 1000 ML IV (11:21)
--- NOTE | 2025-04-22 11:35 | CT_ITS ---
PROCEDURE: BRAIN/HEAD WITHOUT CONTRAST 04/22/2025 REASON FOR EXAM: LEFT ARM AND LEG WEAKNESS TECHNIQUE: Procedure Code: CTBR Modality: CT Procedure: BRAIN/HEAD WITHOUT CONTRAST Coronal and Sagittal reconstruction series were provided. One or more dose reduction techniques were used (e.g., Automated exposure control, adjustment of the mA and/or kV according to patient size, use of iterative reconstruction technique. RADIATION DOSE SUMMARY: CTDlvol: 44.99 mGy DLP: 745.49 mGycm COMPARISON: Prior study dated February 19, 2021. FINDINGS: Brain: There now is evidence of white matter edema in the posterior right temporal parietal occipital lobes with surrounding mass effect. I suspect a 1.4 cm hypodense nodule within the edema. A repeat CT scan following IV contrast or MRI scan recommended for further evaluation. A neoplastic process/metastatic deposit should be ruled out. There is also evidence of decreased attenuation in the superior aspect of the right frontal parietal lobes along the medial falx. Findings suggestive of old tiny lacunar infarct in the right basal ganglion. CSF Spaces: Mild generalized cerebral atrophy Sinuses/Mastoids: Minimal mucosal thickening of the ethmoid sinuses Bones: No bony abnormality. CT/Brain/Head without Contrast IMPRESSION: Focal area of edema in the posterior right temporal parieto-occipital lobes wit h surrounding mass effect as well as in the superior aspect of the right frontal parietal lobe as described. A repeat CT s can following IV contrast and/or MRI recommended. Metastasis should be ruled out. Red Alert: Findings discussed. The critical findings in the findings and impression above were relayed directl y by me by telephone to Kenneth Broderick on 04/22/2025 at 12:03 pm with readback verification. Reading Location: [place] [id number]
[2025-04-22 11:48] LABS: Troponin T High Sensitivity 18 ng/L (<=14)
--- NOTE | 2025-04-22 12:18 | MRI_ITS ---
PROCEDURE: BRAIN W/WO CONTRAST 04/22/2025 REASON FOR EXAM: MASS TECHNIQUE: Procedure Code: MRIBRWW Modality: MR Procedure: BRAIN W/WO CONTRAST Multiplanar and multisequence images were obtained. CONTRAST: Clariscan VOLUME: 13 mL COMPARISON: Head CT of the same day FINDINGS: Brain: There are multiple enhancing lesions present in both cerebral hemispheres. Index lesions are shown in the right vertex and right posterior temporal lobe. Right high posterior frontal lobe: 1.9 x 1.8 x 2.1 cm. Right posterior temporal lobe: 1.8 x 1.4 x 1.7 cm. Subcentimeter foci: Right mesial temporal lobe, right frontal lobe jo radiata, right frontal lobe, multiple foci left occipital lobe (cuneus), left parietal lobe. Largest on the left of the occipital lobe is 1.1 x 0.9 x 0.8 cm. Additionally, there is a lesion in the medulla near the level of the foramen magnum measuring 1.5 x 0.8 x 1.0 cm. T2 prolongation is present in the periventricular white matter and to a lesser extent the deep white matter and subcortical white matter of the frontal and parietal lobes consistent with chronic microvascular ischemic change. Additionally, there is vasogenic edema around the larger foci described above. Diffusion: No restricted diffusion to suggest ischemia. There is some restriction associated with the mass lesion at the right vertex in the high posterior frontal lobe. Ventricles: No hydrocephalus. Major Intracranial Vessels: Flow voids are unremarkable. Sinuses: Clear. Adenoid hypertrophy and Tornwaldt cysts are seen. Mastoids: Clear MRI/Brain W/WO Contrast IMPRESSION: Metastatic disease is present involving both cerebral hemispheres and the medul la. A few of the lesions are fairly large with significant vasogenic edema. Several smaller foci are less than 1 cm. Recomme nd contrast-enhanced evaluation of the remainder of the spinal cord (cervical, thoracic and lumbar MRI) if appropriate. No evidence of acute ischemia. Chronic microvascular ischemic changes. Reading Location: [id number]
[2025-04-22 13:51] LABS: Troponin T High Sens 2 HR 23 ng/L (<=14)
--- NOTE | 2025-04-22 20:40 | PCA ---
PT ACCEPTED AT [facility] [id number] [facility] ARRANGED FOR TRANSPORT
--- NOTE | 2025-04-22 23:59 | ED.RN ---
REPORT GIVEN TO PHYSICIAN'S TRANSPORT TEAM AT THIS TIME.
== END 2025-04-23 00:11 | disposition short-term general hospital (02) ==
PROVIDERS: Emergency Provider Emergency Medicine; PCP Family Medicine; Visit Provider Emergency Medicine
DX: K85.91 Acute pancreatitis with uninfected necrosis, unspecified (principal); C79.31 Secondary malignant neoplasm of brain; E11.9 Type 2 diabetes mellitus without complications; F17.210 Nicotine dependence, cigarettes, uncomplicated; R11.2 Nausea with vomiting, unspecified; I25.10 Atherosclerotic heart disease of native coronary artery without angina pectoris; I10 Essential (primary) hypertension; E78.5 Hyperlipidemia, unspecified; K21.9 Gastro-esophageal reflux disease without esophagitis; D72.829 Elevated white blood cell count, unspecified
CPT/HCPCS: 70450; 70553; 74177; 84484; 93005; 96361; 96374; 96375; 96376; 99285; A9575; Q9967; A4216; J2405

== ENCOUNTER → 2025-04-22 | Outpatient (CLI) | payer MEDICARE, SELFPAY ==
[2025-04-22 10:17] LABS: Hematocrit 40.8 % (37-47); Hemoglobin 13.8 g/dL (12.0-15.0); Immature Granulocytes Count 0.030 X10^3/uL (0.0-0.0); Mean Corp Hgb Conc 33.8 g/dL (32-36); Mean Corpuscular Volume 86.4 fL (81-99); Mean Platelet Vol. 10.6 fl (6.2-12.0); NRBC Flagged by Analyzer 0 % (0-5); Platelet Count 325 K/mm3 (150-450); RBC Distribution Width CV 13.2 % (11.6-14.6); RBC Distribution Width SD 41.2 fl (35.1-43.9); Red Blood Count 4.72 M/mm3 (4.2-5.4); White Blood Count 11.7 K/mm3 (4.4-11.0)
[2025-04-22 10:55] LABS: Lipase 133 U/L (13-75)
[2025-04-22 11:04] LABS: AST(SGOT) 24 U/L (<=31); Alanine Aminotransfer ALT/SGPT < 5 U/L (<=34); Albumin, Serum 3.9 g/dL (3.4-4.8); Alkaline Phosphatase 93 U/L (35-104); Anion Gap 19 (5-15); BUN 15 mg/dL (4-19); BUN/Creat Ratio 20.2 RATIO (10-20); Calcium,Total 9.6 mg/dL (7.6-11.0); Carbon Dioxide 19.4 mmol/L (21.0-32.0); Chloride 95 mmol/L (98-108); Globulin 3.7 g/dL (2.2-4.2); Glucose 117 mg/dL (70-99); Potassium 4.0 mmol/L (3.3-5.1)
== END | disposition home or self-care (01) ==
LOC: LAB 08:59
PROVIDERS: PCP Family Medicine; Referring Provider Student in an Organized Health Care Education/Training Program; Visit Provider Student in an Organized Health Care Education/Training Program
DX: R10.9 Unspecified abdominal pain (principal); K59.00 Constipation, unspecified
CPT/HCPCS: 36415; 80053; 83690; 85025

== ENCOUNTER 2025-05-18 01:32 | Inpatient (IN) | payer MEDICARE, SELFPAY ==
[2025-05-18] VITALS (37 sets, daily range): BP systolic 62–140; BP diastolic 45–76; PULSE 69–146; RESP 14–32; TEMP 36.1–39.5; O2SAT 65–97; BMI 28.3; BMI 23.6
--- NOTE | 2025-05-18 01:40 | EKG12_ITS ---
Test Reason : DYSRHYTHMIA Blood Pressure : */* mmHG Vent. Rate : 140 BPM Atrial Rate : 140 BPM P-R Int : 118 ms QRS Dur : 68 ms QT Int : 280 ms P-R-T Axes : 56 26 70 degrees QTcB Int : 427 ms Critical Test Result: High HR Sinus tachycardia with Premature supraventricular complexes Otherwise normal ECG When compared with ECG of 22-Apr-2025 11:59, Premature supraventricular complexes are now Present Vent. rate has increased by 49 bpm Confirmed by ANTONIETA PAULA, DMITRIY ([id number]), web editor FABIEN SOLIS ([id number]) on 05/20/2025 1:19:41 PM Referred By: Confirmed By: DMITRIY FUNG MD
[2025-05-18 01:49] LABS: Hematocrit 39.5 % (37-47); Hemoglobin 13.2 g/dL (12.0-15.0); Immature Granulocytes Count 0.040 X10^3/uL (0.0-0.0); Mean Corp Hgb Conc 33.4 g/dL (32-36); Mean Corpuscular Volume 85.7 fL (81-99); Mean Platelet Vol. 9.9 fl (6.2-12.0); NRBC Flagged by Analyzer 0 % (0-5); Platelet Count 246 K/mm3 (150-450); RBC Distribution Width CV 16.1 % (11.6-14.6); RBC Distribution Width SD 49.2 fl (35.1-43.9); Red Blood Count 4.61 M/mm3 (4.2-5.4); White Blood Count 9.9 K/mm3 (4.4-11.0)
[2025-05-18 01:49] LABS: Allen Test Positive; Base Excess 6 mmol/L (-2 to +2); FI02 15.0; PO2 70 mmHG (75-100); SITE R Radial; SO2 95 % (95-99)
[2025-05-18] MEDS: Nitroglycerin SL (ED/IMG/CATH) 0.4 MG TABLET SL (01:51)
--- NOTE | 2025-05-18 02:02 | RAD_ITS ---
PROCEDURE: CHEST 1 VIEW (PORTABLE) 05/18/2025 REASON FOR EXAM: DYSPNEA TECHNIQUE: Frontal view of the chest. COMPARISON: 05/18/2024. FINDINGS: Interval appearance of mild left pleural effusion. Associated passive atelectatic airspace disease of the left lower lobe. Normal heart and pericardium. Normal mediastinum and ade. Normal visualized pulmonary arteries. Normal visualized aortic arch and descending thoracic aorta. Normal visualized thoracic spine. Normal visualized ribs, clavicles, and shoulders. There is no demonstrated abnormality of the visualized soft tissue structures of the upper abdomen. RAD/Chest 1 View (Portable) IMPRESSION: Interval appearance of mild left pleural effusion. Associated passive atelectatic airspace disease of the left lower lobe. [facility] [address]
[2025-05-18 02:08] LABS: Color, Urine Yellow (Yellow); Glucose, Dipstick 100 mg/dl (Normal); Ketone-Dipstick Negative (Negative); Leukocyte Esterase-Dipstick Negative /ul (Negative); Nitrite-Dipstick Negative (Negative); Occult Blood-Urine 50 /ul (Negative); Protein-Dipstick 100 mg/dl (Negative); Specific Gravity, Urine 1.020 (1.002-1.030); Urine Bilirubin Dipstick Negative (Negative)
[2025-05-18] MEDS: Piperacil/Tazobactam 3.375 GM in 0.9% Normal Saline (50mL MB+) 50 ML IV (02:10)
[2025-05-18 02:15] LABS: Magnesium 1.8 mg/dL (1.5-2.2); Mucous, Urine 1+ /hpf (<or=2+); Pro- Brain NATRIURETIC PEPTIDE 1487 pg/mL (<=900); Red Blood Cells-Urine 0-5 SEEN /hpf (0-5); Squamous Epithelial Cells - UA 0-5 SEEN /hpf (5-10)
[2025-05-18 02:16] LABS: Anion Gap 15 (5-15); BUN 22 mg/dL (4-19); BUN/Creat Ratio 28.2 RATIO (10-20); Calcium,Total 8.9 mg/dL (7.6-11.0); Carbon Dioxide 21.6 mmol/L (21.0-32.0); Chloride 92 mmol/L (98-108); Estimated Creatinine Clearance 66.62 ml/min (50-250); Glucose 217 mg/dL (70-99); Potassium 5.1 mmol/L (3.3-5.1)
[2025-05-18 02:34] LABS: Prothrombin Time (Protime)PT. 14.2 SECONDS (11.7-14.9)
[2025-05-18 02:35] LABS: Partial Thromboplast Time 30.4 Seconds (24.1-36.2)
[2025-05-18 02:46] LABS: Procalcitonin 3.54 ng/mL (<=0.10)
--- NOTE | 2025-05-18 02:55 | CT_ITS ---
PROCEDURE: CTA CHEST W/WO CONTRAST 05/18/2025 REASON FOR EXAM: HYPOXIA WITH METASTATIC CANCER TECHNIQUE: Procedure Code: [id number] Modality: CT Procedure: CTA CHEST W/WO CONTRAST Multiplanar Sagittal and Coronal images were obtained. CONTRAST: Isovue 370 VOLUME: 100 mL One or more dose reduction techniques were used (e.g., Automated exposure control, adjustment of the mA and/or kV according to patient size, use of iterative reconstruction technique). RADIATION DOSE SUMMARY: CTDlvol: 13.8 mGy DLP: 459 mGycm COMPARISON: Chest radiograph on 05/18/2025. FINDINGS: Left hilar mass measuring 6.2 x 5.7 cm. Secondary narrowing of the corresponding airway. Secondary atelectasis of the left lower lobe. Mild left pleural effusion. Enlarged mediastinal and hilar lymph nodes with the largest measuring 2.7 cm, probably metastatic. 7 mm noncalcified left upper lobe nodule, probably metastatic. Ground-glass densities in the upper lobes and the right lower lobe, probably multifocal pneumonia. Mild osteopenia. Diffuse spondylosis. Bilateral adrenal nodules are noted with the largest measuring 1.5 cm on the left side. Mild pericardial effusion. Normal enhancement of the main pulmonary artery and right and left pulmonary arteries. Normal enhancement of the bilateral peripheral pulmonary arteries. There is no demonstrated pulmonary embolism. Normal thoracic aorta and visualized great vessels. There is no demonstrated aortic dissection. Normal heart. Normal visualized trachea. CT/CTA Chest W/WO Contrast IMPRESSION: No demonstrated pulmonary embolism or arterial dissection. Left hilar mass measuring 6.2 x 5.7 cm. Secondary narrowing of the corresponding airway. Secondary atelectasis of the left lower lobe. Mild left pleural effusion. Enlarged mediastinal and hilar lymph nodes with the largest measuring 2.7 cm, p robably metastatic. 7 mm noncalcified left upper lobe nodule, probably metastatic. Ground-glass densities in the upper lobes and the right lower lobe, probably mu ltifocal pneumonia. Mild osteopenia. Diffuse spondylosis. Bilateral adrenal nodules are noted with the largest measuring 1.5 cm on the le ft side. Mild pericardial effusion. Reading Location: [place] [address]
[2025-05-18] MEDS: 0.9% Normal Saline (500mL Bag) 500 ML 999 ML IV ×2 (03:06→04:59)
[2025-05-18] MEDS: Vancomycin HCl 1,250 MG in 0.9% Normal Saline (250mL Bag) 250 ML 167 MG IV (03:07)
--- NOTE | 2025-05-18 04:29 | EX.ED.DYSGE1 ---
HPI History of Present Illness Chief Complaint: Shortness of Breath Informant: spouse/S.O. and family Limited: other (Respiratory distress) Narrative Narrative: Patient is a 69-year-old female with past medical history of hypertension and hyperlipidemia. She also has a recent diagnosis of metastatic pancreatic cancer. Family states that she had her first dose of radiation therapy this morning. They state that she was tired and fatigued following this but was overall at her baseline. However later in the day she began to cough and family states it appeared to be more pink sputum. Family states that in the evening when this started they asked if she wanted to go to the ER based on her fatigue and cough. She told them no and she went to lie down. Family states they went to check on her and she was having severe difficulty breathing. Family states they went to call 911 but she adamantly refused and therefore they drove to the ER for evaluation Upon arrival to the ER the patient has a depressed mental status is tachypneic and has a room air pulse ox of 65% with no reported need for supplemental oxygen at baseline according to family. [facility] Medical History (Updated 05/18/25 @ 06:[address] Preston Wallis, ) Metastasis Pancreatic cancer TMJ (temporomandibular joint disorder) Wears glasses Wears dentures Cancer Marijuana use Diabetes Ambulates with cane Arthritis Bladder disease Back pain Vertigo Gastric reflux Smoker Chronic cough Leg cramps History of pain when walking History of echocardiogram History of edema Hypertension Cardiology follow-up encounter History of heart attack Abdominal pain Nausea Cardiomyopathy Sinus bradycardia Essential hypertension Coronary artery disease Pancreatitis Tobacco abuse Hyperlipidemia Hypertension Atherosclerotic heart disease of [place] coronary artery without angina pectoris Home Medications ?Medication ?Instructions ?Recorded ?Last Taken ?Type aspirin 81 mg chewable tablet 81 mg PO DAILY@0800 12/07/13 Unknown History amlodipine 10 mg tablet See Rx Instructions .Route 09/03/24 Unknown Rx .COMPLEX #90 tabs lisinopril 40 mg tablet 40 mg PO DAILY #90 TABLETS 11/02/24 Unknown Rx ondansetron 4 mg disintegrating 4 mg PO Q8H PRN PRN Nausea #10 tabs 11/08/24 Unknown Rx tablet cholecalciferol (vitamin D3) 125 2,000 unit PO DAILY 01/15/25 Unknown History mcg (5,000 unit) tablet metoclopramide HCl 5 mg tablet 5 mg PO QDAY #30 tabs 03/24/25 Unknown Rx bisacodyl 5 mg tablet,delayed 5 mg PO DAILY 04/16/25 Unknown History release (Gentle Laxative (bisacodyl)) metoclopramide HCl 10 mg tablet 10 mg PO Q6H PRN PRN 04/16/25 Unknown History nausea/vomiting polyethylene glycol 3350 17 17 g PO BID #238 grams 04/16/25 Unknown Rx gram/dose oral powder (Miralax) dicyclomine 20 mg tablet 20 mg PO BID #60 tabs 04/22/25 Unknown Rx linaclotide 72 mcg capsule 72 mcg PO QAM #30 caps 04/22/25 Unknown Rx (Linzess) Allergy/AdvReac Type Severity Reaction Status Date / Time hydrochlorothiazide AdvReac Severe reoccurring Verified 05/18/25 01:33 pancreatitis Qjnpkka-FVM-ExE Reductase AdvReac Severe reoccurring Verified 05/18/25 01:33 Inhibitor (Espkjmo-Ohx-Wey pancreatitis Reductase Inhibitor) Gadolinium-MRI Contrast AdvReac Vomiting Verified 05/18/25 01:33 Medium (Gadolinium-Contrast Medium - MRI) Family History Mother Lung cancer Father CAD (coronary artery disease) Hx of CABG Abdominal aortic aneurysm (AAA) Hypertension Brother CAD (coronary artery disease) Myocardial infarction Hypertension Hx of CABG Surgical History History of cardiac catheterization History of excision of lesion History of bilateral salpingo-oophorectomy History of total hysterectomy Social History household members: spouse Smoking Status: Current every day smoker tobacco type: cigarettes alcohol intake: never substance use type: marijuana caffeine: Yes Type: coffee ROS ROS ED ROS Narrative Please note review of systems was obtained from family as patient has severe respiratory distress Constitutional Constitutional ED: Reports other Details: Positive fatigue ; Denies fever(s) ENT ENT ED: Denies rhinorrhea or sore throat Cardiovascular Cardiovascular: Denies chest pain Respiratory/Chest Respiratory/Chest: Reports cough and dyspnea Gastrointestinal Gastrointestinal: Reports abdominal pain, constipation and nausea; Denies diarrhea or vomiting Genitourinary Genitourinary ED: Denies dysuria Musculoskeletal Musculoskeletal: Reports myalgias Integumentary Denies rash Neurologic Neurologic: Denies headache(s) EXAM Physical Exam Const Vital Signs: 05/18/25 01:33 05/18/25 01:35 05/18/25 01:35 Temperature 99.9 F H Temperature Source Oral Pulse Rate 144 H 144 H Respiratory Rate 32 H 30 H Respiratory Effort Respiratory Pattern Tachypnea Blood Pressure 138/76 H Blood Pressure Mean 96 Pulse Ox 65 92 92 Oxygen Delivery Method Room Air Bi-pap Fraction of Inspired Oxygen (FIO2) 100 100 05/18/25 01:36 05/18/25 01:36 05/18/25 01:37 Temperature 99.9 F H Temperature Source Oral Pulse Rate 144 H Respiratory Rate 32 H Respiratory Effort Short of Breath Accessory Muscle Use Respiratory Pattern Tachypnea Blood Pressure 138/76 H Blood Pressure Mean 96 Pulse Ox 65 91 Oxygen Delivery Method Room Air Room Air Bi-pap Fraction of Inspired Oxygen (FIO2) 05/18/25 01:51 05/18/25 01:55 05/18/25 02:04 Temperature 102.8 F H 103.1 F H Temperature Source Core Core Pulse Rate 144 H 146 H 135 H Respiratory Rate 28 H 32 H Respiratory Effort Respiratory Pattern Blood Pressure 138/76 H 99/72 97/55 L Blood Pressure Mean 81 69 Pulse Ox 97 97 Oxygen Delivery Method Bi-pap Fraction of Inspired Oxygen (FIO2) 100 05/18/25 02:33 05/18/25 03:00 05/18/25 03:30 Temperature 102.2 F H 101.5 F H Temperature Source Core Core Pulse Rate 116 H 109 H 101 H Respiratory Rate 28 H 25 H 25 H Respiratory Effort Respiratory Pattern Blood Pressure 80/57 L 82/60 L 84/62 L Blood Pressure Mean 64 67 69 Pulse Ox 96 93 Oxygen Delivery Method Bi-pap Fraction of Inspired Oxygen (FIO2) 100 05/18/25 04:20 05/18/25 04:24 05/18/25 04:24 Temperature 101 F H 101 F H 101 F H Temperature Source Core Core Pulse Rate 103 H 103 H 103 H Respiratory Rate 25 H 25 H 25 H Respiratory Effort Respiratory Pattern Blood Pressure 102/65 102/65 102/65 Blood Pressure Mean 77 77 77 Pulse Ox 95 95 95 Oxygen Delivery Method Fraction of Inspired Oxygen (FIO2) 05/18/25 04:49 Temperature 100.6 F H Temperature Source Core Pulse Rate 99 Respiratory Rate 23 H Respiratory Effort Respiratory Pattern Blood Pressure 83/60 L Blood Pressure Mean 67 Pulse Ox 95 Oxygen Delivery Method Bi-pap Fraction of Inspired Oxygen (FIO2) 60 Positive well nourished and well developed Constitutional Narrative: Patient is in severe respiratory distress with tachypnea and accessory muscle use and retractions. Patient is ill-appearing General Appearance ED: well developed and pallor HEENT Reports dry mucous membranes HEENT Narrative: No tongue or lip swelling no oral lesions no airway edema or compromise Mucous membranes are dry and tacky Mouth ED: Yes dry mucous membranes Mouth: dry mucous membranes Eyes PERRL and EOMs intact bilaterally Eyes Narrative: Positive subconjunctival pallor noted bilaterally General Eye ED: Yes pale conjunctiva; Negative for scleral icterus Neck supple and no JVD Chest Wall palpation of chest normal Chest Narrative: No bony deformity or subcutaneous emphysema noted Resp Resp Narrative: Patient is in moderate to severe respiratory distress with tachypnea accessory muscle use retractions and only 1-2 word answers. Breath sounds are severely diminished throughout with rhonchi and crackles bilaterally greatest on the left Cardio regular rhythm Rate: tachycardic and other Other Details: Tachycardic rate with regular rhythm Radial and carotid pulses are equal and symmetric GI non-distended GI Narrative: Abdomen is nondistended with hypoactive bowel sounds. There is diffuse pain with palpation which family states is chronic in nature secondary to her history of metastatic pancreatic cancer. No peritoneal signs Auscultation: hypoactive bowel sounds Palpation: soft Extremity Extremity Narrative: +2-3 pitting edema to the bilateral lower extremities that is equal and symmetric Negative Homans' sign Neuro oriented x3 and CN's II-XII intact bilaterally Neuro Narrative: Patient is obtunded secondary to respiratory distress but will awaken to voice and answer questions appropriately without focal neurologic deficit Sensorium / Orientation: orientation impaired Psych mental status grossly normal Skin no rashes or lesions noted and No skin turgor normal Skin Narrative: Skin is pale in color and skin turgor is increased General Skin Exam: pallor Sepsis Attestation Sepsis Alert: Yes Sepsis Attestation: Agree w/Sepsis Possible Source of Sepsis: Pulmonary Sepsis Organ Dysfunction Criteria Present: Acute Respiratory Failure (New need for BiPAP/CPAP or MV) and Lactic Acid > 2 mmol/L Fluid Resuscitation Fluid resuscitation indicated?: Yes Fluid Resuscitation ordered: Lesser volume fluid bolus ordered Amount of fluid ordered: 1,000 Reason for lesser fluid bolus:: Concern for fluid overload and Heart failure MDM MDM MDM Narrative Medical decision making narrative: Patient arrived to the ER in severe respiratory distress with tachypnea accessory muscle use retractions and a room air pulse ox of 65% on room air. With her bilateral leg swelling coarse rhonchi and crackles on physical exam as well as the fact that family reported sputum that was more pink-colored this afternoon/evening I did feel that the patient was having a CHF exacerbation/flash pulmonary edema. Secondary to this she was placed on BiPAP. She was given a sublingual nitro to reduce preload and IV Lasix to help with diuresis. As a felt the need for strict I's and O's secondary to concern for volume overload/congestive heart failure a Valladares catheter was placed. The core temp was approximately 103. With the patient's fever tachycardia and hypoxia she does qualify for sepsis. Therefore blood cultures were obtained as well as a lactic acid COVID influenza and RSV swab and she was started on vancomycin and Zosyn. As the initial working diagnosis was for CHF exacerbation/volume overload and family states she does have a history of this I did not wish to worsen volume status and therefore only provided 1 L of normal saline instead of the 30 mL/kg fluid bolus. As there was concern for potential pulmonary embolus as the cause of her symptoms or atypical pneumonia she was sent down for a CTA of the chest. CTA revealed no PE but did show a large lung mass with multifocal pneumonia changes. This would correlate with her hypoxia as well as fever and respiratory distress. The patient was kept on BiPAP and did have improvement of her work of breathing and oxygen value. She was given IV Toradol as well as rectal Tylenol and the temperature improved as well and with this the heart rate reduced. However despite providing fluid resuscitation antipyretics antibiotics and breathing support the patient's blood pressure continued to drop. The case was discussed with the family and at this time she is still a full code and they are not ready to discuss DNR or hospice status. Therefore peripheral Levophed was started secondary to the hypotension. The hospitalist was notified based on the patient's respiratory distress and sepsis. He evaluated the patient in the ER and he agrees to accept the patient to the ICU for continued monitoring and treatment. History & Record Review Discussion w/independent historian: Family Lab Data Attestation: I reviewed the patient's lab results. Labs: Laboratory Results - last 24 hr 05/18/25 01:35 WBC 9.9 RBC 4.61 Hgb 13.2 Hct 39.5 MCV 85.7 MCH 28.6 MCHC 33.4 RDW Std Deviation 49.2 H RDW Coeff of Zoila 16.1 H Plt Count 246 MPV 9.9 Immature Gran % (Auto) 0.400 Neut % (Auto) 84.9 H Lymph % (Auto) 7.9 L [place] % (Auto) 2.7 Eos % (Auto) 3.2 Baso % (Auto) 0.9 Absolute Neuts (auto) 8.4 H Absolute Lymphs (auto) 0.78 L Nucleated RBC % 0 PT 14.2 INR 1.1 APTT 30.4 Sodium 128 L Potassium 5.1 Chloride 92 L Carbon Dioxide 21.6 Anion Gap 15 BUN 22 H Creatinine 0.77 Estim Creat Clear Calc 66.62 Est GFR (MDRD) Non-Af 84 BUN/Creatinine Ratio 28.2 H Glucose 217 H Lactic Acid 3.8 H* Calcium 8.9 Magnesium 1.8 NT pro BNP II 1487 H Procalcitonin 3.54 H Urine Color Yellow Urine Clarity Clear Urine pH 5.0 Ur Specific [place] 1.020 Urine Protein 100 H Urine Glucose (UA) 100 H Urine Ketones Negative Urine Occult Blood 50 H Urine Nitrite Negative Urine Bilirubin Negative Urine Urobilinogen Normal Ur Leukocyte Esterase Negative Urine RBC 0-5 SEEN Urine WBC 0-5 SEEN Ur Squamous Epith Cells 0-5 SEEN Amorphous Sediment 2+ Urine Bacteria 2+ Urine Mucus 1+ ABG Data ABG results: ABG 05/18/25 01:46 Specimen Type ART Sample Site R Radial pH 7.47 H Bicarbonate Actual 29.8 H Total CO2 31 Base Excess 6 H O2 Saturation 95 O2 % 15.0 ABG pCO2 41.2 ABG pO2 70 L [place] Test Positive O2 Delivery Device NRB Vent Mode Not entered Radiography Diagnostic Testing: Clinical Impression(s) from Imaging Studies Chest X-Ray 05/18/25 02:02 IMPRESSION: Interval appearance of mild left pleural effusion. Associated passive atelectatic airspace disease of the left lower lobe. Reading [facility] Chest CTA 05/18/25 02:55 IMPRESSION: No demonstrated pulmonary embolism or arterial dissection. Left hilar mass measuring 6.2 x 5.7 cm. Secondary narrowing of the corresponding airway. Secondary atelectasis of the left lower lobe. Mild left pleural effusion. Enlarged mediastinal and hilar lymph nodes with the largest measuring 2.7 cm, probably metastatic. 7 mm noncalcified left upper lobe nodule, probably metastatic. Ground-glass densities in the upper lobes and the right lower lobe, probably multifocal pneumonia. Mild osteopenia. Diffuse spondylosis. Bilateral adrenal nodules are noted with the largest measuring 1.5 cm on the left side. Mild pericardial effusion. Reading Location: [place] [id number] 1 view chest x-rays interpreted by the emergency medicine physician reveals mild cardiomegaly with left-sided pleural effusion and bibasilar atelectasis without obvious infiltrate Management Discussion w/another healthcare provider: Hospitalist Critical Care Time Critical Care Time: Yes Critical care time (excluding procedures): Discussing w/Patient &/or Family/Tipple Tender, Arranging Admission or Transfer, Performing Direct Patient Care at Bedside and - (Critical care time of 37 minutes) Discharge Plan Dx/Rx/DC Orders Clinical Impression: Acute respiratory failure with hypoxia, Multifocal pneumonia, Sepsis, Metastatic cancer, Pleural effusion Disposition Disposition: Acute Care Hospital [facility]
--- NOTE | 2025-05-18 04:39 | PCM.HP.STD ---
HPI - General General Date of Admission: 05/18/25 Date of Service: 05/18/25 Chief Complaint: Shortness of breath HPI Narrative ISABELLE NAQVI, is a 69 F who presents to the emergency room with chief complaint of shortness of breath. Patient has significant past medical history of pancreatic cancer with metastatic disease to the lungs and brain. Patient is status post gamma knife procedure for brain Metastasis approximately a week and a half ago and had radiation treatment to her medulla area 1 day ago. In the past day she has developed worsening shortness of breath and her described her breathing with a rattling sound. To this point she has maintained full CODE STATUS and has been aggressive in her cancer treatment. Patient has responded to BiPAP therapy in the emergency room although she remained sleeping during my evaluation. Laboratory studies reveal white blood cell count 9.9, hemoglobin 13.2, hematocrit 39.5, platelets 246, sodium 128, potassium 5.1, chloride 92, bicarb 21.6, BUN 22, creatinine 0.77, glucose 217, blood gas pH 7.47, bicarb 29.8, pCO2 41.2, PaO2 70, serum lactate level 3.8, calcium 8.9, magnesium 1.8, pro BN TP 1487, procalcitonin 3.54, urinalysis positive for bacteria. CTA chest shows left hilar mass 6.2 x 5.7 cm with enlarged hilar lymph nodes along with mild pericardial effusion. Chest x-ray shows mild left pleural effusion. MRI brain on 04/22 shows metastatic disease. I spoke with and daughter present in the room regarding CODE STATUS and at this time they were unwilling to change from full code to DNR but seemed that they would be making that decision shortly. For now patient is tolerating BiPAP therapy for her respiratory failure and will transfer patient to ICU with continued BiPAP therapy. I encouraged introducing hospice consult to the family and the were going to take some time to consider and make that decision. [facility] Medical History (Updated 05/18/25 @ 04:[address] Johann Silveira MD) Metastasis Pancreatic cancer TMJ (temporomandibular joint disorder) Wears glasses Wears dentures Cancer Marijuana use Diabetes Ambulates with cane Arthritis Bladder disease Back pain Vertigo Gastric reflux Smoker Chronic cough Leg cramps History of pain when walking History of echocardiogram History of edema Hypertension Cardiology follow-up encounter History of heart attack Abdominal pain Nausea Cardiomyopathy Sinus bradycardia Essential hypertension Coronary artery disease Pancreatitis Tobacco abuse Hyperlipidemia Hypertension Atherosclerotic heart disease of [place] coronary artery without angina pectoris Home Medications ?Medication ?Instructions ?Recorded ?Last Taken ?Type aspirin 81 mg chewable tablet 81 mg PO DAILY@0800 12/07/13 Unknown History amlodipine 10 mg tablet See Rx Instructions .Route 09/03/24 Unknown Rx .COMPLEX #90 tabs lisinopril 40 mg tablet 40 mg PO DAILY #90 TABLETS 11/02/24 Unknown Rx ondansetron 4 mg disintegrating 4 mg PO Q8H PRN PRN Nausea #10 tabs 11/08/24 Unknown Rx tablet cholecalciferol (vitamin D3) 125 2,000 unit PO DAILY 01/15/25 Unknown History mcg (5,000 unit) tablet metoclopramide HCl 5 mg tablet 5 mg PO QDAY #30 tabs 03/24/25 Unknown Rx bisacodyl 5 mg tablet,delayed 5 mg PO DAILY 04/16/25 Unknown History release (Gentle Laxative (bisacodyl)) metoclopramide HCl 10 mg tablet 10 mg PO Q6H PRN PRN 04/16/25 Unknown History nausea/vomiting polyethylene glycol 3350 17 17 g PO BID #238 grams 04/16/25 Unknown Rx gram/dose oral powder (Miralax) dicyclomine 20 mg tablet 20 mg PO BID #60 tabs 04/22/25 Unknown Rx linaclotide 72 mcg capsule 72 mcg PO QAM #30 caps 04/22/25 Unknown Rx (Linzess) Allergy/AdvReac Type Severity Reaction Status Date / Time hydrochlorothiazide AdvReac Severe reoccurring Verified 05/18/25 01:33 pancreatitis Kqhodkj-MAS-VsO Reductase AdvReac Severe reoccurring Verified 05/18/25 01:33 Inhibitor (Lzjqzse-Arf-Iay pancreatitis Reductase Inhibitor) Gadolinium-MRI Contrast AdvReac Vomiting Verified 05/18/25 01:33 Medium (Gadolinium-Contrast Medium - MRI) Family History Mother Lung cancer Father CAD (coronary artery disease) Hx of CABG Abdominal aortic aneurysm (AAA) Hypertension Brother CAD (coronary artery disease) Myocardial infarction Hypertension Hx of CABG Surgical History History of cardiac catheterization History of excision of lesion History of bilateral salpingo-oophorectomy History of total hysterectomy Social History household members: spouse Smoking Status: Current every day smoker tobacco type: cigarettes alcohol intake: never substance use type: marijuana caffeine: Yes Type: coffee ROS Review of Systems ROS Unobtainable: due to mental status Vital Signs Vital Signs Vital Signs: 05/18/25 01:33 05/18/25 01:35 05/18/25 01:36 Temperature 99.9 F H Temperature Source Oral Pulse Rate 144 H 144 H Respiratory Rate 32 H 30 H Respiratory Effort Short of Breath Accessory Muscle Use Respiratory Pattern Tachypnea Tachypnea Blood Pressure 138/76 H Blood Pressure Mean 96 Pulse Ox 65 92 Oxygen Delivery Method Room Air Room Air Fraction of Inspired Oxygen (FIO2) 100 05/18/25 01:36 05/18/25 01:37 05/18/25 01:51 Temperature 99.9 F H Temperature Source Oral Pulse Rate 144 H 144 H Respiratory Rate 32 H Respiratory Effort Respiratory Pattern Blood Pressure 138/76 H 138/76 H Blood Pressure Mean 96 Pulse Ox 65 91 Oxygen Delivery Method Room Air Bi-pap Fraction of Inspired Oxygen (FIO2) 05/18/25 01:55 05/18/25 02:04 05/18/25 02:33 Temperature 102.8 F H 103.1 F H Temperature Source Core Core Pulse Rate 146 H 135 H 116 H Respiratory Rate 28 H 32 H 28 H Respiratory Effort Respiratory Pattern Blood Pressure 99/72 97/55 L 80/57 L Blood Pressure Mean 81 69 64 Pulse Ox 97 97 96 Oxygen Delivery Method Bi-pap Bi-pap Fraction of Inspired Oxygen (FIO2) 100 100 05/18/25 03:00 05/18/25 03:30 05/18/25 04:20 Temperature 102.2 F H 101.5 F H 101 F H Temperature Source Core Core Core Pulse Rate 109 H 101 H 103 H Respiratory Rate 25 H 25 H 25 H Respiratory Effort Respiratory Pattern Blood Pressure 82/60 L 84/62 L 102/65 Blood Pressure Mean 67 69 77 Pulse Ox 93 95 Oxygen Delivery Method Fraction of Inspired Oxygen (FIO2) 05/18/25 04:24 05/18/25 04:24 Temperature 101 F H 101 F H Temperature Source Core Pulse Rate 103 H 103 H Respiratory Rate 25 H 25 H Respiratory Effort Respiratory Pattern Blood Pressure 102/65 102/65 Blood Pressure Mean 77 77 Pulse Ox 95 95 Oxygen Delivery Method Fraction of Inspired Oxygen (FIO2) Weight Weight: 164 lb 10.965 oz Body Mass Index (BMI) 28.3 Physical Exam Const Constitutional Narrative: Currently sleeping well breathing on BiPAP machine HEENT normocephalic and head/scalp atraumatic Neck no lymphadenopathy Lymph Lymphatic: no lymphadenopathy noted Resp Effort and Inspection: tachypneic and respiratory distress; Negative for uses accessory muscles Auscultation: Negative for rhonchi or wheezes Cardio regular rate, regular rhythm, S1 normal heart sound, S2 normal heart sound and no murmurs GI normal to inspection, nondistended, normoactive bowel sounds Extremity normal capillary refill Skin General Skin Exam: no breakdown Neuro Neuro Narrative: Unable to assess at this time Psych Psych Narrative: Unable to assess at this time Results Lab / Micro Data 05/18/25 01:35 05/18/25 01:35 Labs: Laboratory Results - last 24 hr 05/18/25 01:35: WBC 9.9, RBC 4.61, Hgb 13.2, Hct 39.5, MCV 85.7, MCH 28.6, MCHC 33.4, RDW Std Deviation 49.2 H, RDW Coeff of [place] 16.1 H, Plt Count 246, MPV 9.9, Immature Gran % (Auto) 0.400, Neut % (Auto) 84.9 H, Lymph % (Auto) 7.9 L, [place] % (Auto) 2.7, Eos % (Auto) 3.2, Baso % (Auto) 0.9, Absolute Neuts (auto) 8.4 H, Absolute Lymphs (auto) 0.78 L, Nucleated RBC % 0, PT 14.2, INR 1.1, APTT 30.4, Sodium 128 L, Potassium 5.1, Chloride 92 L, Carbon Dioxide 21.6, Anion Gap 15, BUN 22 H, Creatinine 0.77, Estim Creat Clear Calc 66.62, Est GFR (MDRD) Non-Af 84, BUN/Creatinine Ratio 28.2 H, Glucose 217 H, Lactic Acid 3.8 H*, Calcium 8.9, Magnesium 1.8, NT pro BNP II 1487 H, Procalcitonin 3.54 H, Urine Color Yellow, Urine Clarity Clear, Urine pH 5.0, Ur Specific [place] 1.020, Urine Protein 100 H, Urine Glucose (UA) 100 H, Urine Ketones Negative, Urine Occult Blood 50 H, Urine Nitrite Negative, Urine Bilirubin Negative, Urine Urobilinogen Normal, Ur Leukocyte Esterase Negative, Urine RBC 0-5 SEEN, Urine WBC 0-5 SEEN, Ur Squamous Epith Cells 0-5 SEEN, Amorphous Sediment 2+, Urine Bacteria 2+, Urine Mucus 1+ ABG Data ABG results: ABG 05/18/25 01:46 Specimen Type ART Sample Site R Radial pH 7.47 H Bicarbonate Actual 29.8 H Total CO2 31 Base Excess 6 H O2 Saturation 95 O2 % 15.0 ABG pCO2 41.2 ABG pO2 70 L [place] Test Positive O2 Delivery Device NRB Vent Mode Not entered Imaging Radiology Impression Chest X-Ray 05/18/25 02:02 IMPRESSION: Interval appearance of mild left pleural effusion. Associated passive atelectatic airspace disease of the left lower lobe. [facility] Chest CTA 05/18/25 02:55 IMPRESSION: No demonstrated pulmonary embolism or arterial dissection. Left hilar mass measuring 6.2 x 5.7 cm. Secondary narrowing of the corresponding airway. Secondary atelectasis of the left lower lobe. Mild left pleural effusion. Enlarged mediastinal and hilar lymph nodes with the largest measuring 2.7 cm, probably metastatic. 7 mm noncalcified left upper lobe nodule, probably metastatic. Ground-glass densities in the upper lobes and the right lower lobe, probably multifocal pneumonia. Mild osteopenia. Diffuse spondylosis. Bilateral adrenal nodules are noted with the largest measuring 1.5 cm on the left side. Mild pericardial effusion. [facility] Assessment & Plan Assessment/Plan (1) Respiratory failure: (2) Diabetes: (3) Pancreatic cancer: (4) Metastasis: PLAN: Plan 1 respiratory failure?secondary to metastatic pancreatic cancer with large left hilar lung mass on left side.?Admit patient to ICU continue BiPAP therapy. Lengthy discussion with and daughter present regarding poor prognosis with metastatic cancer. At this time they plan to take 10 minutes or so and discuss amongst themselves and will more than likely change her CODE STATUS from full to DNR but at this time she will remain full code until that decision is made. Patient was initiated on antibiotic therapy and will be given diuretic medication to assist with left pleural effusion. I also recommended hospice care consult to the family and they will decide on this shortly. Continue IV fluids normal saline 125 cc/h for modest fluid resuscitation in light of active congestive heart failure and concern for fluid overload. Repeat CBC, BMP in next 24 hours 2. Diabetes?continue routine home medication for now may need to transition to sliding scale insulin if patient is not able to protect airway and swallow pills 3. DVT prophylaxis?low molecular weight heparin 4. CODE STATUS full confirmed with plan to likely change that to DNR in the near future Charges/Coding Visit Charges Inpatient E&M: 38470 Init Hosp L2
--- NOTE | 2025-05-18 05:09 | ED.RN ---
Dr. Wallis notified patient has failed fluid resuscitation. patient has had 2 blood pressures with SBP >90 and MAP >65. Per Dr. Wallis lets wait for the second 500 mL bolus and recheck her blood pressure. we can start peripheral vasopressors. Dr. Downs talked with family regarding hospice and they denied at this time.
[2025-05-18] MEDS: Norepinephrine Bit/0.9% NaCl 8 MG/250 ML IV.SOLN 9.4 MG CONT INF (05:38)
[2025-05-18] MEDS: fentaNYL 100 MCG/2 ML Ampul 50 MCG IV (05:38)
[2025-05-18 06:05] LABS: Reflex Lactate? Y
--- NOTE | 2025-05-18 08:29 | CON.PCM.CC_ITS ---
Assessment & Plan Assessment/Plan (1) Acute respiratory failure with hypoxia: (2) Metastatic cancer: (3) Sepsis: PLAN: Plan RECOMMENDATIONS: 1. Continue BiPAP support for now. 2. Obtain follow-up arterial blood gas. 3. Obtain reflex lactate. 4. Continue empiric antimicrobials. 5. The patient is to remain n.p.o. for now. 6. Lovenox for DVT prophylaxis. 7. Obtain palliative care consultation. IMPRESSIONS: 1. Septic shock The patient presented with sepsis due to suspected postobstructive pneumonia with acute sepsis related organ dysfunction as evidenced by acute respiratory failure requiring noninvasive positive pressure ventilatory support, fluid refractory hypotension necessitating vasopressor initiation and lactic acidemia. In light of the patient's elevated BNP and history of ischemic cardiomyopathy, I would hold off on additional fluid resuscitation, given the patient's tenuous respiratory status. Will continue empiric antibiotics for now. Overall, however, the patient's prognosis is poor. 2. Acute hypoxemic respiratory failure Most likely secondary to progressive metastatic cancer compromising airway integrity leading to postobstructive pneumonia. It was confirmed with the patient's family that she is not to be intubated. The patient, accordingly, will be continued on noninvasive positive pressure ventilatory support, as tolerated. Will obtain follow-up ABG. Continue empiric antibiotics. 3. Recently diagnosed metastatic cancer (possible 2 primaries with lung and pancreas being considered)/history of tobacco dependency/history of coronary artery disease status post PCI Complicates care, management, recovery and prognosis. Continue supportive care as noted above. The patient is to remain n.p.o. for now. CODE STATUS: DNR CCA without intubation TIME: 45 minutes of critical care time, independent of procedures, was spent addressing the patient's septic shock, acute hypoxemic respiratory failure, terminal cancer, review of all data and collaboration with the care team. HPI Consult Data Date of Consult: 05/18/25 HPI Narrative Reason for Consultation: Respiratory failure HPI Narrative: The patient is a 69-year-old female, with a history as outlined below, who presented to the emergency department on May 18 with progressive shortness of breath. The patient has a known medical history that includes coronary artery disease status post PCI, ischemic cardiomyopathy and metastatic lung cancer. I spoke at length with the patient's family, who indicated that they are followed by Dr. Stevens of oncology at [facility]. Approximately 3 weeks ago, the patient was diagnosed with cancer. According to [facility] documentation, there is concern that the patient has a primary lung cancer and possibly a second pancreatic source of malignancy. The patient has extensive metastatic disease, including 12 foci of intracranial metastatic deposits, which were treated last week with gamma knife. She also received local radiation therapy, but has yet to be started on any form of systemic chemotherapy. The last surface echocardiogram in our system from 2021 revealed normal LV size and function with an ejection fraction of 65% and stage II diastolic dysfunction. On presentation to the emergency department, the patient was noted to be febrile, tachycardic and tachypneic. Blood pressures were initially stable. The patient was notably hypoxemic on room air. Laboratory evaluation revealed a normal white blood cell count. Hemoglobin and platelet count were stable. Coagulation profile was unremarkable. Chemistry profile was notable for a sodium of 128 with a chloride of 92 and lactate of 3.8. Creatinine was within normal limits. BNP was elevated at 1487. Procalcitonin was increased at 3.54. CTA chest was obtained which demonstrated no evidence for pulmonary embolism but did reveal a left hilar lung mass with secondary narrowing of the associated bronchus with atelectasis involving the left lower lobe with enlarged mediastinal adenopathy and ground glass opacities in the upper lobes. An arterial blood gas was obtained which demonstrated a pH of 7.47 with a pCO2 of 41 and pO2 of 70. The patient ultimately developed fluid refractory hypotension in the emergency department and was started on Levophed. In addition, due to her respiratory distress, BiPAP was initiated. The patient was subsequently admitted to the medical intensive care unit. After having a discussion with the patient's family, they are electing to transition her to DNR Comfort Care arrest without intubation. They are all very realistic with regard to her terminal diagnosis. If supportive care with BiPAP and antimicrobials does not lead to any significant improvement, they would be open to discussing hospice care services. [facility] Medical History (Updated 05/18/25 @ 06:[address] Preston Wallis DO) Metastasis Pancreatic cancer TMJ (temporomandibular joint disorder) Wears glasses Wears dentures Cancer Marijuana use Diabetes Ambulates with cane Arthritis Bladder disease Back pain Vertigo Gastric reflux Smoker Chronic cough Leg cramps History of pain when walking History of echocardiogram History of edema Hypertension Cardiology follow-up encounter History of heart attack Abdominal pain Nausea Cardiomyopathy Sinus bradycardia Essential hypertension Coronary artery disease Pancreatitis Tobacco abuse Hyperlipidemia Hypertension Atherosclerotic heart disease of [place] coronary artery without angina pectoris Home Medications ?Medication ?Instructions ?Recorded ?Last Taken ?Type aspirin 81 mg chewable tablet 81 mg PO DAILY@0800 12/16 Unknown History amlodipine 10 mg tablet See Rx Instructions .Route 0 09/03/24 Unknown Rx .COMPLEX #90 tabs lisinopril 40 mg tablet 40 mg PO DAILY #90 TABLETS 0 11/02/24 Unknown Rx ondansetron 4 mg disintegrating 4 mg PO Q8H PRN PRN Na usea #10 tabs 11/08/24 Unknown Rx tablet cholecalciferol (vitamin D3) 125 2,000 unit PO DAILY 0 01/15/25 Unknown History mcg (5,000 unit) tablet metoclopramide HCl 5 mg tablet 5 mg PO QDAY #30 tabs 0 03/24/25 Unknown Rx bisacodyl 5 mg tablet,delayed 5 mg PO DAILY 04/16/25 U nknown History release (Gentle Laxative (bisacodyl)) metoclopramide HCl 10 mg tablet 10 mg PO Q6H PRN PRN 0 04/16/25 Unknown History nausea/vomiting polyethylene glycol 3350 17 17 g PO BID #238 grams 07/29 Unknown Rx gram/dose oral powder (Miralax) dicyclomine 20 mg tablet 20 mg PO BID #60 tabs Unknown Rx linaclotide 72 mcg capsule 72 mcg PO QAM #30 caps 04/05 03/29 Unknown Rx (Linzess) Allergy/AdvReac Type Severity Reaction Status Date / Time hydrochlorothiazide AdvReac Severe reoccurring Verified 05/18/25 01:33 pancreatitis Ohyaukn-PPN-ZiJ Reductase AdvReac Severe reoccurring Verified 05/18/25 01:33 Inhibitor (Qcyhqko-Rxr-Fzf pancreatitis Reductase Inhibitor) Gadolinium-MRI Contrast AdvReac Vomiting Verified 05/18/25 01:33 Medium (Gadolinium-Contrast Medium - MRI) Family History Mother Lung cancer Father CAD (coronary artery disease) Hx of CABG Abdominal aortic aneurysm (AAA) Hypertension Brother CAD (coronary artery disease) Myocardial infarction Hypertension Hx of CABG Surgical History History of cardiac catheterization History of excision of lesion History of bilateral salpingo-oophorectomy History of total hysterectomy Social History household members: spouse Smoking Status: Current every day smoker tobacco type: cigarettes alcohol intake: never substance use type: marijuana caffeine: Yes Type: coffee ROS ROS Narrative 10 systems were reviewed with pertinent positives as noted in the HPI above. Physical Exam Const Constitutional Narrative: The patient is somnolent and ill in appearance with BiPAP in place. HEENT normocephalic and head/scalp atraumatic Eyes PERRL, EOMs intact bilaterally and conjunctivae normal Neck supple General: trachea midline Chest inspection of chest normal Resp Effort and Inspection: tachypneic Auscultation: rhonchi and diminished lung sounds Cardio regular rate and regular rhythm GI normal to inspection, nondistended, normoactive bowel sounds Extremity no clubbing, cyanosis or edema Skin no rashes or lesions noted Neuro CN's II-XII intact bilaterally and no focal motor deficits Psych Mood & Affect: flat affect Lab / Micro Data 05/18/25 01:35 05/18/25 01:35 Labs: Laboratory Results - last 24 hr 05/18/25 01:35: WBC 9.9, RBC 4.61, Hgb 13.2, Hct 39.5, MCV 85.7, MCH 28.6, MCHC 33.4, RDW Std Deviation 49.2 H, RDW Coeff of [place] 16.1 H, Plt Count 246, MPV 9.9, Immature Gran % (Auto) 0.400, Neut % (Auto) 84.9 H, Lymph % (Auto) 7.9 L, [place] % (Auto) 2.7, Eos % (Auto) 3.2, Baso % (Auto) 0.9, Absolute Neuts (auto) 8.4 H, A bsolute Lymphs (auto) 0.78 L, Nucleated RBC % 0, PT 14.2, INR 1.1, APTT 30.4, S odium 128 L, Potassium 5.1, Chloride 92 L, Carbon Dioxide 21.6, Anion Gap 15, B UN 22 H, Creatinine 0.77, Estim Creat Clear Calc 66.62, Est GFR (MDRD) Non-Af 84, BUN/Creatinine Ratio 28.2 H, Glucose 217 H, Lactic Acid 3.8 H*, Calcium 8.9, Magnesium 1.8, NT pro BNP II 1487 H, Procalcitonin 3.54 H, Urine Color Yellow, Urine Clarity Clear, Urine pH 5.0, Ur Specific [place] 1.020, Urine Protein 100 H, Urine Glucose (UA) 100 H, Urine Ketones Negative, Urine Occult Blood 50 H, Urine Nitrite Negative, Urine Bilirubin Negative, Urine Urobilinogen Normal, Ur Leukocyte Esterase Negative, Urine RBC 0-5 SEEN, Urine WBC 0-5 SEEN, Ur Squamous Epith Cells 0-5 SEEN, Amorphous Sediment 2+, Urine Bacteria 2+, Urine Mucus 1+ Micro: Microbiology 05/18/25 01:35 Mucosa - Nose SARS-CoV-2, Influenza & RSV (PCR) - Final ABG Data ABG results: ABG 05/18/25 01:46 Specimen Type ART Sample Site R Radial pH 7.47 H Bicarbonate Actual 29.8 H Total CO2 31 Base Excess 6 H O2 Saturation 95 O2 % 15.0 ABG pCO2 41.2 ABG pO2 70 L [place] Test Positive O2 Delivery Device NRB Vent Mode Not entered Imaging Radiology Impression Chest X-Ray 05/18/25 02:02 IMPRESSION: Interval appearance of mild left pleural effusion. Associated passive atelectatic airspace disease of the left lower lobe. Reading Location: [place] [address] Chest CTA 05/18/25 02:55 IMPRESSION: No demonstrated pulmonary embolism or arterial dissection. Left hilar mass measuring 6.2 x 5.7 cm. Secondary narrowing of the corresponding airway. Secondary atelectasis of the left lower lobe. Mild left pleural effusion. Enlarged mediastinal and hilar lymph nodes with the largest measuring 2.7 cm, probably metastatic. 7 mm noncalcified left upper lobe nodule, probably metastatic. Ground-glass densities in the upper lobes and the right lower lobe, probably multifocal pneumonia. Mild osteopenia. Diffuse spondylosis. Bilateral adrenal nodules are noted with the largest measuring 1.5 cm on the left side. Mild pericardial effusion. Reading Location: [place] [address] Sepsis Attestation Sepsis Alert: Yes Sepsis Attestation: Agree w/Sepsis Date exam was performed: 05/18/25 Time exam was performed: 09:39 Possible Source of Sepsis: Pulmonary Sepsis Organ Dysfunction Criteria Present: SBP < 90 mmHg or MAP < 65 mmHg, Acute Respiratory Failure (New need for BiPAP/CPAP or MV) and Lactic Acid > 2 mmol/L Fluid Resuscitation Fluid resuscitation indicated?: Yes Fluid Resuscitation ordered: Lesser volume fluid bolus ordered Amount of fluid ordered: 1,000 Reason for lesser fluid bolus:: Concern for fluid overload and Heart failure Sepsis Note Date exam was performed: 05/18/25 Time exam was performed: 09:40 Sepsis Attestation: Sepsis re-evaluation was performed Response to fluids: Non Fluid responsive hypotension and Vasopressors started Charges/Coding Procedures Hospitalists Procedures: 87242 Critical Care 1st Hr
[2025-05-18 09:28] LABS: Allen Test Positive; Base Excess 8 mmol/L (-2 to +2); FI02 55.0; PEEP 10; PO2 68 mmHG (75-100); SITE R Radial; SO2 94 % (95-99)
--- NOTE | 2025-05-18 09:48 | ECHOCS_ITS ---
Reason For Study Reason For Study: Dyspnea/SOB Procedure This was a 2D Doppler, Color Flow transthoracic echocardiogram. The study was technically difficult. Contrast injection was performed. Exam performed portable in ICU/CCU. Left Ventricle Normal LV size. The left ventricular ejection fraction is 65 %. No regional wall motion abnormalities noted. Right Ventricle Normal RV size. Normal systolic function. Atria The left and right atria are normal. Normal right atrium. Mitral Valve Normal mitral valve. Tricuspid Valve Normal tricuspid valve. Mild-Moderate (1-2+) tricuspid valve insufficiency. Pulmonary artery systolic pressure is 35 mmHg. Aortic Valve Normal aortic valve. Pulmonic Valve Normal pulmonic valve. Great Vessels Normal aortic root. The pulmonary artery is normal size. Inferior vena cava collapse with respiration. Pericardium/Pleural No pericardial effusion. Medication Diluted definity 2.5ml given slow IV push to enhance endocardial definition. MMode/2D Measurements & Calculations LVIDd: 3.4 cm IVSd: 1.0 cm LAV(MOD- bp): 36.2 ml LVIDs: 2.6 cm LVPWd: 0.91 cm RVDd: 3.3 cm FS: 23.3 % LAV(MOD- bp) Indexed: 21.7 ml/m2 LAV(MOD- sp2): 39.3 ml LAV(MOD- sp4): 31.3 ml SV(MOD-sp4): 43.6 ml SV(sp4- el): 46.2 ml LVAd ap4: 23.4 cm2 LVLd ap4: 7.0 cm SI(MOD-sp4): 26.2 ml/m2 EDV(MOD-sp4): 64.1 ml EDV(sp4-el): 66.9 ml LVAs ap4: 11.8 cm2 LVLs ap4: 5.7 cm ESV(MOD-sp4): 20.5 ml ESV(sp4-el): 20.7 ml EF(MOD-sp4): 68.0 % EF(sp4-el): 69.0 % LA dimension(2D): 2.9 cm LA A4 area: 14.0 cm2 RA A4 area: 11.2 cm2 TAPSE: 1.6 cm Time Measurements MV dec time: 0.29 sec Doppler Measurements & Calculations MV E max bridger: 67.4 cm/sec Lat Peak E' Bridger: 7.0 cm/sec Med Peak E' Bridger: 5.2 cm/sec MV A max bridger: 103.3 cm/sec E/E' lat: 9.7 E/E' med: 12.9 MV E/A: 0.65 MV V2 max: 143.7 cm/sec MV P1/2t max bridger: 108.3 cm/sec Ao V2 max: 263.1 cm/sec MV max P.3 mmHg MV P1/2t: 91.2 msec Ao max P.7 mmHg MV V2 mean: 77.4 cm/sec MV dec slope: 347.9 cm/sec2 Ao V2 mean: 158.2 cm/sec MV mean P.8 mmHg MVA(P1/2t): 2.4 cm2 Ao mean P.9 mmHg MV V2 VTI: 29.5 cm Ao V2 VTI: 40.9 cm AV (velocity ratio): 0.61 AI max bridger: 385.1 cm/sec LV V1 max: 152.0 cm/sec TR max bridger: 278.7 cm/sec AI max P.3 mmHg LV V1 max P.3 mmHg TR max P.3 mmHg AI dec slope: 162.6 cm/sec2 LV V1 mean P.3 mmHg AI P1/2t: 693.7 msec LV V1 mean: 96.5 cm/sec LV V1 VTI: 25.0 cm ECHO/Echo Complete W/ Contrast Interpretation Summary The left ventricular ejection fraction is 65 %. Normal LV size. Pulmonary artery systolic pressure is 35 mmHg. Mild-Moderate (1-2+) tricuspid valve insufficiency. Contrast injection was performed. Ordering Physician: Nithin Denson Performed By: Angel Luis Marquis RCS
--- NOTE | 2025-05-18 09:58 | CON.PCM.PA_ITS ---
[facility] Medical History Metastasis Pancreatic cancer TMJ (temporomandibular joint disorder) Wears glasses Wears dentures Cancer Marijuana use Diabetes Ambulates with cane Arthritis Bladder disease Back pain Vertigo Gastric reflux Smoker Chronic cough Leg cramps History of pain when walking History of echocardiogram History of edema Hypertension Cardiology follow-up encounter History of heart attack Abdominal pain Nausea Cardiomyopathy Sinus bradycardia Essential hypertension Coronary artery disease Pancreatitis Tobacco abuse Hyperlipidemia Hypertension Atherosclerotic heart disease of [place] coronary artery without angina pectoris Home Medications ?Medication ?Instructions ?Recorded ?Last Taken ?Type aspirin 81 mg chewable tablet 81 mg PO DAILY@0800 12/16 Unknown History amlodipine 10 mg tablet See Rx Instructions .Route 0 09/03/24 Unknown Rx .COMPLEX #90 tabs lisinopril 40 mg tablet 40 mg PO DAILY #90 TABLETS 0 11/02/24 Unknown Rx ondansetron 4 mg disintegrating 4 mg PO Q8H PRN PRN Na usea #10 tabs 11/08/24 Unknown Rx tablet cholecalciferol (vitamin D3) 125 2,000 unit PO DAILY 0 01/15/25 Unknown History mcg (5,000 unit) tablet metoclopramide HCl 5 mg tablet 5 mg PO QDAY #30 tabs 0 03/24/25 Unknown Rx bisacodyl 5 mg tablet,delayed 5 mg PO DAILY 04/16/25 U nknown History release (Gentle Laxative (bisacodyl)) metoclopramide HCl 10 mg tablet 10 mg PO Q6H PRN PRN 0 04/16/25 Unknown History nausea/vomiting polyethylene glycol 3350 17 17 g PO BID #238 grams 07/29 Unknown Rx gram/dose oral powder (Miralax) dicyclomine 20 mg tablet 20 mg PO BID #60 tabs Unknown Rx linaclotide 72 mcg capsule 72 mcg PO QAM #30 caps 04/05 03/29 Unknown Rx (Linzess) Allergy/AdvReac Type Severity Reaction Status Date / Time hydrochlorothiazide AdvReac Severe reoccurring Verified 05/18/25 01:33 pancreatitis Rxbwemv-SNV-GqZ Reductase AdvReac Severe reoccurring Verified 05/18/25 01:33 Inhibitor (Mvmjugr-Fza-Qcy pancreatitis Reductase Inhibitor) Gadolinium-MRI Contrast AdvReac Vomiting Verified 05/18/25 01:33 Medium (Gadolinium-Contrast Medium - MRI) Family History Mother Lung cancer Father CAD (coronary artery disease) Hx of CABG Abdominal aortic aneurysm (AAA) Hypertension Brother CAD (coronary artery disease) Myocardial infarction Hypertension Hx of CABG Surgical History History of cardiac catheterization History of excision of lesion History of bilateral salpingo-oophorectomy History of total hysterectomy Social History household members: spouse Smoking Status: Current every day smoker tobacco type: cigarettes alcohol intake: never substance use type: marijuana caffeine: Yes Type: coffee ROS ROS Narrative limited RT medical status and actively dying Cardiovascular Cardiovascular: Reports dyspnea, dyspnea at rest, dyspnea on exertion and edema Respiratory/Chest Respiratory/Chest: Reports dusky skin, dyspnea, dyspnea on exertion and portable oxygen @ home Gastrointestinal Gastrointestinal: Reports systems reviewed and no addt'l complaints, except as documented Genitourinary Genitourinary: Reports as per HPI Musculoskeletal Musculoskeletal: Reports as per HPI Integumentary Integumentary: Reports as per HPI Psychiatric Psychiatric: Reports as per HPI Endocrine Endocrinology: Reports as per HPI Hematologic/Lymphatic Hematologic/Lymphatic: Reports as per HPI Allergic/Immunologic Allergic/Immunologic: Reports as per HPI Physical Exam Const alert HEENT normocephalic Resp Effort and Inspection: tachypneic and uses accessory muscles Auscultation: crackles and diminished lung sounds Cardio Cardio Narrative: bradycardia Rate: tachycardic GI soft to palpation Neuro Neuro Narrative: intermittent confusion Speech: speech normal Psych Activity / Motor Behavior: restless Charges/Coding Palliative Care Palliative Care: 44550 New Pt Consult 80+ min HPI Current admission Current Code Status: DNRCC-A no intubation Associated Diagnosis: metastatic CA Consult Data Date of Consult: 05/18/25 Location of consult: ICU Reason for referral: hospice discussion Referral source: Dr. Denson Palliative care diagnosis (Summary list): terminal metastatic cancer Case discussed with referring provider: comfort measures HPI Narrative HPI Narrative: PAIN ASSESSMENT Location: [all over ] Quality: [ ] Severity/Quantity: [ ] Timing/Frequency: [ ] Context: [ ] Factors that make it better/worse: [ ] Associated signs & symptoms: [ ] Prior to meeting with the pt at bedside, I reviewed documentation, labs and radiological studies. I also spoke with Dr. Denson. I then met with ISABELLE NAQVI at bedside she is saying that she wants to go home. She was continually ripping the Bipap mask off. Stating that she does not want it. I did meet with the patients and family in the family room. They have elected to transition her to comfort care. I did update Dr. Denson. Family wants to liberalize the pts diet, which has been done. Pt is now on NC and Levophed is being titrated off. Family is all in agreement to consult [facility] hospice if pt stabilizes. Comfort care orders placed. Nursing is aware. [ ] per Dr. Denson: The patient is a 69-year-old female, with a history as outlined below, who presented to the emergency department on May 18 with progressive shortness of breath. The patient has a known medical history that includes coronary artery disease status post PCI, ischemic cardiomyopathy and metastatic lung cancer. I spoke at length with the patient's family, who indicated that they are followed by Dr. Stevens of oncology at [facility]. Approximately 3 weeks ago, the patient was diagnosed with cancer. According to [facility] documentation, there is concern that the patient has a primary lung cancer and possibly a second pancreatic source of malignancy. The patient has extensive metastatic disease, including 12 foci of intracranial metastatic deposits, which were treated last week with gamma knife. She also received local radiation therapy, but has yet to be started on any form of systemic chemotherapy. The last surface echocardiogram in our system from 2021 revealed normal LV size and function with an ejection fraction of 65% and stage II diastolic dysfunction. On presentation to the emergency department, the patient was noted to be febrile, tachycardic and tachypneic. Blood pressures were initially stable. The patient was notably hypoxemic on room air. Laboratory evaluation revealed a normal white blood cell count. Hemoglobin and platelet count were stable. Coagulation profile was unremarkable. Chemistry profile was notable for a sodium of 128 with a chloride of 92 and lactate of 3.8. Creatinine was within normal limits. BNP was elevated at 1487. Procalcitonin was increased at 3.54. CTA chest was obtained which demonstrated no evidence for pulmonary embolism but did reveal a left hilar lung mass with secondary narrowing of the associated bronchus with atelectasis involving the left lower lobe with enlarged mediastinal adenopathy and ground glass opacities in the upper lobes. An arterial blood gas was obtained which demonstrated a pH of 7.47 with a pCO2 of 41 and pO2 of 70. The patient ultimately developed fluid refractory hypotension in the emergency department and was started on Levophed. In addition, due to her respiratory distress, BiPAP was initiated. The patient was subsequently admitted to the medical intensive care unit. After having a discussion with the patient's family, they are electing to transition her to DNR Comfort Care arrest without intubation. They are all very realistic with regard to her terminal diagnosis. If supportive care with BiPAP and antimicrobials does not lead to any significant improvement, they would be open to discussing hospice care services. Palliative Assessment Advanced Directive - Current Admission Advance Directive: Advance Directive ON ADMISSION - REFERENCE 3 Do you have a Healthcare Yes 05/18/25 08:19 Living Will? Is a Healthcare Living Will No, requested patient bring 05/18/25 08:19 present in the medical record? copy into [facility] Do you have a Healthcare Power Yes 05/18/25 08:19 of Parts Room Associate? Is a Healthcare Power of No, requested patient bring 05/18/25 08:19 Parts Room Associate present in the copy into [facility] medical rec Name of Medical Power of Faheem Naqvi, 05/18/25 08:19 Parts Room Associate Do You Want Additional Declined 05/18/25 08:19 Information on Advanced Directives or Healthcare Proxy/DPOA comments: Psychosocial/Spiritual Information Living situation/Marital status: lives with Geographic location: [place] Supports: family Yazidi/Josette or spiritual preference: baptism Spiritual distress: denies Assistive devices at home: walker Information about the patient as a person: pt LOVES spending time with family Symptoms Palliative performance scale: 20% Palliative prognostic index: 11.0 Prognostication is hours to days Dyspnea symptoms: Severe Fatigue symptoms: Severe Weakness symptoms: Severe Confusion symptoms: Mild Objective Data Objective Data Vital Signs: Vital Signs Temp Pulse Resp BP Pulse Ox O2 Del Method FiO2 97.0 F L 90 24 H 104/67 95 Bi-pap 55 05/18/25 08:25 05/18/25 08:30 05/18/25 08:30 05/18/25 08:30 05/18/25 08:30 05/18/25 08:30 05/18/25 08:30 Oxygen Delivery Method Bi-pap Weight: 137 lb 9.095 oz Body Mass Index (BMI) 23.6 Intake & Output: Intake and Output for Last 24 Hours 05/16/25 05/17/25 05/18/25 23:59 23:59 23:59 Intake Total 1326.57 / 1326.57 Balance 1326.57 / 1326.57 Lab / Micro Data Attestation: I reviewed the patient's lab results. 05/18/25 01:35 05/18/25 01:35 Labs: Laboratory Results - last 24 hr 05/18/25 01:35: WBC 9.9, RBC 4.61, Hgb 13.2, Hct 39.5, MCV 85.7, MCH 28.6, MCHC 33.4, RDW Std Deviation 49.2 H, RDW Coeff of Zoila 16.1 H, Plt Count 246, MPV 9.9, Immature Gran % (Auto) 0.400, Neut % (Auto) 84.9 H, Lymph % (Auto) 7.9 L, Crane % (Auto) 2.7, Eos % (Auto) 3.2, Baso % (Auto) 0.9, Absolute Neuts (auto) 8.4 H, A bsolute Lymphs (auto) 0.78 L, Nucleated RBC % 0, PT 14.2, INR 1.1, APTT 30.4, S odium 128 L, Potassium 5.1, Chloride 92 L, Carbon Dioxide 21.6, Anion Gap 15, B UN 22 H, Creatinine 0.77, Estim Creat Clear Calc 66.62, Est GFR (MDRD) Non-Af 84, BUN/Creatinine Ratio 28.2 H, Glucose 217 H, Lactic Acid 3.8 H*, Calcium 8.9, Magnesium 1.8, NT pro BNP II 1487 H, Procalcitonin 3.54 H, Urine Color Yellow, Urine Clarity Clear, Urine pH 5.0, Ur Specific [place] 1.020, Urine Protein 100 H, Urine Glucose (UA) 100 H, Urine Ketones Negative, Urine Occult Blood 50 H, Urine Nitrite Negative, Urine Bilirubin Negative, Urine Urobilinogen Normal, Ur Leukocyte Esterase Negative, Urine RBC 0-5 SEEN, Urine WBC 0-5 SEEN, Ur Squamous Epith Cells 0-5 SEEN, Amorphous Sediment 2+, Urine Bacteria 2+, Urine Mucus 1+ Micro: Microbiology 05/18/25 01:35 Mucosa - Nose SARS-CoV-2, Influenza & RSV (PCR) - Final ABG Data ABG results: ABG 05/18/25 05/18/25 01:46 09:24 Specimen Type ART ART Sample Site R Radial R Radial pH 7.47 H 7.47 H Bicarbonate Actual 29.8 H 31.1 H Total CO2 31 32 Base Excess 6 H 8 H O2 Saturation 95 94 L O2 % 15.0 55.0 ABG pCO2 41.2 42.5 ABG pO2 70 L 68 L Nabor Test Positive Positive O2 Delivery Device NRB BiPAP Vent Mode Not entered Not entered POC PEEP 10 Radiography Diagnostic Testing: Radiology Impression Chest X-Ray 05/18/25 02:02 IMPRESSION: Interval appearance of mild left pleural effusion. Associated passive atelectatic airspace disease of the left lower lobe. Reading Location: [id number] Chest CTA 05/18/25 02:55 IMPRESSION: No demonstrated pulmonary embolism or arterial dissection. Left hilar mass measuring 6.2 x 5.7 cm. Secondary narrowing of the corresponding airway. Secondary atelectasis of the left lower lobe. Mild left pleural effusion. Enlarged mediastinal and hilar lymph nodes with the largest measuring 2.7 cm, probably metastatic. 7 mm noncalcified left upper lobe nodule, probably metastatic. Ground-glass densities in the upper lobes and the right lower lobe, probably multifocal pneumonia. Mild osteopenia. Diffuse spondylosis. Bilateral adrenal nodules are noted with the largest measuring 1.5 cm on the left side. Mild pericardial effusion. Reading [facility] Impressions & Recommendations Patient & Family Issues discussed with the patient and family: goals of care Patient goal: wants to go home. Family goal: placed on comfort measures Ethical & Legal Ethical and legal: none Recommentation Palliative recommendations: recommend hospice if pt stabilizes but may pass in hospital Encouter Achieved as a result of this Palliative Care Encounter: [[id number] ] minutes were spent in total for this visit which consisted, primarily of counseling and education dealing with the complex and emotionally intense issues of symptom management and palliative care in the setting of serious and potentially life-threatening illness. Review of documentation, labs and radiological studies. ?Patient/family had the opportunity to ask questions Plan (1) Sepsis: PLAN: Medical management per primary team (2) Metastatic cancer: PLAN: Medical management per primary team (3) Pleural effusion: PLAN: Medical management per primary team (4) Acute respiratory failure with hypoxia: PLAN: *Patient has transition to comfort care and placed on nasal cannula. (5) Respiratory failure: (6) Palliative care encounter: PLAN: *family meeting and family is very realistic and they are transitioning to comfort care in the hospital. If she happens to stabilize, will send referral to [facility]. *liberalize diet (per family request) *liberalize visitation *DNRCC *Morphine 2 mg IV every 1 hour as needed for dyspnea and airhunger to keep RR <24 *Ativan 0.5mg IV every 2 hours as needed for restlessness or anxiety *updated Dr. Denson (7) Goals of care, counseling/discussion: PLAN: *Goal for family is for the patient to be as comfortable as possible.
--- NOTE | 2025-05-18 09:59 | PCM.RX.CS ---
Consult Antibiotic Management Pharmacy has been consulted to manage selected antibiotic: Vancomycin Type of Intervention Type of Consult: New start Suspected Infection Suspected Infection: Sepsis and Pneumonia Labs Labs: Sodium 128 mmol/L (133-145) L 05/18/25 01:35 Potassium 5.1 mmol/L (3.3-5.1) 05/18/25 01:35 Chloride 92 mmol/L (98-108) L 05/18/25 01:35 Carbon Dioxide 21.6 mmol/L (21.0-32.0) 05/18/25 01:35 Anion Gap 15 (5-15) 05/18/25 01:35 BUN 22 mg/dL (4-19) H 05/18/25 01:35 Creatinine 0.77 mg/dL (0.70-1.20) 05/18/25 01:35 Est GFR (MDRD) Non-Af 84 (>60) 05/18/25 01:35 BUN/Creatinine Ratio 28.2 RATIO (10-20) H 05/18/25 01:35 Glucose 217 mg/dL (70-99) H 05/18/25 01:35 Microbiology Microbiology: Microbiology 05/18/25 01:35 Mucosa - Nose SARS-CoV-2, Influenza & RSV (PCR) - Final Pharmacy Plan for Drug Dosing Pharmacy Plan for Drug Dosing: NEW START IV VANCOMYCIN Consulting Physician: Jarett Indication: Septic shock/pneumonia Goal Trough: 15-20 mg/dL SrCr: 0.77 mg/dL CrCl: 66 mL/min Comments: initial dose of 1250mg given in ER 05/18 @0307 Vancomycin Dose: Will start 750mg Q12 (@1500) and get a level prior to 4th total dose per policy. Pending Level: 05/19/25 @ 1430 Pharmacy Service will continue to monitor and adjust dosing as required.
[2025-05-18 10:10] LABS: Troponin T High Sensitivity 53 ng/L (<=14)
--- NOTE | 2025-05-18 11:41 | CASEMGMT ---
GALLO OJEDA received notification from Palliative BENCH REPAIR TECHNICIAN that pt wishes to go Hospice and be CC only at this point. GALLO OJEDA notified SW.
[2025-05-18] MEDS: 0.9% Saline Lock 10 ML Syringe IV ×9 (12:35→22:03)
--- NOTE | 2025-05-18 14:20 | CHAPLAIN ---
Type of Pastoral Visit _x__ Initial Visit ___ Follow-up Visit ___ On-call Visit ___ General Patient Visit ___ Spiritual Assessment ___ Family Conference ___ Bereavement ___ Rapid Response ___ Code Blue ___ Other (describe below) Pastoral Care Referral From _x__ Patient _x__ Family _x__ Nurse ___ Physician ___ Mailroom Clerk ___ Manager Audit ___ Other (describe below) Sacrament/Intervention _x__ Active listening ___ Anointing ___ Congregational ___ Bereavement ___ Communion ___ Josette exploration ___ ___ Life review _x__ Prayer ___ Reconciliation ___ Sacrament of Sick _x_ Supportive presence ___ Wedding ___ Other (describe below) Pastoral Comments entered room as patient has lower O2 levels; RN came to put Bi-Pap back on as patient states that she doesn't want that anymore; at this time the Palliative Care BOAT HOIST OPERATOR enters room after having just met with family to discuss plan of care; family has also requested that patient not be on the Bi-Pap and thus the nose canula is returned; pt is breathing on her own but with some effort; introduction to patient of role and offer of support from ship fastener; pt asks for prayer and reaches out her hand; daughter, sister, and two nieces are now in the room as well; some are tearful; offer of prayer and affirmation of presence, love, support are all given; offer of support to family; checked on patient on several occasions throughout the day but did not speak again to patient; told family that this ship fastener is available as desired at their request of support and spiritual care
[2025-05-18 15:12] LABS: Reflex Lactate? Y
--- NOTE | 2025-05-18 15:31 | CASEMGMT ---
Palliative GRAIN PROCESSOR notified GALLO OJEDA that Pt would like to go ahead with referral to Hospice, they are undecided if they want [facility]PU or Home with hospice. GALLO OJEDA notified SW.
--- NOTE | 2025-05-18 15:54 | CASEMGMT ---
Addendum entered by Clementine Rodriguez 05/18/25 16:32: Social Work Hospice meeting scheduled for tomorrow between 830am-9am. KLEVER Quispe Original Note: Social Work Hospice referral needed for pt, family not sure if they want pt to go to the IPU or home w/hospice. SW emailed the referral to [facility] as per the protocol, asked them to call the to set up a meeting and if the does not answer to call the ICU, gave the numbers for both the and ICU. RN in ICU updated. KLEVER Quispe
--- NOTE | 2025-05-19 02:20 | NURSING ---
2352 Time of confirmed by this RN and also Arlene Bowen RN. Evie is bedside. 235 Notified Cecile Wellington NP of patient TOD. 0000 Called strap machine operator and notified switchboard of patient decesed. Paged Dielectric Press Operator. [address] Dr. Dias. He released body as the patient is not a coroners case. 0010 Called [facility] and gave patient information. They assigned ID number and will fax information. The body is on hold at this time. 0130 Family leaves room. (Daughter, , and son in law.) confirms [facility] for where she is to go once released. 0152 updated [facility] 0155 Body transported to [facility] [place], [place].
--- NOTE | 2025-05-19 02:30 | NURSING ---
0130 Faheem took patients glasses. These were the only belongings with the patient.
--- NOTE | 2025-05-19 07:05 | PCM.DEATH ---
Preliminary Cause of Preliminary Cause of Preliminary Cause of : Acute hypoxic respiratory failure and septic shock due to postobstructive pneumonia in the setting of metastatic lung cancer Date of Admission: 05/18/25 Date of : 05/18/25 Principle Diagnosis Problem List: Active and Suspected Problems (Updated 05/18/25 @ 11:35 by GAVIN Guillen) Goals of care, counseling/discussion (Acute) Palliative care encounter (Acute) Pleural effusion (Acute) Metastatic cancer (Acute) Sepsis (Acute) Acute respiratory failure with hypoxia (Acute) Respiratory failure (Acute) Diabetes (Acute) PREDIABETIC Pancreatic cancer (Acute) Metastasis (Acute) Hospital Course Mrs. Henry is a 69-year-old female who presented to the hospital with increased shortness of breath and hypoxia in the setting of concern for septic shock necessitating Levophed and antibiotics. She had increased work of breathing was placed on BiPAP. Approximately 3 weeks ago she was diagnosed with primary lung and pancreatic cancer. She had extensive metastatic disease with 12 foci of intracranial metastatic deposits. She had received some localized radiation therapy but not started on any chemotherapy yet. She presented to the hospital with her increasing shortness of breath and had conversations with the admitting physician as well as palliative care and ultimately between her and her family decided to proceed with hospice care here in the hospital given her oxygen requirements as well as the need for pressor support. She was started on comfort care medications been removed from BiPAP and her Levophed was weaned off. She did have some improvement throughout the day in terms of her mentation and had requested to potentially be discharged home to continue with hospice care. Hospice was called but they would not be able to see her until 9 AM on 05/19/2025. Unfortunately she continued to deteriorate throughout the day and she on 05/18/2025 at 2352.
== END 2025-05-19 01:58 | DRG 435 ==
LOC: ED 04:31 → ICU 05:06
PROVIDERS: Internal Medicine Critical Care Medicine; Admitting Provider Family Medicine; Emergency Provider Emergency Medicine; PCP Family Medicine; Visit Provider Family Medicine
DX: C25.9 Malignant neoplasm of pancreas, unspecified (principal); A41.9 Sepsis, unspecified organism; J96.01 Acute respiratory failure with hypoxia; J18.9 Pneumonia, unspecified organism; R65.21 Severe sepsis with septic shock; E87.20 Acidosis, unspecified; C34.90 Malignant neoplasm of unspecified part of unspecified bronchus or lung; E11.9 Type 2 diabetes mellitus without complications; F17.210 Nicotine dependence, cigarettes, uncomplicated; I25.10 Atherosclerotic heart disease of native coronary artery without angina pectoris; I25.2 Old myocardial infarction; Z66 Do not resuscitate; R91.8 Other nonspecific abnormal finding of lung field
CPT/HCPCS: 36600; 51702; 71045; 71275; 80048; 81001; 82803; 83605; 83735; 83880; 84145; 84484; 85025; 85610; 85730; 87040; 87077; 87086; 87149; 87186; 87631; 93005; 93306; 94002; 99285; Q9957; Q9967; A4216; C8929; J1938; J2405